=== PATIENT | female | born 1940 | race Caucasian/White ===

== ENCOUNTER → 2016-08-15 | Outpatient (CLI) | payer MEDICARE, OTHER ==
[2015-09-02 19:15] VITALS: BP 139/79
[~2016-08-15] MED LIST: ASCO10002 PO; ASPI81TA2 PO; CALC600T4 PO; CARV3.12 PO; CETI10TA22 PO; CHOL10002 PO; COLE5PAC PO; CRESTOR40 MG PO; CYAN100072 PO; DIPH25CA58 PO; ESOM40CA25 PO; FENO48TA16 PO; FLUT16SP2 NS; FLUT1DIS5 IH; FURO40TA4 PO; GUAI120L35 PO; HYDR-971 PO; IPRA3AMP IH; LACT1CAP PO; LEVO500T38 PO; LOSA25TA PO; METO2.5T PO; MONT10TA9 PO; NITR0.4T6 SL; OMEG-57 PO; POLY119P4 PO; POTA20TA82 PO; PRED-220 PO; PRED20TA PO; SERT50TA8 PO; SIME80TA14 PO; TIOT18CA IH
[2016-08-15 12:28] LABS: CALCIUM 8.7 mg/dL (8.5-10.1); CREATININE 1.8 mg/dL (0.6-1.0); GFR 27.2; POTASSIUM 4.5 mmol/L (3.5-5.1)
== END | disposition home or self-care (01) ==
LOC: LAB 11:53
PROVIDERS: ATTEND Internal Medicine Cardiovascular Disease
DX: I50.30 Unspecified diastolic (congestive) heart failure (principal)
CPT/HCPCS: 36415; 80048; 83880

== ENCOUNTER 2016-08-19 10:34 | Emergency (ER) | payer MEDICARE, OTHER ==
[~2016-08-19] VITALS: Ht 157.5 cm; Wt 89.4 kg
[2016-08-19] MEDS ORDERED: ACETAMINOPHEN 500 MG TABLET PO ONE (11:15)
--- NOTE | 2016-08-19 11:19 | PHYS DOC ---
Past Medical History Past Medical History: Constipation, COPD, GERD, High Cholesterol Additional Past Medical Histor: CHRONIC KIDNEY DISEASE Past Surgical History: Appendectomy, Cholecystectomy, Tonsillectomy, Other Additional Past Surgical Histo: CARDIAC STENT, BACK SX Alcohol Use: None Drug Use: None Adult General Chief Complaint Chief Complaint: SHORTNESS OF BREATH HPI HPI Patient is a 76 year old female who presents with gradual onset of symptoms over the past 3 days including sore throat, rhinorrhea, dry cough, headache, and dyspnea. States has improvement in dyspnea since taking nebs this a.m. Has been using NC 2L at rest per chronic level. She denies f/c, n/v, abdominal or chest pain, hemoptysis, leg pain or swelling. Says she did have some bilateral leg swelling a few days ago that has resolved. Review of Systems Review of Systems Constitutional: Denies fever or chills [] Eyes: Denies change in visual acuity, redness, or eye pain [] HENT: Has nasal congestion and sore throat [] Respiratory: Has cough and shortness of breath [] Cardiovascular: No additional information not addressed in HPI [] GI: Denies abdominal pain, nausea, vomiting, bloody stools or diarrhea [] : Denies dysuria or hematuria [] Musculoskeletal: Denies back pain or joint pain [] Integument: Denies rash or skin lesions [] Neurologic: Denies headache, focal weakness or sensory changes [] Endocrine: Denies polyuria or polydipsia [] Current Medications Current Medications Current Medications Medications (Trade) Dose Ordered Sig/Deidra Start Time Stop Time Status Last Admin Dose Admin Acetaminophen (Tylenol) 500 mg 1X ONCE 08/19/16 11:15 08/19/16 11:16 DC 08/19/16 11:27 500 MG Allergies Allergies Allergies Coded Allergies Type Severity Reaction Last Updated Verified Penicillins Allergy Intermediate 02/28/15 Yes Sulfa (Sulfonamide Antibiotics) Allergy Intermediate 02/28/15 Yes I S O L A T I O N *CONTACT* Allergy Unknown 05/19/15 Yes Physical Exam Physical Exam Constitutional: Well developed, well nourished, no acute distress, non-toxic appearance. [] HENT: Normocephalic, atraumatic, bilateral external ears normal, oropharynx moist, nose normal. [] Eyes: PERRLA, EOMI. [] Neck: Normal range of motion, supple. [] Cardiovascular:Heart rate regular rhythm [] Lungs & Thorax: Bilateral breath sounds clear to auscultation [] Abdomen: Bowel sounds normal, soft, no tenderness. [] Skin: Warm, dry, no erythema, no rash. [] Back: Normal range of motion. [] Extremities: No tenderness, ROM intact, no edema. [] Neurologic: Alert and oriented X 3, normal motor function, normal sensory function, no focal deficits noted. [] Psychologic: Affect normal, judgement normal, mood normal. [] Current Patient Data Vital Signs Vital Signs Date Time Temp Pulse Resp B/P Pulse Ox O2 Delivery O2 Flow Rate FiO2 08/19/16 10:47 98.0 67 20 148/67 98 Room Air 98.0 Lab Values Laboratory Tests Test 08/19/16 11:55 White Blood Count 5.7x10^3/uL (4.0-11.0) Red Blood Count 3.86x10^6/uL (3.50-5.40) Hemoglobin 12.0g/dL (12.0-15.5) Hematocrit 36.5% (36.0-47.0) Mean Corpuscular Volume 95fL (79-100) Mean Corpuscular Hemoglobin 31pg (25-35) Mean Corpuscular Hemoglobin Concent 33g/dL (31-37) Red Cell Distribution Width 13.4% (11.5-14.5) Platelet Count 200x10^3/uL (140-400) Neutrophils (%) (Auto) 49% (31-73) Lymphocytes (%) (Auto) 38% (24-48) Monocytes (%) (Auto) 10% (0-9) H Eosinophils (%) (Auto) 3% (0-3) Basophils (%) (Auto) 1% (0-3) Neutrophils # (Auto) 2.8x10^3uL (1.8-7.7) Lymphocytes # (Auto) 2.2x10^3/uL (1.0-4.8) Monocytes # (Auto) 0.5x10^3/uL (0.0-1.1) Eosinophils # (Auto) 0.2x10^3/uL (0.0-0.7) Basophils # (Auto) 0.0x10^3/uL (0.0-0.2) Sodium Level 140mmol/L (136-145) Potassium Level 4.5mmol/L (3.5-5.1) Chloride Level 106mmol/L (98-107) Carbon Dioxide Level 30mmol/L (21-32) Anion Gap 4 (6-14) L Blood Urea Nitrogen 26mg/dL (7-20) H Creatinine 1.6mg/dL (0.6-1.0) H Estimated GFR (Cockcroft-Gault) 31.2 Glucose Level 91mg/dL (70-99) Calcium Level 8.3mg/dL (8.5-10.1) L Influenza Type A Antigen Negative (NEGATIVE) Influenza Type B Antigen Negative (NEGATIVE) Laboratory Tests 08/19/16 11:55 Laboratory Tests 08/19/16 11:55 EKG EKG EKG as interpreted by me as sinus rhythm with interventricular block, rate 61, no ST-T changes, P-R 228, QTc 441, no ectopy Radiology/Procedures Radiology/Procedures Chest xray as interpreted by me with no acute cardiopulmonary disease process Course & Med Decision Making Course & Med Decision Making Pertinent Labs and Imaging studies reviewed. (See chart for details) Offered neb, but she states her breathing is at baseline now. Headache improved with Tylenol. Workup is otherwise unremarkable. Suspect viral upper respiratory infection. She was taken on walking desat on 4 L nasal cannula, and tolerated this well. Return precautions given. She and family understand and agree with plan. Dragon Disclaimer Dragon Disclaimer This electronic medical record was generated, in whole or in part, using a voice recognition dictation system. Departure Departure Impression: Primary Impression: Upper respiratory infection, viral Disposition: 01 HOME, SELF-CARE Condition: STABLE Referrals: DILAN GONZALEZ MD (PCP) Patient Instructions: Upper Respiratory Infection, Adult, [place] Additional Instructions: Follow-up with your primary care doctor within one week. Return for any concerns. Steve MARKHAM MD Aug 19, 2016 11:19
--- NOTE | 2016-08-19 11:42 | RAD ---
2 view CXR: Clinical indications: Shortness of breath this morning. Comparison: Chest x-ray dated September 02, 2015. Findings: No acute lung infiltrate or pleural effusion or pulmonary edema or lung mass or pneumothorax is seen. Heart size is mildly enlarged but stable. The pulmonary vasculature, mediastinum and both marysol are unchanged. Again seen are compression fractures of T7 and T8 and T11 which are unchanged from a May 19, [address] The T8 vertebral body compression fracture has been treated with a vertebroplasty. Impression: No acute radiographic abnormality is seen. Stable mild cardiomegaly. Stable multiple compression fractures of the thoracic spine.
[2016-08-19 12:14] LABS: BASO % 1 % (0-3); EOS % 3 % (0-3); HEMATOCRIT 36.5 % (36.0-47.0); LYMPH # 2.2 x10^3/uL (1.0-4.8); LYMPH % 38 % (24-48); MEAN CORPUSCULAR HEMOGLOBIN 31 pg (25-35); MEAN CORPUSCULAR HGB CONC 33 g/dL (31-37); MEAN CORPUSCULAR VOLUME 95 fL (79-100); MONO % 10 % (0-9); NEUT % 49 % (31-73); PLATELET COUNT 200 x10^3/uL (140-400); RED BLOOD COUNT 3.86 x10^6/uL (3.50-5.40); RED CELL DISTRIBUTION WIDTH 13.4 % (11.5-14.5); WHITE BLOOD COUNT 5.7 x10^3/uL (4.0-11.0)
[2016-08-19 12:17] LABS: CALCIUM 8.3 mg/dL (8.5-10.1); CREATININE 1.6 mg/dL (0.6-1.0); GFR 31.2; POTASSIUM 4.5 mmol/L (3.5-5.1)
[2016-08-19 12:35] LABS: OBC FLU VALID
[2016-08-19 13:30] VITALS: BP 143/61
--- NOTE | 2016-08-20 06:28 | EKG ---
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
== END 2016-08-19 13:55 | disposition home or self-care (01) ==
LOC: ER 10:34
DX: J06.9 Acute upper respiratory infection, unspecified (principal); B34.9 Viral infection, unspecified; R51 Headache; M79.89 Other specified soft tissue disorders; E78.00 Pure hypercholesterolemia, unspecified; J44.9 Chronic obstructive pulmonary disease, unspecified; K21.9 Gastro-esophageal reflux disease without esophagitis; N18.9 Chronic kidney disease, unspecified; Z88.2 Allergy status to sulfonamides; Z91.041 Radiographic dye allergy status; Z88.0 Allergy status to penicillin; Z90.49 Acquired absence of other specified parts of digestive tract; Z95.5 Presence of coronary angioplasty implant and graft
CPT/HCPCS: 36415; 71020; 80048; 85027; 87804; 93005; 99285-25

== ENCOUNTER → 2017-04-01 | Outpatient (CLI) | payer MEDICARE, OTHER ==
[~2017-04-01] MED LIST changes: +ASPI-630 PO; -ASPI81TA2 PO; -LEVO500T38 PO; +LEVO500T59 PO; +NITR0.4T22 SL; -NITR0.4T6 SL
--- NOTE | 2017-04-01 15:51 | RAD ---
APPROVED REPORT Patient Location: OUT-PATIENT Indications AAA Duplex Results A/PTransverseLongitudinal Proximal Aorta 1.8cm2.3cm Mid Aorta 3.3cm4.2cm Distal Aorta 1.0cm1.6cm Rt. Common Iliac Artery1.2cm Lt. Common Iliac Artery 1.3cm Doppler VelocityWaveform Aorta Mid. 94.0 cm/sec Findings Grayscale images of the abdominal aorta and color Doppler images were obtained. Grayscale images reveal mild at first chronic plaque. The mid abdominal aorta has a 4.1 cm aneurysm i n the transverse dimension which is unchanged from last year. 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
== END | disposition home or self-care (01) ==
LOC: US 10:07
PROVIDERS: ATTEND Internal Medicine Cardiovascular Disease
DX: I71.4 Abdominal aortic aneurysm, without rupture (principal)
CPT/HCPCS: 76770

== ENCOUNTER → 2018-03-03 | Outpatient (CLI) | payer MEDICARE, OTHER ==
[2017-10-31 15:00] VITALS: BP 155/70
[~2018-03-03] MED LIST changes: -IPRA3AMP IH; +IPRA3AMP29 IH
--- NOTE | 2018-03-03 17:14 | KCIC ---
CT CHEST WO CONTRAST dated 03/03/2018 3:30 PM Indication: Follow-up pulmonary infiltrate, history of tobacco use.. Comparison: 05/19/2015. Technique: Contiguous axial imaging the chest performed without the administration of intravenous contrast. One or more of the following individualized dose reduction techniques were utilized for this examination: 1. Automated exposure control 2. Adjustment of the mA and/or kV according to patient size 3. Use of iterative reconstruction technique Findings: Heart size mildly enlarged. Coronary artery calcifications. Ectasia of the ascending thoracic aorta measuring 4 cm transverse. There are calcified mediastinal and left hilar lymph nodes. No mediastinal, hilar or axillary lymphadenopathy. Low-density nodule of the right lobe thyroid gland measures up to 1.7 cm in size. Central airways are patent. Moderate emphysema. There are a few scattered calcified granuloma. Linear bands of increased density in the lower lobes, likely scar or atelectasis. No suspicious noncalcified pulmonary nodule or mass. No pleural effusion. Noncalcified pulmonary nodule in the right lower lobe on image 45 measures 4 mm, stable from prior exam. Limited images of the upper abdomen unremarkable. Gallbladder is surgically absent. Prominent supraumbilical ventral hernia containing only fat, incompletely included on the study. Bone windows show no acute findings. Wedge compression deformities of T7 and T8 with evidence of prior vertebroplasty at T8, unchanged from prior study. There is also mild wedge compression deformity of T11, unchanged. IMPRESSION: 1. No acute abnormality of chest. 2. Bibasilar scar or atelectasis. 3. Mild to moderate emphysema. 4. Coronary artery calcifications and mild aortic ectasia. 5. Multiple remote thoracic wedge compression fractures, unchanged from prior study Electronically signed by: Bhupinder Gamble MD (03/03/2018 5:10 PM) [facility]
== END | disposition home or self-care (01) ==
LOC: KCIC CT 15:24
PROVIDERS: ATTEND Internal Medicine Pulmonary Disease
DX: J43.8 Other emphysema (principal); I77.810 Thoracic aortic ectasia; I25.10 Atherosclerotic heart disease of native coronary artery without angina pectoris; M48.54XD Collapsed vertebra, not elsewhere classified, thoracic region, subsequent encounter for fracture with routine healing; R91.1 Solitary pulmonary nodule; I13.0 Hypertensive heart and chronic kidney disease with heart failure and stage 1 through stage 4 chronic kidney disease, or unspecified chronic kidney disease; I50.9 Heart failure, unspecified; N18.4 Chronic kidney disease, stage 4 (severe); Z72.0 Tobacco use
CPT/HCPCS: 71250

== ENCOUNTER → 2019-01-26 | Outpatient (CLI) | payer MEDICARE ==
[2017-10-31 15:00] VITALS: BP 155/70
[~2019-01-26] MED LIST changes: +HYDR-3164 PO; -HYDR-971 PO; +MONT10TA49 PO; -MONT10TA9 PO
--- NOTE | 2019-01-26 11:46 | RAD ---
MR#: [id number] Date of Study: 01/26/2019 Ordering Physician: MARIELA MELÉNDEZ, Referring Physician: MARIELA MELÉNDEZ, Tech: Catracho Hammonds MBA, RDMS, RVT, RDCS, RTR APPROVED REPORT Patient Location: OUT-PATIENT Indications AAA Duplex Results A/PTransverseLongitudinal Mid Aorta 3.7cm4.2cm Distal Aorta 1.2cm1.8cm Rt. Common Iliac Artery1.6cm Lt. Common Iliac Artery 1.6cm Findings Technically limited grayscale images due to body habitus. The proximal abdominal aorta is not well vi sualized. The mid abdominal aorta has a 4.1-4.2 cm aneurysm which was stable in size compared to 2017 . No significant iliac disease in the proximal segments is noted. Critical Notification Critical Value: No <Conclusion> 1. Stable appearance of mid abdominal aortic aneurysm at approximately 4.1 cm. Signed by : Mariela Meléndez, Electronically Approved : 01/26/2019 11:45:29
== END | disposition home or self-care (01) ==
LOC: US 10:14
PROVIDERS: ATTEND Internal Medicine Cardiovascular Disease
DX: I71.4 Abdominal aortic aneurysm, without rupture (principal)
CPT/HCPCS: 76770

== ENCOUNTER → 2019-02-12 | Outpatient (CLI) | payer MEDICARE ==
[2017-10-31 15:00] VITALS: BP 155/70
--- NOTE | 2019-02-12 15:19 | CARD ---
MR#: [id number] Date of Study: 02/12/2019 Ordering Physician: MARIELA MELÉNDEZ, Referring Physician: MARIELA MELÉNDEZ, Tech: Ute Ponce APPROVED REPORT EXAM: Two-dimensional and M-mode echocardiogram with Doppler and color Doppler. Other Information Quality : AverageHR: 59bpm INDICATION Chronic Diastolic Dysfunction 2D DIMENSIONS RVDd3.1 (2.9-3.5cm)Left Atrium(2D)4.2 (1.6-4.0cm) IVSd0.8 (0.7-1.1cm)Aortic Root(2D)3.1 (2.0-3.7cm) LVDd4.7 (3.9-5.9cm)LVOT Diameter2.1 (1.8-2.4cm) PWd1.1 (0.7-1.1cm)LVDs2.0 (2.5-4.0cm) LVEF(%)58.0 (>50%) Aortic Valve AoV Peak Inderjit.124.7cm/sAoV VTI26.7cm AO Peak GR.6.2mmHgLVOT Peak Inderjit.83.4cm/s LVOT VTI 17.06cmAO Mean GR.4mmHg RIMMA (VMAX)1.91uo8DYW (VTI)2.28cm2 Mitral Valve MV E Nprfybsa81.8cm/sMV DECEL [id number] MV A Siguytgz91.9cm/sMV [id number] E/A Ratio0.6MVA (PHT)1.92cm2 TDI E/Lateral E'7.5E/Medial E'10.3 Pulmonary Valve PV Peak Ujqdpmvv34.9cm/sPV Peak Grad.4mmHg Tricuspid Valve RAP [id number] Pulmonary Vein S1 Whrgkait43.0cm/sD2 Myasjxby61.2cm/s PVa [id number] LEFT VENTRICLE The left ventricle is normal size. There is normal left ventricular wall thickness. The left ventricu lar systolic function is normal. The Ejection Fraction is 55-60%. There is normal LV segmental wall m otion. Transmitral Doppler flow pattern is Grade I-abnormal relaxation pattern. RIGHT VENTRICLE The right ventricle is normal size. There is normal right ventricular wall thickness. The right ventr icular systolic function is normal. ATRIA The left atrium is mildly dilated. The right atrium size is normal. The interatrial septum is intact with no evidence for an atrial septal defect or patent foramen ovale as noted on 2-D or Doppler imagi ng. AORTIC VALVE The aortic valve is calcified but opens well. Doppler and Color Flow revealed no significant aortic r egurgitation. There is no significant aortic valvular stenosis. MITRAL VALVE The mitral valve is calcified but opens well. There is no evidence of mitral valve prolapse. There is no mitral valve stenosis. Doppler and Color-flow revealed trace mitral regurgitation. TRICUSPID VALVE The tricuspid valve is not well visualized. Doppler and Color Flow revealed trace tricuspid regurgita tion. There is no tricuspid valve stenosis. PULMONIC VALVE The pulmonic valve is not well visualized. Doppler and Color Flow revealed no pulmonic valvular regur gitation. GREAT VESSELS The aortic root is normal in size. The ascending aorta is normal in size. The IVC is normal in size a nd collapses >50% with inspiration. PERICARDIAL EFFUSION There is no pleural effusion. There is no evidence of significant pericardial effusion. Critical Notification Critical Value: No <Conclusion> The left ventricular systolic function is normal. The Ejection Fraction is 55-60%. There is normal LV segmental wall motion. Transmitral Doppler flow pattern is Grade I-abnormal relaxation pattern. Trace mitral regurgitation. Trace tricuspid regurgitation. There is no evidence of significant pericardial effusion. Signed by : Sam Glover, Electronically Approved : 02/12/2019 15:19:03
== END | disposition home or self-care (01) ==
LOC: ECHO 14:06
PROVIDERS: ATTEND Internal Medicine Cardiovascular Disease
DX: I08.0 Rheumatic disorders of both mitral and aortic valves (principal); I50.32 Chronic diastolic (congestive) heart failure
CPT/HCPCS: 93306

== ENCOUNTER 2019-08-08 23:26 | Emergency (ER) | payer OTHER, MEDICAID ==
[~2019-08-08] VITALS: Ht 162.6 cm; Wt 84.1 kg
[~2019-08-08 23:26] MED LIST changes: -CETI10TA22 PO; +CETI10TA24 PO; +POTA20TA4 PO; -POTA20TA82 PO
--- NOTE | 2019-08-08 23:41 | PHYS DOC ---
Past Medical History Past Medical History: CAD, Constipation, COPD, GERD, High Cholesterol, Renal Disease Additional Past Medical Histor: CHRONIC KIDNEY DISEASE Past Surgical History: Appendectomy, Cholecystectomy, Tonsillectomy, Other Additional Past Surgical Histo: CARDIAC STENT, BACK SX Smoking Status: Former Smoker Alcohol Use: None Drug Use: None General Adult EDM: Chief Complaint: SHORTNESS OF BREATH HPI: HPI: Patient is a 79 year old female who presents via EMS with report of shortness of breath that started earlier today. Patient states that shortness of breath has been progressively worsening. Patient is used her albuterol at home without relief. She denies any chest pain. She also denies any significant cough or fever. Patient states that shortness of breath is worsened with minimal exertion. Patient normally is on 3 L of oxygen and EMS reports that her oxygen saturation was around 94% on 3 L. Patient's son reportedly had called 911 because he felt that his mother was breathing too fast.[] Review of Systems: Review of Systems: Constitutional: Denies fever or chills. [] Respiratory: Complains of shortness of breath. [] Cardiovascular: Denies chest pain or edema. [] GI: Denies abdominal pain, nausea, vomiting or diarrhea. [] Integument: Denies rash. [] Neurologic: Denies headache, focal weakness or sensory changes. [] A full 10 point review of systems has been reviewed and is otherwise negative. Heart Score: Risk Factors: Risk Factors: DM, Current or recent (<one month) smoker, HTN, HLP, family history of CAD, obesity. Risk Scores: Score 0 - 3: 2.5% MACE over next 6 weeks - Discharge Home Score 4 - 6: 20.3% MACE over next 6 weeks - Admit for Clinical Observation Score 7 - 10: 72.7% MACE over next 6 weeks - Early Invasive Strategies Allergies: Allergies: Allergies Coded Allergies Type Severity Reaction Last Updated Verified Penicillins Allergy Intermediate 02/28/15 Yes Sulfa (Sulfonamide Antibiotics) Allergy Intermediate 02/28/15 Yes I S O L A T I O N *CONTACT* Allergy Unknown 05/19/15 Yes Physical Exam: PE: Constitutional: Well developed, well nourished, no acute distress, non-toxic appearance. [] HENT: Normocephalic, atraumatic, bilateral external ears normal, oropharynx moist, no oral exudates, nose normal. [] Eyes: PERRLA, EOMI, conjunctiva normal, no discharge. [] Neck: Normal range of motion, no tenderness, supple, no stridor. [] Cardiovascular: Regular rate and rhythm[] Lungs & Thorax: Diminished breath sounds are noted bilaterally with very fine wheezes noted in the lung bases to auscultation [] Abdomen: Bowel sounds normal, soft, no tenderness. [] Skin: Warm, dry, no erythema, no rash. [] Extremities: No tenderness, no cyanosis, no clubbing, ROM intact. [] Neurologic: Alert and oriented X 3, no focal deficits noted. [] EKG: EKG: [] Radiology/Procedures: Radiology/Procedures: [] Impression: PROCEDURE: PORTABLE CHEST 1V AP chest x-ray COMPARISON: Chest x-ray August 19, 2016. HISTORY: Dyspnea. FINDINGS: Mild cardiomegaly grossly stable to prior x-rays. Aortic arch calcified plaque stable. Right upper lobe azygos lobe variant again noted. Small calcified granuloma left lower lobe stable. No pneumothorax, pulmonary opacities or pleural effusions. Bones are unremarkable. IMPRESSION: No acute process. Mild cardiomegaly is stable. Electronically signed by: Ottoniel Martinez MD (08/09/2019 12:27 AM) [id number] Course & Med Decision Making: Course & Med Decision Making Pertinent Labs and Imaging studies reviewed. (See chart for details) [] Dragon Disclaimer: Dragon Disclaimer: This electronic medical record was generated, in whole or in part, using a voice recognition dictation system. Departure Departure Impression: Primary Impression: COPD (chronic obstructive pulmonary disease) Qualified Codes: J44.9 - Chronic obstructive pulmonary disease, unspecified Disposition: 01 HOME, SELF-CARE Condition: STABLE Referrals: DILAN GONZALEZ MD (PCP) Patient Instructions: Chronic Obstructive Pulmonary Disease Scripts Methylprednisolone (MEDROL) 4 Mg Tab.ds.pk 1 PKG PO UD, #1 PKG Prov: MYRON SANTIZO Jr. DO 08/09/19 MYRON SANTIZO Jr. DO Aug 08, 2019 23:41
[2019-08-08] MEDS ORDERED: methylPREDNISolone SOD SUCC PF 125 MG/2 ML VIAL. IV ONE (23:45)
[2019-08-08] MEDS ORDERED: IPRATRPIUM/ALBUTEROL 0.5/2.5MG 3 ML NEBU. NEB ONE (23:45)
[2019-08-08 23:52] LABS: BASO % 1 % (0-3); EOS # 0.1 x10^3/uL (0.0-0.7); EOS % 2 % (0-3); HEMATOCRIT 38.4 % (36.0-47.0); HEMOGLOBIN 12.7 g/dL (12.0-15.5); LYMPH # 2.4 x10^3/uL (1.0-4.8); LYMPH % 32 % (24-48); MEAN CORPUSCULAR HEMOGLOBIN 31 pg (25-35); MEAN CORPUSCULAR HGB CONC 33 g/dL (31-37); MEAN CORPUSCULAR VOLUME 94 fL (79-100); MONO # 0.6 x10^3/uL (0.0-1.1); MONO % 7 % (0-9); NEUT # 4.4 x10^3/uL (1.8-7.7); NEUT % 58 % (31-73); PLATELET COUNT 232 x10^3/uL (140-400); RED BLOOD COUNT 4.08 x10^6/uL (3.50-5.40); RED CELL DISTRIBUTION WIDTH 14.1 % (11.5-14.5); WHITE BLOOD COUNT 7.6 x10^3/uL (4.0-11.0)
[2019-08-08] MEDS ORDERED: ALBUTEROL SULFATE 2.5 MG/3 ML NEBU. CONT NEB ONE (23:55)
[2019-08-09 00:06] LABS: CALCIUM 8.9 mg/dL (8.5-10.1); CREATININE 1.3 mg/dL (0.6-1.0); GFR 39.3
[2019-08-09 00:13] LABS: ALBUMIN 3.6 g/dL (3.4-5.0); TOTAL BILIRUBIN 0.3 mg/dL (0.2-1.0); TOTAL PROTEIN 7.1 g/dL (6.4-8.2)
--- NOTE | 2019-08-09 00:18 | EKG ---
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
--- NOTE | 2019-08-09 00:30 | RAD ---
AP chest x-ray COMPARISON: Chest x-ray August 19, 2016. HISTORY: Dyspnea. FINDINGS: Mild cardiomegaly grossly stable to prior x-rays. Aortic arch calcified plaque stable. Right upper lobe azygos lobe variant again noted. Small calcified granuloma left lower lobe stable. No pneumothorax, pulmonary opacities or pleural effusions. Bones are unremarkable. IMPRESSION: No acute process. Mild cardiomegaly is stable. Electronically signed by: Ottoniel Martinez MD (08/09/2019 12:27 AM) [id number]
[2019-08-09] MEDS ORDERED: METH4TAB2 PO (00:43)
[2019-08-09 00:46] LABS: INFLUENZA A PATIENT NEGATIVE (NEGATIVE); INFLUENZA B PATIENT NEGATIVE (NEGATIVE)
[2019-08-09 01:13] VITALS: BP 195/91
== END 2019-08-09 01:30 | disposition home or self-care (01) ==
LOC: ER 23:26
DX: J44.9 Chronic obstructive pulmonary disease, unspecified (principal); K21.9 Gastro-esophageal reflux disease without esophagitis; E78.00 Pure hypercholesterolemia, unspecified; I25.10 Atherosclerotic heart disease of native coronary artery without angina pectoris; N18.9 Chronic kidney disease, unspecified; Z90.89 Acquired absence of other organs; Z90.49 Acquired absence of other specified parts of digestive tract; Z87.891 Personal history of nicotine dependence; Z95.5 Presence of coronary angioplasty implant and graft; Z88.0 Allergy status to penicillin; Z88.2 Allergy status to sulfonamides; Z91.041 Radiographic dye allergy status
CPT/HCPCS: 36415; 71045; 80053; 83880; 84484; 85025; 87804; 93005; 94644; 96374; 99285; J2930; 94640; J7613

== ENCOUNTER 2019-09-24 12:46 | Inpatient (IN) | payer MEDICAID, OTHER ==
[~2019-09-24] VITALS: Ht 167.6 cm; Wt 94.7 kg
[~2019-09-24 12:46] MED LIST changes: +METH4TAB2 PO
[2019-09-24 14:47] LABS: BASO % 1 % (0-3); EOS # 0.1 x10^3/uL (0.0-0.7); EOS % 2 % (0-3); HEMATOCRIT 36.8 % (36.0-47.0); HEMOGLOBIN 12.2 g/dL (12.0-15.5); LYMPH # 1.9 x10^3/uL (1.0-4.8); LYMPH % 32 % (24-48); MEAN CORPUSCULAR HEMOGLOBIN 31 pg (25-35); MEAN CORPUSCULAR HGB CONC 33 g/dL (31-37); MEAN CORPUSCULAR VOLUME 93 fL (79-100); MONO # 0.4 x10^3/uL (0.0-1.1); MONO % 8 % (0-9); NEUT # 3.4 x10^3/uL (1.8-7.7); NEUT % 58 % (31-73); PLATELET COUNT 217 x10^3/uL (140-400); RED BLOOD COUNT 3.96 x10^6/uL (3.50-5.40); RED CELL DISTRIBUTION WIDTH 13.8 % (11.5-14.5); WHITE BLOOD COUNT 5.9 x10^3/uL (4.0-11.0)
[2019-09-24 14:49] LABS: BILIRUBIN,URINE NEGATIVE (NEG); CLARITY,URINE CLEAR; COLOR,URINE YELLOW; NITRITE,URINE NEGATIVE (NEG); PH,URINE 5.5 (<5.0-8.0); PROTEIN,URINE NEGATIVE (NEG-TRACE); UROBILINOGEN,URINE 0.2 mg/dL (0.2 mg/dL)
[2019-09-24 15:07] LABS: BACTERIA,URINE 0 /HPF (0-FEW); RBC,URINE 0 /HPF (0-2); WBC,URINE 0 /HPF (0-4)
--- NOTE | 2019-09-24 15:11 | RAD ---
AP chest. HISTORY: Short of breath AP view was taken of the chest. Heart is upper normal in size. There is atherosclerotic change in the aorta. 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 Patient's not taken a deep inspiration. There is no effusion. There are no confluent infiltrates. IMPRESSION: 1. No acute infiltrates. Electronically signed by: Carlos Callaway MD (09/24/2019 3:09 PM) [id number]
--- NOTE | 2019-09-24 15:23 | PHYS DOC ---
Past Medical History Past Medical History: CAD, Constipation, COPD, GERD, High Cholesterol, Renal Disease Additional Past Medical Histor: CHRONIC KIDNEY DISEASE Past Surgical History: Appendectomy, Cholecystectomy, Tonsillectomy, Other Additional Past Surgical Histo: CARDIAC STENT, BACK SX Smoking Status: Former Smoker Alcohol Use: None Drug Use: None General Adult EDM: Chief Complaint: SHORTNESS OF BREATH HPI: HPI: Patient is an 79-year-old female with multiple medical problems who presents with progressive shortness of breath and dyspnea on exertion. Family states she has been declining over some period of time however over the last 2 days has become very difficult for her to perform her activities of daily living secondary to shortness of breath. She denies any fever chills or sweats. She denies any cough or congestion. She does think that she is retaining fluid because her abdomen is a little larger than usual and she may have some swelling in her lower extremities. She denies hemoptysis. She does not describe any orthopnea. She said no nausea or diaphoresis.] Review of Systems: Review of Systems: Constitutional: Denies fever or chills. [] Eyes: Denies change in visual acuity. [] HENT: Denies nasal congestion or sore throat. [] Respiratory: Per HPI [] Cardiovascular: Denies chest pain or edema. [] GI: Denies abdominal pain, nausea, vomiting, bloody stools or diarrhea. [] : Denies dysuria. [] Musculoskeletal: Denies back pain or joint pain. [] Integument: Denies rash. [] Neurologic: Denies headache, focal weakness or sensory changes. [] Endocrine: Denies polyuria or polydipsia. [] Lymphatic: Denies swollen glands. [] Psychiatric: Denies depression or anxiety. [] Heart Score: Risk Factors: Risk Factors: DM, Current or recent (<one month) smoker, HTN, HLP, family history of CAD, obesity. Risk Scores: Score 0 - 3: 2.5% MACE over next 6 weeks - Discharge Home Score 4 - 6: 20.3% MACE over next 6 weeks - Admit for Clinical Observation Score 7 - 10: 72.7% MACE over next 6 weeks - Early Invasive Strategies Allergies: Allergies: Allergies Coded Allergies Type Severity Reaction Last Updated Verified Penicillins Allergy Intermediate 02/28/15 Yes Sulfa (Sulfonamide Antibiotics) Allergy Intermediate 02/28/15 Yes I S O L A T I O N *CONTACT* Allergy Unknown 05/19/15 Yes Physical Exam: PE: Constitutional: Well developed, well nourished, no acute distress, non-toxic appearance. [] HENT: Normocephalic, atraumatic, bilateral external ears normal, oropharynx moist, no oral exudates, nose normal. [] Eyes: PERRLA, EOMI, conjunctiva normal, no discharge. [] Neck: Normal range of motion, no tenderness, supple, no stridor. [] Cardiovascular:Heart rate regular rhythm, no murmur [] Lungs & Thorax: Bilateral breath sounds clear to auscultation [] Abdomen: Bowel sounds normal, soft, no tenderness, no masses, no pulsatile masses. [] Skin: Warm, dry, no erythema, no rash. [] Back: No tenderness, no CVA tenderness. [] Extremities: No tenderness, no cyanosis, no clubbing, ROM intact, no edema. [] Neurologic: Alert and oriented X 3, normal motor function, normal sensory f unction, no focal deficits noted. [] Psychologic: Affect normal, judgement normal, mood normal. [] Current Patient Data: Labs: Laboratory Tests Test 09/24/19 14:05 09/24/19 14:25 White Blood Count 5.9 x10^3/uL (4.0-11.0) Red Blood Count 3.96 x10^6/uL (3.50-5.40) Hemoglobin 12.2 g/dL (12.0-15.5) Hematocrit 36.8 % (36.0-47.0) Mean Corpuscular Volume 93 fL (79-100) Mean Corpuscular Hemoglobin 31 pg (25-35) Mean Corpuscular Hemoglobin Concent 33 g/dL (31-37) Red Cell Distribution Width 13.8 % (11.5-14.5) Platelet Count 217 x10^3/uL (140-400) Neutrophils (%) (Auto) 58 % (31-73) Lymphocytes (%) (Auto) 32 % (24-48) Monocytes (%) (Auto) 8 % (0-9) Eosinophils (%) (Auto) 2 % (0-3) Basophils (%) (Auto) 1 % (0-3) Neutrophils # (Auto) 3.4 x10^3/uL (1.8-7.7) Lymphocytes # (Auto) 1.9 x10^3/uL (1.0-4.8) Monocytes # (Auto) 0.4 x10^3/uL (0.0-1.1) Eosinophils # (Auto) 0.1 x10^3/uL (0.0-0.7) Basophils # (Auto) 0.0 x10^3/uL (0.0-0.2) Urine Collection Type Unknown Urine Color Yellow Urine Clarity Clear Urine pH 5.5 (<5.0-8.0) Urine Specific [place] 1.015 (1.000-1.030) Urine Protein Negative mg/dL (NEG-TRACE) Urine Glucose (UA) Negative mg/dL (NEG) Urine Ketones (Stick) Negative mg/dL (NEG) Urine Blood Negative (NEG) Urine Nitrite Negative (NEG) Urine Bilirubin Negative (NEG) Urine Urobilinogen Dipstick 0.2 mg/dL (0.2 mg/dL) Urine Leukocyte Esterase Negative (NEG) Urine RBC 0 /HPF (0-2) Urine WBC 0 /HPF (0-4) Urine Bacteria 0 /HPF (0-FEW) Urine Mucus Slight /LPF Laboratory Tests 09/24/19 14:05 Vital Signs: Vital Signs Date Time Temp Pulse Resp B/P (MAP) Pulse Ox O2 Delivery O2 Flow Rate FiO2 09/24/19 13:35 98.1 71 25 148/69 (95) 99 Nasal Cannula 2.0 98.1 EKG: EKG: [] Radiology/Procedures: Radiology/Procedures: []REASON: SHORTNESS OF BREATH PROCEDURE: CHEST AP ONLY AP chest. HISTORY: Short of breath AP view was taken of the chest. Heart is upper normal in size. There is atherosclerotic change in the aorta. 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 Patient's not taken a deep inspiration. There is no effusion. There are no confluent infiltrates. IMPRESSION: 1. No acute infiltrates. Course & Med Decision Making: Course & Med Decision Making Pertinent Labs and Imaging studies reviewed. (See chart for details) [ED course: Evaluation reveals an 79-year-old female who remarkably has excellent labs however when we walked her around the emergency department her oxygen saturation dipped into the low 80s. I suspect we need to keep her in the hospital for day or 2 to have pulmonary and possibly cardiology take a look and see if there is any reason for her desaturation.] Hayde Disclaimer: Hayde Disclaimer: This electronic medical record was generated, in whole or in part, using a voice recognition dictation system. Departure Departure Impression: Primary Impression: Dyspnea on minimal exertion Disposition: ADMITTED INPATIENT Admitting Physician: BRIAN Condition: GUARDED Referrals: MITCHELL SCHMITT DO (PCP) Justicifation of Admission Dx: Justifications for Admission: Justification of Admission Dx: Yes Respiratory Failure: Severe Resp Distress (Oxygen saturation 84% with minimal exertion on 4 L nasal cannula) RADHA CORTES DO Sep 24, 2019 15:23
[2019-09-24 15:38] LABS: CALCIUM 8.5 mg/dL (8.5-10.1); CREATININE 1.5 mg/dL (0.6-1.0); GFR 33.3; POTASSIUM 4.2 mmol/L (3.5-5.1)
[2019-09-24 15:44] LABS: ALBUMIN 3.3 g/dL (3.4-5.0); MAGNESIUM 2.2 mg/dL (1.8-2.4); TOTAL BILIRUBIN 0.3 mg/dL (0.2-1.0); TOTAL PROTEIN 6.7 g/dL (6.4-8.2)
--- NOTE | 2019-09-24 15:44 | EKG ---
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
[2019-09-24] MEDS ORDERED: ONDANSETRON PF 4 MG/2 ML VIAL. IV PRN ×2 (16:30→18:45)
[2019-09-24] MEDS ORDERED: ACETAMINOPHEN 325 MG TABLET. PO PRN (16:30)
--- NOTE | 2019-09-24 18:08 | PDOC1 ---
History and Physical Date of Admission Date of Admission DATE: 09/24/19 TIME: 18:07 Identification/Chief Complaint Chief Complaint seen in er with hypoxia on activity , inc soa 79-year-old female with multiple medical problems who presents with progressive shortness of breath and dyspnea on exertion. Family states she has been declining over some period of time however over the last 2 days has become very difficult for her to perform her activities of daily living secondary to shortness of breath. denies any fever chills or sweats. She denies any cough or congestion. She does think that she is retaining fluid because her abdomen is a little larger than usual and she may have some swelling in her lower extremities. // denies hemoptysis. She said no nausea or diaphoresis. with ambulation in er desatted to 83% o2 Past Medical History Past Medical History Past Medical History Past Medical History: CAD, Constipation, COPD, GERD, High Cholesterol, Renal Disease Additional Past Medical Histor: CHRONIC KIDNEY DISEASE Past Surgical History: Appendectomy, Cholecystectomy, Tonsillectomy, Other Additional Past Surgical Histo: CARDIAC STENT, BACK SX Smoking Status: Former Smoker Alcohol Use: None Drug Use: None fhx obesity Cardiovascular: CAD, CHF, HTN, Hyperlipidemia, Other Pulmonary: Asthma, COPD, Other CENTRAL NERVOUS SYSTEM: Seizure GI: GERD, Other Heme/Onc: Anemia NOS Hepatobiliary: No pertinent hx Psych: Depression Musculoskeletal: Osteoarthritis Rheumatologic: No pertinent hx Infectious disease: No pertinent hx Renal/: Chronic renal insuff Endocrine: No pertinent hx Past Surgical History Past Surgical History: Appendectomy, Cholecystectomy, Other Family History Family History: Chronic Bronchitis, Heart Disease Family History: Parent Social History Smoke: Quit (quit 20 yrs ago pos 50 pk yr hx ) ALCOHOL: none Drugs: None Current Problem List Problem List Problems Medical Problems: (1) Dyspnea on minimal exertion Status: Acute Current Medications Current Medications Current Medications Ondansetron HCl (Zofran) 4 mg PRN Q8HRS PRN IV NAUSEA/VOMITING; Start 09/24/19 at 16:30; Stop 09/25/19 at 16:29 Acetaminophen (Tylenol) 650 mg PRN Q4HRS PRN PO FEVER > 100.3'F; Start 09/24/19 at 16:30; Stop 09/25/19 at 16:29 Albuterol/ Ipratropium (Duoneb) 3 ml RTQID NEB ; Start 09/24/19 at 20:00; Stop 09/25/19 at 19:59 Methylprednisolone Sodium Succinate (SOLU-Medrol 40MG VIAL) 40 mg Q8HRS IV ; Start 09/24/19 at 22:00 Active Scripts Active Medrol (Methylprednisolone) 4 Mg Tab.ds.pk 1 Pkg PO UD Prednisone 20 Mg Tablet 40 Mg PO DAILY 1 Days Coreg (Carvedilol) 3.125 Mg Tablet 3.125 Mg PO BIDWMEALS Simethicone 80 Mg Tab.chew 80 Mg PO PRN DAILY PRN 30 Days Acidophilus-Pectin Capsule (Lactobacillus Acidophilus/Pect) 1 Cap Capsule 1 Cap PO BID Codeine-Guaifen 10-100 mg/5 ml (Guaifenesin/Codeine Phosphate) 120 Ml Liquid 120 Ml PO PRN Q6-8HRS PRN Reported Aspirin 81 Mg Tab.chew 1 Tab PO DAILY Spiriva (Tiotropium [place]) 18 Mcg Cap.w.dev 2 Inh IH DAILY Flonase (Fluticasone Propionate) 16 Gm [place].susp 2 [place] NS DAILY Potassium Chloride (Potassium Chloride) 20 Meq Tablet.er 20 Meq PO TID Crestor (Rosuvastatin Calcium) 40 Mg Tablet 1 Tab PO HS Fish Oil + D3 Softgel ([place]-3S/Dha/Epa/Fish Oil/D3) 1 Each Capsule 2 Each PO DAILY Calcium (Calcium Carbonate) 600 Mg Tablet 600 Mg PO DAILY Vitamin C (Ascorbic Acid) 1,000 Mg Tablet 1,000 Mg PO DAILY Vitamin D (Cholecalciferol (Vitamin D3)) 1,000 Unit Tablet 1,000 Unit PO DAILY Miralax (Polyethylene Glycol 3350) 119 Gm Powder 17 Gm PO DAILY Furosemide 40 Mg Tablet 1 Tab PO BID B-12 (Cyanocobalamin (Vitamin B-12)) 1,000 Mcg Tablet 500 Mcg PO DAILY Tricor (Fenofibrate Nanocrystallized) 48 Mg Tablet 54 Mg PO DAILY Apex 5-325 Tablet (Acetaminophen/Hydrocodone Bitart) 1 Each Tablet 1 Tab PO TID NITROGLYCERIN SubLingual (Nitroglycerin) 0.4 Mg Tab.subl 0.4 Mg SL PRN Q5MIN PRN Cozaar (Losartan Potassium) 25 Mg Tablet 1 Tab PO DAILY Duoneb 0.5-3(2.5) Mg/3 Ml (Albuterol/Ipratropium) 3 Ml Ampul.neb 3 Ml IH Advair 500-50 Diskus (Fluticasone/Salmeterol) 1 Each Disk.w.dev 1 Puff IH BID Allergies Allergies: Coded Allergies: Penicillins (Verified Allergy, Intermediate, 02/28/15) Sulfa (Sulfonamide Antibiotics) (Verified Allergy, Intermediate, 02/28/15) I S O L A T I O N *CONTACT* (Verified Allergy, Unknown, 05/19/15) mrsa + ROS Review of System Constitutional: Denies fever or chills. [] Eyes: Denies change in visual acuity. [] HENT: Denies nasal congestion or sore throat. [] Respiratory: Per HPI [] Cardiovascular: Denies chest pain notes 2 plus ankle edema edema. [] GI: Denies abdominal pain, nausea, vomiting, bloody stools or diarrhea. [] : Denies dysuria. [] Musculoskeletal: Denies back pain or joint pain. [] Integument: Denies rash. [] Neurologic: Denies headache, focal weakness or sensory changes. [] Endocrine: Denies polyuria or polydipsia. [] Lymphatic: Denies swollen glands. [] Psychiatric: Denies depression or anxiety. [] 14 pt ros otherwise neg General: YES: Fatigue Physical Exam Physical Exam Physical Exam: PE: Constitutional: Well developed, well nourished, no acute distress, non-toxic appearance. [] HENT: Normocephalic, atraumatic, bilateral external ears normal, oropharynx mois t, no oral exudates, nose normal. [] Eyes: PERRLA, EOMI, conjunctiva normal, no discharge. [] Neck: Normal range of motion, no tenderness, supple, no stridor. [] Cardiovascular:Heart rate regular rhythm, no murmur [] Lungs & Thorax: Bilateral breath sounds clear to auscultation , diminished [] Abdomen: Bowel sounds normal, soft, no tenderness, no masses, no pulsatile masses. [] Skin: Warm, dry, no erythema, no rash. [] Back: No tenderness, no CVA tenderness. [] Extremities: No tenderness, no cyanosis, no clubbing, ROM intact, 2 plus pre- tibial edema edema. [] Neurologic: Alert and oriented X 3, normal motor function, normal sensory function, no focal deficits noted. [] Psychologic: Affect normal, judgment normal, mood normal. [] General: Alert, Oriented X3, Cooperative, No acute distress HEENT: EOMI, Mucous membr. moist/pink Heart: jugular vein distention Breasts: Not examined Abdomen: Normal bowel sounds, Soft, Other (VENTRAL HERNIA) Rectal Exam: not examined PELVIC: Examination not indicated Extremities: No cyanosis Neuro: Normal speech, Cranial nerves 3-12 NL Psych/Mental Status: Mental status NL, Mood NL Vitals Vitals Vital Signs Date Time Temp Pulse Resp B/P (MAP) Pulse Ox O2 Delivery O2 Flow Rate FiO2 09/24/19 15:25 69 167/90 (115) 99 Nasal Cannula 2.0 09/24/19 13:35 98.1 25 98.1 Labs Labs Laboratory Tests Test 09/24/19 14:05 09/24/19 14:25 09/24/19 15:15 White Blood Count 5.9 x10^3/uL (4.0-11.0) Red Blood Count 3.96 x10^6/uL (3.50-5.40) Hemoglobin 12.2 g/dL (12.0-15.5) Hematocrit 36.8 % (36.0-47.0) Mean Corpuscular Volume 93 fL (79-100) Mean Corpuscular Hemoglobin 31 pg (25-35) Mean Corpuscular Hemoglobin Concent 33 g/dL (31-37) Red Cell Distribution Width 13.8 % (11.5-14.5) Platelet Count 217 x10^3/uL (140-400) Neutrophils (%) (Auto) 58 % (31-73) Lymphocytes (%) (Auto) 32 % (24-48) Monocytes (%) (Auto) 8 % (0-9) Eosinophils (%) (Auto) 2 % (0-3) Basophils (%) (Auto) 1 % (0-3) Neutrophils # (Auto) 3.4 x10^3/uL (1.8-7.7) Lymphocytes # (Auto) 1.9 x10^3/uL (1.0-4.8) Monocytes # (Auto) 0.4 x10^3/uL (0.0-1.1) Eosinophils # (Auto) 0.1 x10^3/uL (0.0-0.7) Basophils # (Auto) 0.0 x10^3/uL (0.0-0.2) Urine Collection Type Unknown Urine Color Yellow Urine Clarity Clear Urine pH 5.5 (<5.0-8.0) Urine Specific [place] 1.015 (1.000-1.030) Urine Protein Negative mg/dL (NEG-TRACE) Urine Glucose (UA) Negative mg/dL (NEG) Urine Ketones (Stick) Negative mg/dL (NEG) Urine Blood Negative (NEG) Urine Nitrite Negative (NEG) Urine Bilirubin Negative (NEG) Urine Urobilinogen Dipstick 0.2 mg/dL (0.2 mg/dL) Urine Leukocyte Esterase Negative (NEG) Urine RBC 0 /HPF (0-2) Urine WBC 0 /HPF (0-4) Urine Bacteria 0 /HPF (0-FEW) Urine Mucus Slight /LPF Sodium Level 140 mmol/L (136-145) Potassium Level 4.2 mmol/L (3.5-5.1) Chloride Level 102 mmol/L (98-107) Carbon Dioxide Level 33 mmol/L (21-32) Anion Gap 5 (6-14) Blood Urea Nitrogen 14 mg/dL (7-20) Creatinine 1.5 mg/dL (0.6-1.0) Estimated GFR (Cockcroft-Gault) 33.3 BUN/Creatinine Ratio 9 (6-20) Glucose Level 106 mg/dL (70-99) Calcium Level 8.5 mg/dL (8.5-10.1) Magnesium Level 2.2 mg/dL (1.8-2.4) Total Bilirubin 0.3 mg/dL (0.2-1.0) Aspartate Amino Transf (AST/SGOT) 14 U/L (15-37) Alanine Aminotransferase (ALT/SGPT) 16 U/L (14-59) Alkaline Phosphatase 62 U/L (46-116) Troponin I Quantitative < 0.017 ng/mL (0.000-0.055) TX-Mjk-V-Type Natriuretic Peptide 269 pg/mL (0-449) Total Protein 6.7 g/dL (6.4-8.2) Albumin 3.3 g/dL (3.4-5.0) Albumin/Globulin Ratio 1.0 (1.0-1.7) Laboratory Tests Test 09/24/19 14:05 09/24/19 14:25 09/24/19 15:15 White Blood Count 5.9 x10^3/uL (4.0-11.0) Red Blood Count 3.96 x10^6/uL (3.50-5.40) Hemoglobin 12.2 g/dL (12.0-15.5) Hematocrit 36.8 % (36.0-47.0) Mean Corpuscular Volume 93 fL (79-100) Mean Corpuscular Hemoglobin 31 pg (25-35) Mean Corpuscular Hemoglobin Concent 33 g/dL (31-37) Red Cell Distribution Width 13.8 % (11.5-14.5) Platelet Count 217 x10^3/uL (140-400) Neutrophils (%) (Auto) 58 % (31-73) Lymphocytes (%) (Auto) 32 % (24-48) Monocytes (%) (Auto) 8 % (0-9) Eosinophils (%) (Auto) 2 % (0-3) Basophils (%) (Auto) 1 % (0-3) Neutrophils # (Auto) 3.4 x10^3/uL (1.8-7.7) Lymphocytes # (Auto) 1.9 x10^3/uL (1.0-4.8) Monocytes # (Auto) 0.4 x10^3/uL (0.0-1.1) Eosinophils # (Auto) 0.1 x10^3/uL (0.0-0.7) Basophils # (Auto) 0.0 x10^3/uL (0.0-0.2) Urine Collection Type Unknown Urine Color Yellow Urine Clarity Clear Urine pH 5.5 (<5.0-8.0) Urine Specific [place] 1.015 (1.000-1.030) Urine Protein Negative mg/dL (NEG-TRACE) Urine Glucose (UA) Negative mg/dL (NEG) Urine Ketones (Stick) Negative mg/dL (NEG) Urine Blood Negative (NEG) Urine Nitrite Negative (NEG) Urine Bilirubin Negative (NEG) Urine Urobilinogen Dipstick 0.2 mg/dL (0.2 mg/dL) Urine Leukocyte Esterase Negative (NEG) Urine RBC 0 /HPF (0-2) Urine WBC 0 /HPF (0-4) Urine Bacteria 0 /HPF (0-FEW) Urine Mucus Slight /LPF Sodium Level 140 mmol/L (136-145) Potassium Level 4.2 mmol/L (3.5-5.1) Chloride Level 102 mmol/L (98-107) Carbon Dioxide Level 33 mmol/L (21-32) Anion Gap 5 (6-14) Blood Urea Nitrogen 14 mg/dL (7-20) Creatinine 1.5 mg/dL (0.6-1.0) Estimated GFR (Cockcroft-Gault) 33.3 BUN/Creatinine Ratio 9 (6-20) Glucose Level 106 mg/dL (70-99) Calcium Level 8.5 mg/dL (8.5-10.1) Magnesium Level 2.2 mg/dL (1.8-2.4) Total Bilirubin 0.3 mg/dL (0.2-1.0) Aspartate Amino Transf (AST/SGOT) 14 U/L (15-37) Alanine Aminotransferase (ALT/SGPT) 16 U/L (14-59) Alkaline Phosphatase 62 U/L (46-116) Troponin I Quantitative < 0.017 ng/mL (0.000-0.055) AR-Hou-Y-Type Natriuretic Peptide 269 pg/mL (0-449) Total Protein 6.7 g/dL (6.4-8.2) Albumin 3.3 g/dL (3.4-5.0) Albumin/Globulin Ratio 1.0 (1.0-1.7) Images Images Mitral Valve MV E Velocity 52.8cm/s MV DECEL TIME 395ms MV A Velocity 82.9cm/s MV PHT 115ms E/A Ratio 0.6 MVA (PHT) 1.92cm2 TDI E/Lateral E' 7.5 E/Medial E' 10.3 Pulmonary Valve PV Peak Velocity 95.9cm/s PV Peak Grad. 4mmHg Tricuspid Valve RAP ESTIMATE 3mmHg Pulmonary Vein S1 Velocity 43.0cm/s D2 Velocity 22.2cm/s PVa duration 207msec LEFT VENTRICLE The left ventricle is normal size. There is normal left ventricular wall thickness. The left ventricular systolic function is normal. The Ejection Fraction is 55-60%. There is normal LV segmental wall motion. Transmitral Doppler flow pattern is Grade I-abnormal relaxation pattern. RIGHT VENTRICLE The right ventricle is normal size. There is normal right ventricular wall thickness. The right ventricular systolic function is normal. ATRIA The left atrium is mildly dilated. The right atrium size is normal. The interatrial septum is intact with no evidence for an atrial septal defect or patent foramen ovale as noted on 2-D or Doppler imaging. AORTIC VALVE The aortic valve is calcified but opens well. Doppler and Color Flow revealed no significant aortic regurgitation. There is no significant aortic valvular stenosis. MITRAL VALVE The mitral valve is calcified but opens well. There is no evidence of mitral valve prolapse. There is no mitral valve stenosis. Doppler and Color-flow revealed trace mitral regurgitation. TRICUSPID VALVE The tricuspid valve is not well visualized. Doppler and Color Flow revealed trace tricuspid regurgitation. There is no tricuspid valve stenosis. PULMONIC VALVE The pulmonic valve is not well visualized. Doppler and Color Flow revealed no pulmonic valvular regurgitation. GREAT VESSELS The aortic root is normal in size. The ascending aorta is normal in size. The IVC is normal in size and collapses >50% with inspiration. PERICARDIAL EFFUSION There is no pleural effusion. There is no evidence of significant pericardial effusion. Critical Notification Critical Value: No <Conclusion> The left ventricular systolic function is normal. The Ejection Fraction is 55-60%. There is normal LV segmental wall motion. Transmitral Doppler flow pattern is Grade I-abnormal relaxation pattern. Trace mitral regurgitation. Trace tricuspid regurgitation. There is no evidence of significant pericardial effusion. Signed by : Rojelio Jaime, Electronically Approved : 02/12/2019 15:19:03 DICTATED and SIGNED BY: ROJELIO JAIME MD DATE: 02/12/19 1515 AP chest. HISTORY: Short of breath AP view was taken of the chest. Heart is upper normal in size. There is atherosclerotic change in the aorta. 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 Patient's not taken a deep inspiration. There is no effusion. There are no confluent infiltrates. IMPRESSION: 1. No acute infiltrates. Electronically signed by: Carlos Callaway MD (09/24/2019 3:09 PM) [id number] DICTATED and SIGNED BY: CARLOS CALLAWAY MD DATE: 09/24/19 1509 VTE Prophylaxis Ordered VTE Prophylaxis Devices: No VTE Pharmacological Prophylaxi: Yes Assessment/Plan Assessment/Plan impression Acute COPD EXAC Acute on chronic diastolic CHF RECENT ECHO , Doppler flow pattern is Grade I- abnormal relaxation pattern. OBESITY REMOTE TOBACCO ABUSE 50 PLUS PK YRS ventral hernia and a hiatal hernia. O PLAN ADMIT CONSULT PULM CONSULT CARDIOLOGY IV LASIX O2 SUPPORT IV STEROID TAPER DVT PROPHYLAXIS GI PROPHYLAXIS pt/ot D/W ER DR Palaciostion of Admission Dx: Justifications for Admission: Justification of Admission Dx: Yes CHF: Hemodynamic Instability Aspiration Pneumonia: Hypoxemia Comminuty Aquired Pneumonia: Hypoxemia Acute COPD Exacerbation: Acute COPD Exacerbation DAVY BLUNT MD Sep 24, 2019 18:08
[2019-09-24] MEDS ORDERED: DOCUSATE SODIUM 100 MG CAPSULE. PO PRN (18:45)
[2019-09-24] MEDS ORDERED: NITROGLYCERIN SUBLINGUAL 0.4 MG BOTTLE OF 25. SL PRN (18:45)
[2019-09-24] MEDS ORDERED: guaiFENesin/CODEINE 100mg/10mg 5 ML LIQUID PO PRN (18:45)
[2019-09-24] MEDS ORDERED: SIMETHICONE 80 MG TAB.CHEW PO PRN (18:45)
[2019-09-24] MEDS ORDERED: SODIUM PHOSPHATES 19/7GM 133 ML ENEMA. PR PRN (18:45)
[2019-09-24] MEDS ORDERED: 0.9 % SODIUM CHLORIDE 10 ML DISP.SYRIN. IV PRN (18:45)
[2019-09-24] MEDS ORDERED: IPRATRPIUM/ALBUTEROL 0.5/2.5MG 3 ML NEBU. NEB SCH (20:00)
[2019-09-24] MEDS: BUDESONIDE 0.5 MG/2 ML NEBU. NEB SCH (20:00)
[2019-09-24] MEDS: CARVEDILOL 3.125 MG TABLET. PO SCH (20:15)
[2019-09-24] MEDS: HYDROcodone/APAP 5/325MG 1 TAB TABLET PO SCH (20:18)
[2019-09-24 21:22] VITALS: BP 131/63
[2019-09-24] MEDS: LACTOBACILLUS RHAMNOSUS GG 1 CAPSULE. PO SCH (21:27)
[2019-09-24] MEDS: methylPREDNISolone SOD SUCC PF 125 MG/2 ML VIAL. IV SCH (21:27)
[2019-09-24] MEDS: POTASSIUM CHLORIDE 20 MEQ TABLET.ER. PO SCH (21:27)
[2019-09-24] MEDS: ATORVASTATIN CALCIUM 40 MG TABLET. PO SCH (21:27)
[2019-09-24] MEDS: IPRATRPIUM/ALBUTEROL 0.5/2.5MG 3 ML NEBU. IH SCH (21:30)
[2019-09-24] MEDS: DOXYCYCLINE HYCLATE 100 MG in IV DEXTROSE 5% 100ML 100 ML IV SCH (21:45)
[2019-09-24] MEDS: ENOXAPARIN 40 MG/0.4 ML SYRINGE. SQ SCH (21:46)
[2019-09-24] MEDS ORDERED: methylPREDNISolone SOD SUCC PF 40 MG/ML VIAL. IV SCH (22:00)
[2019-09-24 23:08] VITALS: BP 151/49
[2019-09-25 03:12] VITALS: BP 144/73
[2019-09-25 04:25] LABS: BASO % 0 % (0-3); EOS % 0 % (0-3); HEMOGLOBIN 12.3 g/dL (12.0-15.5); LYMPH # 0.7 x10^3/uL (1.0-4.8); LYMPH % 14 % (24-48); MEAN CORPUSCULAR HEMOGLOBIN 31 pg (25-35); MEAN CORPUSCULAR HGB CONC 33 g/dL (31-37); MEAN CORPUSCULAR VOLUME 93 fL (79-100); MONO # 0.1 x10^3/uL (0.0-1.1); MONO % 1 % (0-9); NEUT # 4.5 x10^3/uL (1.8-7.7); NEUT % 85 % (31-73); PLATELET COUNT 211 x10^3/uL (140-400); RED BLOOD COUNT 3.97 x10^6/uL (3.50-5.40); RED CELL DISTRIBUTION WIDTH 13.5 % (11.5-14.5); WHITE BLOOD COUNT 5.3 x10^3/uL (4.0-11.0)
[2019-09-25] MEDS: ACETAMINOPHEN 325 MG TABLET. PO PRN ×2 (04:29→21:30)
[2019-09-25 04:51] LABS: ALBUMIN 3.1 g/dL (3.4-5.0); ALBUMIN/GLOBULIN RATIO 0.9 (1.0-1.7); CALCIUM 8.6 mg/dL (8.5-10.1); CREATININE 1.2 mg/dL (0.6-1.0); GFR 43.1; POTASSIUM 4.4 mmol/L (3.5-5.1); TOTAL BILIRUBIN 0.3 mg/dL (0.2-1.0); TOTAL PROTEIN 6.4 g/dL (6.4-8.2)
[2019-09-25] MEDS: methylPREDNISolone SOD SUCC PF 125 MG/2 ML VIAL. IV SCH (05:27)
[2019-09-25 05:51] LABS: % LYMPHS 10 % (24-48); % SEGS 90 % (35-66); PLT ESTIMATE ADEQUATE (ADEQUATE)
[2019-09-25] MEDS: BUDESONIDE 0.5 MG/2 ML NEBU. NEB SCH ×2 (07:07→19:18)
[2019-09-25] MEDS: IPRATRPIUM/ALBUTEROL 0.5/2.5MG 3 ML NEBU. IH SCH ×5 (07:07→23:44)
[2019-09-25 07:43] VITALS: BP 148/62
--- NOTE | 2019-09-25 07:55 | PDOC2 ---
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 In the last few days she has been having more productive cough mainly white. Using her O2 more up from 2 to 3.5 L and has been using more breathing treatments. Also has been noting self that food sometimes get stuck midway and felt like coughing with swallowing and also in the morning she feels soreness in her throat. She does have hiatal hernia. No nausea or vomiting but has been having wheezy spells and brief midchest discomfort particularly with cough. Also complains of intermittent leg swelling which she does not have right now. No exertional CP but more with cough. No recent falls or injury. PAST MEDICAL HISTORY Past Medical History Cardiovascular: CAD (with previous stents to unknown targets), CHF (chronic diastolic), HTN, Hyperlipidemia, Other (AAA - 4.1 cm on ultrasound 01/2019) Pulmonary: Asthma, COPD (O2 requiring ), Other (ALEE with CPAP ) CENTRAL NERVOUS SYSTEM: Seizure GI: GERD, Other (reflux esophagitis; gastric ulcer 07/2015) Heme/Onc: Anemia NOS Hepatobiliary: No pertinent hx Psych: Depression Musculoskeletal: Osteoarthritis, multiple thoracic compression fractures Rheumatologic: No pertinent hx Infectious disease: No pertinent hx ENT: No pertinent hx Renal/: Chronic renal insuff Endocrine: No pertinent hx Dermatology: No pertinent hx PAST SURGICAL HISTORY Past Surgical History Appendectomy, Cholecystectomy, Other (lumbar surgery) FAMILY HISTORY Family History: Heart Disease SOCIAL HISTORY Smoke: No ALCOHOL: none Drugs: None Lives: with Family CURRENT MEDICATIONS CURRENT MEDICATIONS Current Medications Medications (Trade) Dose Ordered Sig/Deidra Route PRN Reason Start Time Stop Time Status Last Admin Dose Admin Carvedilol (Coreg) 3.125 mg BIDWMEALS PO 09/24/19 21:00 09/24/19 20:15 Acetaminophen/ Hydrocodone Bitart (Lortab 5/325) 1 tab TID PO 09/24/19 21:00 09/24/19 20:18 Albuterol/ Ipratropium (Duoneb) 3 ml Q4HRS W/A IH 09/24/19 22:00 09/25/19 07:07 Potassium Chloride (Klor-Con) 20 meq TIDWMEALS PO 09/24/19 21:00 09/24/19 21:27 Budesonide (Pulmicort) 0.5 mg RTBID NEB 09/24/19 20:00 09/25/19 07:07 Lactobacillus Rhamnosus (Culturelle) 1 cap BID PO 09/24/19 21:00 09/24/19 21:27 Atorvastatin Calcium (Lipitor) 80 mg QHS PO 09/24/19 21:00 09/24/19 21:27 Methylprednisolone Sodium Succinate (SOLU-Medrol 125MG VIAL) 100 mg Q8HRS IV 09/24/19 22:00 09/25/19 05:27 Acetaminophen (Tylenol) 650 mg PRN Q4HRS PRN PO TEMP OVER 100.4F OR MILD PAIN 09/24/19 18:45 09/25/19 04:29 Doxycycline Hyclate 100 mg/ Dextrose 100 ml @ 50 mls/hr Q12HR IV 09/24/19 21:00 09/24/19 21:45 ALLERGIES ALLERGIES: Coded Allergies: Penicillins (Verified Allergy, Intermediate, 02/28/15) Sulfa (Sulfonamide Antibiotics) (Verified Allergy, Intermediate, 02/28/15) I S O L A T I O N *CONTACT* (Verified Allergy, Unknown, 05/19/15) mrsa + ROS Review of System 14 point ROS evaluated with pertinent positives noted per HPI PHYSICAL EXAM General: Alert, Oriented X3, Cooperative, No acute distress HEENT: Atraumatic, Mucous membr. moist/pink Lungs: Other (basilar crackles) Abdomen: Soft, No tenderness, Other (obese) Extremities: No cyanosis, No edema Skin: No breakdown, No significant lesion Neuro: Normal speech, Sensation intact Psych/Mental Status: Mental status NL, Mood NL MUSCULOSKELETAL: Osteoarthritic changes both hands VITALS/I&O VITALS/I&O: Vital Signs Date Time Temp Pulse Resp B/P (MAP) Pulse Ox O2 Delivery O2 Flow Rate FiO2 09/25/19 07:43 97.8 80 20 148/62 (90) 98 Nasal Cannula 2.0 97.8 I & O 09/24/19 09/24/19 09/25/19 15:00 23:00 07:00 Intake Total 100 ml Output Total 300 ml Balance -200 ml LABS Lab: Laboratory Tests Test 09/24/19 14:05 09/24/19 14:25 09/24/19 15:15 09/24/19 19:35 White Blood Count 5.9 x10^3/uL (4.0-11.0) Red Blood Count 3.96 x10^6/uL (3.50-5.40) Hemoglobin 12.2 g/dL (12.0-15.5) Hematocrit 36.8 % (36.0-47.0) Mean Corpuscular Volume 93 fL (79-100) Mean Corpuscular Hemoglobin 31 pg (25-35) Mean Corpuscular Hemoglobin Concent 33 g/dL (31-37) Red Cell Distribution Width 13.8 % (11.5-14.5) Platelet Count 217 x10^3/uL (140-400) Neutrophils (%) (Auto) 58 % (31-73) Lymphocytes (%) (Auto) 32 % (24-48) Monocytes (%) (Auto) 8 % (0-9) Eosinophils (%) (Auto) 2 % (0-3) Basophils (%) (Auto) 1 % (0-3) Neutrophils # (Auto) 3.4 x10^3/uL (1.8-7.7) Lymphocytes # (Auto) 1.9 x10^3/uL (1.0-4.8) Monocytes # (Auto) 0.4 x10^3/uL (0.0-1.1) Eosinophils # (Auto) 0.1 x10^3/uL (0.0-0.7) Basophils # (Auto) 0.0 x10^3/uL (0.0-0.2) Urine Collection Type Unknown Urine Color Yellow Urine Clarity Clear Urine pH 5.5 (<5.0-8.0) Urine Specific Paradox 1.015 (1.000-1.030) Urine Protein Negative mg/dL (NEG-TRACE) Urine Glucose (UA) Negative mg/dL (NEG) Urine Ketones (Stick) Negative mg/dL (NEG) Urine Blood Negative (NEG) Urine Nitrite Negative (NEG) Urine Bilirubin Negative (NEG) Urine Urobilinogen Dipstick 0.2 mg/dL (0.2 mg/dL) Urine Leukocyte Esterase Negative (NEG) Urine RBC 0 /HPF (0-2) Urine WBC 0 /HPF (0-4) Urine Bacteria 0 /HPF (0-FEW) Urine Mucus Slight /LPF Sodium Level 140 mmol/L (136-145) Potassium Level 4.2 mmol/L (3.5-5.1) Chloride Level 102 mmol/L (98-107) Carbon Dioxide Level 33 mmol/L (21-32) H Anion Gap 5 (6-14) L Blood Urea Nitrogen 14 mg/dL (7-20) Creatinine 1.5 mg/dL (0.6-1.0) H Estimated GFR (Cockcroft-Gault) 33.3 BUN/Creatinine Ratio 9 (6-20) Glucose Level 106 mg/dL (70-99) H Calcium Level 8.5 mg/dL (8.5-10.1) Magnesium Level 2.2 mg/dL (1.8-2.4) Total Bilirubin 0.3 mg/dL (0.2-1.0) Aspartate Amino Transferase (AST) 14 U/L (15-37) L Alanine Aminotransferase (ALT) 16 U/L (14-59) Alkaline Phosphatase 62 U/L (46-116) Troponin I Quantitative < 0.017 ng/mL (0.000-0.055) < 0.017 ng/mL (0.000-0.055) KQ-Laq-L-Type Natriuretic Peptide 269 pg/mL (0-449) Total Protein 6.7 g/dL (6.4-8.2) Albumin 3.3 g/dL (3.4-5.0) L Albumin/Globulin Ratio 1.0 (1.0-1.7) Test 09/25/19 00:01 09/25/19 04:00 Troponin I Quantitative < 0.017 ng/mL (0.000-0.055) White Blood Count 5.3 x10^3/uL (4.0-11.0) Red Blood Count 3.97 x10^6/uL (3.50-5.40) Hemoglobin 12.3 g/dL (12.0-15.5) Hematocrit 37.0 % (36.0-47.0) Mean Corpuscular Volume 93 fL (79-100) Mean Corpuscular Hemoglobin 31 pg (25-35) Mean Corpuscular Hemoglobin Concent 33 g/dL (31-37) Red Cell Distribution Width 13.5 % (11.5-14.5) Platelet Count 211 x10^3/uL (140-400) Neutrophils (%) (Auto) 85 % (31-73) H Lymphocytes (%) (Auto) 14 % (24-48) L Monocytes (%) (Auto) 1 % (0-9) Eosinophils (%) (Auto) 0 % (0-3) Basophils (%) (Auto) 0 % (0-3) Neutrophils # (Auto) 4.5 x10^3/uL (1.8-7.7) Lymphocytes # (Auto) 0.7 x10^3/uL (1.0-4.8) L Monocytes # (Auto) 0.1 x10^3/uL (0.0-1.1) Eosinophils # (Auto) 0.0 x10^3/uL (0.0-0.7) Basophils # (Auto) 0.0 x10^3/uL (0.0-0.2) Segmented Neutrophils % 90 % (35-66) H Lymphocytes % 10 % (24-48) L Platelet Estimate Adequate (ADEQUATE) Sodium Level 141 mmol/L (136-145) Potassium Level 4.4 mmol/L (3.5-5.1) Chloride Level 104 mmol/L (98-107) Carbon Dioxide Level 29 mmol/L (21-32) Anion Gap 8 (6-14) Blood Urea Nitrogen 13 mg/dL (7-20) Creatinine 1.2 mg/dL (0.6-1.0) H Estimated GFR (Cockcroft-Gault) 43.1 BUN/Creatinine Ratio 11 (6-20) Glucose Level 144 mg/dL (70-99) H Calcium Level 8.6 mg/dL (8.5-10.1) Total Bilirubin 0.3 mg/dL (0.2-1.0) Aspartate Amino Transferase (AST) 13 U/L (15-37) L Alanine Aminotransferase (ALT) 17 U/L (14-59) Alkaline Phosphatase 55 U/L (46-116) Total Protein 6.4 g/dL (6.4-8.2) Albumin 3.1 g/dL (3.4-5.0) L Albumin/Globulin Ratio 0.9 (1.0-1.7) L Laboratory Tests 09/24/19 14:05 09/25/19 04:00 Laboratory Tests 09/24/19 15:15 09/25/19 04:00 ECHOCARDIOGRAM ECHOCARDIOGRAM <Conclusion> The left ventricular systolic function is normal. The Ejection Fraction is 55-60%. There is normal LV segmental wall motion. Transmitral Doppler flow pattern is Grade I-abnormal relaxation pattern. Trace mitral regurgitation. Trace tricuspid regurgitation. There is no evidence of significant pericardial effusion. DATE: 02/12/19 1515 STRESS TEST STRESS TEST Conclusion 1. Regadenoson cardioisotope stress test did not show any evidence of ischemia or infarct. 2. Normal left ventricular systolic function with ejection fraction calculated at 72%. 3. Low risk for cardiac events. DATE: 10/31/17 1511 ASSESSMENT/PLAN ASSESSMENT/PLAN 1. AECOPD 2. Possibly esophageal dysmotility and GERD exacerbation contributing to above 3. Chronic diastolic CHF: compensated 4. CAD: past stents. trops nml EKG with no acute ST-T wave changes. 5. Hx of multiple thoracic compression fractures 6. AAA: 01/2019 4.1 cm, stable 7. HTN: controlled 8. HLP 9. Atypical CP: MSK/GI Recommendations 1. Pulmonary consult 2. Continue with secondary prevention measures. Consider GI consult. 3. PPI 4. Supportive care 5. Will consider outpt MPI if none done recently MARIELA MELÉNDEZ MD 09/25/19 1638: CARDIAC CONSULT ASSESSMENT/PLAN ASSESSMENT/PLAN Patient seen and examined. Agree with above nurse practitioner note with the following comments: I had a long discussion today with the patient, her son and various consultants and primary care hospitalist teams. At this present time no acute cardiac pathology is noted as she has a normal echocardiogram without significant pulmonary hypertension, normal chest x-ray, unremarkable EKG, normal biomarkers and a normal BNP level. In the setting I discussed with the patient and her son that progressive dyspnea is unlikely to be related to any occult new coronary disease but that that cannot be ruled out until a coronary angiogram is performed. We discussed the risks and benefits of further aggressive intervention and after thorough discussion the patient and family wish to proceed with a coronary angiogram after other possibilities of her dyspnea have been evaluated including a CT of the chest depending on pulmonary recommendations and a general surgery consultation for evaluation of her hiatal hernia. If no obvious pathology has been found on her hiatal hernia evaluation, CT evaluation of the chest as needed then we will tentatively pursue a cardiac catheterization on Saturday. Thank you for this consultation. LEONORA VELEZ APRN Sep 25, 2019 07:55 MARIELA MELÉNDEZ MD Sep 25, 2019 16:38
[2019-09-25] MEDS: CHOLECALCIFEROL (VITAMIN D3) 1,000 UNIT TABLET PO SCH (08:33)
[2019-09-25] MEDS: FENOFIBRATE 54 MG TABLET. PO SCH (08:33)
[2019-09-25] MEDS: OMEGA-3 FATTY ACIDS/FISH OIL 1,000 MG CAPSULE. PO SCH (08:33)
[2019-09-25] MEDS: PANTOPRAZOLE 40 MG TABLET.DR. PO SCH (08:33)
[2019-09-25] MEDS: ASCORBIC ACID 500 MG TABLET PO SCH (08:33)
[2019-09-25] MEDS: POTASSIUM CHLORIDE 20 MEQ TABLET.ER. PO SCH ×3 (08:33→17:15)
[2019-09-25] MEDS: CALCIUM CARBONATE 500 MG TABLET PO SCH (08:33)
[2019-09-25] MEDS: CARVEDILOL 3.125 MG TABLET. PO SCH ×2 (08:34→17:16)
[2019-09-25] MEDS: LACTOBACILLUS RHAMNOSUS GG 1 CAPSULE. PO SCH ×2 (08:35→21:22)
[2019-09-25] MEDS: CYANOCOBALAMIN (VITAMIN B-12) 1,000 MCG TABLET. PO SCH (08:35)
[2019-09-25] MEDS: POLYETHYLENE GLYCOL 3350 17 GM PACKET. PO SCH (08:36)
[2019-09-25] MEDS: ASPIRIN CHEWABLE 81 MG TABLET. PO SCH (08:36)
[2019-09-25] MEDS: LOSARTAN POTASSIUM 25 MG TABLET. PO SCH (08:36)
[2019-09-25] MEDS: DOXYCYCLINE HYCLATE 100 MG in IV DEXTROSE 5% 100ML 100 ML IV SCH ×2 (08:38→21:24)
[2019-09-25] MEDS ORDERED: NON FORMULARY ITEM (Tiotropium Bromide (Spiriva) 2 INH) IH SCH (09:00)
[2019-09-25] MEDS: FLUTICASONE 50MCG/NASAL SPRAY 16GM BOTTLE. NS SCH (09:00)
[2019-09-25] MEDS ORDERED: predniSONE 20 MG TABLET PO SCH (09:00)
[2019-09-25 11:05] VITALS: BP 125/74
[2019-09-25] MEDS: HYDROcodone/APAP 5/325MG 1 TAB TABLET PO SCH ×4 (11:08→21:31)
--- NOTE | 2019-09-25 12:00 | CONS ---
DATE OF CONSULTATION: PULMONARY CONSULTATION ATTENDING PHYSICIAN: Dr. Hernandez. REASON FOR CONSULTATION: Dyspnea. HISTORY OF PRESENT ILLNESS: The patient is an 79-year-old who is known to us. She has history of chronic obstructive airway disease, on chronic home oxygen at 2 liters and history of ALEE, on CPAP. She was brought into the hospital with increasing exertional dyspnea. She has been having difficulty in performing activities of daily living. She has no increased cough. However, she states that she has been choking with food and she said she started increasing her oxygen and was up to 3 liters. Denies any increased weight gain. No lower extremity edema. No focal weakness. No dysuria. No nausea, vomiting or diarrhea. Her chest x-ray did not reveal any acute infiltrates. I have been asked to see her for further evaluation. PAST MEDICAL HISTORY: Significant for history of COPD, history of chronic respiratory failure, history of ALEE, history of GERD, dyslipidemia, CKD. PAST SURGICAL HISTORY: Cholecystectomy, tonsillectomy, cardiac stent. ALLERGIES: PENICILLIN AND SULFA. REVIEW OF SYSTEMS: Twelve-point system obtained. Pertinent positives discussed in my history of present illness, otherwise noncontributory. All systems that were negative were reviewed as well. MEDICATIONS: Reviewed as listed in the MRAD including IV Solu-Medrol at 100 mg IV every 8 hours, DuoNebs, and Pulmicort. FAMILY HISTORY: Noncontributory to lungs. PHYSICAL EXAMINATION: VITAL SIGNS: Reviewed. Blood pressure stable, pulse ox 98% on 2 liters. NECK: Supple. LUNGS: With diminished breath sounds. CARDIOVASCULAR: With a regular rate. ABDOMEN: Soft, obese. EXTREMITIES: With trace pitting edema. LABORATORY DATA: Reviewed. White cell count 5.3, hemoglobin 12.3 and platelets are 211. BUN is 13 and creatinine 1.2. Her last echo was from 02/12/2019 and her ejection fraction was 55-60% and she had grade 1 diastolic dysfunction. IMPRESSION: 1. Dyspnea secondary to acute exacerbation of chronic obstructive pulmonary disease and in addition to her underlying obesity with a body mass index of 32. Clinically, she has no symptoms to suggest pneumonia or heart failure. 2. Dysphagia/choking with food. She has history of hiatal hernia. Would need to rule out any esophageal narrowing. 3. History of obstructive sleep apnea on continuous positive airway pressure with good compliance. 4. History of coronary artery disease, status post stent. Clinically stable. RECOMMENDATIONS: 1. Continue present oxygen. Saturations are stable on 2 liters, keep 92% and above. 2. Continue bronchodilators. 3. Taper steroids. 4. Barium swallow to rule out any esophageal narrowing. 5. Continue DVT prophylaxis. 6. We will follow along with you. Discussed with cardiology. BECCA BLACKWOOD MD DR: ARI/sadia JOB#: [id number] / [id number]
[2019-09-25] MEDS ORDERED: BARIUM SULFATE 340 GM SUSPENSION. PO ONE (12:15)
[2019-09-25] MEDS ORDERED: SIMETHICONE/SOD BICARB/CITRIC ACID PACKET. PO ONE (12:15)
[2019-09-25] MEDS ORDERED: BARIUM SULFATE 60% 355 ML SUSP PO ONE (12:15)
--- NOTE | 2019-09-25 12:37 | CARD ---
MR#: [id number] Date of Study: 09/25/2019 Ordering Physician: RADHA CORTES, Referring Physician: RADHA CORTES, Tech: Elmira Carmen RDCS APPROVED REPORT EXAM: Two-dimensional and M-mode echocardiogram with Doppler and color Doppler. Other Information Quality : Technically Limited Technically limited study due to body habitus. INDICATION COPD Cardiac Disease: CAD Exertional Dyspnea 2D DIMENSIONS Left Atrium(2D)3.7 (1.6-4.0cm)IVSd0.9 (0.7-1.1cm) Aortic Root(2D)2.4 (2.0-3.7cm)LVDd3.9 (3.9-5.9cm) LVOT Diameter2.1 (1.8-2.4cm)PWd1.1 (0.7-1.1cm) LVDs2.7 (2.5-4.0cm)FS (%) 31.2 % SV39.5 mlLVEF(%)59.6 (>50%) Aortic Valve AoV Peak Inderjit.121.8cm/sAoV VTI24.4cm AO Peak GR.5.9mmHgLVOT Peak Inderjit.114.6cm/s AO Mean GR.3mmHgAVA (VMAX)3.31cm2 RIMMA (VTI)3.60cm2 Mitral Valve MV E Oelupgul41.0cm/sMV DECEL [id number] MV A Xaixmiog64.7cm/sE/A Ratio0.5 Pulmonary Vein S1 Vbzjoghw73.5cm/sD2 Bprsbjkn07.7cm/s LEFT VENTRICLE The left ventricle is normal size. There is normal left ventricular wall thickness. The left ventricu lar systolic function is normal and the ejection fraction is within normal range. The Ejection Fracti on is 55-60%. Septal motion consistent with conduction abnormality. Transmitral Doppler flow pattern is Grade I-abnormal relaxation pattern. RIGHT VENTRICLE The right ventricle is normal size. The right ventricular systolic function is normal. ATRIA The left atrium size is normal. The right atrium size is normal. The interatrial septum is intact wit h no evidence for an atrial septal defect or patent foramen ovale as noted on 2-D or Doppler imaging. AORTIC VALVE The aortic valve is not well visualized but appears to be functioning normally by Doppler interrogati on. Doppler and Color Flow revealed no significant aortic regurgitation. There is no significant aort ic valvular stenosis. MITRAL VALVE The mitral valve is calcified but opens well. There is no evidence of mitral valve prolapse. There is no mitral valve stenosis. Doppler and Color Flow revealed no mitral valve regurgitation noted. TRICUSPID VALVE The tricuspid valve is normal in structure and function. Doppler and Color Flow revealed no tricuspid valve regurgitation noted. There is no tricuspid valve stenosis. PULMONIC VALVE The pulmonic valve is not well visualized. Doppler and Color Flow revealed no pulmonic valvular regur gitation. There is no pulmonic valvular stenosis. GREAT VESSELS The aortic root is normal in size. The ascending aorta is not well seen. The IVC was not visualized. PERICARDIAL EFFUSION There is no evidence of significant pericardial effusion. Critical Notification Critical Value: No <Conclusion> The left ventricular systolic function is normal and the ejection fraction is within normal range. Th e Ejection Fraction is 55-60%. Septal motion consistent with conduction abnormality. Otherwise, normal wall motion. Technically difficult study due to COPD Signed by : Peng Mcclellan, Electronically Approved : 09/25/2019 12:36:40
--- NOTE | 2019-09-25 14:14 | NUR ---
SS following for discharge planning. SS reviewed pt chart and discussed with pt RN. Pt is from home and is currently requiring oxygen. Pt on IV Doxycycline. PT/OT ordered. SS will continue to follow for discharge planning.
[2019-09-25] MEDS: methylPREDNISolone SOD SUCC PF 40 MG/ML VIAL. IV SCH ×2 (15:03→21:22)
[2019-09-25 15:18] VITALS: BP 136/52
--- NOTE | 2019-09-25 15:39 | PDOC ---
PROGRESS NOTES Chief Complaint Chief Complaint 1. Dyspnea secondary to acute exacerbation of chronic obstructive pulmonary disease and in addition to her underlying obesity with a body mass index of 32. Clinically, she has no symptoms to suggest pneumonia or heart failure. 2. Possibly esophageal dysmotility and GERD exacerbation contributing to above 3. Chronic diastolic CHF: compensated 4. CAD: past stents. trops nml EKG with no acute ST-T wave changes. 5. Hx of multiple thoracic compression fractures 6. AAA: 01/2019 4.1 cm, stable 7. HTN: controlled 8. HLP 9. Atypical CP: MSK/GI 10. Hiatal hernia Plan Requesting surgical consult as per patient son for evaluation of hiatal hernia data power consultant recommendations greatly appreciated most likely will have a cardiac cath on Saturday as discussed with showroom sales consultant Supportive measure Continue home meds Further recommendations based on clinical course Recommendations 1. Pulmonary consult 2. Continue with secondary prevention measures. Consider GI consult. 3. PPI 4. Supportive care 5. Will consider outpt MPI if none done recently History of Present Illness History of Present Illness No acute events reported overnight, case discussed with nursing staff patient in no acute distress no complaints during my visit Vitals Vitals Vital Signs Date Time Temp Pulse Resp B/P (MAP) Pulse Ox O2 Delivery O2 Flow Rate FiO2 09/25/19 15:19 97 Nasal Cannula 3.0 09/25/19 15:18 97.8 68 18 136/52 (80) 97.8 Physical Exam General: Alert, Oriented X3, Cooperative, No acute distress Heart: Normal S1, Normal S2, Other (Systolic murmur) Lungs: Other (Coarse breath sounds bilaterally with Velcro rails) Abdomen: Soft, No tenderness, Other (obese) Extremities: No cyanosis, No edema Skin: No breakdown, No significant lesion Labs LABS Laboratory Tests Test 09/24/19 19:35 09/25/19 00:01 09/25/19 04:00 Troponin I Quantitative < 0.017 ng/mL (0.000-0.055) < 0.017 ng/mL (0.000-0.055) White Blood Count 5.3 x10^3/uL (4.0-11.0) Red Blood Count 3.97 x10^6/uL (3.50-5.40) Hemoglobin 12.3 g/dL (12.0-15.5) Hematocrit 37.0 % (36.0-47.0) Mean Corpuscular Volume 93 fL (79-100) Mean Corpuscular Hemoglobin 31 pg (25-35) Mean Corpuscular Hemoglobin Concent 33 g/dL (31-37) Red Cell Distribution Width 13.5 % (11.5-14.5) Platelet Count 211 x10^3/uL (140-400) Neutrophils (%) (Auto) 85 % (31-73) Lymphocytes (%) (Auto) 14 % (24-48) Monocytes (%) (Auto) 1 % (0-9) Eosinophils (%) (Auto) 0 % (0-3) Basophils (%) (Auto) 0 % (0-3) Neutrophils # (Auto) 4.5 x10^3/uL (1.8-7.7) Lymphocytes # (Auto) 0.7 x10^3/uL (1.0-4.8) Monocytes # (Auto) 0.1 x10^3/uL (0.0-1.1) Eosinophils # (Auto) 0.0 x10^3/uL (0.0-0.7) Basophils # (Auto) 0.0 x10^3/uL (0.0-0.2) Segmented Neutrophils % 90 % (35-66) Lymphocytes % 10 % (24-48) Platelet Estimate Adequate (ADEQUATE) Sodium Level 141 mmol/L (136-145) Potassium Level 4.4 mmol/L (3.5-5.1) Chloride Level 104 mmol/L (98-107) Carbon Dioxide Level 29 mmol/L (21-32) Anion Gap 8 (6-14) Blood Urea Nitrogen 13 mg/dL (7-20) Creatinine 1.2 mg/dL (0.6-1.0) Estimated GFR (Cockcroft-Gault) 43.1 BUN/Creatinine Ratio 11 (6-20) Glucose Level 144 mg/dL (70-99) Calcium Level 8.6 mg/dL (8.5-10.1) Total Bilirubin 0.3 mg/dL (0.2-1.0) Aspartate Amino Transf (AST/SGOT) 13 U/L (15-37) Alanine Aminotransferase (ALT/SGPT) 17 U/L (14-59) Alkaline Phosphatase 55 U/L (46-116) Total Protein 6.4 g/dL (6.4-8.2) Albumin 3.1 g/dL (3.4-5.0) Albumin/Globulin Ratio 0.9 (1.0-1.7) Triglycerides Level 57 mg/dL (0-150) Cholesterol Level 173 mg/dL (0-200) LDL Cholesterol, Calculated 105 mg/dL (0-100) VLDL Cholesterol, Calculated 11 mg/dL (0-40) Non-HDL Cholesterol Calculated 116 mg/dL (0-129) HDL Cholesterol 57 mg/dL (40-60) Cholesterol/HDL Ratio 3.0 Thyroid Stimulating Hormone (TSH) 1.037 uIU/mL (0.358-3.74) Review of Systems Review of Systems Pertinent as per HPI with dyspnea otherwise 14 point review of system is negative Assessment and Plan Assessmemt and Plan Problems Medical Problems: (1) Dyspnea on minimal exertion Status: Acute Comment Review of Relevant I have reviewed the following items oneil (where applicable) has been applied. Labs Laboratory Tests Test 09/24/19 14:05 09/24/19 14:25 09/24/19 15:15 09/24/19 19:35 White Blood Count 5.9 x10^3/uL (4.0-11.0) Red Blood Count 3.96 x10^6/uL (3.50-5.40) Hemoglobin 12.2 g/dL (12.0-15.5) Hematocrit 36.8 % (36.0-47.0) Mean Corpuscular Volume 93 fL (79-100) Mean Corpuscular Hemoglobin 31 pg (25-35) Mean Corpuscular Hemoglobin Concent 33 g/dL (31-37) Red Cell Distribution Width 13.8 % (11.5-14.5) Platelet Count 217 x10^3/uL (140-400) Neutrophils (%) (Auto) 58 % (31-73) Lymphocytes (%) (Auto) 32 % (24-48) Monocytes (%) (Auto) 8 % (0-9) Eosinophils (%) (Auto) 2 % (0-3) Basophils (%) (Auto) 1 % (0-3) Neutrophils # (Auto) 3.4 x10^3/uL (1.8-7.7) Lymphocytes # (Auto) 1.9 x10^3/uL (1.0-4.8) Monocytes # (Auto) 0.4 x10^3/uL (0.0-1.1) Eosinophils # (Auto) 0.1 x10^3/uL (0.0-0.7) Basophils # (Auto) 0.0 x10^3/uL (0.0-0.2) Urine Collection Type Unknown Urine Color Yellow Urine Clarity Clear Urine pH 5.5 (<5.0-8.0) Urine Specific [place] 1.015 (1.000-1.030) Urine Protein Negative mg/dL (NEG-TRACE) Urine Glucose (UA) Negative mg/dL (NEG) Urine Ketones (Stick) Negative mg/dL (NEG) Urine Blood Negative (NEG) Urine Nitrite Negative (NEG) Urine Bilirubin Negative (NEG) Urine Urobilinogen Dipstick 0.2 mg/dL (0.2 mg/dL) Urine Leukocyte Esterase Negative (NEG) Urine RBC 0 /HPF (0-2) Urine WBC 0 /HPF (0-4) Urine Bacteria 0 /HPF (0-FEW) Urine Mucus Slight /LPF Sodium Level 140 mmol/L (136-145) Potassium Level 4.2 mmol/L (3.5-5.1) Chloride Level 102 mmol/L (98-107) Carbon Dioxide Level 33 mmol/L (21-32) Anion Gap 5 (6-14) Blood Urea Nitrogen 14 mg/dL (7-20) Creatinine 1.5 mg/dL (0.6-1.0) Estimated GFR (Cockcroft-Gault) 33.3 BUN/Creatinine Ratio 9 (6-20) Glucose Level 106 mg/dL (70-99) Calcium Level 8.5 mg/dL (8.5-10.1) Magnesium Level 2.2 mg/dL (1.8-2.4) Total Bilirubin 0.3 mg/dL (0.2-1.0) Aspartate Amino Transf (AST/SGOT) 14 U/L (15-37) Alanine Aminotransferase (ALT/SGPT) 16 U/L (14-59) Alkaline Phosphatase 62 U/L (46-116) Troponin I Quantitative < 0.017 ng/mL (0.000-0.055) < 0.017 ng/mL (0.000-0.055) OQ-Dot-C-Type Natriuretic Peptide 269 pg/mL (0-449) Total Protein 6.7 g/dL (6.4-8.2) Albumin 3.3 g/dL (3.4-5.0) Albumin/Globulin Ratio 1.0 (1.0-1.7) Test 09/25/19 00:01 09/25/19 04:00 Troponin I Quantitative < 0.017 ng/mL (0.000-0.055) White Blood Count 5.3 x10^3/uL (4.0-11.0) Red Blood Count 3.97 x10^6/uL (3.50-5.40) Hemoglobin 12.3 g/dL (12.0-15.5) Hematocrit 37.0 % (36.0-47.0) Mean Corpuscular Volume 93 fL (79-100) Mean Corpuscular Hemoglobin 31 pg (25-35) Mean Corpuscular Hemoglobin Concent 33 g/dL (31-37) Red Cell Distribution Width 13.5 % (11.5-14.5) Platelet Count 211 x10^3/uL (140-400) Neutrophils (%) (Auto) 85 % (31-73) Lymphocytes (%) (Auto) 14 % (24-48) Monocytes (%) (Auto) 1 % (0-9) Eosinophils (%) (Auto) 0 % (0-3) Basophils (%) (Auto) 0 % (0-3) Neutrophils # (Auto) 4.5 x10^3/uL (1.8-7.7) Lymphocytes # (Auto) 0.7 x10^3/uL (1.0-4.8) Monocytes # (Auto) 0.1 x10^3/uL (0.0-1.1) Eosinophils # (Auto) 0.0 x10^3/uL (0.0-0.7) Basophils # (Auto) 0.0 x10^3/uL (0.0-0.2) Segmented Neutrophils % 90 % (35-66) Lymphocytes % 10 % (24-48) Platelet Estimate Adequate (ADEQUATE) Sodium Level 141 mmol/L (136-145) Potassium Level 4.4 mmol/L (3.5-5.1) Chloride Level 104 mmol/L (98-107) Carbon Dioxide Level 29 mmol/L (21-32) Anion Gap 8 (6-14) Blood Urea Nitrogen 13 mg/dL (7-20) Creatinine 1.2 mg/dL (0.6-1.0) Estimated GFR (Cockcroft-Gault) 43.1 BUN/Creatinine Ratio 11 (6-20) Glucose Level 144 mg/dL (70-99) Calcium Level 8.6 mg/dL (8.5-10.1) Total Bilirubin 0.3 mg/dL (0.2-1.0) Aspartate Amino Transf (AST/SGOT) 13 U/L (15-37) Alanine Aminotransferase (ALT/SGPT) 17 U/L (14-59) Alkaline Phosphatase 55 U/L (46-116) Total Protein 6.4 g/dL (6.4-8.2) Albumin 3.1 g/dL (3.4-5.0) Albumin/Globulin Ratio 0.9 (1.0-1.7) Triglycerides Level 57 mg/dL (0-150) Cholesterol Level 173 mg/dL (0-200) LDL Cholesterol, Calculated 105 mg/dL (0-100) VLDL Cholesterol, Calculated 11 mg/dL (0-40) Non-HDL Cholesterol Calculated 116 mg/dL (0-129) HDL Cholesterol 57 mg/dL (40-60) Cholesterol/HDL Ratio 3.0 Thyroid Stimulating Hormone (TSH) 1.037 uIU/mL (0.358-3.74) Laboratory Tests Test 09/24/19 19:35 09/25/19 00:01 09/25/19 04:00 Troponin I Quantitative < 0.017 ng/mL (0.000-0.055) < 0.017 ng/mL (0.000-0.055) White Blood Count 5.3 x10^3/uL (4.0-11.0) Red Blood Count 3.97 x10^6/uL (3.50-5.40) Hemoglobin 12.3 g/dL (12.0-15.5) Hematocrit 37.0 % (36.0-47.0) Mean Corpuscular Volume 93 fL (79-100) Mean Corpuscular Hemoglobin 31 pg (25-35) Mean Corpuscular Hemoglobin Concent 33 g/dL (31-37) Red Cell Distribution Width 13.5 % (11.5-14.5) Platelet Count 211 x10^3/uL (140-400) Neutrophils (%) (Auto) 85 % (31-73) Lymphocytes (%) (Auto) 14 % (24-48) Monocytes (%) (Auto) 1 % (0-9) Eosinophils (%) (Auto) 0 % (0-3) Basophils (%) (Auto) 0 % (0-3) Neutrophils # (Auto) 4.5 x10^3/uL (1.8-7.7) Lymphocytes # (Auto) 0.7 x10^3/uL (1.0-4.8) Monocytes # (Auto) 0.1 x10^3/uL (0.0-1.1) Eosinophils # (Auto) 0.0 x10^3/uL (0.0-0.7) Basophils # (Auto) 0.0 x10^3/uL (0.0-0.2) Segmented Neutrophils % 90 % (35-66) Lymphocytes % 10 % (24-48) Platelet Estimate Adequate (ADEQUATE) Sodium Level 141 mmol/L (136-145) Potassium Level 4.4 mmol/L (3.5-5.1) Chloride Level 104 mmol/L (98-107) Carbon Dioxide Level 29 mmol/L (21-32) Anion Gap 8 (6-14) Blood Urea Nitrogen 13 mg/dL (7-20) Creatinine 1.2 mg/dL (0.6-1.0) Estimated GFR (Cockcroft-Gault) 43.1 BUN/Creatinine Ratio 11 (6-20) Glucose Level 144 mg/dL (70-99) Calcium Level 8.6 mg/dL (8.5-10.1) Total Bilirubin 0.3 mg/dL (0.2-1.0) Aspartate Amino Transf (AST/SGOT) 13 U/L (15-37) Alanine Aminotransferase (ALT/SGPT) 17 U/L (14-59) Alkaline Phosphatase 55 U/L (46-116) Total Protein 6.4 g/dL (6.4-8.2) Albumin 3.1 g/dL (3.4-5.0) Albumin/Globulin Ratio 0.9 (1.0-1.7) Triglycerides Level 57 mg/dL (0-150) Cholesterol Level 173 mg/dL (0-200) LDL Cholesterol, Calculated 105 mg/dL (0-100) VLDL Cholesterol, Calculated 11 mg/dL (0-40) Non-HDL Cholesterol Calculated 116 mg/dL (0-129) HDL Cholesterol 57 mg/dL (40-60) Cholesterol/HDL Ratio 3.0 Thyroid Stimulating Hormone (TSH) 1.037 uIU/mL (0.358-3.74) Medications Current Medications Ondansetron HCl (Zofran) 4 mg PRN Q8HRS PRN IV NAUSEA/VOMITING; Start 09/24/19 at 16:30; Stop 09/24/19 at 18:45; Status DC Acetaminophen (Tylenol) 650 mg PRN Q4HRS PRN PO FEVER > 100.3'F; Start 09/24/19 at 16:30; Stop 09/24/19 at 18:45; Status DC Albuterol/ Ipratropium (Duoneb) 3 ml RTQID NEB ; Start 09/24/19 at 20:00; Stop 09/24/19 at 18:40; Status DC Methylprednisolone Sodium Succinate (SOLU-Medrol 40MG VIAL) 40 mg Q8HRS IV ; Start 09/24/19 at 22:00; Stop 09/24/19 at 18:43; Status DC Aspirin (Aspirin Chewable) 81 mg DAILY PO ; Start 09/25/19 at 09:00 Carvedilol (Coreg) 3.125 mg BIDWMEALS PO Last administered on 09/25/19at 08:34; Start 09/24/19 at 21:00 Vitamin D (Vitamin D3) 1,000 unit DAILY PO Last administered on 09/25/19at 08:33; Start 09/25/19 at 09:00 Cyanocobalamin (Vitamin B-12) 500 mcg DAILY PO Last administered on 09/25/19at 08:35; Start 09/25/19 at 09:00 Fluticasone Propionate (Flonase) 2 spray DAILY NS ; Start 09/25/19 at 09:00 Acetaminophen/ Hydrocodone Bitart (Lortab 5/325) 1 tab TID PO Last administered on 09/25/19at 15:03; Start 09/24/19 at 21:00 Albuterol/ Ipratropium (Duoneb) 3 ml Q4HRS W/A IH Last administered on 09/25/19at 15:17; Start 09/24/19 at 22:00 Losartan Potassium (Cozaar) 25 mg DAILY PO Last administered on 09/25/19 08:36; Start 09/25/19 at 09:00 Nitroglycerin (Nitrostat) 0.4 mg PRN Q5MIN PRN SL CHEST PAIN; Start 09/24/19 at 18:45 Polyethylene Glycol (miraLAX PACKET) 17 gm DAILY PO Last administered on 09/25/19 08:36; Start 09/25/19 at 09:00 Potassium Chloride (Klor-Con) 20 meq TIDWMEALS PO Last administered on 09/25/19 08:33; Start 09/24/19 at 21:00 Prednisone (Prednisone) 40 mg DAILY PO ; Start 09/25/19 at 09:00; Stop 09/24/19 at 18:43; Status DC Simethicone (Gas-X) 80 mg PRN DAILY PRN PO GAS / BLOATING; Start 09/24/19 at 18:45 Ascorbic Acid (Vitamin C) 1,000 mg DAILY PO Last administered on 09/25/19 08:33; Start 09/25/19 at 09:00 Calcium Carbonate/ Glycine (Oscal) 500 mg DAILY PO Last administered on 09/25/19 08:33; Start 09/25/19 at 09:00 Fenofibrate (Lofibra) 54 mg DAILY PO Last administered on 09/25/19 08:33; Start 09/25/19 at 09:00 Budesonide (Pulmicort) 0.5 mg RTBID NEB Last administered on 09/25/19 07:07; Start 09/24/19 at 20:00 Guaifenesin/ Codeine Phosphate (Robitussin Ac) 5 ml PRN Q6HRS PRN PO COUGH; Start 09/24/19 at 18:45 Lactobacillus Rhamnosus (Culturelle) 1 cap BID PO Last administered on 09/25/19 08:35; Start 09/24/19 at 21:00 Fish Oil (Fish Oil) 2,000 mg DAILY PO Last administered on 09/25/19 08:33; Start 09/25/19 at 09:00 Atorvastatin Calcium (Lipitor) 80 mg QHS PO Last administered on 09/24/19at 21:27; Start 09/24/19 at 21:00 Non-Formulary Medication (Tiotropium [place] (Spiriva)) 2 inh DAILY IH ; Start 09/25/19 at 09:00; Status UNV Methylprednisolone Sodium Succinate (SOLU-Medrol 125MG VIAL) 100 mg Q8HRS IV Last administered on 09/25/19at 05:27; Start 09/24/19 at 22:00; Stop 09/25/19 at 10 :51; Status DC Sodium Chloride (Normal Saline Flush) 3 ml QSHIFT PRN IV AFTER MEDS AND BLOOD DRAWS; Start 09/24/19 at 18:45 Ondansetron HCl (Zofran) 4 mg PRN Q4HRS PRN IV NAUSEA/VOMITING; Start 09/24/19 at 18:45 Acetaminophen (Tylenol) 650 mg PRN Q4HRS PRN PO TEMP OVER 100.4F OR MILD PAIN Last administered on 09/25/19at 04:29; Start 09/24/19 at 18:45 Sodium Monofluorophosphate (Fleet Adult) 133 ml PRN DAILY PRN NM CONSTIPATION; Start 09/24/19 at 18:45 Docusate Sodium (Colace) 100 mg PRN BID PRN PO HARD STOOLS; Start 09/24/19 at 18:45 Guaifenesin (Robitussin) 200 mg PRN Q4HRS PRN PO COUGH; Start 09/24/19 at 18:45 Enoxaparin Sodium (Lovenox 40mg Syringe) 40 mg Q24H SQ ; Start 09/24/19 at 21:00 Doxycycline Hyclate 100 mg/ Dextrose 100 ml @ 50 mls/hr Q12HR IV Last administered on 09/25/19at 08:38; Start 09/24/19 at 21:00 Pantoprazole Sodium (Protonix) 40 mg DAILYAC PO Last administered on 09/25/19at 08:33; Start 09/25/19 at 07:30 Methylprednisolone Sodium Succinate (SOLU-Medrol 40MG VIAL) 60 mg Q8HRS IV Last administered on 09/25/19at 15:03; Start 09/25/19 at 14:00 Barium Sulfate (Liquid E-Z Paque) 355 ml 1X ONCE PO Last administered on 09/25/19at 12:15; Start 09/25/19 at 12:15; Stop 6/5/20 at 12:16; Status DC Barium Sulfate (E-Z-Hd) 340 gm 1X ONCE PO Last administered on 09/25/19at 12:15; Start 09/25/19 at 12:15; Stop 09/25/19 at 12:16; Status DC Simethicone/ Sodium Bicarb/ Citric Ac (E-Z-Gas) 1 packet 1X ONCE PO Last administered on 09/25/19at 12:15; Start 09/25/19 at 12:15; Stop 09/25/19 at 12:16; Status DC Active Scripts Active Medrol (Methylprednisolone) 4 Mg Tab.ds.pk 1 Pkg PO UD Prednisone 20 Mg Tablet 40 Mg PO DAILY 1 Days Coreg (Carvedilol) 3.125 Mg Tablet 3.125 Mg PO BIDWMEALS Simethicone 80 Mg Tab.chew 80 Mg PO PRN DAILY PRN 30 Days Acidophilus-Pectin Capsule (Lactobacillus Acidophilus/Pect) 1 Cap Capsule 1 Cap PO BID Codeine-Guaifen 10-100 mg/5 ml (Guaifenesin/Codeine Phosphate) 120 Ml Liquid 120 Ml PO PRN Q6-8HRS PRN Reported Aspirin 81 Mg Tab.chew 1 Tab PO DAILY Spiriva (Tiotropium [place]) 18 Mcg Cap.w.dev 2 Inh IH DAILY Flonase (Fluticasone Propionate) 16 Gm [place].susp 2 [place] NS DAILY Potassium Chloride (Potassium Chloride) 20 Meq Tablet.er 20 Meq PO TID Crestor (Rosuvastatin Calcium) 40 Mg Tablet 1 Tab PO HS Fish Oil + D3 Softgel ([place]-3S/Dha/Epa/Fish Oil/D3) 1 Each Capsule 2 Each PO DAILY Calcium (Calcium Carbonate) 600 Mg Tablet 600 Mg PO DAILY Vitamin C (Ascorbic Acid) 1,000 Mg Tablet 1,000 Mg PO DAILY Vitamin D (Cholecalciferol (Vitamin D3)) 1,000 Unit Tablet 1,000 Unit PO DAILY Miralax (Polyethylene Glycol 3350) 119 Gm Powder 17 Gm PO DAILY Furosemide 40 Mg Tablet 1 Tab PO BID B-12 (Cyanocobalamin (Vitamin B-12)) 1,000 Mcg Tablet 500 Mcg PO DAILY Tricor (Fenofibrate Nanocrystallized) 48 Mg Tablet 54 Mg PO DAILY [place] 5-325 Tablet (Acetaminophen/Hydrocodone Bitart) 1 Each Tablet 1 Tab PO TID NITROGLYCERIN SubLingual (Nitroglycerin) 0.4 Mg Tab.subl 0.4 Mg SL PRN Q5MIN PRN Cozaar (Losartan Potassium) 25 Mg Tablet 1 Tab PO DAILY Duoneb 0.5-3(2.5) Mg/3 Ml (Albuterol/Ipratropium) 3 Ml Ampul.neb 3 Ml IH Advair 500-50 Diskus (Fluticasone/Salmeterol) 1 Each Disk.w.dev 1 Puff IH BID Vitals/I & O Vital Sign - Last 24 Hours 09/24/19 09/24/19 09/24/19 09/24/19 15:52 16:40 17:41 18:10 Pulse 74 68 68 69 B/P (MAP) 152/65 (94) 171/74 (106) 186/74 (111) 162/80 (107) Pulse Ox 98 98 97 97 O2 Delivery Nasal Cannula Nasal Cannula Nasal Cannula Nasal Cannula O2 Flow Rate 2.0 2.0 2.0 2.0 09/24/19 09/24/19 09/24/19 09/24/19 18:40 19:10 19:30 19:50 Pulse 71 71 70 70 B/P (MAP) 165/85 (111) 201/78 (119) 167/73 (104) 174/79 (110) Pulse Ox 100 100 99 100 O2 Delivery Nasal Cannula Nasal Cannula Nasal Cannula Nasal Cannula O2 Flow Rate 2.0 2.0 2.0 2.0 09/24/19 09/24/19 09/24/19 09/24/19 20:15 20:18 20:20 21:22 Temp 97.6 97.6 Pulse 70 72 67 Resp 20 20 20 B/P (MAP) 166/74 146/65 (92) 131/63 (85) Pulse Ox 99 99 100 O2 Delivery Nasal Cannula Nasal Cannula Nasal Cannula O2 Flow Rate 2.0 2.0 09/24/19 09/24/19 09/24/19 09/24/19 21:22 21:27 22:00 23:08 Temp 97.8 97.8 Pulse 70 Resp 20 B/P (MAP) 151/49 (83) Pulse Ox 99 99 97 O2 Delivery Nasal Cannula Nasal Cannula Nasal Cannula Nasal Cannula O2 Flow Rate 3.0 3.0 2.0 09/25/19 09/25/19 09/25/19 09/25/19 03:12 07:09 07:43 08:00 Temp 97.4 97.8 97.4 97.8 Pulse 60 80 Resp 20 20 B/P (MAP) 144/73 (96) 148/62 (90) Pulse Ox 96 98 98 O2 Delivery BiPAP/CPAP Nasal Cannula Nasal Cannula Nasal Cannula O2 Flow Rate 3.0 2.0 2.0 09/25/19 09/25/19 09/25/19 09/25/19 08:34 08:36 11:05 11:08 Temp 98.1 98.1 Pulse 80 80 78 Resp 18 B/P (MAP) 148/62 148/62 125/74 (91) Pulse Ox 98 98 O2 Delivery Nasal Cannula Nasal Cannula O2 Flow Rate 2.0 2.0 09/25/19 09/25/19 09/25/19 09/25/19 11:20 12:21 15:03 15:18 Temp 97.8 97.8 Pulse 68 Resp 18 B/P (MAP) 136/52 (80) Pulse Ox 97 97 97 96 O2 Delivery Nasal Cannula Nasal Cannula Nasal Cannula Nasal Cannula O2 Flow Rate 3.0 3.0 3.0 2.0 09/25/19 15:19 Pulse Ox 97 O2 Delivery Nasal Cannula O2 Flow Rate 3.0 Intake and Output 09/24/19 09/24/19 09/25/19 15:00 23:00 07:00 Intake Total 100 ml Output Total 300 ml Balance -200 ml ANDREW BURGESS MD Sep 25, 2019 15:39
[2019-09-25 19:00] VITALS: BP 135/48
[2019-09-25] MEDS: ATORVASTATIN CALCIUM 40 MG TABLET. PO SCH (21:22)
[2019-09-25] MEDS: ENOXAPARIN 40 MG/0.4 ML SYRINGE. SQ SCH (21:30)
[2019-09-25 23:04] VITALS: BP 143/68
[2019-09-26 03:06] VITALS: BP 129/47
[2019-09-26] MEDS: methylPREDNISolone SOD SUCC PF 40 MG/ML VIAL. IV SCH ×3 (05:59→22:16)
[2019-09-26] MEDS: IPRATRPIUM/ALBUTEROL 0.5/2.5MG 3 ML NEBU. IH SCH ×4 (07:44→20:39)
[2019-09-26] MEDS: BUDESONIDE 0.5 MG/2 ML NEBU. NEB SCH ×2 (07:44→20:39)
[2019-09-26 07:56] VITALS: BP 104/72
[2019-09-26] MEDS: POLYETHYLENE GLYCOL 3350 17 GM PACKET. PO SCH (09:40)
[2019-09-26] MEDS: LACTOBACILLUS RHAMNOSUS GG 1 CAPSULE. PO SCH ×2 (09:41→22:15)
[2019-09-26] MEDS: FLUTICASONE 50MCG/NASAL SPRAY 16GM BOTTLE. NS SCH (09:41)
[2019-09-26] MEDS: guaiFENesin ORAL 200 MG/10 ML LIQUID. PO PRN (09:41)
[2019-09-26] MEDS: CARVEDILOL 3.125 MG TABLET. PO SCH ×2 (09:42→17:34)
[2019-09-26] MEDS: CHOLECALCIFEROL (VITAMIN D3) 1,000 UNIT TABLET PO SCH (09:42)
[2019-09-26] MEDS: CYANOCOBALAMIN (VITAMIN B-12) 1,000 MCG TABLET. PO SCH (09:42)
[2019-09-26] MEDS: ASCORBIC ACID 500 MG TABLET PO SCH (09:43)
[2019-09-26] MEDS: CALCIUM CARBONATE 500 MG TABLET PO SCH (09:44)
[2019-09-26] MEDS: POTASSIUM CHLORIDE 20 MEQ TABLET.ER. PO SCH ×3 (09:44→17:34)
[2019-09-26] MEDS: FENOFIBRATE 54 MG TABLET. PO SCH (09:44)
[2019-09-26] MEDS: OMEGA-3 FATTY ACIDS/FISH OIL 1,000 MG CAPSULE. PO SCH (09:44)
[2019-09-26] MEDS: LOSARTAN POTASSIUM 25 MG TABLET. PO SCH (09:45)
[2019-09-26] MEDS: ASPIRIN CHEWABLE 81 MG TABLET. PO SCH (09:45)
[2019-09-26] MEDS: PANTOPRAZOLE 40 MG TABLET.DR. PO SCH (09:45)
[2019-09-26] MEDS: HYDROcodone/APAP 5/325MG 1 TAB TABLET PO SCH ×3 (09:46→22:15)
[2019-09-26] MEDS: DOXYCYCLINE HYCLATE 100 MG in IV DEXTROSE 5% 100ML 100 ML IV SCH ×2 (09:47→22:18)
[2019-09-26 11:23] VITALS: BP 135/50
--- NOTE | 2019-09-26 11:44 | PDOC ---
PULMONARY PROGRESS NOTES Subjective Sitting up in chair, on 2 liters N/C , denies increased cough or SOB Vitals Vital Signs Date Time Temp Pulse Resp B/P (MAP) Pulse Ox O2 Delivery O2 Flow Rate FiO2 09/26/19 11:23 97.9 68 18 135/50 (78) 96 Nasal Cannula 2.0 97.9 ROS: No Nausea, No Chest Pain, No Abdominal Pain, No Increase Cough General: Alert, Oriented X4, No acute distress Lungs: Other (Coarse breath sounds bilaterally ) Cardiovascular: S1 Abdomen: Soft, Non-tender Neuro Exam: Alert Extremities: No Edema Skin: Warm, Dry Labs Laboratory Tests Test 09/24/19 14:05 09/24/19 14:25 09/24/19 15:15 09/24/19 19:35 White Blood Count 5.9 x10^3/uL (4.0-11.0) Red Blood Count 3.96 x10^6/uL (3.50-5.40) Hemoglobin 12.2 g/dL (12.0-15.5) Hematocrit 36.8 % (36.0-47.0) Mean Corpuscular Volume 93 fL (79-100) Mean Corpuscular Hemoglobin 31 pg (25-35) Mean Corpuscular Hemoglobin Concent 33 g/dL (31-37) Red Cell Distribution Width 13.8 % (11.5-14.5) Platelet Count 217 x10^3/uL (140-400) Neutrophils (%) (Auto) 58 % (31-73) Lymphocytes (%) (Auto) 32 % (24-48) Monocytes (%) (Auto) 8 % (0-9) Eosinophils (%) (Auto) 2 % (0-3) Basophils (%) (Auto) 1 % (0-3) Neutrophils # (Auto) 3.4 x10^3/uL (1.8-7.7) Lymphocytes # (Auto) 1.9 x10^3/uL (1.0-4.8) Monocytes # (Auto) 0.4 x10^3/uL (0.0-1.1) Eosinophils # (Auto) 0.1 x10^3/uL (0.0-0.7) Basophils # (Auto) 0.0 x10^3/uL (0.0-0.2) Urine Collection Type Unknown Urine Color Yellow Urine Clarity Clear Urine pH 5.5 (<5.0-8.0) Urine Specific [place] 1.015 (1.000-1.030) Urine Protein Negative mg/dL (NEG-TRACE) Urine Glucose (UA) Negative mg/dL (NEG) Urine Ketones (Stick) Negative mg/dL (NEG) Urine Blood Negative (NEG) Urine Nitrite Negative (NEG) Urine Bilirubin Negative (NEG) Urine Urobilinogen Dipstick 0.2 mg/dL (0.2 mg/dL) Urine Leukocyte Esterase Negative (NEG) Urine RBC 0 /HPF (0-2) Urine WBC 0 /HPF (0-4) Urine Bacteria 0 /HPF (0-FEW) Urine Mucus Slight /LPF Sodium Level 140 mmol/L (136-145) Potassium Level 4.2 mmol/L (3.5-5.1) Chloride Level 102 mmol/L (98-107) Carbon Dioxide Level 33 mmol/L (21-32) Anion Gap 5 (6-14) Blood Urea Nitrogen 14 mg/dL (7-20) Creatinine 1.5 mg/dL (0.6-1.0) Estimated GFR (Cockcroft-Gault) 33.3 BUN/Creatinine Ratio 9 (6-20) Glucose Level 106 mg/dL (70-99) Calcium Level 8.5 mg/dL (8.5-10.1) Magnesium Level 2.2 mg/dL (1.8-2.4) Total Bilirubin 0.3 mg/dL (0.2-1.0) Aspartate Amino Transf (AST/SGOT) 14 U/L (15-37) Alanine Aminotransferase (ALT/SGPT) 16 U/L (14-59) Alkaline Phosphatase 62 U/L (46-116) Troponin I Quantitative < 0.017 ng/mL (0.000-0.055) < 0.017 ng/mL (0.000-0.055) RM-Qtf-[id number]-Type Natriuretic Peptide 269 pg/mL (0-449) Total Protein 6.7 g/dL (6.4-8.2) Albumin 3.3 g/dL (3.4-5.0) Albumin/Globulin Ratio 1.0 (1.0-1.7) Test 09/25/19 00:01 09/25/19 04:00 Troponin I Quantitative < 0.017 ng/mL (0.000-0.055) White Blood Count 5.3 x10^3/uL (4.0-11.0) Red Blood Count 3.97 x10^6/uL (3.50-5.40) Hemoglobin 12.3 g/dL (12.0-15.5) Hematocrit 37.0 % (36.0-47.0) Mean Corpuscular Volume 93 fL (79-100) Mean Corpuscular Hemoglobin 31 pg (25-35) Mean Corpuscular Hemoglobin Concent 33 g/dL (31-37) Red Cell Distribution Width 13.5 % (11.5-14.5) Platelet Count 211 x10^3/uL (140-400) Neutrophils (%) (Auto) 85 % (31-73) Lymphocytes (%) (Auto) 14 % (24-48) Monocytes (%) (Auto) 1 % (0-9) Eosinophils (%) (Auto) 0 % (0-3) Basophils (%) (Auto) 0 % (0-3) Neutrophils # (Auto) 4.5 x10^3/uL (1.8-7.7) Lymphocytes # (Auto) 0.7 x10^3/uL (1.0-4.8) Monocytes # (Auto) 0.1 x10^3/uL (0.0-1.1) Eosinophils # (Auto) 0.0 x10^3/uL (0.0-0.7) Basophils # (Auto) 0.0 x10^3/uL (0.0-0.2) Segmented Neutrophils % 90 % (35-66) Lymphocytes % 10 % (24-48) Platelet Estimate Adequate (ADEQUATE) Sodium Level 141 mmol/L (136-145) Potassium Level 4.4 mmol/L (3.5-5.1) Chloride Level 104 mmol/L (98-107) Carbon Dioxide Level 29 mmol/L (21-32) Anion Gap 8 (6-14) Blood Urea Nitrogen 13 mg/dL (7-20) Creatinine 1.2 mg/dL (0.6-1.0) Estimated GFR (Cockcroft-Gault) 43.1 BUN/Creatinine Ratio 11 (6-20) Glucose Level 144 mg/dL (70-99) Calcium Level 8.6 mg/dL (8.5-10.1) Total Bilirubin 0.3 mg/dL (0.2-1.0) Aspartate Amino Transf (AST/SGOT) 13 U/L (15-37) Alanine Aminotransferase (ALT/SGPT) 17 U/L (14-59) Alkaline Phosphatase 55 U/L (46-116) Total Protein 6.4 g/dL (6.4-8.2) Albumin 3.1 g/dL (3.4-5.0) Albumin/Globulin Ratio 0.9 (1.0-1.7) Triglycerides Level 57 mg/dL (0-150) Cholesterol Level 173 mg/dL (0-200) LDL Cholesterol, Calculated 105 mg/dL (0-100) VLDL Cholesterol, Calculated 11 mg/dL (0-40) Non-HDL Cholesterol Calculated 116 mg/dL (0-129) HDL Cholesterol 57 mg/dL (40-60) Cholesterol/HDL Ratio 3.0 Thyroid Stimulating Hormone (TSH) 1.037 uIU/mL (0.358-3.74) Medications Active Scripts Medications Dose Route/Sig Max Daily Dose Days Date Category Medrol (Methylprednisolone) 4 Mg Tab.ds.pk 1 Pkg PO UD 08/09/19 Rx Aspirin 81 Mg Tab.chew 1 Tab PO DAILY 10/29/17 Reported Spiriva (Tiotropium [place]) 18 Mcg Cap.w.dev 2 Inh IH DAILY 02/28/15 Reported Prednisone 20 Mg Tablet 40 Mg PO DAILY 1 12/10/14 Rx Coreg (Carvedilol) 3.125 Mg Tablet 3.125 Mg PO BIDWMEALS 12/10/14 Rx Simethicone 80 Mg Tab.chew 80 Mg PO PRN DAILY PRN 30 05/17/14 Rx Acidophilus-Pectin Capsule (Lactobacillus Acidophilus/Pect) 1 Cap Capsule 1 Cap PO BID 05/17/14 Rx Flonase (Fluticasone Propionate) 16 Gm [place].susp 2 [place] NS DAILY 05/15/14 Reported Codeine-Guaifen 10-100 mg/5 ml (Guaifenesin/Codeine Phosphate) 120 Ml Liquid 120 Ml PO PRN Q6-8HRS PRN 03/05/14 Rx Potassium Chloride (Potassium Chloride) 20 Meq Tablet.er 20 Meq PO TID 03/01/14 Reported Crestor (Rosuvastatin Calcium) 40 Mg Tablet 1 Tab PO HS 03/01/14 Reported Fish Oil + D3 Softgel ([place]-3S/Dha/Epa/Fish Oil/D3) 1 Each Capsule 2 Each PO DAILY 03/01/14 Reported Calcium (Calcium Carbonate) 600 Mg Tablet 600 Mg PO DAILY 03/01/14 Reported Vitamin C (Ascorbic Acid) 1,000 Mg Tablet 1,000 Mg PO DAILY 03/01/14 Reported Vitamin D (Cholecalciferol (Vitamin D3)) 1,000 Unit Tablet 1,000 Unit PO DAILY 03/01/14 Reported Miralax (Polyethylene Glycol 3350) 119 Gm Powder 17 Gm PO DAILY 03/01/14 Reported Furosemide 40 Mg Tablet 1 Tab PO BID 03/01/14 Reported B-12 (Cyanocobalamin (Vitamin B-12)) 1,000 Mcg Tablet 500 Mcg PO DAILY 03/01/14 Reported Tricor (Fenofibrate Nanocrystallized) 48 Mg Tablet 54 Mg PO DAILY 03/01/14 Reported [place] 5-325 Tablet (Acetaminophen/Hydrocodone Bitart) 1 Each Tablet 1 Tab PO TID 03/01/14 Reported NITROGLYCERIN SubLingual (Nitroglycerin) 0.4 Mg Tab.subl 0.4 Mg SL PRN Q5MIN PRN 03/01/14 Reported Cozaar (Losartan Potassium) 25 Mg Tablet 1 Tab PO DAILY 03/01/14 Reported Duoneb 0.5-3(2.5) Mg/3 Ml (Albuterol/Ipratropium) 3 Ml Ampul.neb 3 Ml IH 03/01/14 Reported Advair 500-50 Diskus (Fluticasone/Salmeterol) 1 Each Disk.w.dev 1 Puff IH BID 03/01/14 Reported Impression . IMPRESSION: 1. Dyspnea secondary to acute exacerbation of chronic obstructive pulmonary disease and in addition to her underlying obesity with a body mass index of 32. Clinically, she has no symptoms to suggest pneumonia or heart failure. 2. Dysphagia/choking with food. She has history of hiatal hernia. Would need to rule out any esophageal narrowing. 3. History of obstructive sleep apnea on continuous positive airway pressure with good compliance. 4. History of coronary artery disease, status post stent. Clinically stable. Plan . RECOMMENDATIONS: 1. Continue present oxygen. Saturations are stable on 2 liters, keep 92% 2. Continue bronchodilators. 3. Taper steroids. 4. Barium swallow to rule out any esophageal narrowing,-- pending results 5. Continue DVT prophylaxis. 6. obtain CT of Chest to asses hiatal hernia 7. follow cardiology recs, plan for cardiac cath on Saturday D/W BECCA LOMAX MD Sep 26, 2019 11:44
--- NOTE | 2019-09-26 14:11 | PDOC ---
PROGRESS NOTES Subjective Subjective Patient seen and examined Objective Objective Vital Signs Date Time Temp Pulse Resp B/P (MAP) Pulse Ox O2 Delivery O2 Flow Rate FiO2 09/26/19 12:44 98 Nasal Cannula 3.0 09/26/19 11:23 97.9 68 18 135/50 (78) 97.9 Intake and Output 09/26/19 07:00 Intake Total 700 ml Output Total 100 ml Balance 600 ml Intake Oral 700 ml Output Urine Total 100 ml # Voids 5 # Bowel Movements 1 Physical Exam Abdomen: Normal bowel sounds Heart: Regular rate General: mild distress Lungs: Other (Mildly decreased breath sounds) Assessment Assessment Problems Medical Problems: (1) Dyspnea on minimal exertion Status: Acute AECOPD. Symptomatically improved today. We will continue as per pulmonary. Possibly esophageal dysmotility and GERD exacerbation contributing to above. Evaluation as above. Chronic diastolic CHF: compensated CAD: past stents. trops nml EKG with no acute ST-T wave changes. AAA: 01/2019 4.1 cm, stable HTN: controlled We will continue present medical treatment at this time with further test pending. As per yesterday's note will tentatively proceed with cardiac catheterization on Saturday. Comment Review of Relevant I have reviewed the following items oneil (where applicable) has been applied. Labs Laboratory Tests Test 09/24/19 14:25 09/24/19 15:15 09/24/19 19:35 09/25/19 00:01 Urine Collection Type Unknown Urine Color Yellow Urine Clarity Clear Urine pH 5.5 (<5.0-8.0) Urine Specific [place] 1.015 (1.000-1.030) Urine Protein Negative mg/dL (NEG-TRACE) Urine Glucose (UA) Negative mg/dL (NEG) Urine Ketones (Stick) Negative mg/dL (NEG) Urine Blood Negative (NEG) Urine Nitrite Negative (NEG) Urine Bilirubin Negative (NEG) Urine Urobilinogen Dipstick 0.2 mg/dL (0.2 mg/dL) Urine Leukocyte Esterase Negative (NEG) Urine RBC 0 /HPF (0-2) Urine WBC 0 /HPF (0-4) Urine Bacteria 0 /HPF (0-FEW) Urine Mucus Slight /LPF Sodium Level 140 mmol/L (136-145) Potassium Level 4.2 mmol/L (3.5-5.1) Chloride Level 102 mmol/L (98-107) Carbon Dioxide Level 33 mmol/L (21-32) Anion Gap 5 (6-14) Blood Urea Nitrogen 14 mg/dL (7-20) Creatinine 1.5 mg/dL (0.6-1.0) Estimated GFR (Cockcroft-Gault) 33.3 BUN/Creatinine Ratio 9 (6-20) Glucose Level 106 mg/dL (70-99) Calcium Level 8.5 mg/dL (8.5-10.1) Magnesium Level 2.2 mg/dL (1.8-2.4) Total Bilirubin 0.3 mg/dL (0.2-1.0) Aspartate Amino Transf (AST/SGOT) 14 U/L (15-37) Alanine Aminotransferase (ALT/SGPT) 16 U/L (14-59) Alkaline Phosphatase 62 U/L (46-116) Troponin I Quantitative < 0.017 ng/mL (0.000-0.055) < 0.017 ng/mL (0.000-0.055) < 0.017 ng/mL (0.000-0.055) [id number]-Type Natriuretic Peptide 269 pg/mL (0-449) Total Protein 6.7 g/dL (6.4-8.2) Albumin 3.3 g/dL (3.4-5.0) Albumin/Globulin Ratio 1.0 (1.0-1.7) Test 09/25/19 04:00 White Blood Count 5.3 x10^3/uL (4.0-11.0) Red Blood Count 3.97 x10^6/uL (3.50-5.40) Hemoglobin 12.3 g/dL (12.0-15.5) Hematocrit 37.0 % (36.0-47.0) Mean Corpuscular Volume 93 fL (79-100) Mean Corpuscular Hemoglobin 31 pg (25-35) Mean Corpuscular Hemoglobin Concent 33 g/dL (31-37) Red Cell Distribution Width 13.5 % (11.5-14.5) Platelet Count 211 x10^3/uL (140-400) Neutrophils (%) (Auto) 85 % (31-73) Lymphocytes (%) (Auto) 14 % (24-48) Monocytes (%) (Auto) 1 % (0-9) Eosinophils (%) (Auto) 0 % (0-3) Basophils (%) (Auto) 0 % (0-3) Neutrophils # (Auto) 4.5 x10^3/uL (1.8-7.7) Lymphocytes # (Auto) 0.7 x10^3/uL (1.0-4.8) Monocytes # (Auto) 0.1 x10^3/uL (0.0-1.1) Eosinophils # (Auto) 0.0 x10^3/uL (0.0-0.7) Basophils # (Auto) 0.0 x10^3/uL (0.0-0.2) Segmented Neutrophils % 90 % (35-66) Lymphocytes % 10 % (24-48) Platelet Estimate Adequate (ADEQUATE) Sodium Level 141 mmol/L (136-145) Potassium Level 4.4 mmol/L (3.5-5.1) Chloride Level 104 mmol/L (98-107) Carbon Dioxide Level 29 mmol/L (21-32) Anion Gap 8 (6-14) Blood Urea Nitrogen 13 mg/dL (7-20) Creatinine 1.2 mg/dL (0.6-1.0) Estimated GFR (Cockcroft-Gault) 43.1 BUN/Creatinine Ratio 11 (6-20) Glucose Level 144 mg/dL (70-99) Calcium Level 8.6 mg/dL (8.5-10.1) Total Bilirubin 0.3 mg/dL (0.2-1.0) Aspartate Amino Transf (AST/SGOT) 13 U/L (15-37) Alanine Aminotransferase (ALT/SGPT) 17 U/L (14-59) Alkaline Phosphatase 55 U/L (46-116) Total Protein 6.4 g/dL (6.4-8.2) Albumin 3.1 g/dL (3.4-5.0) Albumin/Globulin Ratio 0.9 (1.0-1.7) Triglycerides Level 57 mg/dL (0-150) Cholesterol Level 173 mg/dL (0-200) LDL Cholesterol, Calculated 105 mg/dL (0-100) VLDL Cholesterol, Calculated 11 mg/dL (0-40) Non-HDL Cholesterol Calculated 116 mg/dL (0-129) HDL Cholesterol 57 mg/dL (40-60) Cholesterol/HDL Ratio 3.0 Thyroid Stimulating Hormone (TSH) 1.037 uIU/mL (0.358-3.74) Medications Current Medications Ondansetron HCl (Zofran) 4 mg PRN Q8HRS PRN IV NAUSEA/VOMITING; Start 09/24/19 at 16:30; Stop 09/24/19 at 18:45; Status DC Acetaminophen (Tylenol) 650 mg PRN Q4HRS PRN PO FEVER > 100.3'F; Start 09/24/19 at 16:30; Stop 09/24/19 at 18:45; Status DC Albuterol/ Ipratropium (Duoneb) 3 ml RTQID NEB ; Start 09/24/19 at 20:00; Stop 09/24/19 at 18:40; Status DC Methylprednisolone Sodium Succinate (SOLU-Medrol 40MG VIAL) 40 mg Q8HRS IV ; Start 09/24/19 at 22:00; Stop 09/24/19 at 18:43; Status DC Aspirin (Aspirin Chewable) 81 mg DAILY PO Last administered on 09/26/19at 09:45; Start 09/25/19 at 09:00 Carvedilol (Coreg) 3.125 mg BIDWMEALS PO Last administered on 09/26/19 09:42; Start 09/24/19 at 21:00 Vitamin D (Vitamin D3) 1,000 unit DAILY PO Last administered on 09/26/19 09:42; Start 09/25/19 at 09:00 Cyanocobalamin (Vitamin B-12) 500 mcg DAILY PO Last administered on 09/26/19 09:42; Start 09/25/19 at 09:00 Fluticasone Propionate (Flonase) 2 spray DAILY NS Last administered on 09/26/19 09:41; Start 09/25/19 at 09:00 Acetaminophen/ Hydrocodone Bitart ([place] 5/325) 1 tab TID PO Last administered on 09/26/19 09:46; Start 09/24/19 at 21:00 Albuterol/ Ipratropium (Duoneb) 3 ml Q4HRS W/A IH Last administered on 09/25/19 19:18; Start 09/24/19 at 22:00; Stop 09/25/19 at 23:44; Status DC Losartan Potassium (Cozaar) 25 mg DAILY PO Last administered on 09/26/19 09:45; Start 09/25/19 at 09:00 Nitroglycerin (Nitrostat) 0.4 mg PRN Q5MIN PRN SL CHEST PAIN; Start 09/24/19 at 18:45 Polyethylene Glycol (miraLAX PACKET) 17 gm DAILY PO Last administered on 09/26/19 09:40; Start 09/25/19 at 09:00 Potassium Chloride (Klor-Con) 20 meq TIDWMEALS PO Last administered on 09/26/19 09:44; Start 09/24/19 at 21:00 Prednisone (Prednisone) 40 mg DAILY PO ; Start 09/25/19 at 09:00; Stop 09/24/19 at 18:43; Status DC Simethicone (Gas-X) 80 mg PRN DAILY PRN PO GAS / BLOATING; Start 09/24/19 at 18:45 Ascorbic Acid (Vitamin C) 1,000 mg DAILY PO Last administered on 09/26/19 09:43; Start 09/25/19 at 09:00 Calcium Carbonate/ Glycine (Oscal) 500 mg DAILY PO Last administered on 09/26/19 09:44; Start 09/25/19 at 09:00 Fenofibrate (Lofibra) 54 mg DAILY PO Last administered on 09/26/19 09:44; Start 09/25/19 at 09:00 Budesonide (Pulmicort) 0.5 mg RTBID NEB Last administered on 09/26/19 07:44; Start 09/24/19 at 20:00 Guaifenesin/ Codeine Phosphate (Robitussin Ac) 5 ml PRN Q6HRS PRN PO COUGH; Start 09/24/19 at 18:45 Lactobacillus Rhamnosus (Culturelle) 1 cap BID PO Last administered on 09/26/19 09:41; Start 09/24/19 at 21:00 Fish Oil (Fish Oil) 2,000 mg DAILY PO Last administered on 09/26/19 09:44; Sta rt 09/25/19 at 09:00 Atorvastatin Calcium (Lipitor) 80 mg QHS PO Last administered on 09/25/19 21:22; Start 09/24/19 at 21:00 Non-Formulary Medication (Tiotropium [place] (Spiriva)) 2 inh DAILY IH ; Start 09/25/19 at 09:00; Status UNV Methylprednisolone Sodium Succinate (SOLU-Medrol 125MG VIAL) 100 mg Q8HRS IV Last administered on 09/25/19at 05:27; Start 09/24/19 at 22:00; Stop 09/25/19 at 10:51; Status DC Sodium Chloride (Normal Saline Flush) 3 ml QSHIFT PRN IV AFTER MEDS AND BLOOD DRAWS; Start 09/24/19 at 18:45 Ondansetron HCl (Zofran) 4 mg PRN Q4HRS PRN IV NAUSEA/VOMITING; Start 09/24/19 at 18:45 Acetaminophen (Tylenol) 650 mg PRN Q4HRS PRN PO TEMP OVER 100.4F OR MILD PAIN Last administered on 09/25/19at 21:30; Start 09/24/19 at 18:45 Sodium Monofluorophosphate ([place] Adult) 133 ml PRN DAILY PRN [place] CONSTIPATION; Start 09/24/19 at 18:45 Docusate Sodium (Colace) 100 mg PRN BID PRN PO HARD STOOLS; Start 09/24/19 at 18:45 Guaifenesin (Robitussin) 200 mg PRN Q4HRS PRN PO COUGH Last administered on 09/26/19at 09:41; Start 09/24/19 at 18:45 Enoxaparin Sodium (Lovenox 40mg Syringe) 40 mg Q24H SQ ; Start 09/24/19 at 21:00 Doxycycline Hyclate 100 mg/ Dextrose 100 ml @ 50 mls/hr Q12HR IV Last administered on 09/26/19at 09:47; Start 09/24/19 at 21:00 Pantoprazole Sodium (Protonix) 40 mg DAILYAC PO Last administered on 09/26/19at 09:45; Start 09/25/19 at 07:30 Methylprednisolone Sodium Succinate (SOLU-Medrol 40MG VIAL) 60 mg Q8HRS IV Last administered on 09/26/19at 05:59; Start 09/25/19 at 14:00 Barium Sulfate (Liquid E-Z [place]) 355 ml 1X ONCE PO Last administered on 09/25/19at 12:15; Start 09/25/19 at 12:15; Stop 09/25/19 at 12:16; Status DC Barium Sulfate (E-Z-Hd) 340 gm 1X ONCE PO Last administered on 09/25/19at 12:15; Start 09/25/19 at 12:15; Stop 09/25/19 at 12:16; Status DC Simethicone/ Sodium Bicarb/ Citric Ac (E-Z-Gas) 1 packet 1X ONCE PO Last administered on 09/25/19at 12:15; Start 09/25/19 at 12:15; Stop 09/25/19 at 12:16; Status DC Albuterol/ Ipratropium (Duoneb) 3 ml RTQID IH Last administered on 09/26/19at 12:44; Start 09/26/19 at 08:00 Active Scripts Active Medrol (Methylprednisolone) 4 Mg Tab.ds.pk 1 Pkg PO UD Prednisone 20 Mg Tablet 40 Mg PO DAILY 1 Days Coreg (Carvedilol) 3.125 Mg Tablet 3.125 Mg PO BIDWMEALS Simethicone 80 Mg Tab.chew 80 Mg PO PRN DAILY PRN 30 Days Acidophilus-Pectin Capsule (Lactobacillus Acidophilus/Pect) 1 Cap Capsule 1 Cap PO BID Codeine-Guaifen 10-100 mg/5 ml (Guaifenesin/Codeine Phosphate) 120 Ml Liquid 120 Ml PO PRN Q6-8HRS PRN Reported Aspirin 81 Mg Tab.chew 1 Tab PO DAILY Spiriva (Tiotropium [place]) 18 Mcg Cap.w.dev 2 Inh IH DAILY Flonase (Fluticasone Propionate) 16 Gm [place].susp 2 [place] NS DAILY Potassium Chloride (Potassium Chloride) 20 Meq Tablet.er 20 Meq PO TID Crestor (Rosuvastatin Calcium) 40 Mg Tablet 1 Tab PO HS Fish Oil + D3 Softgel ([place]-3S/Dha/Epa/Fish Oil/D3) 1 Each Capsule 2 Each PO DAILY Calcium (Calcium Carbonate) 600 Mg Tablet 600 Mg PO DAILY Vitamin C (Ascorbic Acid) 1,000 Mg Tablet 1,000 Mg PO DAILY Vitamin D (Cholecalciferol (Vitamin D3)) 1,000 Unit Tablet 1,000 Unit PO DAILY Miralax (Polyethylene Glycol 3350) 119 Gm Powder 17 Gm PO DAILY Furosemide 40 Mg Tablet 1 Tab PO BID B-12 (Cyanocobalamin (Vitamin B-12)) 1,000 Mcg Tablet 500 Mcg PO DAILY Tricor (Fenofibrate Nanocrystallized) 48 Mg Tablet 54 Mg PO DAILY [place] 5-325 Tablet (Acetaminophen/Hydrocodone Bitart) 1 Each Tablet 1 Tab PO TID NITROGLYCERIN SubLingual (Nitroglycerin) 0.4 Mg Tab.subl 0.4 Mg SL PRN Q5MIN PRN Cozaar (Losartan Potassium) 25 Mg Tablet 1 Tab PO DAILY Duoneb 0.5-3(2.5) Mg/3 Ml (Albuterol/Ipratropium) 3 Ml Ampul.neb 3 Ml IH Advair 500-50 Diskus (Fluticasone/Salmeterol) 1 Each Disk.w.dev 1 Puff IH BID Vitals/I & O Vital Sign - Last 24 Hours 09/25/19 09/25/19 09/25/19 09/25/19 15:03 15:18 15:19 16:50 Temp 97.8 97.8 Pulse 68 Resp 18 B/P (MAP) 136/52 (80) Pulse Ox 97 96 97 97 O2 Delivery Nasal Cannula Nasal Cannula Nasal Cannula Nasal Cannula O2 Flow Rate 3.0 2.0 3.0 3.0 09/25/19 09/25/19 09/25/19 09/25/19 17:16 19:00 19:18 20:15 Temp 98.0 98.0 Pulse 68 74 Resp 20 B/P (MAP) 136/52 135/48 (77) Pulse Ox 99 98 O2 Delivery Nasal Cannula Nasal Cannula Nasal Cannula O2 Flow Rate 3.0 2.0 09/25/19 09/26/19 09/26/19 09/26/19 23:04 03:06 07:44 07:56 Temp 97.9 97.4 98.2 97.9 97.4 98.2 Pulse 69 68 63 Resp 20 20 20 B/P (MAP) 143/68 (93) 129/47 (74) 104/72 (83) Pulse Ox 97 96 97 98 O2 Delivery Nasal Cannula BiPAP/CPAP Nasal Cannula Nasal Cannula O2 Flow Rate 3.0 2.0 09/26/19 09/26/19 09/26/19 09/26/19 09:42 09:45 09:46 10:46 Pulse 63 63 Resp 18 18 B/P (MAP) 104/72 104/72 O2 Delivery Nasal Cannula Nasal Cannula O2 Flow Rate 3.0 4.0 09/26/19 09/26/19 11:23 12:44 Temp 97.9 97.9 Pulse 68 Resp 18 B/P (MAP) 135/50 (78) Pulse Ox 96 98 O2 Delivery Nasal Cannula Nasal Cannula O2 Flow Rate 2.0 3.0 Intake and Output 09/25/19 09/25/19 09/26/19 15:00 23:00 07:00 Intake Total 300 ml 400 ml Output Total 100 ml Balance 300 ml 400 ml -100 ml REESE ARMSTRONG MD Sep 26, 2019 14:11
--- NOTE | 2019-09-26 15:04 | PDOC ---
PROGRESS NOTES Chief Complaint Chief Complaint 1. Dyspnea secondary to acute exacerbation of chronic obstructive pulmonary disease and in addition to her underlying obesity with a body mass index of 32. Clinically, she has no symptoms to suggest pneumonia or heart failure. 2. Possibly esophageal dysmotility and GERD exacerbation contributing to above 3. Chronic diastolic CHF: compensated 4. CAD: past stents. trops nml EKG with no acute ST-T wave changes. 5. Hx of multiple thoracic compression fractures 6. AAA: 01/2019 4.1 cm, stable 7. HTN: controlled 8. HLP 9. Atypical CP: MSK/GI 10. Hiatal hernia Plan Requesting surgical consult as per patient son for evaluation of hiatal hernia senior internet sales consultant recommendations greatly appreciated most likely will have a cardiac cath on Saturday as discussed with media consultant outside sales Supportive measure Continue home meds Further recommendations based on clinical course Recommendations 1. Pulmonary consult 2. Continue with secondary prevention measures. Consider GI consult. 3. PPI 4. Supportive care 5. Will consider outpt MPI if none done recently History of Present Illness History of Present Illness No acute events reported overnight, case discussed with nursing staff patient in no acute distress no complaints during my visit Vitals Vitals Vital Signs Date Time Temp Pulse Resp B/P (MAP) Pulse Ox O2 Delivery O2 Flow Rate FiO2 09/26/19 14:47 17 3 Nasal Cannula 09/26/19 12:44 3.0 09/26/19 11:23 97.9 68 135/50 (78) 97.9 Physical Exam General: mild distress Heart: Regular rate Lungs: Other (Coarse breath sounds bilaterally ) Abdomen: Normal bowel sounds Extremities: No cyanosis, No edema Skin: No breakdown, No significant lesion Review of Systems Review of Systems Pertinent as per HPI otherwise 14 point review of system is negative Assessment and Plan Assessmemt and Plan Problems Medical Problems: (1) Dyspnea on minimal exertion Status: Acute Comment Review of Relevant I have reviewed the following items oneil (where applicable) has been applied. Labs Laboratory Tests Test 09/24/19 15:15 09/24/19 19:35 09/25/19 00:01 09/25/19 04:00 Sodium Level 140 mmol/L (136-145) 141 mmol/L (136-145) Potassium Level 4.2 mmol/L (3.5-5.1) 4.4 mmol/L (3.5-5.1) Chloride Level 102 mmol/L (98-107) 104 mmol/L (98-107) Carbon Dioxide Level 33 mmol/L (21-32) 29 mmol/L (21-32) Anion Gap 5 (6-14) 8 (6-14) Blood Urea Nitrogen 14 mg/dL (7-20) 13 mg/dL (7-20) Creatinine 1.5 mg/dL (0.6-1.0) 1.2 mg/dL (0.6-1.0) Estimated GFR (Cockcroft-Gault) 33.3 43.1 BUN/Creatinine Ratio 9 (6-20) 11 (6-20) Glucose Level 106 mg/dL (70-99) 144 mg/dL (70-99) Calcium Level 8.5 mg/dL (8.5-10.1) 8.6 mg/dL (8.5-10.1) Magnesium Level 2.2 mg/dL (1.8-2.4) Total Bilirubin 0.3 mg/dL (0.2-1.0) 0.3 mg/dL (0.2-1.0) Aspartate Amino Transf (AST/SGOT) 14 U/L (15-37) 13 U/L (15-37) Alanine Aminotransferase (ALT/SGPT) 16 U/L (14-59) 17 U/L (14-59) Alkaline Phosphatase 62 U/L (46-116) 55 U/L (46-116) Troponin I Quantitative < 0.017 ng/mL (0.000-0.055) < 0.017 ng/mL (0.000-0.055) < 0.017 ng/mL (0.000-0.055) UA-Vbn-J-Type Natriuretic Peptide 269 pg/mL (0-449) Total Protein 6.7 g/dL (6.4-8.2) 6.4 g/dL (6.4-8.2) Albumin 3.3 g/dL (3.4-5.0) 3.1 g/dL (3.4-5.0) Albumin/Globulin Ratio 1.0 (1.0-1.7) 0.9 (1.0-1.7) White Blood Count 5.3 x10^3/uL (4.0-11.0) Red Blood Count 3.97 x10^6/uL (3.50-5.40) Hemoglobin 12.3 g/dL (12.0-15.5) Hematocrit 37.0 % (36.0-47.0) Mean Corpuscular Volume 93 fL (79-100) Mean Corpuscular Hemoglobin 31 pg (25-35) Mean Corpuscular Hemoglobin Concent 33 g/dL (31-37) Red Cell Distribution Width 13.5 % (11.5-14.5) Platelet Count 211 x10^3/uL (140-400) Neutrophils (%) (Auto) 85 % (31-73) Lymphocytes (%) (Auto) 14 % (24-48) Monocytes (%) (Auto) 1 % (0-9) Eosinophils (%) (Auto) 0 % (0-3) Basophils (%) (Auto) 0 % (0-3) Neutrophils # (Auto) 4.5 x10^3/uL (1.8-7.7) Lymphocytes # (Auto) 0.7 x10^3/uL (1.0-4.8) Monocytes # (Auto) 0.1 x10^3/uL (0.0-1.1) Eosinophils # (Auto) 0.0 x10^3/uL (0.0-0.7) Basophils # (Auto) 0.0 x10^3/uL (0.0-0.2) Segmented Neutrophils % 90 % (35-66) Lymphocytes % 10 % (24-48) Platelet Estimate Adequate (ADEQUATE) Triglycerides Level 57 mg/dL (0-150) Cholesterol Level 173 mg/dL (0-200) LDL Cholesterol, Calculated 105 mg/dL (0-100) VLDL Cholesterol, Calculated 11 mg/dL (0-40) Non-HDL Cholesterol Calculated 116 mg/dL (0-129) HDL Cholesterol 57 mg/dL (40-60) Cholesterol/HDL Ratio 3.0 Thyroid Stimulating Hormone (TSH) 1.037 uIU/mL (0.358-3.74) Medications Current Medications Ondansetron HCl (Zofran) 4 mg PRN Q8HRS PRN IV NAUSEA/VOMITING; Start 09/24/19 at 16:30; Stop 09/24/19 at 18:45; Status DC Acetaminophen (Tylenol) 650 mg PRN Q4HRS PRN PO FEVER > 100.3'F; Start 09/24/19 at 16:30; Stop 09/24/19 at 18:45; Status DC Albuterol/ Ipratropium (Duoneb) 3 ml RTQID NEB ; Start 09/24/19 at 20:00; Stop 09/24/19 at 18:40; Status DC Methylprednisolone Sodium Succinate (SOLU-Medrol 40MG VIAL) 40 mg Q8HRS IV ; Start 09/24/19 at 22:00; Stop 09/24/19 at 18:43; Status DC Aspirin (Aspirin Chewable) 81 mg DAILY PO Last administered on 09/26/19 09:45; Start 09/25/19 at 09:00 Carvedilol (Coreg) 3.125 mg BIDWMEALS PO Last administered on 09/26/19 09:42; Start 09/24/19 at 21:00 Vitamin D (Vitamin D3) 1,000 unit DAILY PO Last administered on 09/26/19 09:42; Start 09/25/19 at 09:00 Cyanocobalamin (Vitamin B-12) 500 mcg DAILY PO Last administered on 09/26/19 09:42; Start 09/25/19 at 09:00 Fluticasone Propionate (Flonase) 2 spray DAILY NS Last administered on 09/26/19 09:41; Start 09/25/19 at 09:00 Acetaminophen/ Hydrocodone Bitart (Lortab 5/325) 1 tab TID PO Last administered on 09/26/19 14:47; Start 09/24/19 at 21:00 Albuterol/ Ipratropium (Duoneb) 3 ml Q4HRS W/A IH Last administered on 09/25/19 19:18; Start 09/24/19 at 22:00; Stop 09/25/19 at 23:44; Status DC Losartan Potassium (Cozaar) 25 mg DAILY PO Last administered on 09/26/19 09:45; Start 09/25/19 at 09:00 Nitroglycerin (Nitrostat) 0.4 mg PRN Q5MIN PRN SL CHEST PAIN; Start 09/24/19 at 18:45 Polyethylene Glycol (miraLAX PACKET) 17 gm DAILY PO Last administered on 09/26/19at 09:40; Start 09/25/19 at 09:00 Potassium Chloride (Klor-Con) 20 meq TIDWMEALS PO Last administered on 09/26/19 14:46; Start 09/24/19 at 21:00 Prednisone (Prednisone) 40 mg DAILY PO ; Start 09/25/19 at 09:00; Stop 09/24/19 at 18:43; Status DC Simethicone (Gas-X) 80 mg PRN DAILY PRN PO GAS / BLOATING; Start 09/24/19 at 18:45 Ascorbic Acid (Vitamin C) 1,000 mg DAILY PO Last administered on 09/26/19 09:43; Start 09/25/19 at 09:00 Calcium Carbonate/ Glycine (Oscal) 500 mg DAILY PO Last administered on 09/26/19 09:44; Start 09/25/19 at 09:00 Fenofibrate (Lofibra) 54 mg DAILY PO Last administered on 09/26/19 09:44; Start 09/25/19 at 09:00 Budesonide (Pulmicort) 0.5 mg RTBID NEB Last administered on 09/26/19 07:44; Start 09/24/19 at 20:00 Guaifenesin/ Codeine Phosphate (Robitussin Ac) 5 ml PRN Q6HRS PRN PO COUGH, 2nd CHOICE; Start 09/24/19 at 18:45 Lactobacillus Rhamnosus (Culturelle) 1 cap BID PO Last administered on 09/26/19 09:41; Start 09/24/19 at 21:00 Fish Oil (Fish Oil) 2,000 mg DAILY PO Last administered on 09/26/19 09:44; Start 09/25/19 at 09:00 Atorvastatin Calcium (Lipitor) 80 mg QHS PO Last administered on 09/25/19 21:22; Start 09/24/19 at 21:00 Non-Formulary Medication (Tiotropium [place] (Spiriva)) 2 inh DAILY IH ; Start 09/25/19 at 09:00; Status UNV Methylprednisolone Sodium Succinate (SOLU-Medrol 125MG VIAL) 100 mg Q8HRS IV Last administered on 09/25/19 05:27; Start 09/24/19 at 22:00; Stop 09/25/19 at 10:51; Status DC Sodium Chloride (Normal Saline Flush) 3 ml QSHIFT PRN IV AFTER MEDS AND BLOOD DRAWS; Start 09/24/19 at 18:45 Ondansetron HCl (Zofran) 4 mg PRN Q4HRS PRN IV NAUSEA/VOMITING; Start 09/24/19 at 18:45 Acetaminophen (Tylenol) 650 mg PRN Q4HRS PRN PO TEMP OVER 100.4F OR MILD PAIN Last administered on 09/25/19at 21:30; Start 09/24/19 at 18:45 Sodium Monofluorophosphate (Fleet Adult) 133 ml PRN DAILY PRN [place] CONSTIPATION; Start 09/24/19 at 18:45 Docusate Sodium (Colace) 100 mg PRN BID PRN PO HARD STOOLS; Start 09/24/19 at 18:45 Guaifenesin (Robitussin) 200 mg PRN Q4HRS PRN PO COUGH, 1st CHOICE Last administered on 09/26/19at 09:41; Start 09/24/19 at 18:45 Enoxaparin Sodium (Lovenox 40mg Syringe) 40 mg Q24H SQ ; Start 09/24/19 at 21:00 Doxycycline Hyclate 100 mg/ Dextrose 100 ml @ 50 mls/hr Q12HR IV Last administered on 09/26/19at 09:47; Start 09/24/19 at 21:00 Pantoprazole Sodium (Protonix) 40 mg DAILYAC PO Last administered on 09/26/19at 09:45; Start 09/25/19 at 07:30 Methylprednisolone Sodium Succinate (SOLU-Medrol 40MG VIAL) 60 mg Q8HRS IV Last administered on 09/26/19at 14:45; Start 09/25/19 at 14:00 Barium Sulfate (Liquid E-Z [place]) 355 ml 1X ONCE PO Last administered on 09/25/19 12:15; Start 09/25/19 at 12:15; Stop 09/25/19 at 12:16; Status DC Barium Sulfate (E-Z-Hd) 340 gm 1X ONCE PO Last administered on 09/25/19at 12:15; Start 09/25/19 at 12:15; Stop 09/25/19 at 12:16; Status DC Simethicone/ Sodium Bicarb/ Citric Ac (E-Z-Gas) 1 packet 1X ONCE PO Last administered on 09/25/19at 12:15; Start 09/25/19 at 12:15; Stop 09/25/19 at 12:16; Status DC Albuterol/ Ipratropium (Duoneb) 3 ml RTQID IH Last administered on 09/26/19at 12:44; Start 09/26/19 at 08:00 Active Scripts Active Medrol (Methylprednisolone) 4 Mg Tab.ds.pk 1 Pkg PO UD Prednisone 20 Mg Tablet 40 Mg PO DAILY 1 Days Coreg (Carvedilol) 3.125 Mg Tablet 3.125 Mg PO BIDWMEALS Simethicone 80 Mg Tab.chew 80 Mg PO PRN DAILY PRN 30 Days Acidophilus-Pectin Capsule (Lactobacillus Acidophilus/Pect) 1 Cap Capsule 1 Cap PO BID Codeine-Guaifen 10-100 mg/5 ml (Guaifenesin/Codeine Phosphate) 120 Ml Liquid 120 Ml PO PRN Q6-8HRS PRN Reported Aspirin 81 Mg Tab.chew 1 Tab PO DAILY Spiriva (Tiotropium [place]) 18 Mcg Cap.w.dev 2 Inh IH DAILY Flonase (Fluticasone Propionate) 16 Gm [place].susp 2 [place] NS DAILY Potassium Chloride (Potassium Chloride) 20 Meq Tablet.er 20 Meq PO TID Crestor (Rosuvastatin Calcium) 40 Mg Tablet 1 Tab PO HS Fish Oil + D3 Softgel ([place]-3S/Dha/Epa/Fish Oil/D3) 1 Each Capsule 2 Each PO DAILY Calcium (Calcium Carbonate) 600 Mg Tablet 600 Mg PO DAILY Vitamin C (Ascorbic Acid) 1,000 Mg Tablet 1,000 Mg PO DAILY Vitamin D (Cholecalciferol (Vitamin D3)) 1,000 Unit Tablet 1,000 Unit PO DAILY Miralax (Polyethylene Glycol 3350) 119 Gm Powder 17 Gm PO DAILY Furosemide 40 Mg Tablet 1 Tab PO BID B-12 (Cyanocobalamin (Vitamin B-12)) 1,000 Mcg Tablet 500 Mcg PO DAILY Tricor (Fenofibrate Nanocrystallized) 48 Mg Tablet 54 Mg PO DAILY [place] 5-325 Tablet (Acetaminophen/Hydrocodone Bitart) 1 Each Tablet 1 Tab PO TID NITROGLYCERIN SubLingual (Nitroglycerin) 0.4 Mg Tab.subl 0.4 Mg SL PRN Q5MIN PRN Cozaar (Losartan Potassium) 25 Mg Tablet 1 Tab PO DAILY Duoneb 0.5-3(2.5) Mg/3 Ml (Albuterol/Ipratropium) 3 Ml Ampul.neb 3 Ml IH Advair 500-50 Diskus (Fluticasone/Salmeterol) 1 Each Disk.w.dev 1 Puff IH BID Vitals/I & O Vital Sign - Last 24 Hours 09/25/19 09/25/19 09/25/19 09/25/19 15:03 15:18 15:19 16:50 Temp 97.8 97.8 Pulse 68 Resp 18 B/P (MAP) 136/52 (80) Pulse Ox 97 96 97 97 O2 Delivery Nasal Cannula Nasal Cannula Nasal Cannula Nasal Cannula O2 Flow Rate 3.0 2.0 3.0 3.0 09/25/19 09/25/19 09/25/19 09/25/19 17:16 19:00 19:18 20:15 Temp 98.0 98.0 Pulse 68 74 Resp 20 B/P (MAP) 136/52 135/48 (77) Pulse Ox 99 98 O2 Delivery Nasal Cannula Nasal Cannula Nasal Cannula O2 Flow Rate 3.0 2.0 09/25/19 09/26/19 09/26/19 09/26/19 23:04 03:06 07:44 07:56 Temp 97.9 97.4 98.2 97.9 97.4 98.2 Pulse 69 68 63 Resp 20 20 20 B/P (MAP) 143/68 (93) 129/47 (74) 104/72 (83) Pulse Ox 97 96 97 98 O2 Delivery Nasal Cannula BiPAP/CPAP Nasal Cannula Nasal Cannula O2 Flow Rate 3.0 2.0 09/26/19 09/26/19 09/26/19 09/26/19 09:42 09:45 09:46 10:46 Pulse 63 63 Resp 18 18 B/P (MAP) 104/72 104/72 O2 Delivery Nasal Cannula Nasal Cannula O2 Flow Rate 3.0 4.0 09/26/19 09/26/19 09/26/19 11:23 12:44 14:47 Temp 97.9 97.9 Pulse 68 Resp 18 17 B/P (MAP) 135/50 (78) Pulse Ox 96 98 3 O2 Delivery Nasal Cannula Nasal Cannula Nasal Cannula O2 Flow Rate 2.0 3.0 Intake and Output 09/25/19 09/25/19 09/26/19 15:00 23:00 07:00 Intake Total 300 ml 400 ml Output Total 100 ml Balance 300 ml 400 ml -100 ml ANDREW BURGESS MD Sep 26, 2019 15:04
[2019-09-26 15:12] VITALS: BP 120/40
--- NOTE | 2019-09-26 17:04 | RAD ---
PQRS Compliance Statement: One or more of the following individualized dose reduction techniques were utilized for this examination: 1. Automated exposure control 2. Adjustment of the mA and/or kV according to patient size 3. Use of iterative reconstruction technique CT CHEST WO CONTRAST Clinical Indication: Reason: hital hernia/ SOB / Spl. Instructions: / History: Comparison: CT chest without contrast, March 03, 2018. TECHNIQUE: Helical CT imaging of the chest is performed without IV contrast. Findings: Thyroid is symmetric. Atherosclerotic thoracic aorta. No mediastinal adenopathy. Calcified left hilar lymph node. There is severe coronary artery disease. The great vessels are normal caliber. Cardiac size normal, no pericardial effusion. No hiatal hernia is seen. There are bilateral lower lobe calcified granulomas. There is no pleural effusion. The central airways are patent. Incidental azygos fissure. There is moderate centrilobular emphysema in the upper lobes. There is mild scarring or atelectasis in the posterior right lower and upper lobes. Lungs are otherwise clear. Cholecystectomy. There is barium in the stomach and in bowel from prior esophagram. This creates beam hardening artifact. There are unchanged old wedge compression deformities of the T7, T8, and T11 vertebral bodies. T8 vertebral body has been treated with vertebroplasty. IMPRESSION: 1. Moderate upper lobe centrilobular emphysema. 2. There is right lung scarring or atelectasis. 3. Severe coronary artery disease. Electronically signed by: Braeden Macdonald MD (09/26/2019 5:01 PM) [facility]
[2019-09-26 19:00] VITALS: BP 135/54
[2019-09-26] MEDS: ATORVASTATIN CALCIUM 40 MG TABLET. PO SCH (22:15)
[2019-09-26] MEDS: ENOXAPARIN 40 MG/0.4 ML SYRINGE. SQ SCH (22:16)
[2019-09-26 23:00] VITALS: BP 121/61
[2019-09-27 03:00] VITALS: BP 135/62
[2019-09-27] MEDS: methylPREDNISolone SOD SUCC PF 40 MG/ML VIAL. IV SCH ×2 (06:37→22:02)
[2019-09-27 07:00] VITALS: BP 150/58
[2019-09-27] MEDS: IPRATRPIUM/ALBUTEROL 0.5/2.5MG 3 ML NEBU. IH SCH ×4 (07:42→20:21)
[2019-09-27] MEDS: BUDESONIDE 0.5 MG/2 ML NEBU. NEB SCH ×2 (07:42→20:21)
[2019-09-27] MEDS: FENOFIBRATE 54 MG TABLET. PO SCH (09:02)
[2019-09-27] MEDS: CHOLECALCIFEROL (VITAMIN D3) 1,000 UNIT TABLET PO SCH (09:02)
[2019-09-27] MEDS: OMEGA-3 FATTY ACIDS/FISH OIL 1,000 MG CAPSULE. PO SCH (09:02)
[2019-09-27] MEDS: POLYETHYLENE GLYCOL 3350 17 GM PACKET. PO SCH (09:02)
[2019-09-27] MEDS: CALCIUM CARBONATE 500 MG TABLET PO SCH (09:02)
[2019-09-27] MEDS: HYDROcodone/APAP 5/325MG 1 TAB TABLET PO SCH ×3 (09:03→21:00)
[2019-09-27] MEDS: POTASSIUM CHLORIDE 20 MEQ TABLET.ER. PO SCH ×3 (09:03→17:40)
[2019-09-27] MEDS: PANTOPRAZOLE 40 MG TABLET.DR. PO SCH (09:04)
[2019-09-27] MEDS: ASCORBIC ACID 500 MG TABLET PO SCH (09:04)
[2019-09-27] MEDS: LACTOBACILLUS RHAMNOSUS GG 1 CAPSULE. PO SCH ×2 (09:05→22:01)
[2019-09-27] MEDS: LOSARTAN POTASSIUM 25 MG TABLET. PO SCH (09:05)
[2019-09-27] MEDS: CYANOCOBALAMIN (VITAMIN B-12) 1,000 MCG TABLET. PO SCH (09:05)
[2019-09-27] MEDS: CARVEDILOL 3.125 MG TABLET. PO SCH ×2 (09:05→17:41)
[2019-09-27] MEDS: ASPIRIN CHEWABLE 81 MG TABLET. PO SCH (09:06)
[2019-09-27] MEDS: FLUTICASONE 50MCG/NASAL SPRAY 16GM BOTTLE. NS SCH (09:15)
--- NOTE | 2019-09-27 10:07 | PDOC ---
PULMONARY PROGRESS NOTES Subjective Sitting up in chair, on 2 liters N/C , denies increased cough or SOB Vitals Vital Signs Date Time Temp Pulse Resp B/P (MAP) Pulse Ox O2 Delivery O2 Flow Rate FiO2 09/27/19 09:05 60 150/58 09/27/19 09:03 18 Nasal Cannula 3.0 09/27/19 07:43 99 09/27/19 07:00 97.9 97.9 ROS: No Nausea, No Chest Pain, No Abdominal Pain, No Increase Cough General: Alert, Oriented X4, No acute distress Lungs: Other (DS in bases ) Cardiovascular: S1, S2 Abdomen: Soft, Non-tender Neuro Exam: Alert, Oriented Extremities: No Edema Skin: Warm, Dry Medications Active Scripts Medications Dose Route/Sig Max Daily Dose Days Date Category Medrol (Methylprednisolone) 4 Mg Tab.ds.pk 1 Pkg PO UD 08/09/19 Rx Aspirin 81 Mg Tab.chew 1 Tab PO DAILY 10/29/17 Reported Spiriva (Tiotropium [place]) 18 Mcg Cap.w.dev 2 Inh IH DAILY 02/28/15 Reported Prednisone 20 Mg Tablet 40 Mg PO DAILY 1 12/10/14 Rx Coreg (Carvedilol) 3.125 Mg Tablet 3.125 Mg PO BIDWMEALS 12/10/14 Rx Simethicone 80 Mg Tab.chew 80 Mg PO PRN DAILY PRN 30 05/17/14 Rx Acidophilus-Pectin Capsule (Lactobacillus Acidophilus/Pect) 1 Cap Capsule 1 Cap PO BID 05/17/14 Rx Flonase (Fluticasone Propionate) 16 Gm [place].susp 2 [place] NS DAILY 05/15/14 Reported Codeine-Guaifen 10-100 mg/5 ml (Guaifenesin/Codeine Phosphate) 120 Ml Liquid 120 Ml PO PRN Q6-8HRS PRN 03/05/14 Rx Potassium Chloride (Potassium Chloride) 20 Meq Tablet.er 20 Meq PO TID 03/01/14 Reported Crestor (Rosuvastatin Calcium) 40 Mg Tablet 1 Tab PO HS 03/01/14 Reported Fish Oil + D3 Softgel ([place]-3S/Dha/Epa/Fish Oil/D3) 1 Each Capsule 2 Each PO DAILY 03/01/14 Reported Calcium (Calcium Carbonate) 600 Mg Tablet 600 Mg PO DAILY 03/01/14 Reported Vitamin C (Ascorbic Acid) 1,000 Mg Tablet 1,000 Mg PO DAILY 03/01/14 Reported Vitamin D (Cholecalciferol (Vitamin D3)) 1,000 Unit Tablet 1,000 Unit PO DAILY 03/01/14 Reported Miralax (Polyethylene Glycol 3350) 119 Gm Powder 17 Gm PO DAILY 03/01/14 Reported Furosemide 40 Mg Tablet 1 Tab PO BID 03/01/14 Reported B-12 (Cyanocobalamin (Vitamin B-12)) 1,000 Mcg Tablet 500 Mcg PO DAILY 03/01/14 Reported Tricor (Fenofibrate Nanocrystallized) 48 Mg Tablet 54 Mg PO DAILY 03/01/14 Reported [place] 5-325 Tablet (Acetaminophen/Hydrocodone Bitart) 1 Each Tablet 1 Tab PO TID 03/01/14 Reported NITROGLYCERIN SubLingual (Nitroglycerin) 0.4 Mg Tab.subl 0.4 Mg SL PRN Q5MIN PRN 03/01/14 Reported Cozaar (Losartan Potassium) 25 Mg Tablet 1 Tab PO DAILY 03/01/14 Reported Duoneb 0.5-3(2.5) Mg/3 Ml (Albuterol/Ipratropium) 3 Ml Ampul.neb 3 Ml IH 03/01/14 Reported Advair 500-50 Diskus (Fluticasone/Salmeterol) 1 Each Disk.w.dev 1 Puff IH BID 03/01/[address] chest IMPRESSION: 1. Moderate upper lobe centrilobular emphysema. 2. There is right lung scarring or atelectasis. 3. Severe coronary artery disease. Impression . IMPRESSION: 1. Dyspnea secondary to acute exacerbation of chronic obstructive pulmonary disease and in addition to her underlying obesity with a body mass index of 32.-- improving Clinically, she has no symptoms to suggest pneumonia or heart failure. 2. Dysphagia/choking with food. She has history of hiatal hernia. Would need to rule out any esophageal narrowing S/P esophageal barrium swallow and CT chest to evaluate hiatal hernia 3. History of obstructive sleep apnea on continuous positive airway pressure with good compliance. 4. History of coronary artery disease, status post stent. Clinically stable-- planning for cath on saturday Plan . RECOMMENDATIONS: 1. Continue present oxygen. Saturations are stable on 2 liters, keep 92% 2. Continue bronchodilators. 3. Taper steroids. 4. Barium swallow to rule out any esophageal narrowing,-- pending results 5. Continue DVT prophylaxis. 6. CT of Chest reviewed 7. follow cardiology recs, plan for cardiac cath on Saturday D/W BECCA LOMAX MD Sep 27, 2019 10:07
[2019-09-27 11:00] VITALS: BP 155/75
--- NOTE | 2019-09-27 11:32 | PDOC ---
PROGRESS NOTES Chief Complaint Chief Complaint 1. Dyspnea secondary to acute exacerbation of chronic obstructive pulmonary disease and in addition to her underlying obesity with a body mass index of 32. Clinically, she has no symptoms to suggest pneumonia or heart failure. 2. Possibly esophageal dysmotility and GERD exacerbation contributing to above 3. Chronic diastolic CHF: compensated 4. CAD: past stents. trops nml EKG with no acute ST-T wave changes. 5. Hx of multiple thoracic compression fractures 6. AAA: 01/2019 4.1 cm, stable 7. HTN: controlled 8. HLP 9. Atypical CP: MSK/GI 10. Hiatal hernia Plan Requesting surgical consult as per patient son for evaluation of hiatal hernia senior information security consultant recommendations greatly appreciated most likely will have a cardiac cath on Saturday as discussed with senior compensation consultant Supportive measure Continue home meds Further recommendations based on clinical course Recommendations 1. Pulmonary consult 2. Continue with secondary prevention measures. Consider GI consult. 3. PPI 4. Supportive care 5. Will consider outpt MPI if none done recently History of Present Illness History of Present Illness 09/25: No acute events reported overnight, case discussed with nursing staff patient in no acute distress no complaints during my visit 09/26: No acute events reported overnight, case discussed with nursing staff patient in no acute distress no complaints during my visit PT eval done and she is leaning towards placement. Vitals Vitals Vital Signs Date Time Temp Pulse Resp B/P (MAP) Pulse Ox O2 Delivery O2 Flow Rate FiO2 09/27/19 09:05 60 150/58 09/27/19 09:03 18 Nasal Cannula 3.0 09/27/19 07:43 99 09/27/19 07:00 97.9 97.9 Physical Exam General: mild distress Heart: Regular rate Lungs: Other (DS in bases ) Abdomen: Normal bowel sounds Extremities: No cyanosis, No edema Skin: No breakdown, No significant lesion Review of Systems Review of Systems Pertinent as per HPI otherwise 10 point review of system is negative Assessment and Plan Assessmemt and Plan Problems Medical Problems: (1) Dyspnea on minimal exertion Status: Acute Comment Review of Relevant I have reviewed the following items oneil (where applicable) has been applied. Medications Current Medications Ondansetron HCl (Zofran) 4 mg PRN Q8HRS PRN IV NAUSEA/VOMITING; Start 09/24/19 at 16:30; Stop 09/24/19 at 18:45; Status DC Acetaminophen (Tylenol) 650 mg PRN Q4HRS PRN PO FEVER > 100.3'F; Start 09/24/19 at 16:30; Stop 09/24/19 at 18:45; Status DC Albuterol/ Ipratropium (Duoneb) 3 ml RTQID NEB ; Start 09/24/19 at 20:00; Stop 09/24/19 at 18:40; Status DC Methylprednisolone Sodium Succinate (SOLU-Medrol 40MG VIAL) 40 mg Q8HRS IV ; Start 09/24/19 at 22:00; Stop 09/24/19 at 18:43; Status DC Aspirin (Aspirin Chewable) 81 mg DAILY PO Last administered on 09/27/19 09:06; Start 09/25/19 at 09:00 Carvedilol (Coreg) 3.125 mg BIDWMEALS PO Last administered on 09/27/19 09:05; Start 09/24/19 at 21:00 Vitamin D (Vitamin D3) 1,000 unit DAILY PO Last administered on 09/27/19 09:02; Start 09/25/19 at 09:00 Cyanocobalamin (Vitamin B-12) 500 mcg DAILY PO Last administered on 09/27/19 09:05; Start 09/25/19 at 09:00 Fluticasone Propionate (Flonase) 2 spray DAILY NS Last administered on 09/27/19 09:15; Start 09/25/19 at 09:00 Acetaminophen/ Hydrocodone Bitart (Lortab 5/325) 1 tab TID PO Last administered on 09/27/19at 09:03; Start 09/24/19 at 21:00 Albuterol/ Ipratropium (Duoneb) 3 ml Q4HRS W/A IH Last administered on 09/25/19at 19:18; Start 09/24/19 at 22:00; Stop 09/25/19 at 23:44; Status DC Losartan Potassium (Cozaar) 25 mg DAILY PO Last administered on 09/27/19at 09:05; Start 09/25/19 at 09:00 Nitroglycerin (Nitrostat) 0.4 mg PRN Q5MIN PRN SL CHEST PAIN; Start 09/24/19 at 18:45 Polyethylene Glycol (miraLAX PACKET) 17 gm DAILY PO Last administered on 09/27/19 09:02; Start 09/25/19 at 09:00 Potassium Chloride (Klor-Con) 20 meq TIDWMEALS PO Last administered on 09/27/19 09:03; Start 09/24/19 at 21:00 Prednisone (Prednisone) 40 mg DAILY PO ; Start 09/25/19 at 09:00; Stop 09/24/19 at 18:43; Status DC Simethicone (Gas-X) 80 mg PRN DAILY PRN PO GAS / BLOATING; Start 09/24/19 at 18:45 Ascorbic Acid (Vitamin C) 1,000 mg DAILY PO Last administered on 09/27/19 09:04; Start 09/25/19 at 09:00 Calcium Carbonate/ Glycine (Oscal) 500 mg DAILY PO Last administered on 09/27/19 09:02; Start 09/25/19 at 09:00 Fenofibrate (Lofibra) 54 mg DAILY PO Last administered on 09/27/19 09:02; Start 09/25/19 at 09:00 Budesonide (Pulmicort) 0.5 mg RTBID NEB Last administered on 09/27/19 07:42; Start 09/24/19 at 20:00 Guaifenesin/ Codeine Phosphate (Robitussin Ac) 5 ml PRN Q6HRS PRN PO COUGH, 2nd CHOICE; Start 09/24/19 at 18:45 Lactobacillus Rhamnosus (Culturelle) 1 cap BID PO Last administered on 09/27/19 09:05; Start 09/24/19 at 21:00 Fish Oil (Fish Oil) 2,000 mg DAILY PO Last administered on 09/27/19 09:02; Start 09/25/19 at 09:00 Atorvastatin Calcium (Lipitor) 80 mg QHS PO Last administered on 09/26/19 22:15; Start 09/24/19 at 21:00 Non-Formulary Medication (Tiotropium [place] (Spiriva)) 2 inh DAILY IH ; Start 09/25/19 at 09:00; Status UNV Methylprednisolone Sodium Succinate (SOLU-Medrol 125MG VIAL) 100 mg Q8HRS IV Last administered on 09/25/19 05:27; Start 09/24/19 at 22:00; Stop 09/25/19 at 10:51; Status DC Sodium Chloride (Normal Saline Flush) 3 ml QSHIFT PRN IV AFTER MEDS AND BLOOD DRAWS; Start 09/24/19 at 18:45 Ondansetron HCl (Zofran) 4 mg PRN Q4HRS PRN IV NAUSEA/VOMITING; Start 09/24/19 at 18:45 Acetaminophen (Tylenol) 650 mg PRN Q4HRS PRN PO TEMP OVER 100.4F OR MILD PAIN Last administered on 09/25/19at 21:30; Start 09/24/19 at 18:45 Sodium Monofluorophosphate (Fleet Adult) 133 ml PRN DAILY PRN [place] CONSTIPATION; Start 09/24/19 at 18:45 Docusate Sodium (Colace) 100 mg PRN BID PRN PO HARD STOOLS; Start 09/24/19 at 18:45 Guaifenesin (Robitussin) 200 mg PRN Q4HRS PRN PO COUGH, 1st CHOICE Last administered on 09/26/19at 09:41; Start 09/24/19 at 18:45 Enoxaparin Sodium (Lovenox 40mg Syringe) 40 mg Q24H SQ Last administered on 09/26/19at 22:16; Start 09/24/19 at 21:00 Doxycycline Hyclate 100 mg/ Dextrose 100 ml @ 50 mls/hr Q12HR IV Last administered on 09/26/19at 22:18; Start 09/24/19 at 21:00 Pantoprazole Sodium (Protonix) 40 mg DAILYAC PO Last administered on 09/27/19at 09:04; Start 09/25/19 at 07:30 Methylprednisolone Sodium Succinate (SOLU-Medrol 40MG VIAL) 60 mg Q8HRS IV Last administered on 09/27/19at 06:37; Start 09/25/19 at 14:00; Stop 09/27/19 at 10:08; Status DC Barium Sulfate (Liquid E-Z Paque) 355 ml 1X ONCE PO Last administered on 09/25/19at 12:15; Start 09/25/19 at 12:15; Stop 09/25/19 at 12:16; Status DC Barium Sulfate (E-Z-Hd) 340 gm 1X ONCE PO Last administered on 09/25/19at 12:15; Start 09/25/19 at 12:15; Stop 09/25/19 at 12:16; Status DC Simethicone/ Sodium Bicarb/ Citric Ac (E-Z-Gas) 1 packet 1X ONCE PO Last administered on 09/25/19at 12:15; Start 09/25/19 at 12:15; Stop 09/25/19 at 12:16; Status DC Albuterol/ Ipratropium (Duoneb) 3 ml RTQID IH Last administered on 09/27/19at 07:42; Start 09/26/19 at 08:00 Methylprednisolone Sodium Succinate (SOLU-Medrol 40MG VIAL) 40 mg Q12HR IV ; Start 09/27/19 at 21:00 Active Scripts Active Medrol (Methylprednisolone) 4 Mg Tab.ds.pk 1 Pkg PO UD Prednisone 20 Mg Tablet 40 Mg PO DAILY 1 Days Coreg (Carvedilol) 3.125 Mg Tablet 3.125 Mg PO BIDWMEALS Simethicone 80 Mg Tab.chew 80 Mg PO PRN DAILY PRN 30 Days Acidophilus-Pectin Capsule (Lactobacillus Acidophilus/Pect) 1 Cap Capsule 1 Cap PO BID Codeine-Guaifen 10-100 mg/5 ml (Guaifenesin/Codeine Phosphate) 120 Ml Liquid 120 Ml PO PRN Q6-8HRS PRN Reported Aspirin 81 Mg Tab.chew 1 Tab PO DAILY Spiriva (Tiotropium [place]) 18 Mcg Cap.w.dev 2 Inh IH DAILY Flonase (Fluticasone Propionate) 16 Gm [place].susp 2 [place] NS DAILY Potassium Chloride (Potassium Chloride) 20 Meq Tablet.er 20 Meq PO TID Crestor (Rosuvastatin Calcium) 40 Mg Tablet 1 Tab PO HS Fish Oil + D3 Softgel ([place]-3S/Dha/Epa/Fish Oil/D3) 1 Each Capsule 2 Each PO DAILY Calcium (Calcium Carbonate) 600 Mg Tablet 600 Mg PO DAILY Vitamin C (Ascorbic Acid) 1,000 Mg Tablet 1,000 Mg PO DAILY Vitamin D (Cholecalciferol (Vitamin D3)) 1,000 Unit Tablet 1,000 Unit PO DAILY Miralax (Polyethylene Glycol 3350) 119 Gm Powder 17 Gm PO DAILY Furosemide 40 Mg Tablet 1 Tab PO BID B-12 (Cyanocobalamin (Vitamin B-12)) 1,000 Mcg Tablet 500 Mcg PO DAILY Tricor (Fenofibrate Nanocrystallized) 48 Mg Tablet 54 Mg PO DAILY [place] 5-325 Tablet (Acetaminophen/Hydrocodone Bitart) 1 Each Tablet 1 Tab PO TID NITROGLYCERIN SubLingual (Nitroglycerin) 0.4 Mg Tab.subl 0.4 Mg SL PRN Q5MIN PRN Cozaar (Losartan Potassium) 25 Mg Tablet 1 Tab PO DAILY Duoneb 0.5-3(2.5) Mg/3 Ml (Albuterol/Ipratropium) 3 Ml Ampul.neb 3 Ml IH Advair 500-50 Diskus (Fluticasone/Salmeterol) 1 Each Disk.w.dev 1 Puff IH BID Vitals/I & O Vital Sign - Last 24 Hours 09/26/19 09/26/19 09/26/19 09/26/19 12:44 14:47 15:12 15:47 Temp 98.1 98.1 Pulse 62 Resp 17 18 18 B/P (MAP) 120/40 (66) Pulse Ox 98 3 98 O2 Delivery Nasal Cannula Nasal Cannula Nasal Cannula Nasal Cannula O2 Flow Rate 3.0 2.0 4.0 09/26/19 09/26/19 09/26/19 09/26/19 16:17 17:34 19:00 20:00 Temp 97.6 97.6 Pulse 62 66 Resp 20 B/P (MAP) 120/40 135/54 (81) Pulse Ox 99 97 O2 Delivery Nasal Cannula Nasal Cannula Nasal Cannula O2 Flow Rate 3.0 3.0 3.0 09/26/19 09/26/19 09/26/19 09/26/19 20:40 20:42 22:15 23:00 Temp 98.2 98.2 Pulse 67 Resp 20 B/P (MAP) 121/61 (81) Pulse Ox 97 97 97 95 O2 Delivery Nasal Cannula Nasal Cannula Nasal Cannula Nasal Cannula O2 Flow Rate 3.0 3.0 3.0 3.0 09/26/19 09/27/19 09/27/19 09/27/19 23:15 03:00 07:00 07:43 Temp 98.7 97.9 98.7 97.9 Pulse 63 60 Resp 20 19 B/P (MAP) 135/62 (86) 150/58 (88) Pulse Ox 95 95 99 99 O2 Delivery Nasal Cannula BiPAP/CPAP Nasal Cannula Nasal Cannula O2 Flow Rate 3.0 3.0 3.0 3.0 6/7/20 6/7/20 6/7/20 6/7/20 08:00 09:03 09:05 09:05 Pulse 60 60 Resp 18 B/P (MAP) 150/58 150/58 O2 Delivery Nasal Cannula Nasal Cannula O2 Flow Rate 3.0 3.0 Intake and Output 09/26/19 09/26/19 09/27/19 15:00 23:00 07:00 Intake Total 620 ml 420 ml 60 ml Output Total 500 ml Balance 620 ml 420 ml -440 ml ANDREW BURGESS MD Sep 27, 2019 11:32
[2019-09-27] MEDS: DOXYCYCLINE HYCLATE 100 MG in IV DEXTROSE 5% 100ML 100 ML IV SCH ×2 (12:30→21:00)
[2019-09-27 15:00] VITALS: BP 148/70
--- NOTE | 2019-09-27 15:20 | PDOC ---
PROGRESS NOTES Subjective Subjective Patient seen and examined Objective Objective Vital Signs Date Time Temp Pulse Resp B/P (MAP) Pulse Ox O2 Delivery O2 Flow Rate FiO2 09/27/19 15:01 17 Nasal Cannula 3.0 09/27/19 11:33 99 09/27/19 11:00 97.8 73 155/75 (101) 97.8 Intake and Output 09/27/19 07:00 Intake Total 1100 ml Output Total 500 ml Balance 600 ml Intake Oral 1100 ml Output Urine Total 200 ml Urine/Stool Mix 300 ml # Voids 5 # Bowel Movements 1 Physical Exam Abdomen: Normal bowel sounds Heart: Regular rate General: mild distress Lungs: Other (Mildly decreased breath sounds) Assessment Assessment Problems Medical Problems: (1) Dyspnea on minimal exertion Status: Acute AECOPD. Symptomatically continues to improve. We will continue as per pulmonary. Possibly esophageal dysmotility and GERD exacerbation contributing to above. Evaluation as above. Chronic diastolic CHF: compensated CAD: past stents. trops nml EKG with no acute ST-T wave changes. AAA: 01/2019 4.1 cm, stable HTN: controlled Catheterization tomorrow. Probable right and left heart cath. Discussed with the patient. She has agreed to proceed. Comment Review of Relevant I have reviewed the following items oneil (where applicable) has been applied. Medications Current Medications Ondansetron HCl (Zofran) 4 mg PRN Q8HRS PRN IV NAUSEA/VOMITING; Start 09/24/19 at 16:30; Stop 09/24/19 at 18:45; Status DC Acetaminophen (Tylenol) 650 mg PRN Q4HRS PRN PO FEVER > 100.3'F; Start 09/24/19 at 16:30; Stop 09/24/19 at 18:45; Status DC Albuterol/ Ipratropium (Duoneb) 3 ml RTQID NEB ; Start 09/24/19 at 20:00; Stop 09/24/19 at 18:40; Status DC Methylprednisolone Sodium Succinate (SOLU-Medrol 40MG VIAL) 40 mg Q8HRS IV ; Start 09/24/19 at 22:00; Stop 09/24/19 at 18:43; Status DC Aspirin (Aspirin Chewable) 81 mg DAILY PO Last administered on 09/27/19at 09:06; Start 09/25/19 at 09:00 Carvedilol (Coreg) 3.125 mg BIDWMEALS PO Last administered on 09/27/19 09:05; Start 09/24/19 at 21:00 Vitamin D (Vitamin D3) 1,000 unit DAILY PO Last administered on 09/27/19at 09:02; Start 09/25/19 at 09:00 Cyanocobalamin (Vitamin B-12) 500 mcg DAILY PO Last administered on 09/27/19 09:05; Start 09/25/19 at 09:00 Fluticasone Propionate (Flonase) 2 spray DAILY NS Last administered on 09/27/19 09:15; Start 09/25/19 at 09:00 Acetaminophen/ Hydrocodone Bitart (Lortab 5/325) 1 tab TID PO Last administered on 09/27/19 15:01; Start 09/24/19 at 21:00 Albuterol/ Ipratropium (Duoneb) 3 ml Q4HRS W/A IH Last administered on 0at 19:18; Start 09/24/19 at 22:00; Stop 09/25/19 at 23:44; Status DC Losartan Potassium (Cozaar) 25 mg DAILY PO Last administered on 09/27/19 09:05; Start 09/25/19 at 09:00 Nitroglycerin (Nitrostat) 0.4 mg PRN Q5MIN PRN SL CHEST PAIN; Start 09/24/19 at 18:45 Polyethylene Glycol (miraLAX PACKET) 17 gm DAILY PO Last administered on 09/27/19at 09:02; Start 09/25/19 at 09:00 Potassium Chloride (Klor-Con) 20 meq TIDWMEALS PO Last administered on 09/27/19at 12:31; Start 09/24/19 at 21:00 Prednisone (Prednisone) 40 mg DAILY PO ; Start 09/25/19 at 09:00; Stop 09/24/19 at 18:43; Status DC Simethicone (Gas-X) 80 mg PRN DAILY PRN PO GAS / BLOATING; Start 09/24/19 at 18:45 Ascorbic Acid (Vitamin C) 1,000 mg DAILY PO Last administered on 09/27/19at 09:04; Start 09/25/19 at 09:00 Calcium Carbonate/ Glycine (Oscal) 500 mg DAILY PO Last administered on 09/27/19 09:02; Start 09/25/19 at 09:00 Fenofibrate (Lofibra) 54 mg DAILY PO Last administered on 09/27/19 09:02; Start 09/25/19 at 09:00 Budesonide (Pulmicort) 0.5 mg RTBID NEB Last administered on 09/27/19 07:42; Start 09/24/19 at 20:00 Guaifenesin/ Codeine Phosphate (Robitussin Ac) 5 ml PRN Q6HRS PRN PO COUGH, 2nd CHOICE; Start 09/24/19 at 18:45 Lactobacillus Rhamnosus (Culturelle) 1 cap BID PO Last administered on 09/27/19 09:05; Start 09/24/19 at 21:00 Fish Oil (Fish Oil) 2,000 mg DAILY PO Last administered on 09/27/19 09:02; Start 09/25/19 at 09:00 Atorvastatin Calcium (Lipitor) 80 mg QHS PO Last administered on 09/26/19 22:15; Start 09/24/19 at 21:00 Non-Formulary Medication (Tiotropium [place] (Spiriva)) 2 inh DAILY IH ; Start 09/25/19 at 09:00; Status UNV Methylprednisolone Sodium Succinate (SOLU-Medrol 125MG VIAL) 100 mg Q8HRS IV Last administered on 09/25/19 05:27; Start 09/24/19 at 22:00; Stop 09/25/19 at 10:51; Status DC Sodium Chloride (Normal Saline Flush) 3 ml QSHIFT PRN IV AFTER MEDS AND BLOOD DRAWS; Start 09/24/19 at 18:45 Ondansetron HCl (Zofran) 4 mg PRN Q4HRS PRN IV NAUSEA/VOMITING; Start 09/24/19 at 18:45 Acetaminophen (Tylenol) 650 mg PRN Q4HRS PRN PO TEMP OVER 100.4F OR MILD PAIN Last administered on 09/25/19 21:30; Start 09/24/19 at 18:45 Sodium Monofluorophosphate (Fleet Adult) 133 ml PRN DAILY PRN [place] CONSTIPATION; Start 09/24/19 at 18:45 Docusate Sodium (Colace) 100 mg PRN BID PRN PO HARD STOOLS; Start 09/24/19 at 18:45 Guaifenesin (Robitussin) 200 mg PRN Q4HRS PRN PO COUGH, 1st CHOICE Last administered on 09/26/19at 09:41; Start 09/24/19 at 18:45 Enoxaparin Sodium (Lovenox 40mg Syringe) 40 mg Q24H SQ Last administered on 09/26/19at 22:16; Start 09/24/19 at 21:00 Doxycycline Hyclate 100 mg/ Dextrose 100 ml @ 50 mls/hr Q12HR IV Last administered on 09/27/19at 12:30; Start 09/24/19 at 21:00 Pantoprazole Sodium (Protonix) 40 mg DAILYAC PO Last administered on 09/27/19at 09:04; Start 09/25/19 at 07:30 Methylprednisolone Sodium Succinate (SOLU-Medrol 40MG VIAL) 60 mg Q8HRS IV Last administered on 09/27/19 06:37; Start 09/25/19 at 14:00; Stop 09/27/19 at 10:08; Status DC Barium Sulfate (Liquid E-Z [place]) 355 ml 1X ONCE PO Last administered on 09/25/19at 12:15; Start 09/25/19 at 12:15; Stop 09/25/19 at 12:16; Status DC Barium Sulfate (E-Z-Hd) 340 gm 1X ONCE PO Last administered on 09/25/19at 12:15; Start 09/25/19 at 12:15; Stop 09/25/19 at 12:16; Status DC Simethicone/ Sodium Bicarb/ Citric Ac (E-Z-Gas) 1 packet 1X ONCE PO Last a dministered on 09/25/19at 12:15; Start 09/25/19 at 12:15; Stop 09/25/19 at 12:16; Status DC Albuterol/ Ipratropium (Duoneb) 3 ml RTQID IH Last administered on 09/27/19at 11:31; Start 09/26/19 at 08:00 Methylprednisolone Sodium Succinate (SOLU-Medrol 40MG VIAL) 40 mg Q12HR IV ; Start 09/27/19 at 21:00 Active Scripts Active Medrol (Methylprednisolone) 4 Mg Tab.ds.pk 1 Pkg PO UD Prednisone 20 Mg Tablet 40 Mg PO DAILY 1 Days Coreg (Carvedilol) 3.125 Mg Tablet 3.125 Mg PO BIDWMEALS Simethicone 80 Mg Tab.chew 80 Mg PO PRN DAILY PRN 30 Days Acidophilus-Pectin Capsule (Lactobacillus Acidophilus/Pect) 1 Cap Capsule 1 Cap PO BID Codeine-Guaifen 10-100 mg/5 ml (Guaifenesin/Codeine Phosphate) 120 Ml Liquid 120 Ml PO PRN Q6-8HRS PRN Reported Aspirin 81 Mg Tab.chew 1 Tab PO DAILY Spiriva (Tiotropium [place]) 18 Mcg Cap.w.dev 2 Inh IH DAILY Flonase (Fluticasone Propionate) 16 Gm [place].susp 2 [place] NS DAILY Potassium Chloride (Potassium Chloride) 20 Meq Tablet.er 20 Meq PO TID Crestor (Rosuvastatin Calcium) 40 Mg Tablet 1 Tab PO HS Fish Oil + D3 Softgel ([place]-3S/Dha/Epa/Fish Oil/D3) 1 Each Capsule 2 Each PO DAILY Calcium (Calcium Carbonate) 600 Mg Tablet 600 Mg PO DAILY Vitamin C (Ascorbic Acid) 1,000 Mg Tablet 1,000 Mg PO DAILY Vitamin D (Cholecalciferol (Vitamin D3)) 1,000 Unit Tablet 1,000 Unit PO DAILY Miralax (Polyethylene Glycol 3350) 119 Gm Powder 17 Gm PO DAILY Furosemide 40 Mg Tablet 1 Tab PO BID B-12 (Cyanocobalamin (Vitamin B-12)) 1,000 Mcg Tablet 500 Mcg PO DAILY Tricor (Fenofibrate Nanocrystallized) 48 Mg Tablet 54 Mg PO DAILY [place] 5-325 Tablet (Acetaminophen/Hydrocodone Bitart) 1 Each Tablet 1 Tab PO TID NITROGLYCERIN SubLingual (Nitroglycerin) 0.4 Mg Tab.subl 0.4 Mg SL PRN Q5MIN PRN Cozaar (Losartan Potassium) 25 Mg Tablet 1 Tab PO DAILY Duoneb 0.5-3(2.5) Mg/3 Ml (Albuterol/Ipratropium) 3 Ml Ampul.neb 3 Ml IH Advair 500-50 Diskus (Fluticasone/Salmeterol) 1 Each Disk.w.dev 1 Puff IH BID Vitals/I & O Vital Sign - Last 24 Hours 09/26/19 09/26/19 09/26/19 09/26/19 15:47 16:17 17:34 19:00 Temp 97.6 97.6 Pulse 62 66 Resp 20 B/P (MAP) 120/40 135/54 (81) Pulse Ox 99 97 O2 Delivery Nasal Cannula Nasal Cannula Nasal Cannula O2 Flow Rate 4.0 3.0 3.0 09/26/19 09/26/19 09/26/19 09/26/19 20:00 20:40 20:42 22:15 Pulse Ox 97 97 97 O2 Delivery Nasal Cannula Nasal Cannula Nasal Cannula Nasal Cannula O2 Flow Rate 3.0 3.0 3.0 3.0 09/26/19 09/26/19 09/27/19 09/27/19 23:00 23:15 03:00 07:00 Temp 98.2 98.7 97.9 98.2 98.7 97.9 Pulse 67 63 60 Resp B/P (MAP) 121/61 (81) 135/62 (86) 150/58 (88) Pulse Ox 95 95 95 99 O2 Delivery Nasal Cannula Nasal Cannula BiPAP/CPAP Nasal Cannula O2 Flow Rate 3.0 3.0 3.0 3.0 09/27/19 09/27/19 09/27/19 09/27/19 07:43 08:00 09:03 09:05 Pulse 60 Resp 18 B/P (MAP) 150/58 Pulse Ox 99 O2 Delivery Nasal Cannula Nasal Cannula Nasal Cannula O2 Flow Rate 3.0 3.0 3.0 09/27/19 09/27/19 09/27/19 09/27/19 09:05 10:03 11:00 11:33 Temp 97.8 97.8 Pulse 60 73 Resp 18 19 B/P (MAP) 150/58 155/75 (101) Pulse Ox 96 99 O2 Delivery Room Air Nasal Cannula Nasal Cannula O2 Flow Rate 3.0 09/27/19 15:01 Resp 17 O2 Delivery Nasal Cannula O2 Flow Rate 3.0 Intake and Output 09/26/19 09/26/19 09/27/19 15:00 23:00 07:00 Intake Total 620 ml 420 ml 60 ml Output Total 500 ml Balance 620 ml 420 ml -440 ml REESE ARMSTRONG MD Sep 27, 2019 15:20
[2019-09-27 19:30] VITALS: BP 149/59
--- NOTE | 2019-09-27 19:53 | PDOC2 ---
CONSULT Date of Consult Date of Consult DATE: 09/27/19 TIME: 19:48 History of Present Illness Reason for Visit: The patient is an 79 year old female who was admitted with SOB. She is undergoing evaluation and a cardiac catheterization is planned for tomorrow. Surgery was consulted for what was referred to as a hiatal hernia. However the CT chest shows no evidence of a hiatal hernia. She points to her upper abdomen referring to a probable ventral hernia. She notes some occasional upper abdominal pain. Past Medical History Cardiovascular: CAD, CHF, HTN, Hyperlipidemia, Other Pulmonary: Asthma, COPD, Other CENTRAL NERVOUS SYSTEM: Seizure GI: GERD, Other Heme/Onc: Anemia NOS Hepatobiliary: No pertinent hx Psych: Depression Musculoskeletal: Osteoarthritis Rheumatologic: No pertinent hx Infectious disease: No pertinent hx Renal/: Chronic renal insuff Endocrine: No pertinent hx Past Surgical History Past Surgical History: Appendectomy, Cholecystectomy, Other Family History Family History: Heart Disease Social History Social History: Parent No ALCOHOL: none Drugs: None Lives: with Family Domestic Violence: Neg Current Problem List Problem List Problems Medical Problems: (1) Dyspnea on minimal exertion Status: Acute Current Medications Current Medications Current Medications Ondansetron HCl (Zofran) 4 mg PRN Q8HRS PRN IV NAUSEA/VOMITING; Start 09/24/19 at 16:30; Stop 09/24/19 at 18:45; Status DC Acetaminophen (Tylenol) 650 mg PRN Q4HRS PRN PO FEVER > 100.3'F; Start 09/24/19 at 16:30; Stop 09/24/19 at 18:45; Status DC Albuterol/ Ipratropium (Duoneb) 3 ml RTQID NEB ; Start 09/24/19 at 20:00; Stop 09/24/19 at 18:40; Status DC Methylprednisolone Sodium Succinate (SOLU-Medrol 40MG VIAL) 40 mg Q8HRS IV ; Start 09/24/19 at 22:00; Stop 09/24/19 at 18:43; Status DC Aspirin (Aspirin Chewable) 81 mg DAILY PO Last administered on 09/27/19at 09:06; Start 09/25/19 at 09:00 Carvedilol (Coreg) 3.125 mg BIDWMEALS PO Last administered on 09/27/19at 17:41; Start 09/24/19 at 21:00 Vitamin D (Vitamin D3) 1,000 unit DAILY PO Last administered on 09/27/19 09:02; Start 09/25/19 at 09:00 Cyanocobalamin (Vitamin B-12) 500 mcg DAILY PO Last administered on 09/27/19 09:05; Start 09/25/19 at 09:00 Fluticasone Propionate (Flonase) 2 spray DAILY NS Last administered on 09/27/19 09:15; Start 09/25/19 at 09:00 Acetaminophen/ Hydrocodone Bitart (Lortab 5/325) 1 tab TID PO Last administered on 09/27/19 15:01; Start 09/24/19 at 21:00 Albuterol/ Ipratropium (Duoneb) 3 ml Q4HRS W/A IH Last administered on 09/25/19 19:18; Start 09/24/19 at 22:00; Stop 09/25/19 at 23:44; Status DC Losartan Potassium (Cozaar) 25 mg DAILY PO Last administered on 09/27/19 09:05; Start 09/25/19 at 09:00 Nitroglycerin (Nitrostat) 0.4 mg PRN Q5MIN PRN SL CHEST PAIN; Start 09/24/19 at 18:45 Polyethylene Glycol (miraLAX PACKET) 17 gm DAILY PO Last administered on 09/27/19 09:02; Start 09/25/19 at 09:00 Potassium Chloride (Klor-Con) 20 meq TIDWMEALS PO Last administered on 09/27/19 17:40; Start 09/24/19 at 21:00 Prednisone (Prednisone) 40 mg DAILY PO ; Start 09/25/19 at 09:00; Stop 09/24/19 at 18:43; Status DC Simethicone (Gas-X) 80 mg PRN DAILY PRN PO GAS / BLOATING; Start 09/24/19 at 18:45 Ascorbic Acid (Vitamin C) 1,000 mg DAILY PO Last administered on 09/27/19 09:04; Start 09/25/19 at 09:00 Calcium Carbonate/ Glycine (Oscal) 500 mg DAILY PO Last administered on 09/27/19 09:02; Start 09/25/19 at 09:00 Fenofibrate (Lofibra) 54 mg DAILY PO Last administered on 09/27/19 09:02; Start 09/25/19 at 09:00 Budesonide (Pulmicort) 0.5 mg RTBID NEB Last administered on 09/27/19 07:42; Start 09/24/19 at 20:00 Guaifenesin/ Codeine Phosphate (Robitussin Ac) 5 ml PRN Q6HRS PRN PO COUGH, 2nd CHOICE; Start 09/24/19 at 18:45 Lactobacillus Rhamnosus (Culturelle) 1 cap BID PO Last administered on 09/27/19 09:05; Start 09/24/19 at 21:00 Fish Oil (Fish Oil) 2,000 mg DAILY PO Last administered on 09/27/19 09:02; Start 09/25/19 at 09:00 Atorvastatin Calcium (Lipitor) 80 mg QHS PO Last administered on 09/26/19 22:15; Start 09/24/19 at 21:00 Non-Formulary Medication (Tiotropium [place] (Spiriva)) 2 inh DAILY IH ; Start 09/25/19 at 09:00; Status UNV Methylprednisolone Sodium Succinate (SOLU-Medrol 125MG VIAL) 100 mg Q8HRS IV Last administered on 09/25/19 05:27; Start 09/24/19 at 22:00; Stop 09/25/19 at 10:51; Status DC Sodium Chloride (Normal Saline Flush) 3 ml QSHIFT PRN IV AFTER MEDS AND BLOOD DRAWS; Start 09/24/19 at 18:45 Ondansetron HCl (Zofran) 4 mg PRN Q4HRS PRN IV NAUSEA/VOMITING; Start 09/24/19 at 18:45 Acetaminophen (Tylenol) 650 mg PRN Q4HRS PRN PO TEMP OVER 100.4F OR MILD PAIN Last administered on 09/25/19at 21:30; Start 09/24/19 at 18:45 Sodium Monofluorophosphate (Fleet Adult) 133 ml PRN DAILY PRN NC CONSTIPATION; Start 09/24/19 at 18:45 Docusate Sodium (Colace) 100 mg PRN BID PRN PO HARD STOOLS; Start 09/24/19 at 18:45 Guaifenesin (Robitussin) 200 mg PRN Q4HRS PRN PO COUGH, 1st CHOICE Last administered on 6/6/20at 09:41; Start 09/24/19 at 18:45 Enoxaparin Sodium (Lovenox 40mg Syringe) 40 mg Q24H SQ Last administered on 09/26/19at 22:16; Start 09/24/19 at 21:00 Doxycycline Hyclate 100 mg/ Dextrose 100 ml @ 50 mls/hr Q12HR IV Last administered on 09/27/19at 12:30; Start 09/24/19 at 21:00 Pantoprazole Sodium (Protonix) 40 mg DAILYAC PO Last administered on 09/27/19at 09:04; Start 09/25/19 at 07:30 Methylprednisolone Sodium Succinate (SOLU-Medrol 40MG VIAL) 60 mg Q8HRS IV Last administered on 09/27/19at 06:37; Start 09/25/19 at 14:00; Stop 09/27/19 at 10:08; Status DC Barium Sulfate (Liquid E-Z [place]) 355 ml 1X ONCE PO Last administered on 09/25/19at 12:15; Start 09/25/19 at 12:15; Stop 09/25/19 at 12:16; Status DC Barium Sulfate (E-Z-Hd) 340 gm 1X ONCE PO Last administered on 09/25/19at 12:15; Start 09/25/19 at 12:15; Stop 09/25/19 at 12:16; Status DC Simethicone/ Sodium Bicarb/ Citric Ac (E-Z-Gas) 1 packet 1X ONCE PO Last administered on 09/25/19at 12:15; Start 09/25/19 at 12:15; Stop 09/25/19 at 12:16; Status DC Albuterol/ Ipratropium (Duoneb) 3 ml RTQID IH Last administered on 09/27/19at 15:18; Start 09/26/19 at 08:00 Methylprednisolone Sodium Succinate (SOLU-Medrol 40MG VIAL) 40 mg Q12HR IV ; Start 09/27/19 at 21:00 Sodium Chloride 1,000 ml @ 60 mls/hr [id number] IV ; Start 09/28/19 at 07:30 Active Scripts Active Medrol (Methylprednisolone) 4 Mg Tab.ds.pk 1 Pkg PO UD Prednisone 20 Mg Tablet 40 Mg PO DAILY 1 Days Coreg (Carvedilol) 3.125 Mg Tablet 3.125 Mg PO BIDWMEALS Simethicone 80 Mg Tab.chew 80 Mg PO PRN DAILY PRN 30 Days Acidophilus-Pectin Capsule (Lactobacillus Acidophilus/Pect) 1 Cap Capsule 1 Cap PO BID Codeine-Guaifen 10-100 mg/5 ml (Guaifenesin/Codeine Phosphate) 120 Ml Liquid 120 Ml PO PRN Q6-8HRS PRN Reported Aspirin 81 Mg Tab.chew 1 Tab PO DAILY Spiriva (Tiotropium [place]) 18 Mcg Cap.w.dev 2 Inh IH DAILY Flonase (Fluticasone Propionate) 16 Gm [place].susp 2 [place] NS DAILY Potassium Chloride (Potassium Chloride) 20 Meq Tablet.er 20 Meq PO TID Crestor (Rosuvastatin Calcium) 40 Mg Tablet 1 Tab PO HS Fish Oil + D3 Softgel ([place]-3S/Dha/Epa/Fish Oil/D3) 1 Each Capsule 2 Each PO DAILY Calcium (Calcium Carbonate) 600 Mg Tablet 600 Mg PO DAILY Vitamin C (Ascorbic Acid) 1,000 Mg Tablet 1,000 Mg PO DAILY Vitamin D (Cholecalciferol (Vitamin D3)) 1,000 Unit Tablet 1,000 Unit PO DAILY Miralax (Polyethylene Glycol 3350) 119 Gm Powder 17 Gm PO DAILY Furosemide 40 Mg Tablet 1 Tab PO BID B-12 (Cyanocobalamin (Vitamin B-12)) 1,000 Mcg Tablet 500 Mcg PO DAILY Tricor (Fenofibrate Nanocrystallized) 48 Mg Tablet 54 Mg PO DAILY [place] 5-325 Tablet (Acetaminophen/Hydrocodone Bitart) 1 Each Tablet 1 Tab PO TID NITROGLYCERIN SubLingual (Nitroglycerin) 0.4 Mg Tab.subl 0.4 Mg SL PRN Q5MIN PRN Cozaar (Losartan Potassium) 25 Mg Tablet 1 Tab PO DAILY Duoneb 0.5-3(2.5) Mg/3 Ml (Albuterol/Ipratropium) 3 Ml Ampul.neb 3 Ml IH Advair 500-50 Diskus (Fluticasone/Salmeterol) 1 Each Disk.w.dev 1 Puff IH BID Allergies Allergies: Coded Allergies: Penicillins (Verified Allergy, Intermediate, 02/28/15) Sulfa (Sulfonamide Antibiotics) (Verified Allergy, Intermediate, 02/28/15) I S O L A T I O N *CONTACT* (Verified Allergy, Unknown, 05/19/15) mrsa + ROS General: No: Chills, Night Sweats, Fatigue, Malaise, Appetite, Other PSYCHOLOGICAL ROS: No: Anxiety, Behavioral Disorder, Concentration difficultie, Decreased libido, Depression, Disorientation, Hallucinations, Hostility, Irritablity, Memory difficulties, Mood Swings, Obsessive thoughts, Physical abuse, Sexual abuse, Sleep disturbances, Suicidal ideation, Other Eyes: No Blurry vision, No Decreased vision, No Double vision, No Dry eyes, No Excessive tearing, No Eye Pain, No Itchy Eyes, No Loss of vision, No Photophobia, No Scotomata, No Uses contacts, No Uses glasses, No Other Hematological and Lymphatic: No: Bleeding Problems, Blood Clots, Blood Transfusions, Brusing, Night Sweats, Pallor, Swollen Lymph Nodes, Other ENDOCRINE: No: Breast Changes, Galactorrhea, Hair Pattern Changes, Hot Flashes, Malaise/lethargy, Mood Swings, Palpitations, Polydipsia/polyuria, Skin Changes, Temperature Intolerance, Unexpected Weight Changes, Other Respiratory: YES: Shortness of breath Gastrointestinal: No Nausea, No Vomiting, No Abdominal Pain, No Diarrhea, No Constipation, No Melena, No Hematochezia, No Other Musculoskeletal: No Gait Disturbance, No Joint Pain, No Joint Stiffness, No Joint Swelling, No Muscle Pain, No Muscular Weakness, No Pain In:, No Swelling In:, No Other Neurological: No Behavorial Changes, No Bowel/Bladder ControlChng, No Confusion, No Dizziness, No Gait Disturbance, No Headaches, No Impaired Coord/balance, No Memory Loss, No Numbness/Tingling, No Seizures, No Speech Problems, No Tremors, No Visual Changes, No Weakness, No Other Skin: No Dry Skin, No Eczema, No Hair Changes, No Lumps, No Mole Changes, No Mottling, No Nail Changes, No Pruritus, No Rash, No Skin Lesion Changes, No Other, No Acne Physical Exam General: Alert, Oriented X3, Cooperative, No acute distress HEENT: Atraumatic Heart: Regular rate Abdomen: Soft (obese, reducible ventral hernia upper mid abdomen) Extremities: No clubbing, No cyanosis Skin: No rashes Psych/Mental Status: Mental status NL Vitals VITALS Vital Signs Date Time Temp Pulse Resp B/P (MAP) Pulse Ox O2 Delivery O2 Flow Rate FiO2 09/27/19 17:41 70 148/70 09/27/19 16:01 17 Nasal Cannula 2.0 09/27/19 15:19 99 09/27/19 15:00 97.8 97.8 Assessment/Plan Assessment/Plan Ventral hernia; this appears to be a low priority issue given her other medical problems. I did describe details regarding surgical repair of hernias and she is not at this time interested in abdominal surgery and she would be high risk. Recommend an abdominal binder for abdominal support. TAMMY RUEDA MD Sep 27, 2019 19:53
[2019-09-27] MEDS: ENOXAPARIN 40 MG/0.4 ML SYRINGE. SQ SCH (19:55)
[2019-09-27] MEDS: ATORVASTATIN CALCIUM 40 MG TABLET. PO SCH (22:01)
[2019-09-27 23:10] VITALS: BP 115/43
[2019-09-28] VITALS (10 sets, daily range): BP systolic 104–148; BP diastolic 50–79
[2019-09-28] MEDS: IV NORMAL SALINE 1000ML BAG 1,000 ML IV SCH ×2 (07:30→20:10)
[2019-09-28] MEDS: BUDESONIDE 0.5 MG/2 ML NEBU. NEB SCH ×2 (07:30→20:27)
[2019-09-28] MEDS: IPRATRPIUM/ALBUTEROL 0.5/2.5MG 3 ML NEBU. IH SCH ×4 (07:30→20:27)
[2019-09-28] MEDS: PANTOPRAZOLE 40 MG TABLET.DR. PO SCH (07:30)
[2019-09-28 07:43] LABS: CALCIUM 8.8 mg/dL (8.5-10.1); CREATININE 1.1 mg/dL (0.6-1.0); GFR 47.7; MAGNESIUM 2.2 mg/dL (1.8-2.4); POTASSIUM 4.9 mmol/L (3.5-5.1)
[2019-09-28] MEDS: POTASSIUM CHLORIDE 20 MEQ TABLET.ER. PO SCH ×3 (08:00→16:48)
[2019-09-28] MEDS: CARVEDILOL 3.125 MG TABLET. PO SCH ×2 (08:00→16:48)
[2019-09-28] MEDS: CALCIUM CARBONATE 500 MG TABLET PO SCH (08:14)
[2019-09-28] MEDS: OMEGA-3 FATTY ACIDS/FISH OIL 1,000 MG CAPSULE. PO SCH (08:14)
[2019-09-28] MEDS: POLYETHYLENE GLYCOL 3350 17 GM PACKET. PO SCH (08:14)
[2019-09-28] MEDS: LACTOBACILLUS RHAMNOSUS GG 1 CAPSULE. PO SCH ×2 (08:14→20:08)
[2019-09-28] MEDS: LOSARTAN POTASSIUM 25 MG TABLET. PO SCH (08:14)
[2019-09-28] MEDS: ASPIRIN CHEWABLE 81 MG TABLET. PO SCH (08:14)
[2019-09-28] MEDS: FENOFIBRATE 54 MG TABLET. PO SCH (08:14)
[2019-09-28] MEDS: CYANOCOBALAMIN (VITAMIN B-12) 1,000 MCG TABLET. PO SCH (08:14)
[2019-09-28] MEDS: HYDROcodone/APAP 5/325MG 1 TAB TABLET PO SCH ×3 (08:14→20:09)
[2019-09-28] MEDS: CHOLECALCIFEROL (VITAMIN D3) 1,000 UNIT TABLET PO SCH (08:15)
[2019-09-28] MEDS: ASCORBIC ACID 500 MG TABLET PO SCH (08:15)
--- NOTE | 2019-09-28 08:51 | RAD ---
PROCEDURE: ESOPHAGRAM/BARIUM SWALLOW STUDY DATE: 09/25/2019 FLUOROSCOPY TIME: 1.2 minutes. Number of Images: 13 CLINICAL INDICATION / HISTORY: CHOKING WITH FOOD. TECHNIQUE: Bilateral posterior oblique imaging of the thoracic esophagus was performed during ingestion of thin and thick barium. Barium tablet was also administered. COMPARISON: Chest x-ray 09/24/2019 FINDINGS: Esophagram study was performed which showed normal anatomy and appearance of the esophagus and gastroesophageal junction. No evidence of hiatal hernia. There was note of normal primary stripping wave. A 13mm barium tablet was administered and swallowed into the stomach without complications or difficulty. IMPRESSION: Unremarkable thoracic esophogram. Electronically signed by: Albino Ordoñez MD (09/28/2019 8:48 AM) [id number]
[2019-09-28] MEDS: DOXYCYCLINE HYCLATE 100 MG in IV DEXTROSE 5% 100ML 100 ML IV SCH ×2 (09:00→20:08)
[2019-09-28] MEDS: methylPREDNISolone SOD SUCC PF 40 MG/ML VIAL. IV SCH ×2 (09:00→20:08)
[2019-09-28] MEDS: FLUTICASONE 50MCG/NASAL SPRAY 16GM BOTTLE. NS SCH (09:00)
--- NOTE | 2019-09-28 12:41 | PDOC ---
PULMONARY PROGRESS NOTES Subjective Sitting up in chair, on 2 liters N/C , denies increased cough or SOB Vitals Vital Signs Date Time Temp Pulse Resp B/P (MAP) Pulse Ox O2 Delivery O2 Flow Rate FiO2 09/28/19 11:02 97.7 64 18 142/78 (99) 97 Nasal Cannula 3.0 97.7 ROS: No Nausea, No Chest Pain, No Abdominal Pain, No Increase Cough General: Alert, Oriented X4, No acute distress Lungs: Other (DS in bases ) Cardiovascular: S1, S2 Abdomen: Soft, Non-tender Neuro Exam: Alert, Oriented Extremities: No Edema Skin: Warm, Dry Labs Laboratory Tests Test 09/28/19 06:05 Sodium Level 140 mmol/L (136-145) Potassium Level 4.9 mmol/L (3.5-5.1) Chloride Level 104 mmol/L (98-107) Carbon Dioxide Level 29 mmol/L (21-32) Anion Gap 7 (6-14) Blood Urea Nitrogen 28 mg/dL (7-20) Creatinine 1.1 mg/dL (0.6-1.0) Estimated GFR (Cockcroft-Gault) 47.7 Glucose Level 120 mg/dL (70-99) Calcium Level 8.8 mg/dL (8.5-10.1) Magnesium Level 2.2 mg/dL (1.8-2.4) Laboratory Tests Test 09/28/19 06:05 Sodium Level 140 mmol/L (136-145) Potassium Level 4.9 mmol/L (3.5-5.1) Chloride Level 104 mmol/L (98-107) Carbon Dioxide Level 29 mmol/L (21-32) Anion Gap 7 (6-14) Blood Urea Nitrogen 28 mg/dL (7-20) Creatinine 1.1 mg/dL (0.6-1.0) Estimated GFR (Cockcroft-Gault) 47.7 Glucose Level 120 mg/dL (70-99) Calcium Level 8.8 mg/dL (8.5-10.1) Magnesium Level 2.2 mg/dL (1.8-2.4) Medications Active Scripts Medications Dose Route/Sig Max Daily Dose Days Date Category Medrol (Methylprednisolone) 4 Mg Tab.ds.pk 1 Pkg PO UD 08/09/19 Rx Aspirin 81 Mg Tab.chew 1 Tab PO DAILY 10/29/17 Reported Spiriva (Tiotropium [place]) 18 Mcg Cap.w.dev 2 Inh IH DAILY 02/28/15 Reported Prednisone 20 Mg Tablet 40 Mg PO DAILY 1 12/10/14 Rx Coreg (Carvedilol) 3.125 Mg Tablet 3.125 Mg PO BIDWMEALS 12/10/14 Rx Simethicone 80 Mg Tab.chew 80 Mg PO PRN DAILY PRN 30 05/17/14 Rx Acidophilus-Pectin Capsule (Lactobacillus Acidophilus/Pect) 1 Cap Capsule 1 Cap PO BID 05/17/14 Rx Flonase (Fluticasone Propionate) 16 Gm [place].susp 2 [place] NS DAILY 05/15/14 Reported Codeine-Guaifen 10-100 mg/5 ml (Guaifenesin/Codeine Phosphate) 120 Ml Liquid 120 Ml PO PRN Q6-8HRS PRN 03/05/14 Rx Potassium Chloride (Potassium Chloride) 20 Meq Tablet.er 20 Meq PO TID 03/01/14 Reported Crestor (Rosuvastatin Calcium) 40 Mg Tablet 1 Tab PO HS 03/01/14 Reported Fish Oil + D3 Softgel ([place]-3S/Dha/Epa/Fish Oil/D3) 1 Each Capsule 2 Each PO DAILY 03/01/14 Reported Calcium (Calcium Carbonate) 600 Mg Tablet 600 Mg PO DAILY 03/01/14 Reported Vitamin C (Ascorbic Acid) 1,000 Mg Tablet 1,000 Mg PO DAILY 03/01/14 Reported Vitamin D (Cholecalciferol (Vitamin D3)) 1,000 Unit Tablet 1,000 Unit PO DAILY 03/01/14 Reported Miralax (Polyethylene Glycol 3350) 119 Gm Powder 17 Gm PO DAILY 03/01/14 Reported Furosemide 40 Mg Tablet 1 Tab PO BID 03/01/14 Reported B-12 (Cyanocobalamin (Vitamin B-12)) 1,000 Mcg Tablet 500 Mcg PO DAILY 03/01/14 Reported Tricor (Fenofibrate Nanocrystallized) 48 Mg Tablet 54 Mg PO DAILY 03/01/14 Reported [place] 5-325 Tablet (Acetaminophen/Hydrocodone Bitart) 1 Each Tablet 1 Tab PO TID 03/01/14 Reported NITROGLYCERIN SubLingual (Nitroglycerin) 0.4 Mg Tab.subl 0.4 Mg SL PRN Q5MIN PRN 03/01/14 Reported Cozaar (Losartan Potassium) 25 Mg Tablet 1 Tab PO DAILY 03/01/14 Reported Duoneb 0.5-3(2.5) Mg/3 Ml (Albuterol/Ipratropium) 3 Ml Ampul.neb 3 Ml IH 03/01/14 Reported Advair 500-50 Diskus (Fluticasone/Salmeterol) 1 Each Disk.w.dev 1 Puff IH BID 03/01/[address] chest IMPRESSION: 1. Moderate upper lobe centrilobular emphysema. 2. There is right lung scarring or atelectasis. 3. Severe coronary artery disease. Impression . IMPRESSION: 1. Dyspnea secondary to acute exacerbation of chronic obstructive pulmonary disease and in addition to her underlying obesity with a body mass index of 32.-- improving Clinically, she has no symptoms to suggest pneumonia or heart failure. 2. Dysphagia/choking with food. S/P esophageal barrium swallow and CT chest. No Esophageal abnormality and no sig hiatal hernia 3. History of obstructive sleep apnea on continuous positive airway pressure with good compliance. 4. History of coronary artery disease, status post stent. Clinically stable-- planning for cath on saturday Plan . RECOMMENDATIONS: 1. Continue present oxygen. Saturations are stable on 2 liters, keep 92% 2. Continue bronchodilators. 3. Taper steroids. 4. Barium swallow and CT chest reviewed. No Esophageal abnormality and no sig hiatal hernia 5. Continue DVT prophylaxis. 6. CT of Chest reviewed 7. follow cardiology recs, plan for cardiac cath today D/W BECCA LOMAX MD Sep 28, 2019 12:41
[2019-09-28] MEDS ORDERED: LIDOCAINE 1% PF 2 ML VIAL. ONE (13:17)
[2019-09-28] MEDS ORDERED: fentaNYL PF VIAL 100 MCG/2 ML VIAL ONE (13:36)
[2019-09-28] MEDS ORDERED: MIDAZOLAM HCL/PF 2 MG/2 ML VIAL. ONE (13:36)
[2019-09-28] MEDS ORDERED: HEPARIN for IV BOLUS 10,000 UNIT/10 ML VIAL. ONE (13:36)
[2019-09-28] MEDS ORDERED: VERAPAMIL 5 MG/2 ML VIAL. ONE (13:36)
[2019-09-28] MEDS ORDERED: NITROGLYCERIN 200 MCG/2 ML SYRINGE FOR CATH/VASC LAB. ONE ×2 (13:37→14:19)
[2019-09-28] MEDS ORDERED: IODIXANOL 320 MG/ML 100 ML VIAL. ONE (13:46)
[2019-09-28] MEDS ORDERED: LIDOCAINE 1% Multi-Dose 20 ML VIAL. ONE (13:57)
--- NOTE | 2019-09-28 14:03 | NUR ---
SW following for discharge planning. Reviewed pt's chart and spoke with RN. Met with pt and pt's son at bedside. Pt resides in an [place] senior apartment at [facility]. Pt lives alone but has support from her son who lives close by and her HCBS provider. Pt on 02 at home. pt on IV abx. Pt would like SNU referral. SW completed Patient Choice of Vendor form. KAVYA phoned and faxed referral to [facility] [phone], (fax) per pt request. KAVYA requested COVID testing from Dr. Puente. SW to continue following.
[2019-09-28] MEDS ORDERED: LIDOCAINE 1% PF 2 ML VIAL. INJ ONE (14:15)
[2019-09-28] MEDS ORDERED: IODIXANOL 320 MG/ML 100 ML VIAL. IART ONE (14:15)
[2019-09-28] MEDS ORDERED: HEPARIN for IV BOLUS 10,000 UNIT/10 ML VIAL. IV ONE (14:15)
[2019-09-28] MEDS ORDERED: LIDOCAINE 1% Multi-Dose 20 ML VIAL. INJ ONE (14:15)
[2019-09-28] MEDS ORDERED: MIDAZOLAM HCL/PF 2 MG/2 ML VIAL. IV ONE (14:15)
[2019-09-28] MEDS ORDERED: fentaNYL PF VIAL 100 MCG/2 ML VIAL IV ONE (14:15)
[2019-09-28] MEDS ORDERED: NITROGLYCERIN 200 MCG/2 ML SYRINGE FOR CATH/VASC LAB. ICAR ONE (14:45)
--- NOTE | 2019-09-28 15:28 | NUR ---
pt transferred to room 205 from room 669. Report called to MELIA Tobin. All belongings transferred downstairs- cpap, suitcase with laptop, tablet, chargers, clothes, shoes. Pt son present during transfer.
[2019-09-28] MEDS: ENOXAPARIN 40 MG/0.4 ML SYRINGE. SQ SCH (18:43)
[2019-09-28] MEDS: ATORVASTATIN CALCIUM 40 MG TABLET. PO SCH (20:09)
[2019-09-28] MEDS: guaiFENesin ORAL 200 MG/10 ML LIQUID. PO PRN (21:12)
[2019-09-29] MEDS: ACETAMINOPHEN 325 MG TABLET. PO PRN (00:31)
[2019-09-29 03:13] VITALS: BP 116/64
[2019-09-29 07:00] VITALS: BP 191/62
[2019-09-29] MEDS: IPRATRPIUM/ALBUTEROL 0.5/2.5MG 3 ML NEBU. IH SCH ×4 (07:43→20:01)
[2019-09-29] MEDS: BUDESONIDE 0.5 MG/2 ML NEBU. NEB SCH ×2 (07:43→20:01)
[2019-09-29] MEDS: FUROSEMIDE 40 MG/4 ML VIAL. IVP SCH (08:32)
[2019-09-29] MEDS: CHOLECALCIFEROL (VITAMIN D3) 1,000 UNIT TABLET PO SCH (08:32)
[2019-09-29] MEDS: CALCIUM CARBONATE 500 MG TABLET PO SCH (08:33)
[2019-09-29] MEDS: OMEGA-3 FATTY ACIDS/FISH OIL 1,000 MG CAPSULE. PO SCH (08:33)
[2019-09-29] MEDS: ASCORBIC ACID 500 MG TABLET PO SCH (08:33)
[2019-09-29] MEDS: LACTOBACILLUS RHAMNOSUS GG 1 CAPSULE. PO SCH ×2 (08:33→21:19)
[2019-09-29] MEDS: PANTOPRAZOLE 40 MG TABLET.DR. PO SCH (08:33)
[2019-09-29] MEDS: CYANOCOBALAMIN (VITAMIN B-12) 1,000 MCG TABLET. PO SCH (08:33)
[2019-09-29] MEDS: LOSARTAN POTASSIUM 25 MG TABLET. PO SCH (08:35)
[2019-09-29] MEDS: HYDROcodone/APAP 5/325MG 1 TAB TABLET PO SCH ×3 (08:35→21:19)
[2019-09-29] MEDS: POTASSIUM CHLORIDE 20 MEQ TABLET.ER. PO SCH (08:35)
[2019-09-29] MEDS: FLUTICASONE 50MCG/NASAL SPRAY 16GM BOTTLE. NS SCH (08:38)
[2019-09-29] MEDS: POLYETHYLENE GLYCOL 3350 17 GM PACKET. PO SCH (08:40)
[2019-09-29] MEDS: methylPREDNISolone SOD SUCC PF 40 MG/ML VIAL. IV SCH (08:41)
[2019-09-29] MEDS: FENOFIBRATE 54 MG TABLET. PO SCH (08:41)
[2019-09-29] MEDS: DOXYCYCLINE HYCLATE 100 MG in IV DEXTROSE 5% 100ML 100 ML IV SCH (08:54)
[2019-09-29] MEDS: CARVEDILOL 3.125 MG TABLET. PO SCH ×2 (08:58→17:04)
[2019-09-29] MEDS: ASPIRIN CHEWABLE 81 MG TABLET. PO SCH (09:00)
--- NOTE | 2019-09-29 09:02 | PDOC ---
PROGRESS NOTES Chief Complaint Chief Complaint late entry note for 09/28/2019 1. Dyspnea secondary to acute exacerbation of chronic obstructive pulmonary disease and in addition to her underlying obesity with a body mass index of 32. Clinically, she has no symptoms to suggest pneumonia or heart failure. 2. Possibly esophageal dysmotility and GERD exacerbation contributing to above 3. Chronic diastolic CHF: compensated 4. CAD: past stents. trops nml EKG with no acute ST-T wave changes. 5. Hx of multiple thoracic compression fractures 6. AAA: 01/2019 4.1 cm, stable 7. HTN: controlled 8. HLP 9. Atypical CP: MSK/GI 10. Hiatal hernia Plan Requesting surgical consult as per patient son for evaluation of hiatal hernia fashion consultant sales recommendations greatly appreciated most likely will have a cardiac cath today Supportive measure Continue home meds Further recommendations based on clinical course History of Present Illness History of Present Illness 09/25: No acute events reported overnight, case discussed with nursing staff patient in no acute distress no complaints during my visit 09/26: No acute events reported overnight, case discussed with nursing staff patient in no acute distress no complaints during my visit PT eval done and she is leaning towards placement 09/27: Patietn will go to a cardiac cath later in the day, no complaints during my visit. son at bedside all concerns addressed to the best of my abilities. . Vitals Vitals Vital Signs Date Time Temp Pulse Resp B/P (MAP) Pulse Ox O2 Delivery O2 Flow Rate FiO2 09/29/19 08:58 65 191/62 09/29/19 08:35 20 100 Nasal Cannula 2.0 09/29/19 07:00 97.7 97.7 Physical Exam General: Alert, Oriented X3, Cooperative, No acute distress Heart: Regular rate Lungs: Other (DS in bases ) Abdomen: Soft (obese, reducible ventral hernia upper mid abdomen) Extremities: No clubbing, No cyanosis Skin: No rashes Labs LABS Laboratory Tests Test 09/28/19 14:23 Activated Clotting Time 175 sec (92-181) Assessment and Plan Assessmemt and Plan Problems Medical Problems: (1) Dyspnea on minimal exertion Status: Acute Comment Review of Relevant I have reviewed the following items oneil (where applicable) has been applied. Labs Laboratory Tests Test 09/28/19 06:05 09/28/19 14:23 Sodium Level 140 mmol/L (136-145) Potassium Level 4.9 mmol/L (3.5-5.1) Chloride Level 104 mmol/L (98-107) Carbon Dioxide Level 29 mmol/L (21-32) Anion Gap 7 (6-14) Blood Urea Nitrogen 28 mg/dL (7-20) Creatinine 1.1 mg/dL (0.6-1.0) Estimated GFR (Cockcroft-Gault) 47.7 Glucose Level 120 mg/dL (70-99) Calcium Level 8.8 mg/dL (8.5-10.1) Magnesium Level 2.2 mg/dL (1.8-2.4) Activated Clotting Time 175 sec (92-181) Laboratory Tests Test 09/28/19 14:23 Activated Clotting Time 175 sec (92-181) Medications Current Medications Ondansetron HCl (Zofran) 4 mg PRN Q8HRS PRN IV NAUSEA/VOMITING; Start 09/24/19 at 16:30; Stop 09/24/19 at 18:45; Status DC Acetaminophen (Tylenol) 650 mg PRN Q4HRS PRN PO FEVER > 100.3'F; Start 09/24/19 at 16:30; Stop 09/24/19 at 18:45; Status DC Albuterol/ Ipratropium (Duoneb) 3 ml RTQID NEB ; Start 09/24/19 at 20:00; Stop 09/24/19 at 18:40; Status DC Methylprednisolone Sodium Succinate (SOLU-Medrol 40MG VIAL) 40 mg Q8HRS IV ; Start 09/24/19 at 22:00; Stop 09/24/19 at 18:43; Status DC Aspirin (Aspirin Chewable) 81 mg DAILY PO Last administered on 09/27/19at 09:06; Start 09/25/19 at 09:00 Carvedilol (Coreg) 3.125 mg BIDWMEALS PO Last administered on 09/29/19at 08:58; Start 09/24/19 at 21:00 Vitamin D (Vitamin D3) 1,000 unit DAILY PO Last administered on 09/29/19at 08:32; Start 09/25/19 at 09:00 Cyanocobalamin (Vitamin B-12) 500 mcg DAILY PO Last administered on 09/29/19at 08:33; Start 6/5/20 at 09:00 Fluticasone Propionate (Flonase) 2 spray DAILY NS Last administered on 09/29/19 08:38; Start 09/25/19 at 09:00 Acetaminophen/ Hydrocodone Bitart (Lortab 5/325) 1 tab TID PO Last administered on 09/29/19at 08:35; Start 09/24/19 at 21:00 Albuterol/ Ipratropium (Duoneb) 3 ml Q4HRS W/A IH Last administered on 09/25/19 at 19:18; Start 09/24/19 at 22:00; Stop 09/25/19 at 23:44; Status DC Losartan Potassium (Cozaar) 25 mg DAILY PO Last administered on 09/29/19 08:35; Start 09/25/19 at 09:00 Nitroglycerin (Nitrostat) 0.4 mg PRN Q5MIN PRN SL CHEST PAIN; Start 09/24/19 at 18:45 Polyethylene Glycol (miraLAX PACKET) 17 gm DAILY PO Last administered on 09/29/19at 08:40; Start 09/25/19 at 09:00 Potassium Chloride (Klor-Con) 20 meq TIDWMEALS PO Last administered on 09/29/19 08:35; Start 09/24/19 at 21:00 Prednisone (Prednisone) 40 mg DAILY PO ; Start 09/25/19 at 09:00; Stop 09/24/19 at 18:43; Status DC Simethicone (Gas-X) 80 mg PRN DAILY PRN PO GAS / BLOATING; Start 09/24/19 at 18:45 Ascorbic Acid (Vitamin C) 1,000 mg DAILY PO Last administered on 09/29/19at 08:33; Start 09/25/19 at 09:00 Calcium Carbonate/ Glycine (Oscal) 500 mg DAILY PO Last administered on 09/29/19 08:33; Start 09/25/19 at 09:00 Fenofibrate (Lofibra) 54 mg DAILY PO Last administered on 09/29/19at 08:41; Start 09/25/19 at 09:00 Budesonide (Pulmicort) 0.5 mg RTBID NEB Last administered on 09/29/19at 07:43; Start 09/24/19 at 20:00 Guaifenesin/ Codeine Phosphate (Robitussin Ac) 5 ml PRN Q6HRS PRN PO COUGH, 2nd CHOICE; Start 09/24/19 at 18:45 Lactobacillus Rhamnosus (Culturelle) 1 cap BID PO Last administered on 09/29/19 08:33; Start 09/24/19 at 21:00 Fish Oil (Fish Oil) 2,000 mg DAILY PO Last administered on 09/29/19at 08:33; Start 09/25/19 at 09:00 Atorvastatin Calcium (Lipitor) 80 mg QHS PO Last administered on 09/28/19at 20:09; Start 09/24/19 at 21:00 Non-Formulary Medication (Tiotropium [place] (Spiriva)) 2 inh DAILY IH ; Start 09/25/19 at 09:00; Status UNV Methylprednisolone Sodium Succinate (SOLU-Medrol 125MG VIAL) 100 mg Q8HRS IV Last administered on 09/25/19at 05:27; Start 09/24/19 at 22:00; Stop 09/25/19 at 10:51; Status DC Sodium Chloride (Normal Saline Flush) 3 ml QSHIFT PRN IV AFTER MEDS AND BLOOD DRAWS; Start 09/24/19 at 18:45 Ondansetron HCl (Zofran) 4 mg PRN Q4HRS PRN IV NAUSEA/VOMITING; Start 09/24/19 at 18:45 Acetaminophen (Tylenol) 650 mg PRN Q4HRS PRN PO TEMP OVER 100.4F OR MILD PAIN Last administered on 09/29/19at 00:31; Start 09/24/19 at 18:45 Sodium Monofluorophosphate (Fleet Adult) 133 ml PRN DAILY PRN [place] CONSTIPATION; Start 09/24/19 at 18:45 Docusate Sodium (Colace) 100 mg PRN BID PRN PO HARD STOOLS; Start 09/24/19 at 18:45 Guaifenesin (Robitussin) 200 mg PRN Q4HRS PRN PO COUGH, 1st CHOICE Last administered on 09/28/19at 21:12; Start 09/24/19 at 18:45 Enoxaparin Sodium (Lovenox 40mg Syringe) 40 mg Q24H SQ Last administered on 09/26/19at 22:16; Start 09/24/19 at 21:00 Doxycycline Hyclate 100 mg/ Dextrose 100 ml @ 50 mls/hr Q12HR IV Last administered on 09/29/19at 08:54; Start 09/24/19 at 21:00 Pantoprazole Sodium (Protonix) 40 mg DAILYAC PO Last administered on 09/29/19at 08:33; Start 09/25/19 at 07:30 Methylprednisolone Sodium Succinate (SOLU-Medrol 40MG VIAL) 60 mg Q8HRS IV Last administered on 09/27/19at 06:37; Start 09/25/19 at 14:00; Stop 09/27/19 at 10:08; Status DC Barium Sulfate (Liquid E-Z [place]) 355 ml 1X ONCE PO Last administered on 09/25/19at 12:15; Start 09/25/19 at 12:15; Stop 09/25/19 at 12:16; Status DC Barium Sulfate (E-Z-Hd) 340 gm 1X ONCE PO Last administered on 09/25/19at 12:15; Start 09/25/19 at 12:15; Stop 09/25/19 at 12:16; Status DC Simethicone/ Sodium Bicarb/ Citric Ac (E-Z-Gas) 1 packet 1X ONCE PO Last ad ministered on 09/25/19at 12:15; Start 09/25/19 at 12:15; Stop 09/25/19 at 12:16; Status DC Albuterol/ Ipratropium (Duoneb) 3 ml RTQID IH Last administered on 09/29/19at 07:43; Start 09/26/19 at 08:00 Methylprednisolone Sodium Succinate (SOLU-Medrol 40MG VIAL) 40 mg Q12HR IV Last administered on 09/29/19at 08:41; Start 09/27/19 at 21:00 Sodium Chloride 1,000 ml @ 60 mls/hr [id number] IV Last administered on 09/28/19at 20:10; Start 09/28/19 at 07:30 Lidocaine HCl (Xylocaine-Mpf 1% 2ml Vial) 2 ml STK-MED ONCE .ROUTE ; Start 09/28/19 at 13:17; Stop 09/28/19 at 13:17; Status DC Heparin Sodium/ Sodium Chloride 1,000 ml @ As Directed STK-MED ONCE .ROUTE ; Start 09/28/19 at 13:17; Stop 09/28/19 at 13:17; Status DC Fentanyl Citrate (Fentanyl 2ml Vial) 100 mcg STK-MED ONCE .ROUTE ; Start 09/28/19 at 13:36; Stop 09/28/19 at 13:36; Status DC Midazolam HCl (Versed) 2 mg STK-MED ONCE .ROUTE ; Start 09/28/19 at 13:36; Stop 09/28/19 at 13:36; Status DC Heparin Sodium (Porcine) (Heparin Sodium) 10,000 unit STK-MED ONCE .ROUTE ; Start 09/28/19 at 13:36; Stop 09/28/19 at 13:37; Status DC Verapamil HCl (Verapamil) 5 mg STK-MED ONCE .ROUTE ; Start 09/28/19 at 13:36; Stop 09/28/19 at 13:37; Status DC Nitroglycerin (Nitroglycerin) 200 mcg STK-MED ONCE .ROUTE ; Start 09/28/19 at 13:37; Stop 09/28/19 at 13:37; Status DC Iodixanol (Visipaque 320) 100 ml STK-MED ONCE .ROUTE ; Start 09/28/19 at 13:46; Stop 09/28/19 at 13:46; Status DC Lidocaine HCl (Lidocaine 1% 20ml Vial) 20 ml STK-MED ONCE .ROUTE ; Start 09/28/19 at 13:57; Stop 09/28/19 at 13:57; Status DC Heparin Sodium/ Sodium Chloride (HEPARIN for ARTERIAL LINE FLUSH) 1,000 unit 1X ONCE IART Last administered on 09/28/19at 14:26; Start 09/28/19 at 14:15; Stop 09/28/19 at 14:19; Status DC Midazolam HCl (Versed) 2 mg 1X ONCE IV Last administered on 09/28/19at 14:28; Start 09/28/19 at 14:15; Stop 09/28/19 at 14:19; Status DC Fentanyl Citrate (Fentanyl 2ml Vial) 100 mcg 1X ONCE IV Last administered on 09/28/19at 14:28; Start 09/28/19 at 14:15; Stop 09/28/19 at 14:19; Status DC Iodixanol (Visipaque 320) 100 ml 1X ONCE IART Last administered on 09/28/19at 14:26; Start 09/28/19 at 14:15; Stop 09/28/19 at 14:19; Status DC Heparin Sodium (Porcine) (Heparin Sodium) 4,000 unit 1X ONCE IV Last administered on 09/28/19at 14:29; Start 09/28/19 at 14:15; Stop 09/28/19 at 14:19; Status DC Lidocaine HCl (Lidocaine 1% 20ml Vial) 20 ml 1X ONCE INJ Last administered on 09/28/19at 14:27; Start 09/28/19 at 14:15; Stop 09/28/19 at 14:19; Status DC Lidocaine HCl (Xylocaine-Mpf 1% 2ml Vial) 2 ml 1X ONCE INJ Last administered on 09/28/19at 14:27; Start 09/28/19 at 14:15; Stop 09/28/19 at 14:19; Status DC Nitroglycerin (Nitroglycerin) 200 mcg STK-MED ONCE .ROUTE ; Start 09/28/19 at 14:19; Stop 09/28/19 at 14:20; Status DC Nitroglycerin (Nitroglycerin) 100 mcg 1X ONCE ICAR Last administered on 09/28/19at 14:17; Start 09/28/19 at 14:45; Stop 09/28/19 at 14:46; Status DC Furosemide (Lasix) 40 mg DAILY IVP Last administered on 09/29/19at 08:32; Start 09/29/19 at 09:00 Active Scripts Active Medrol (Methylprednisolone) 4 Mg Tab.ds.pk 1 Pkg PO UD Prednisone 20 Mg Tablet 40 Mg PO DAILY 1 Days Coreg (Carvedilol) 3.125 Mg Tablet 3.125 Mg PO BIDWMEALS Simethicone 80 Mg Tab.chew 80 Mg PO PRN DAILY PRN 30 Days Acidophilus-Pectin Capsule (Lactobacillus Acidophilus/Pect) 1 Cap Capsule 1 Cap PO BID Codeine-Guaifen 10-100 mg/5 ml (Guaifenesin/Codeine Phosphate) 120 Ml Liquid 120 Ml PO PRN Q6-8HRS PRN Reported Aspirin 81 Mg Tab.chew 1 Tab PO DAILY Spiriva (Tiotropium [place]) 18 Mcg Cap.w.dev 2 Inh IH DAILY Flonase (Fluticasone Propionate) 16 Gm [place].susp 2 [place] NS DAILY Potassium Chloride (Potassium Chloride) 20 Meq Tablet.er 20 Meq PO TID Crestor (Rosuvastatin Calcium) 40 Mg Tablet 1 Tab PO HS Fish Oil + D3 Softgel ([place]-3S/Dha/Epa/Fish Oil/D3) 1 Each Capsule 2 Each PO DAILY Calcium (Calcium Carbonate) 600 Mg Tablet 600 Mg PO DAILY Vitamin C (Ascorbic Acid) 1,000 Mg Tablet 1,000 Mg PO DAILY Vitamin D (Cholecalciferol (Vitamin D3)) 1,000 Unit Tablet 1,000 Unit PO DAILY Miralax (Polyethylene Glycol 3350) 119 Gm Powder 17 Gm PO DAILY Furosemide 40 Mg Tablet 1 Tab PO BID B-12 (Cyanocobalamin (Vitamin B-12)) 1,000 Mcg Tablet 500 Mcg PO DAILY Tricor (Fenofibrate Nanocrystallized) 48 Mg Tablet 54 Mg PO DAILY [place] 5-325 Tablet (Acetaminophen/Hydrocodone Bitart) 1 Each Tablet 1 Tab PO TID NITROGLYCERIN SubLingual (Nitroglycerin) 0.4 Mg Tab.subl 0.4 Mg SL PRN Q5MIN PRN Cozaar (Losartan Potassium) 25 Mg Tablet 1 Tab PO DAILY Duoneb 0.5-3(2.5) Mg/3 Ml (Albuterol/Ipratropium) 3 Ml Ampul.neb 3 Ml IH Advair 500-50 Diskus (Fluticasone/Salmeterol) 1 Each Disk.w.dev 1 Puff IH BID Vitals/I & O Vital Sign - Last 24 Hours 09/28/19 09/28/19 09/28/19 09/28/19 10:56 11:02 14:28 14:46 Temp 97.7 97.7 Pulse 64 61 Resp 18 14 18 B/P (MAP) 142/78 (99) Pulse Ox 97 97 99 100 O2 Delivery Nasal Cannula Nasal Cannula Nasal Cannula Room Air O2 Flow Rate 3.0 3.0 4.0 4.0 09/28/19 09/28/19 09/28/19 09/28/19 14:57 15:00 15:12 15:27 Temp 97.5 97.5 Pulse 62 59 62 Resp 18 20 B/P (MAP) 138/52 (80) 104/66 (79) 132/72 (92) Pulse Ox 98 98 O2 Delivery Nasal Cannula Nasal Cannula O2 Flow Rate 3.0 4.0 09/28/19 09/28/19 09/28/19 09/28/19 15:45 16:21 16:48 19:12 Temp 97.5 97.5 Pulse 61 61 59 Resp 18 B/P (MAP) 112/50 (70) 112/50 135/79 (97) Pulse Ox 95 O2 Delivery Nasal Cannula Nasal Cannula O2 Flow Rate 3.0 3.0 09/28/19 09/28/19 09/28/19 09/28/19 19:32 20:09 20:28 20:29 Resp 20 Pulse Ox 99 99 O2 Delivery Nasal Cannula Nasal Cannula Nasal Cannula Nasal Cannula O2 Flow Rate 3.0 3.0 3.0 3.0 09/28/19 09/29/19 09/29/19 09/29/19 23:12 03:13 07:00 07:46 Temp 98.2 98.1 97.7 98.2 98.1 97.7 Pulse 67 67 65 Resp 18 17 17 B/P (MAP) 142/68 (92) 116/64 (81) 191/62 (105) Pulse Ox 93 93 96 100 O2 Delivery Nasal Cannula Nasal Cannula Nasal Cannula Nasal Cannula O2 Flow Rate 3.0 3.0 3.0 2.0 09/29/19 09/29/19 09/29/19 08:35 08:35 08:58 Pulse 65 65 Resp 20 B/P (MAP) 191/62 191/62 Pulse Ox 100 O2 Delivery Nasal Cannula O2 Flow Rate 2.0 Intake and Output 0 09/28/19 09/28/19 09/29/19 14:59 22:59 06:59 Intake Total 500 ml 0 ml Output Total 550 ml 200 ml Balance -50 ml -200 ml ANDREW BURGESS MD Sep 29, 2019 09:01
--- NOTE | 2019-09-29 10:58 | PDOC ---
PULMONARY PROGRESS NOTES Subjective Sitting up in chair, on 2 liters N/C , denies increased cough or SOB s/p cath, report P Vitals Vital Signs Date Time Temp Pulse Resp B/P (MAP) Pulse Ox O2 Delivery O2 Flow Rate FiO2 09/29/19 09:35 20 100 Nasal Cannula 2.0 09/29/19 08:58 65 191/62 09/29/19 07:00 97.7 97.7 ROS: No Nausea, No Chest Pain, No Abdominal Pain, No Increase Cough General: Alert, Oriented X4, No acute distress Lungs: Other (DS in bases ) Cardiovascular: S1, S2 Abdomen: Soft, Non-tender Neuro Exam: Alert, Oriented Extremities: No Edema Skin: Warm, Dry Labs Laboratory Tests Test 09/28/19 06:05 09/28/19 14:23 Sodium Level 140 mmol/L (136-145) Potassium Level 4.9 mmol/L (3.5-5.1) Chloride Level 104 mmol/L (98-107) Carbon Dioxide Level 29 mmol/L (21-32) Anion Gap 7 (6-14) Blood Urea Nitrogen 28 mg/dL (7-20) Creatinine 1.1 mg/dL (0.6-1.0) Estimated GFR (Cockcroft-Gault) 47.7 Glucose Level 120 mg/dL (70-99) Calcium Level 8.8 mg/dL (8.5-10.1) Magnesium Level 2.2 mg/dL (1.8-2.4) Activated Clotting Time 175 sec (92-181) Laboratory Tests Test 09/28/19 14:23 Activated Clotting Time 175 sec (92-181) Medications Active Scripts Medications Dose Route/Sig Max Daily Dose Days Date Category Medrol (Methylprednisolone) 4 Mg Tab.ds.pk 1 Pkg PO UD 08/09/19 Rx Aspirin 81 Mg Tab.chew 1 Tab PO DAILY 10/29/17 Reported Spiriva (Tiotropium [place]) 18 Mcg Cap.w.dev 2 Inh IH DAILY 02/28/15 Reported Prednisone 20 Mg Tablet 40 Mg PO DAILY 1 12/10/14 Rx Coreg (Carvedilol) 3.125 Mg Tablet 3.125 Mg PO BIDWMEALS 12/10/14 Rx Simethicone 80 Mg Tab.chew 80 Mg PO PRN DAILY PRN 30 05/17/14 Rx Acidophilus-Pectin Capsule (Lactobacillus Acidophilus/Pect) 1 Cap Capsule 1 Cap PO BID 05/17/14 Rx Flonase (Fluticasone Propionate) 16 Gm [place].susp 2 [place] NS DAILY 05/15/14 Reported Codeine-Guaifen 10-100 mg/5 ml (Guaifenesin/Codeine Phosphate) 120 Ml Liquid 120 Ml PO PRN Q6-8HRS PRN 03/05/14 Rx Potassium Chloride (Potassium Chloride) 20 Meq Tablet.er 20 Meq PO TID 03/01/14 Reported Crestor (Rosuvastatin Calcium) 40 Mg Tablet 1 Tab PO HS 03/01/14 Reported Fish Oil + D3 Softgel ([place]-3S/Dha/Epa/Fish Oil/D3) 1 Each Capsule 2 Each PO DAILY 03/01/14 Reported Calcium (Calcium Carbonate) 600 Mg Tablet 600 Mg PO DAILY 03/01/14 Reported Vitamin C (Ascorbic Acid) 1,000 Mg Tablet 1,000 Mg PO DAILY 03/01/14 Reported Vitamin D (Cholecalciferol (Vitamin D3)) 1,000 Unit Tablet 1,000 Unit PO DAILY 03/01/14 Reported Miralax (Polyethylene Glycol 3350) 119 Gm Powder 17 Gm PO DAILY 03/01/14 Reported Furosemide 40 Mg Tablet 1 Tab PO BID 03/01/14 Reported B-12 (Cyanocobalamin (Vitamin B-12)) 1,000 Mcg Tablet 500 Mcg PO DAILY 03/01/14 Reported Tricor (Fenofibrate Nanocrystallized) 48 Mg Tablet 54 Mg PO DAILY 03/01/14 Reported [place] 5-325 Tablet (Acetaminophen/Hydrocodone Bitart) 1 Each Tablet 1 Tab PO TID 03/01/14 Reported NITROGLYCERIN SubLingual (Nitroglycerin) 0.4 Mg Tab.subl 0.4 Mg SL PRN Q5MIN PRN 03/01/14 Reported Cozaar (Losartan Potassium) 25 Mg Tablet 1 Tab PO DAILY 03/01/14 Reported Duoneb 0.5-3(2.5) Mg/3 Ml (Albuterol/Ipratropium) 3 Ml Ampul.neb 3 Ml IH 03/01/14 Reported Advair 500-50 Diskus (Fluticasone/Salmeterol) 1 Each Disk.w.dev 1 Puff IH BID 03/01/[address] chest IMPRESSION: 1. Moderate upper lobe centrilobular emphysema. 2. There is right lung scarring or atelectasis. 3. Severe coronary artery disease. Impression . IMPRESSION: 1. Dyspnea secondary to acute exacerbation of chronic obstructive pulmonary disease and in addition to her underlying obesity with a body mass index of 32.-- improving Clinically, she has no symptoms to suggest pneumonia or heart failure. 2. Dysphagia/choking with food. S/P esophageal barrium swallow and CT chest. No Esophageal abnormality and no sig hiatal hernia 3. History of obstructive sleep apnea on continuous positive airway pressure with good compliance. 4. History of coronary artery disease, status post stent. Clinically stable-- Plan . RECOMMENDATIONS: 1. Continue present oxygen. Saturations are stable on 2 liters, keep 92% 2. Continue bronchodilators. 3. Taper off steroids. 4. Barium swallow and CT chest reviewed. No Esophageal abnormality and no sig hiatal hernia 5. Continue DVT prophylaxis. 6. CT of Chest reviewed , no Fibrosis/ pneumonia. change to po abx 7. follow cardiology recs, s/p Left/Rt cath, report P Patient prefers to go to rehab. d/w son D/W BECCA LOMAX MD Sep 29, 2019 10:57
[2019-09-29 11:00] VITALS: BP 135/55
--- NOTE | 2019-09-29 11:06 | PDOC ---
BYRON LOUIE APRN 09/29/19 1106: CARDIO Progress Notes Date and Time Date of Service 09/29/19 Time of Evaluation 1210 Subjective Subjective: No Chest Pain, No shortness of breath, No Palpitations Vitals Vitals Vital Signs Date Time Temp Pulse Resp B/P (MAP) Pulse Ox O2 Delivery O2 Flow Rate FiO2 09/29/19 09:35 20 100 Nasal Cannula 2.0 09/29/19 08:58 65 191/62 09/29/19 07:00 97.7 97.7 Weight Weight [ ] Input and Output Intake and Output Intake and Output 09/29/19 07:00 Intake Total 500 ml Output Total 750 ml Balance -250 ml Intake Oral 400 ml IV Total 100 ml Output Urine Total 750 ml # Voids 2 # Bowel Movements 1 Laboratory Labs Laboratory Tests Test 09/28/19 14:23 Activated Clotting Time 175 sec (92-181) Physical Exam HEENT: Neck Supple W Full Motion Chest: Symmetric LUNGS: Clear to Auscultation Heart: S1S2, RRR, jugular vein distention Abdomen: Soft N/T Extremities: Other (trace bilateral LE edema ) Neurology: alert, oriented, follow commands Assessment Assessment 1. Acute respiratory failure with AECOPD 2. Acute on chronic diastolic CHF: Echo with preserved LV systolic function. cath with elevated LVEDP. 3. CAD; s/p past PCI/stents 4. Hypertension; labile this am 5. Hyperlipidemia; statin 6. AAA: 01/2019 4.1 cm, stable 7. ALEE; CPAP Recommendations Mild diuresis Secondary prevention measures BP control Supportive care Awaiting COVID results to transfer to rehab. Follow up in our office as scheduled Justicifation of Admission Dx: Justifications for Admission: Justification of Admission Dx: Yes CHF: Hemodynamic Instability Aspiration Pneumonia: Hypoxemia Comminuty Aquired Pneumonia: Hypoxemia Acute COPD Exacerbation: Acute COPD Exacerbation MARIELA MELÉNDEZ MD 09/29/19 1533: CARDIO Progress Notes Plan Plan Patient seen and examined. Agree with above nurse practitioner note. She is doing well post cardiac catheterization. Discussed case with Dr. Carrasco. Supportive care. Okay to transfer to rehab. Low-dose diuretics. BYRON LOUIE APRN Sep 29, 2019 11:06 MARIELA MELÉNDEZ MD Sep 29, 2019 15:33
--- NOTE | 2019-09-29 11:33 | NUR ---
SS following up with discharge planning. SS reviewed pt chart and discussed with pt RN. Pt transferred from [facility]. Pt currently requiring oxygen. PT/OT recommending assisted unit. Referral was phoned and faxed to [facility] for assisted unit on 09/28/2019. [facility] reporting that they are out of network with pt's insurance. SS met with pt and discussed. Pt wanting SS to find assisted unit it [place], [place]. SS discussed options with pt. Referrals phoned and faxed to [facility], ; fax [phone], and [facility], ; fax [phone]. SS will await acceptance decision and insurance determination and will proceed accordingly with discharge planning. Addendum: 09/29/19 at 1412 by RASHAAD GIRON CORRECTION TO NOTE: [facility], , fax .
--- NOTE | 2019-09-29 12:18 | PDOC ---
PROGRESS NOTES Chief Complaint Chief Complaint A/P: Dyspnea secondary to acute exacerbation of chronic obstructive pulmonary disease and in addition to her underlying obesity with a body mass index of 32. Possibly esophageal dysmotility and GERD exacerbation contributing to above Chronic diastolic CHF: compensated CAD: past stents. trops nml EKG with no acute ST-T wave changes. Hx of multiple thoracic compression fractures AAA: 01/2019 4.1 cm, stable HTN: controlled HLP Atypical CP: MSK/GI Hiatal hernia Plan Aggressive medical therapy Supportive measure Continue home meds Rehab referral, COVID testing necessary prior to placement. History of Present Illness History of Present Illness 09/25: No acute events reported overnight, case discussed with nursing staff patient in no acute distress no complaints during my visit 09/26: No acute events reported overnight, case discussed with nursing staff patient in no acute distress no complaints during my visit PT eval done and she is leaning towards placement 09/27: Cardiac cath: 1. Acute on chronic diastolic HF. 2. One vessel CAD 3. Negative iFR of the RCA.. Barium swallow and CT chest reviewed. No Esophageal abnormality and no sig hiatal hernia. She feels better after cardiac cath except for back pain from laying flat. Vitals Vitals Vital Signs Date Time Temp Pulse Resp B/P (MAP) Pulse Ox O2 Delivery O2 Flow Rate FiO2 09/29/19 11:27 100 Nasal Cannula 2.0 09/29/19 11:00 97.5 72 17 135/55 (81) 97.5 Physical Exam General: Alert, Oriented X3, Cooperative, No acute distress Heart: Regular rate Lungs: Other (DS in bases ) Abdomen: Soft (obese, reducible ventral hernia upper mid abdomen) Extremities: No clubbing, No cyanosis Skin: No rashes Labs LABS Laboratory Tests Test 09/28/19 14:23 Activated Clotting Time 175 sec (92-181) Assessment and Plan Assessmemt and Plan Problems Medical Problems: (1) Dyspnea on minimal exertion Status: Acute Comment Review of Relevant I have reviewed the following items oneil (where applicable) has been applied. Labs Laboratory Tests Test 09/28/19 06:05 09/28/19 14:23 Sodium Level 140 mmol/L (136-145) Potassium Level 4.9 mmol/L (3.5-5.1) Chloride Level 104 mmol/L (98-107) Carbon Dioxide Level 29 mmol/L (21-32) Anion Gap 7 (6-14) Blood Urea Nitrogen 28 mg/dL (7-20) Creatinine 1.1 mg/dL (0.6-1.0) Estimated GFR (Cockcroft-Gault) 47.7 Glucose Level 120 mg/dL (70-99) Calcium Level 8.8 mg/dL (8.5-10.1) Magnesium Level 2.2 mg/dL (1.8-2.4) Activated Clotting Time 175 sec (92-181) Laboratory Tests Test 09/28/19 14:23 Activated Clotting Time 175 sec (92-181) Medications Current Medications Ondansetron HCl (Zofran) 4 mg PRN Q8HRS PRN IV NAUSEA/VOMITING; Start 09/24/19 at 16:30; Stop 09/24/19 at 18:45; Status DC Acetaminophen (Tylenol) 650 mg PRN Q4HRS PRN PO FEVER > 100.3'F; Start 09/24/19 at 16:30; Stop 09/24/19 at 18:45; Status DC Albuterol/ Ipratropium (Duoneb) 3 ml RTQID [facility] ; Start 09/24/19 at 20:00; Stop 09/24/19 at 18:40; Status DC Methylprednisolone Sodium Succinate (SOLU-Medrol 40MG VIAL) 40 mg Q8HRS IV ; Start 09/24/19 at 22:00; Stop 09/24/19 at 18:43; Status DC Aspirin (Aspirin Chewable) 81 mg DAILY PO Last administered on 09/27/19at 09:06; Start 09/25/19 at 09:00 Carvedilol (Coreg) 3.125 mg BIDWMEALS PO Last administered on 09/29/19at 08:58; Start 09/24/19 at 21:00 Vitamin D (Vitamin D3) 1,000 unit DAILY PO Last administered on 09/29/19at 08:32; Start 09/25/19 at 09:00 Cyanocobalamin (Vitamin B-12) 500 mcg DAILY PO Last administered on 09/29/19at 08:33; Start 09/25/19 at 09:00 Fluticasone Propionate (Flonase) 2 spray DAILY NS Last administered on 09/29/19at 08:38; Start 09/25/19 at 09:00 Acetaminophen/ Hydrocodone Bitart (Lortab 5/325) 1 tab TID PO Last administered on 09/29/19 08:35; Start 09/24/19 at 21:00 Albuterol/ Ipratropium (Duoneb) 3 ml Q4HRS W/A IH Last administered on 09/25/19 19:18; Start 09/24/19 at 22:00; Stop 09/25/19 at 23:44; Status DC Losartan Potassium (Cozaar) 25 mg DAILY PO Last administered on 09/29/19 08:35; Start 09/25/19 at 09:00 Nitroglycerin (Nitrostat) 0.4 mg PRN Q5MIN PRN SL CHEST PAIN; Start 09/24/19 at 18:45 Polyethylene Glycol (miraLAX PACKET) 17 gm DAILY PO Last administered on 09/29/19 08:40; Start 09/25/19 at 09:00 Potassium Chloride (Klor-Con) 20 meq TIDWMEALS PO Last administered on 09/29/19 08:35; Start 09/24/19 at 21:00 Prednisone (Prednisone) 40 mg DAILY PO ; Start 09/25/19 at 09:00; Stop 09/24/19 at 18:43; Status DC Simethicone (Gas-X) 80 mg PRN DAILY PRN PO GAS / BLOATING; Start 09/24/19 at 18:45 Ascorbic Acid (Vitamin C) 1,000 mg DAILY PO Last administered on 09/29/19 08:33; Start 09/25/19 at 09:00 Calcium Carbonate/ Glycine (Oscal) 500 mg DAILY PO Last administered on 09/29/19 08:33; Start 09/25/19 at 09:00 Fenofibrate (Lofibra) 54 mg DAILY PO Last administered on 09/29/19 08:41; Start 09/25/19 at 09:00 Budesonide (Pulmicort) 0.5 mg RTBID NEB Last administered on 09/29/19 07:43; Start 09/24/19 at 20:00 Guaifenesin/ Codeine Phosphate (Robitussin Ac) 5 ml PRN Q6HRS PRN PO COUGH, 2nd CHOICE; Start 09/24/19 at 18:45 Lactobacillus Rhamnosus (Culturelle) 1 cap BID PO Last administered on 09/29/19 08:33; Start 09/24/19 at 21:00 Fish Oil (Fish Oil) 2,000 mg DAILY PO Last administered on 09/29/19 08:33; Start 09/25/19 at 09:00 Atorvastatin Calcium (Lipitor) 80 mg QHS PO Last administered on 09/28/19 20:09; Start 09/24/19 at 21:00 Non-Formulary Medication (Tiotropium Sutton (Spiriva)) 2 inh DAILY IH ; Start 09/25/19 at 09:00; Status UNV Methylprednisolone Sodium Succinate (SOLU-Medrol 125MG VIAL) 100 mg Q8HRS IV Last administered on 09/25/19 05:27; Start 09/24/19 at 22:00; Stop 09/25/19 at 10:51; Status DC Sodium Chloride (Normal Saline Flush) 3 ml QSHIFT PRN IV AFTER MEDS AND BLOOD DRAWS; Start 09/24/19 at 18:45 Ondansetron HCl (Zofran) 4 mg PRN Q4HRS PRN IV NAUSEA/VOMITING; Start 09/24/19 at 18:45 Acetaminophen (Tylenol) 650 mg PRN Q4HRS PRN PO TEMP OVER 100.4F OR MILD PAIN Last administered on 09/29/19at 00:31; Start 09/24/19 at 18:45 Sodium Monofluorophosphate (Fleet Adult) 133 ml PRN DAILY PRN ME CONSTIPATION; Start 09/24/19 at 18:45 Docusate Sodium (Colace) 100 mg PRN BID PRN PO HARD STOOLS; Start 09/24/19 at 18:45 Guaifenesin (Robitussin) 200 mg PRN Q4HRS PRN PO COUGH, 1st CHOICE Last administered on 09/28/19 21:12; Start 09/24/19 at 18:45 Enoxaparin Sodium (Lovenox 40mg Syringe) 40 mg Q24H SQ Last administered on 09/26/19at 22:16; Start 09/24/19 at 21:00 Doxycycline Hyclate 100 mg/ Dextrose 100 ml @ 50 mls/hr Q12HR IV Last administered on 09/29/19 08:54; Start 09/24/19 at 21:00; Stop 09/29/19 at 11:28; Status DC Pantoprazole Sodium (Protonix) 40 mg DAILYAC PO Last administered on 09/29/19at 08:33; Start 09/25/19 at 07:30 Methylprednisolone Sodium Succinate (SOLU-Medrol 40MG VIAL) 60 mg Q8HRS IV Last administered on 09/27/19at 06:37; Start 09/25/19 at 14:00; Stop 09/27/19 at 10:08; Status DC Barium Sulfate (Liquid E-Z Paque) 355 ml 1X ONCE PO Last administered on 09/25/19at 12:15; Start 09/25/19 at 12:15; Stop 09/25/19 at 12:16; Status DC Barium Sulfate (E-Z-Hd) 340 gm 1X ONCE PO Last administered on 09/25/19at 12:15; Start 09/25/19 at 12:15; Stop 09/25/19 at 12:16; Status DC Simethicone/ Sodium Bicarb/ Citric Ac (E-Z-Gas) 1 packet 1X ONCE PO Last administered on 09/25/19at 12:15; Start 09/25/19 at 12:15; Stop 09/25/19 at 12:16; Status DC Albuterol/ Ipratropium (Duoneb) 3 ml RTQID IH Last administered on 09/29/19at 11:26; Start 09/26/19 at 08:00 Methylprednisolone Sodium Succinate (SOLU-Medrol 40MG VIAL) 40 mg Q12HR IV Last administered on 09/29/19at 08:41; Start 09/27/19 at 21:00; Stop 09/29/19 at 11:30; Status DC Sodium Chloride 1,000 ml @ 60 mls/hr [id number] IV Last administered on 09/28/19at 20:10; Start 09/28/19 at 07:30 Lidocaine HCl (Xylocaine-Mpf 1% 2ml Vial) 2 ml STK-MED ONCE .ROUTE ; Start 09/28/19 at 13:17; Stop 09/28/19 at 13:17; Status DC Heparin Sodium/ Sodium Chloride 1,000 ml @ As Directed STK-MED ONCE .ROUTE ; Start 09/28/19 at 13:17; Stop 09/28/19 at 13:17; Status DC Fentanyl Citrate (Fentanyl 2ml Vial) 100 mcg STK-MED ONCE .ROUTE ; Start 09/28/19 at 13:36; Stop 09/28/19 at 13:36; Status DC Midazolam HCl (Versed) 2 mg STK-MED ONCE .ROUTE ; Start 09/28/19 at 13:36; Stop 09/28/19 at 13:36; Status DC Heparin Sodium (Porcine) (Heparin Sodium) 10,000 unit STK-MED ONCE .ROUTE ; Start 09/28/19 at 13:36; Stop 09/28/19 at 13:37; Status DC Verapamil HCl (Verapamil) 5 mg STK-MED ONCE .ROUTE ; Start 09/28/19 at 13:36; Stop 09/28/19 at 13:37; Status DC Nitroglycerin (Nitroglycerin) 200 mcg STK-MED ONCE .ROUTE ; Start 09/28/19 at 13 :37; Stop 09/28/19 at 13:37; Status DC Iodixanol (Visipaque 320) 100 ml STK-MED ONCE .ROUTE ; Start 09/28/19 at 13:46; Stop 09/28/19 at 13:46; Status DC Lidocaine HCl (Lidocaine 1% 20ml Vial) 20 ml STK-MED ONCE .ROUTE ; Start 09/28/19 at 13:57; Stop 09/28/19 at 13:57; Status DC Heparin Sodium/ Sodium Chloride (HEPARIN for ARTERIAL LINE FLUSH) 1,000 unit 1X ONCE IART Last administered on 09/28/19at 14:26; Start 09/28/19 at 14:15; Stop 09/28/19 at 14:19; Status DC Midazolam HCl (Versed) 2 mg 1X ONCE IV Last administered on 09/28/19at 14:28; Start 09/28/19 at 14:15; Stop 09/28/19 at 14:19; Status DC Fentanyl Citrate (Fentanyl 2ml Vial) 100 mcg 1X ONCE IV Last administered on 09/28/19at 14:28; Start 09/28/19 at 14:15; Stop 09/28/19 at 14:19; Status DC Iodixanol (Visipaque 320) 100 ml 1X ONCE IART Last administered on 09/28/19at 14:26; Start 09/28/19 at 14:15; Stop 09/28/19 at 14:19; Status DC Heparin Sodium (Porcine) (Heparin Sodium) 4,000 unit 1X ONCE IV Last administered on 09/28/19at 14:29; Start 09/28/19 at 14:15; Stop 09/28/19 at 14:19; Status DC Lidocaine HCl (Lidocaine 1% 20ml Vial) 20 ml 1X ONCE INJ Last administered on 09/28/19at 14:27; Start 09/28/19 at 14:15; Stop 09/28/19 at 14:19; Status DC Lidocaine HCl (Xylocaine-Mpf 1% 2ml Vial) 2 ml 1X ONCE INJ Last administered on 09/28/19at 14:27; Start 09/28/19 at 14:15; Stop 09/28/19 at 14:19; Status DC Nitroglycerin (Nitroglycerin) 200 mcg STK-MED ONCE .ROUTE ; Start 09/28/19 at 14:19; Stop 09/28/19 at 14:20; Status DC Nitroglycerin (Nitroglycerin) 100 mcg 1X ONCE ICAR Last administered on 09/28/19at 14:17; Start 09/28/19 at 14:45; Stop 09/28/19 at 14:46; Status DC Furosemide (Lasix) 40 mg DAILY IVP Last administered on 09/29/19at 08:32; Start 09/29/19 at 09:00 Prednisone (Prednisone) 20 mg DAILY PO ; Start 09/30/19 at 09:00 Doxycycline Hyclate (Vibra-Tab) 100 mg BID PO ; Start 09/29/19 at 21:00 Active Scripts Active Medrol (Methylprednisolone) 4 Mg Tab.ds.pk 1 Pkg PO UD Prednisone 20 Mg Tablet 40 Mg PO DAILY 1 Days Coreg (Carvedilol) 3.125 Mg Tablet 3.125 Mg PO BIDWMEALS Simethicone 80 Mg Tab.chew 80 Mg PO PRN DAILY PRN 30 Days Acidophilus-Pectin Capsule (Lactobacillus Acidophilus/Pect) 1 Cap Capsule 1 Cap PO BID Codeine-Guaifen 10-100 mg/5 ml (Guaifenesin/Codeine Phosphate) 120 Ml Liquid 120 Ml PO PRN Q6-8HRS PRN Reported Aspirin 81 Mg Tab.chew 1 Tab PO DAILY Spiriva (Tiotropium Sutton) 18 Mcg Cap.w.dev 2 Inh IH DAILY Flonase (Fluticasone Propionate) 16 Gm Crozier.susp 2 Crozier NS DAILY Potassium Chloride (Potassium Chloride) 20 Meq Tablet.er 20 Meq PO TID Crestor (Rosuvastatin Calcium) 40 Mg Tablet 1 Tab PO HS Fish Oil + D3 Softgel ([place]-3S/Dha/Epa/Fish Oil/D3) 1 Each Capsule 2 Each PO DAILY Calcium (Calcium Carbonate) 600 Mg Tablet 600 Mg PO DAILY Vitamin C (Ascorbic Acid) 1,000 Mg Tablet 1,000 Mg PO DAILY Vitamin D (Cholecalciferol (Vitamin D3)) 1,000 Unit Tablet 1,000 Unit PO DAILY Miralax (Polyethylene Glycol 3350) 119 Gm Powder 17 Gm PO DAILY Furosemide 40 Mg Tablet 1 Tab PO BID B-12 (Cyanocobalamin (Vitamin B-12)) 1,000 Mcg Tablet 500 Mcg PO DAILY Tricor (Fenofibrate Nanocrystallized) 48 Mg Tablet 54 Mg PO DAILY Ira 5-325 Tablet (Acetaminophen/Hydrocodone Bitart) 1 Each Tablet 1 Tab PO TID NITROGLYCERIN SubLingual (Nitroglycerin) 0.4 Mg Tab.subl 0.4 Mg SL PRN Q5MIN PRN Cozaar (Losartan Potassium) 25 Mg Tablet 1 Tab PO DAILY Duoneb 0.5-3(2.5) Mg/3 Ml (Albuterol/Ipratropium) 3 Ml Ampul.neb 3 Ml IH Advair 500-50 Diskus (Fluticasone/Salmeterol) 1 Each Disk.w.dev 1 Puff IH BID Vitals/I & O Vital Sign - Last 24 Hours 09/28/19 09/28/19 09/28/19 09/28/19 14:28 14:46 14:57 15:00 Temp 97.5 97.5 Pulse 61 62 Resp 14 18 18 20 B/P (MAP) 138/52 (80) Pulse Ox 99 100 98 98 O2 Delivery Nasal Cannula Room Air Nasal Cannula Nasal Cannula O2 Flow Rate 4.0 4.0 3.0 4.0 09/28/19 09/28/19 09/28/19 09/28/19 15:12 15:27 15:45 16:21 Pulse 59 62 61 B/P (MAP) 104/66 (79) 132/72 (92) 112/50 (70) O2 Delivery Nasal Cannula O2 Flow Rate 3.0 6/8/09/28/19 09/28/19 09/28/19 16:48 19:12 19:32 20:09 Temp 97.5 97.5 Pulse 61 59 Resp 18 20 B/P (MAP) 112/50 135/79 (97) Pulse Ox 95 O2 Delivery Nasal Cannula Nasal Cannula Nasal Cannula O2 Flow Rate 3.0 3.0 3.0 09/28/19 09/28/19 09/28/19 09/29/19 20:28 20:29 23:12 03:13 Temp 98.2 98.1 98.2 98.1 Pulse 67 67 Resp 18 17 B/P (MAP) 142/68 (92) 116/64 (81) Pulse Ox 99 99 93 93 O2 Delivery Nasal Cannula Nasal Cannula Nasal Cannula Nasal Cannula O2 Flow Rate 3.0 3.0 3.0 3.0 09/29/19 09/29/19 09/29/19 09/29/19 07:00 07:46 08:00 08:35 Temp 97.7 97.7 Pulse 65 Resp 20 B/P (MAP) 191/62 (105) Pulse Ox 96 100 100 O2 Delivery Nasal Cannula Nasal Cannula Nasal Cannula Nasal Cannula O2 Flow Rate 3.0 2.0 2.0 2.0 09/29/19 09/29/19 09/29/19 09/29/19 08:35 08:58 09:35 11:00 Temp 97.5 97.5 Pulse 65 65 72 Resp 20 17 B/P (MAP) 191/62 191/62 135/55 (81) Pulse Ox 100 97 O2 Delivery Nasal Cannula Nasal Cannula O2 Flow Rate 2.0 3.0 09/29/19 11:27 Pulse Ox 100 O2 Delivery Nasal Cannula O2 Flow Rate 2.0 Intake and Output 09/28/19 09/28/19 09/29/19 14:59 22:59 06:59 Intake Total 500 ml 0 ml Output Total 550 ml 200 ml Balance -50 ml -200 ml SRIRAM POLLARD MD Sep 29, 2019 12:18
--- NOTE | 2019-09-29 14:06 | CARD ---
MR#: [id number] Date of Study: 09/28/2019 Ordering Physician: REESE ARMSTRONG, Referring Physician: REESE ARMSTRONG, Tech: Keiry Lange RT(R) APPROVED REPORT Technologist: Keiry Lange RT(R) Nurse: Sade Mckeon R.N. Procedure(s) performed: Sedation Time: 56 Minutes Dose: 50 Gycm2 Fluoro Time: 6.2 Minutes Contrast: 66mL Visipaque 320 LHC, Coronary angiography iFR of the RCA HISTORY : The patient is a 79 year-old female with a history of . INDICATION The indication(s) include : dyspnea. [facility] Clinical Frailty Scale [facility] Clinical Frailty Scale: Moderately Frail Heart Failure Heart Failure: Yes If Yes, Newly Diagnosed: No If Yes, HF Type: Diastolic If Yes, NYHA Class: Class III CASE TECHNIQUE During this case, Fluoroscopy and low osmolar contrast were used for imaging. PROCEDURE NARRATIVE After explaining the risks and benefits of the procedure and alternatives, informed consent was obtai nicole. The patient was brought electively to the cardiac catheterization lab in a fasting state. A tesfaye eout was performed confirming the patient's name, date of , procedure, and site of procedure. A ll necessary personnel were wearing the appropriate protective equipment and radiation monitor device s. (See nursing notes for medications administered). The right groin was sterilely prepped and drap ed in the usual fashion. The right groin was infiltrated with 10 mL of 2% lidocaine for subcutaneous anesthesia. A 6 F sheath was inserted into the right femoral artery without difficulty. Right and left coronary angiography was performed using a JR4 and JL4 catheter. Left ventricular end diastolic pressure was obtained with a pigtail catheter and pullback was performed. All catheter exchanges an d advancements were performed over a guidewire. At case completion the right femoral sheath was mia barbara and hemostasis was achieved with manual compression. There were no acute complications. HEMODYNAMICS: AO: 160/80 LVEDP 30 mm Hg No gradient on LV to aortic pullback. LEFT VENTRICULOGRAM: Deferred due to known normal EF of 55%. CORONARY ANGIOGRAPHY: LM is a large caliber vessel with normal angiographic appearance. LAD is a large caliber vessel with normal angiographic appearance. Ramus is a moderate caliber vessel with normal angiographic appearance. LCx is a moderate caliber non-dominant vessel with normal angiographic appearance. RCA is a large caliber dominant vessel with a patent mid stent with 50% ISR RPDA is a moderate caliber vessels with normal angiographic appearance. INTERVENTIONAL TECHNIQUE: Heparin was used for anticoagulation. Through a 5fr JR4 guide catheter, a 0.014'' pressure wire was a dvanced to the distal RCA after appropriate normalization. The iFR was measured at 0.94 after NTG was administered. No acute complications noted. Conclusion 1. Acute on chronic diastolic HF. 2. One vessel CAD 3. Negative iFR of the RCA. Recommendations Aggressive Medical Therapy Signed by : Peng Mcclellan, Electronically Approved : 09/29/2019 14:06:15
[2019-09-29 15:00] VITALS: BP 139/62
[2019-09-29 19:33] VITALS: BP 121/66
[2019-09-29] MEDS: ENOXAPARIN 40 MG/0.4 ML SYRINGE. SQ SCH (21:00)
[2019-09-29] MEDS: ATORVASTATIN CALCIUM 40 MG TABLET. PO SCH (21:19)
[2019-09-29] MEDS: DOXYCYCLINE HYCLATE 100 MG TABLET PO SCH (21:19)
[2019-09-29 22:42] VITALS: BP 147/58
[2019-09-30 02:45] VITALS: BP 148/70
[2019-09-30 04:37] VITALS: BP 150/70
[2019-09-30] MEDS: ACETAMINOPHEN 325 MG TABLET. PO PRN (04:49)
[2019-09-30 06:37] VITALS: BP 194/71
--- NOTE | 2019-09-30 08:11 | PDOC ---
PROGRESS NOTES Chief Complaint Chief Complaint A/P: Dyspnea secondary to acute exacerbation of chronic obstructive pulmonary disease and in addition to her underlying obesity with a body mass index of 32. Possibly esophageal dysmotility and GERD exacerbation contributing to above Chronic diastolic CHF: compensated CAD: past stents. trops nml EKG with no acute ST-T wave changes. Hx of multiple thoracic compression fractures AAA: 01/2019 4.1 cm, stable HTN: controlled HLP Atypical CP: MSK/GI Hiatal hernia Plan Aggressive medical therapy Supportive measure Continue home meds Rehab referral, COVID testing necessary prior to placement. History of Present Illness History of Present Illness 09/25: No acute events reported overnight, case discussed with nursing staff patient in no acute distress no complaints during my visit 09/26: No acute events reported overnight, case discussed with nursing staff patient in no acute distress no complaints during my visit PT eval done and she is leaning towards placement 09/27: Cardiac cath: 1. Acute on chronic diastolic HF. 2. One vessel CAD 3. Negative iFR of the RCA.. 09/28: Barium swallow and CT chest reviewed. No Esophageal abnormality and no sig hiatal hernia. She feels better after cardiac cath except for back pain from laying flat. Feeling improved today. stable on O2. No cough. minimal pedal edema. Follow up with parimutuel ticket cashier, Dr. Mcclellan, November 12 at 1:30pm. Vitals Vitals Vital Signs Date Time Temp Pulse Resp B/P (MAP) Pulse Ox O2 Delivery O2 Flow Rate FiO2 09/30/19 06:37 97.6 60 18 194/71 (112) 100 Nasal Cannula 3.0 97.6 Physical Exam General: Alert, Oriented X3, Cooperative, No acute distress Heart: Regular rate Lungs: Other (DS in bases ) Abdomen: Soft (obese, reducible ventral hernia upper mid abdomen) Extremities: No clubbing, No cyanosis Skin: No rashes Assessment and Plan Assessmemt and Plan Problems Medical Problems: (1) Dyspnea on minimal exertion Status: Acute Comment Review of Relevant I have reviewed the following items oneil (where applicable) has been applied. Labs Laboratory Tests Test 09/28/19 14:23 Activated Clotting Time 175 sec (92-181) Medications Current Medications Ondansetron HCl (Zofran) 4 mg PRN Q8HRS PRN IV NAUSEA/VOMITING; Start 09/24/19 at 16:30; Stop 09/24/19 at 18:45; Status DC Acetaminophen (Tylenol) 650 mg PRN Q4HRS PRN PO FEVER > 100.3'F; Start 09/24/19 at 16:30; Stop 09/24/19 at 18:45; Status DC Albuterol/ Ipratropium (Duoneb) 3 ml RTQID NEB ; Start 09/24/19 at 20:00; Stop 09/24/19 at 18:40; Status DC Methylprednisolone Sodium Succinate (SOLU-Medrol 40MG VIAL) 40 mg Q8HRS IV ; Start 09/24/19 at 22:00; Stop 09/24/19 at 18:43; Status DC Aspirin (Aspirin Chewable) 81 mg DAILY PO Last administered on 09/27/19 09:06; Start 09/25/19 at 09:00 Carvedilol (Coreg) 3.125 mg BIDWMEALS PO Last administered on 09/29/19 17:04; Start 09/24/19 at 21:00 Vitamin D (Vitamin D3) 1,000 unit DAILY PO Last administered on 09/29/19 08:32; Start 09/25/19 at 09:00 Cyanocobalamin (Vitamin B-12) 500 mcg DAILY PO Last administered on 09/29/19 08:33; Start 09/25/19 at 09:00 Fluticasone Propionate (Flonase) 2 spray DAILY NS Last administered on 09/29/19at 08:38; Start 09/25/19 at 09:00 Acetaminophen/ Hydrocodone Bitart (Lortab 5/325) 1 tab TID PO Last administered on 09/29/19 21:19; Start 09/24/19 at 21:00 Albuterol/ Ipratropium (Duoneb) 3 ml Q4HRS W/A IH Last administered on 09/25/19 19:18; Start 09/24/19 at 22:00; Stop 09/25/19 at 23:44; Status DC Losartan Potassium (Cozaar) 25 mg DAILY PO Last administered on 09/29/19at 08:35; Start 09/25/19 at 09:00 Nitroglycerin (Nitrostat) 0.4 mg PRN Q5MIN PRN SL CHEST PAIN; Start 09/24/19 at 18:45 Polyethylene Glycol (miraLAX PACKET) 17 gm DAILY PO Last administered on 09/29/19 08:40; Start 09/25/19 at 09:00 Potassium Chloride (Klor-Con) 20 meq TIDWMEALS PO Last administered on 09/29/19at 08:35; Start 09/24/19 at 21:00; Stop 09/29/19 at 12:17; Status DC Prednisone (Prednisone) 40 mg DAILY PO ; Start 09/25/19 at 09:00; Stop 09/24/19 at 18:43; Status DC Simethicone (Gas-X) 80 mg PRN DAILY PRN PO GAS / BLOATING; Start 09/24/19 at 18:45 Ascorbic Acid (Vitamin C) 1,000 mg DAILY PO Last administered on 09/29/19 08:33; Start 09/25/19 at 09:00 Calcium Carbonate/ Glycine (Oscal) 500 mg DAILY PO Last administered on 09/29/19 08:33; Start 09/25/19 at 09:00 Fenofibrate (Lofibra) 54 mg DAILY PO Last administered on 09/29/19at 08:41; Start 09/25/19 at 09:00 Budesonide (Pulmicort) 0.5 mg RTBID NEB Last administered on 09/29/19 20:01; Start 09/24/19 at 20:00 Guaifenesin/ Codeine Phosphate (Robitussin Ac) 5 ml PRN Q6HRS PRN PO COUGH, 2nd CHOICE; Start 09/24/19 at 18:45 Lactobacillus Rhamnosus (Culturelle) 1 cap BID PO Last administered on 09/29/19 21:19; Start 09/24/19 at 21:00 Fish Oil (Fish Oil) 2,000 mg DAILY PO Last administered on 09/29/19 08:33; Start 09/25/19 at 09:00 Atorvastatin Calcium (Lipitor) 80 mg QHS PO Last administered on 09/29/19 21:19; Start 09/24/19 at 21:00 Non-Formulary Medication (Tiotropium [place] (Spiriva)) 2 inh DAILY IH ; Start 09/25/19 at 09:00; Status UNV Methylprednisolone Sodium Succinate (SOLU-Medrol 125MG VIAL) 100 mg Q8HRS IV Last administered on 09/25/19at 05:27; Start 09/24/19 at 22:00; Stop 09/25/19 at 10:51; Status DC Sodium Chloride (Normal Saline Flush) 3 ml QSHIFT PRN IV AFTER MEDS AND BLOOD DRAWS; Start 09/24/19 at 18:45 Ondansetron HCl (Zofran) 4 mg PRN Q4HRS PRN IV NAUSEA/VOMITING; Start 09/24/19 at 18:45 Acetaminophen (Tylenol) 650 mg PRN Q4HRS PRN PO TEMP OVER 100.4F OR MILD PAIN Last administered on 09/30/19at 04:49; Start 09/24/19 at 18:45 Sodium Monofluorophosphate (Fleet Adult) 133 ml PRN DAILY PRN [place] CONSTIPATION; Start 09/24/19 at 18:45 Docusate Sodium (Colace) 100 mg PRN BID PRN PO HARD STOOLS; Start 09/24/19 at 18:45 Guaifenesin (Robitussin) 200 mg PRN Q4HRS PRN PO COUGH, 1st CHOICE Last administered on 09/28/19at 21:12; Start 09/24/19 at 18:45 Enoxaparin Sodium (Lovenox 40mg Syringe) 40 mg Q24H SQ Last administered on 09/26/19at 22:16; Start 09/24/19 at 21:00 Doxycycline Hyclate 100 mg/ Dextrose 100 ml @ 50 mls/hr Q12HR IV Last administered on 09/29/19at 08:54; Start 09/24/19 at 21:00; Stop 09/29/19 at 11:28; Status DC Pantoprazole Sodium (Protonix) 40 mg DAILYAC PO Last administered on 09/29/19at 08:33; Start 09/25/19 at 07:30 Methylprednisolone Sodium Succinate (SOLU-Medrol 40MG VIAL) 60 mg Q8HRS IV Last administered on 09/27/19at 06:37; Start 09/25/19 at 14:00; Stop 09/27/19 at 10:08; Status DC Barium Sulfate (Liquid E-Z [place]) 355 ml 1X ONCE PO Last administered on 09/25/19at 12:15; Start 09/25/19 at 12:15; Stop 6/5/20 at 12:16; Status DC Barium Sulfate (E-Z-Hd) 340 gm 1X ONCE PO Last administered on 09/25/19at 12:15; Start 09/25/19 at 12:15; Stop 09/25/19 at 12:16; Status DC Simethicone/ Sodium Bicarb/ Citric Ac (E-Z-Gas) 1 packet 1X ONCE PO Last adm inistered on 09/25/19at 12:15; Start 09/25/19 at 12:15; Stop 09/25/19 at 12:16; Status DC Albuterol/ Ipratropium (Duoneb) 3 ml RTQID IH Last administered on 09/29/19at 20:01; Start 09/26/19 at 08:00 Methylprednisolone Sodium Succinate (SOLU-Medrol 40MG VIAL) 40 mg Q12HR IV Last administered on 09/29/19at 08:41; Start 09/27/19 at 21:00; Stop 09/29/19 at 11:30; Status DC Sodium Chloride 1,000 ml @ 60 mls/hr [id number] IV Last administered on 09/28/19at 20:10; Start 09/28/19 at 07:30; Stop 09/29/19 at 17:06; Status DC Lidocaine HCl (Xylocaine-Mpf 1% 2ml Vial) 2 ml STK-MED ONCE .ROUTE ; Start 09/28/19 at 13:17; Stop 09/28/19 at 13:17; Status DC Heparin Sodium/ Sodium Chloride 1,000 ml @ As Directed STK-MED ONCE .ROUTE ; Start 09/28/19 at 13:17; Stop 09/28/19 at 13:17; Status DC Fentanyl Citrate (Fentanyl 2ml Vial) 100 mcg STK-MED ONCE .ROUTE ; Start 09/28/19 at 13:36; Stop 09/28/19 at 13:36; Status DC Midazolam HCl (Versed) 2 mg STK-MED ONCE .ROUTE ; Start 09/28/19 at 13:36; Stop 09/28/19 at 13:36; Status DC Heparin Sodium (Porcine) (Heparin Sodium) 10,000 unit STK-MED ONCE .ROUTE ; Start 09/28/19 at 13:36; Stop 09/28/19 at 13:37; Status DC Verapamil HCl (Verapamil) 5 mg STK-MED ONCE .ROUTE ; Start 09/28/19 at 13:36; Stop 09/28/19 at 13:37; Status DC Nitroglycerin (Nitroglycerin) 200 mcg STK-MED ONCE .ROUTE ; Start 09/28/19 at 13:37; Stop 09/28/19 at 13:37; Status DC Iodixanol (Visipaque 320) 100 ml STK-MED ONCE .ROUTE ; Start 09/28/19 at 13:46; Stop 09/28/19 at 13:46; Status DC Lidocaine HCl (Lidocaine 1% 20ml Vial) 20 ml STK-MED ONCE .ROUTE ; Start 09/28/19 at 13:57; Stop 09/28/19 at 13:57; Status DC Heparin Sodium/ Sodium Chloride (HEPARIN for ARTERIAL LINE FLUSH) 1,000 unit 1X ONCE IART Last administered on 09/28/19at 14:26; Start 09/28/19 at 14:15; Stop 09/28/19 at 14:19; Status DC Midazolam HCl (Versed) 2 mg 1X ONCE IV Last administered on 09/28/19at 14:28; Start 09/28/19 at 14:15; Stop 09/28/19 at 14:19; Status DC Fentanyl Citrate (Fentanyl 2ml Vial) 100 mcg 1X ONCE IV Last administered on 09/28/19at 14:28; Start 09/28/19 at 14:15; Stop 09/28/19 at 14:19; Status DC Iodixanol (Visipaque 320) 100 ml 1X ONCE IART Last administered on 09/28/19at 14:26; Start 09/28/19 at 14:15; Stop 09/28/19 at 14:19; Status DC Heparin Sodium (Porcine) (Heparin Sodium) 4,000 unit 1X ONCE IV Last adminis tered on 09/28/19at 14:29; Start 09/28/19 at 14:15; Stop 09/28/19 at 14:19; Status DC Lidocaine HCl (Lidocaine 1% 20ml Vial) 20 ml 1X ONCE INJ Last administered on 09/28/19at 14:27; Start 09/28/19 at 14:15; Stop 09/28/19 at 14:19; Status DC Lidocaine HCl (Xylocaine-Mpf 1% 2ml Vial) 2 ml 1X ONCE INJ Last administered on 09/28/19at 14:27; Start 09/28/19 at 14:15; Stop 09/28/19 at 14:19; Status DC Nitroglycerin (Nitroglycerin) 200 mcg STK-MED ONCE .ROUTE ; Start 09/28/19 at 14:19; Stop 09/28/19 at 14:20; Status DC Nitroglycerin (Nitroglycerin) 100 mcg 1X ONCE ICAR Last administered on 09/28/19at 14:17; Start 09/28/19 at 14:45; Stop 09/28/19 at 14:46; Status DC Furosemide (Lasix) 40 mg DAILY IVP Last administered on 09/29/19at 08:32; Start 09/29/19 at 09:00 Prednisone (Prednisone) 20 mg DAILY PO ; Start 09/30/19 at 09:00 Doxycycline Hyclate (Vibra-Tab) 100 mg BID PO Last administered on 09/29/19at 21:19; Start 09/29/19 at 21:00 Potassium Chloride (Klor-Con) 20 meq DAILY PO ; Start 09/30/19 at 09:00 Active Scripts Active Medrol (Methylprednisolone) 4 Mg Tab.ds.pk 1 Pkg PO UD Prednisone 20 Mg Tablet 40 Mg PO DAILY 1 Days Coreg (Carvedilol) 3.125 Mg Tablet 3.125 Mg PO BIDWMEALS Simethicone 80 Mg Tab.chew 80 Mg PO PRN DAILY PRN 30 Days Acidophilus-Pectin Capsule (Lactobacillus Acidophilus/Pect) 1 Cap Capsule 1 Cap PO BID Codeine-Guaifen 10-100 mg/5 ml (Guaifenesin/Codeine Phosphate) 120 Ml Liquid 120 Ml PO PRN Q6-8HRS PRN Reported Aspirin 81 Mg Tab.chew 1 Tab PO DAILY Spiriva (Tiotropium [place]) 18 Mcg Cap.w.dev 2 Inh IH DAILY Flonase (Fluticasone Propionate) 16 Gm [place].susp 2 [place] NS DAILY Potassium Chloride (Potassium Chloride) 20 Meq Tablet.er 20 Meq PO TID Crestor (Rosuvastatin Calcium) 40 Mg Tablet 1 Tab PO HS Fish Oil + D3 Softgel ([place]-3S/Dha/Epa/Fish Oil/D3) 1 Each Capsule 2 Each PO DAILY Calcium (Calcium Carbonate) 600 Mg Tablet 600 Mg PO DAILY Vitamin C (Ascorbic Acid) 1,000 Mg Tablet 1,000 Mg PO DAILY Vitamin D (Cholecalciferol (Vitamin D3)) 1,000 Unit Tablet 1,000 Unit PO DAILY Miralax (Polyethylene Glycol 3350) 119 Gm Powder 17 Gm PO DAILY Furosemide 40 Mg Tablet 1 Tab PO BID B-12 (Cyanocobalamin (Vitamin B-12)) 1,000 Mcg Tablet 500 Mcg PO DAILY Tricor (Fenofibrate Nanocrystallized) 48 Mg Tablet 54 Mg PO DAILY [place] 5-325 Tablet (Acetaminophen/Hydrocodone Bitart) 1 Each Tablet 1 Tab PO TID NITROGLYCERIN SubLingual (Nitroglycerin) 0.4 Mg Tab.subl 0.4 Mg SL PRN Q5MIN PRN Cozaar (Losartan Potassium) 25 Mg Tablet 1 Tab PO DAILY Duoneb 0.5-3(2.5) Mg/3 Ml (Albuterol/Ipratropium) 3 Ml Ampul.neb 3 Ml IH Advair 500-50 Diskus (Fluticasone/Salmeterol) 1 Each Disk.w.dev 1 Puff IH BID Vitals/I & O Vital Sign - Last 24 Hours 09/29/19 09/29/19 09/29/19 09/29/19 08:35 08:35 08:58 09:35 Pulse 65 65 Resp 20 20 B/P (MAP) 191/62 191/62 Pulse Ox 100 100 O2 Delivery Nasal Cannula Nasal Cannula O2 Flow Rate 2.0 2.0 09/29/19 09/29/19 09/29/19 09/29/19 11:00 11:27 15:00 15:54 Temp 97.5 97.4 97.5 97.4 Pulse 72 69 Resp 17 17 B/P (MAP) 135/55 (81) 139/62 (87) Pulse Ox 97 100 96 O2 Delivery Nasal Cannula Nasal Cannula Nasal Cannula Nasal Cannula O2 Flow Rate 3.0 2.0 3.0 2.0 09/29/19 09/29/19 09/29/19 09/29/19 17:04 19:33 20:00 20:01 Temp 98.1 98.1 Pulse 69 78 Resp 18 B/P (MAP) 139/62 121/66 (84) Pulse Ox 95 98 O2 Delivery Nasal Cannula Nasal Cannula Nasal Cannula O2 Flow Rate 3.0 2.0 2.0 09/29/19 09/29/19 09/29/1909/29/20 21:19 22:20 22:42 02:45 Temp 99.0 98.3 99.0 98.3 Pulse 67 55 Resp 22 20 18 18 B/P (MAP) 147/58 (87) 148/70 (96) Pulse Ox 98 99 99 98 O2 Delivery Nasal Cannula Nasal Cannula Nasal Cannula Nasal Cannula O2 Flow Rate 2.0 2.0 3.0 3.0 09/30/19 06:37 Temp 97.6 97.6 Pulse 60 Resp 18 B/P (MAP) 194/71 (112) Pulse Ox 100 O2 Delivery Nasal Cannula O2 Flow Rate 3.0 Intake and Output 09/29/19 09/29/19 09/30/19 15:00 23:00 07:00 Intake Total 800 ml 600 ml Output Total 1500 ml Balance -700 ml 600 ml SRIRAM POLLARD MD Sep 30, 2019 08:11
[2019-09-30] MEDS: IPRATRPIUM/ALBUTEROL 0.5/2.5MG 3 ML NEBU. IH SCH ×2 (08:14→11:47)
[2019-09-30] MEDS: BUDESONIDE 0.5 MG/2 ML NEBU. NEB SCH (08:14)
--- NOTE | 2019-09-30 08:20 | NUR ---
SS following up with discharge planning. SS received phone contact from [facility] reporting that they have no beds available at this time. SS contacted [facility] and left a voicemail for admissions asking for update on acceptance decision. SS met with pt and discussed. Pt wanting alf facility in [facility]. SS phoned and faxed referrals to [facility], ; fax [phone], and [facility], ; fax [phone]. SS met with pt and notified. Pt reported that if the [facility] cannot accept her she would be okay with [facility] or [facility]. Pt reported that she would like SS to exhaust all [facility] options prior to sending referrals in [place], [place]. SS will continue to follow for discharge planning. Addendum: 09/30/19 at 0828 by RASHAAD GIRON SS ADDITION TO NOTE: SS phoned and faxed referral to [facility], ; fax [phone].
[2019-09-30] MEDS: FLUTICASONE 50MCG/NASAL SPRAY 16GM BOTTLE. NS SCH (08:56)
[2019-09-30] MEDS: ASCORBIC ACID 500 MG TABLET PO SCH (08:56)
[2019-09-30] MEDS: FUROSEMIDE 40 MG/4 ML VIAL. IVP SCH (08:56)
[2019-09-30] MEDS: FENOFIBRATE 54 MG TABLET. PO SCH (08:56)
[2019-09-30] MEDS: LACTOBACILLUS RHAMNOSUS GG 1 CAPSULE. PO SCH (08:57)
[2019-09-30] MEDS: CYANOCOBALAMIN (VITAMIN B-12) 1,000 MCG TABLET. PO SCH (08:57)
[2019-09-30] MEDS: CHOLECALCIFEROL (VITAMIN D3) 1,000 UNIT TABLET PO SCH (08:57)
[2019-09-30] MEDS: DOXYCYCLINE HYCLATE 100 MG TABLET PO SCH (08:57)
[2019-09-30] MEDS: OMEGA-3 FATTY ACIDS/FISH OIL 1,000 MG CAPSULE. PO SCH (08:57)
[2019-09-30] MEDS: CARVEDILOL 3.125 MG TABLET. PO SCH (08:57)
[2019-09-30] MEDS: ASPIRIN CHEWABLE 81 MG TABLET. PO SCH (08:57)
[2019-09-30] MEDS: CALCIUM CARBONATE 500 MG TABLET PO SCH (08:58)
[2019-09-30] MEDS: POLYETHYLENE GLYCOL 3350 17 GM PACKET. PO SCH (08:58)
[2019-09-30] MEDS: LOSARTAN POTASSIUM 25 MG TABLET. PO SCH (08:58)
[2019-09-30] MEDS: PANTOPRAZOLE 40 MG TABLET.DR. PO SCH (08:58)
[2019-09-30] MEDS ORDERED: POTASSIUM CHLORIDE 20 MEQ TABLET.ER. PO SCH (09:00)
[2019-09-30] MEDS ORDERED: predniSONE 20 MG TABLET PO SCH (09:00)
[2019-09-30] MEDS: HYDROcodone/APAP 5/325MG 1 TAB TABLET PO SCH ×2 (09:10→14:03)
[2019-09-30 10:20] VITALS: BP 125/62
--- NOTE | 2019-09-30 10:54 | NUR ---
SS following up with discharge planning. Pt accepted at [facility], ; fax [phone], pending insurance authorization. SS notified pt's son, Demetrio Downs, . Pt's RN notified. SS will await insurance determination and will proceed accordingly with discharge planning.
--- NOTE | 2019-09-30 10:59 | PDOC ---
BYRON LOUIE APRN 09/30/19 1059: CARDIO Progress Notes Date and Time Date of Service 09/30/19 Time of Evaluation 1040 Subjective Subjective: No Chest Pain, No shortness of breath, No Palpitations Vitals Vitals Vital Signs Date Time Temp Pulse Resp B/P (MAP) Pulse Ox O2 Delivery O2 Flow Rate FiO2 09/30/19 10:20 97.7 77 18 125/62 (83) 96 Nasal Cannula 3.0 97.7 Weight Weight [ ] Input and Output Intake and Output Intake and Output 09/30/19 07:00 Intake Total 1400 ml Output Total 1500 ml Balance -100 ml Intake Oral 1400 ml Output Urine Total 1500 ml # Voids 1 # Bowel Movements 2 Physical Exam HEENT: Neck Supple W Full Motion Chest: Symmetric LUNGS: Clear to Auscultation Heart: S1S2, RRR, jugular vein distention Abdomen: Soft N/T Extremities: Other (trace bilateral LE edema ) Neurology: alert, oriented, follow commands Assessment Assessment 1. Acute respiratory failure with AECOPD 2. Acute on chronic diastolic CHF: Echo with preserved LV systolic function. cath with elevated LVEDP. 3. CAD; s/p past PCI/stents. Cath with one vessel CAD of the RCA, negative iFR 4. Hypertension; am blood pressures have been significantly elevated 5. Hyperlipidemia; statin 6. AAA: 01/2019 4.1 cm, stable 7. ALEE; CPAP Recommendations Resume oral Lasix Discussed 2Gm Na diet and daily weight. Is to call if > 2-3# overnight of 5# gain in a week. Increase Losartan to BID as patients am blood pressures have been consistently elevated Secondary prevention measures Supportive care Okay to transfer to rehab Follow up in our office as scheduled Justicifation of Admission Dx: Justifications for Admission: Justification of Admission Dx: Yes CHF: Hemodynamic Instability Aspiration Pneumonia: Hypoxemia Comminuty Aquired Pneumonia: Hypoxemia Acute COPD Exacerbation: Acute COPD Exacerbation MARIELA MELÉNDEZ MD 09/30/19 1734: CARDIO Progress Notes Plan Plan Patient seen and examined. Agree with above nurse practitioner note. Discussed extensively with the patient's family previously. No further cardiovascular intervention is needed at this time. Okay to discharge to home or rehab. BYRON LOUIE APRN Sep 30, 2019 10:59 MARIELA MELÉNDEZ MD Sep 30, 2019 17:34
--- NOTE | 2019-09-30 11:21 | PDOC ---
PULMONARY PROGRESS NOTES Subjective Sitting up in chair, on 2 liters N/C , denies increased cough or SOB s/p cath, Vitals Vital Signs Date Time Temp Pulse Resp B/P (MAP) Pulse Ox O2 Delivery O2 Flow Rate FiO2 09/30/19 10:20 97.7 77 18 125/62 (83) 96 Nasal Cannula 3.0 97.7 ROS: No Nausea, No Chest Pain, No Abdominal Pain, No Increase Cough General: Alert, Oriented X4, No acute distress Lungs: Other (DS in bases ) Cardiovascular: S1, S2 Abdomen: Soft, Non-tender Neuro Exam: Alert, Oriented Extremities: No Edema Skin: Warm, Dry Labs Laboratory Tests Test 09/28/19 14:23 Activated Clotting Time 175 sec (92-181) Medications Active Scripts Medications Dose Route/Sig Max Daily Dose Days Date Category Medrol (Methylprednisolone) 4 Mg Tab.ds.pk 1 Pkg PO UD 08/09/19 Rx Aspirin 81 Mg Tab.chew 1 Tab PO DAILY 10/29/17 Reported Spiriva (Tiotropium [place]) 18 Mcg Cap.w.dev 2 Inh IH DAILY 02/28/15 Reported Prednisone 20 Mg Tablet 40 Mg PO DAILY 1 12/10/14 Rx Coreg (Carvedilol) 3.125 Mg Tablet 3.125 Mg PO BIDWMEALS 12/10/14 Rx Simethicone 80 Mg Tab.chew 80 Mg PO PRN DAILY PRN 30 05/17/14 Rx Acidophilus-Pectin Capsule (Lactobacillus Acidophilus/Pect) 1 Cap Capsule 1 Cap PO BID 05/17/14 Rx Flonase (Fluticasone Propionate) 16 Gm [employer].susp 2 [employer] NS DAILY 05/15/14 Reported Codeine-Guaifen 10-100 mg/5 ml (Guaifenesin/Codeine Phosphate) 120 Ml Liquid 120 Ml PO PRN Q6-8HRS PRN 03/05/14 Rx Potassium Chloride (Potassium Chloride) 20 Meq Tablet.er 20 Meq PO TID 03/01/14 Reported Crestor (Rosuvastatin Calcium) 40 Mg Tablet 1 Tab PO HS 03/01/14 Reported Fish Oil + D3 Softgel ([place]-3S/Dha/Epa/Fish Oil/D3) 1 Each Capsule 2 Each PO DAILY 03/01/14 Reported Calcium (Calcium Carbonate) 600 Mg Tablet 600 Mg PO DAILY 03/01/14 Reported Vitamin C (Ascorbic Acid) 1,000 Mg Tablet 1,000 Mg PO DAILY 03/01/14 Reported Vitamin D (Cholecalciferol (Vitamin D3)) 1,000 Unit Tablet 1,000 Unit PO DAILY 03/01/14 Reported Miralax (Polyethylene Glycol 3350) 119 Gm Powder 17 Gm PO DAILY 03/01/14 Reported Furosemide 40 Mg Tablet 1 Tab PO BID 03/01/14 Reported B-12 (Cyanocobalamin (Vitamin B-12)) 1,000 Mcg Tablet 500 Mcg PO DAILY 03/01/14 Reported Tricor (Fenofibrate Nanocrystallized) 48 Mg Tablet 54 Mg PO DAILY 03/01/14 Reported [place] 5-325 Tablet (Acetaminophen/Hydrocodone Bitart) 1 Each Tablet 1 Tab PO TID 03/01/14 Reported NITROGLYCERIN SubLingual (Nitroglycerin) 0.4 Mg Tab.subl 0.4 Mg SL PRN Q5MIN PRN 03/01/14 Reported Cozaar (Losartan Potassium) 25 Mg Tablet 1 Tab PO DAILY 03/01/14 Reported Duoneb 0.5-3(2.5) Mg/3 Ml (Albuterol/Ipratropium) 3 Ml Ampul.neb 3 Ml IH 03/01/14 Reported Advair 500-50 Diskus (Fluticasone/Salmeterol) 1 Each Disk.w.dev 1 Puff IH BID 03/01/[address] chest IMPRESSION: 1. Moderate upper lobe centrilobular emphysema. 2. There is right lung scarring or atelectasis. 3. Severe coronary artery disease. Impression . IMPRESSION: 1. Dyspnea secondary to acute exacerbation of chronic obstructive pulmonary disease and in addition to her underlying obesity with a body mass index of 32.-- improving Clinically, she has no symptoms to suggest pneumonia or heart failure. 2. Dysphagia/choking with food. S/P esophageal barrium swallow and CT chest. No Esophageal abnormality and no sig hiatal hernia 3. History of obstructive sleep apnea on continuous positive airway pressure with good compliance. 4. History of coronary artery disease, status post stent. Clinically stable-- Plan . RECOMMENDATIONS: 1. Continue present oxygen. Saturations are stable on 2 liters, keep 92% 2. Continue bronchodilators. 3. Taper off steroids. 4. Barium swallow and CT chest reviewed. No Esophageal abnormality and no sig hiatal hernia 5. Continue DVT prophylaxis. 6. CT of Chest reviewed , no Fibrosis/ pneumonia. changed to po abx 7. follow cardiology recs, s/p Left/Rt cath, increase LVEDP Patient to go to rehab. d/w son D/W BECCA LOMAX MD Sep 30, 2019 11:21
[2019-09-30] MEDS ORDERED: DOXY100T PO (12:17)
[2019-09-30] MEDS ORDERED: HYDR-3164 PO (12:17)
[2019-09-30] MEDS ORDERED: PANT40TA77 PO (12:17)
[2019-09-30] MEDS ORDERED: GUAI100L12 PO (12:17)
[2019-09-30] MEDS ORDERED: PRED20TA PO (12:17)
[2019-09-30] MEDS ORDERED: ACET325T9 PO (12:17)
--- NOTE | 2019-09-30 12:29 | SNU/HH DC ---
DISCHARGE ORDERS DISCHARGE INFORMATION: DISCHARGE DATE: Sep 30, 2019 FINAL DIAGNOSIS Problems Medical Problems: (1) Dyspnea on minimal exertion Status: Acute CONDITION ON DISCHARGE: Stable CODE STATUS: Code Status: Full ALF: SNF STAY <30 DAYS: Yes POST DISCHARGE ORDERS: ACTIVITY ORDERS: Activity as tolerated WEIGHT BEARING STATUS: As tolerated DIET AFTER DISCHARGE: Cardiac WOUND/INCISION CARE: No wound care needed CHECKS AFTER DISCHARGE: CHECKS AFTER DISCHARGE: Check blood press - daily, Check your Temp as needed, Weigh Yourself Daily FOLLOW-UP: PHYSICIAN FOLLOW-UP: Follow up with blog writer, Dr. Mcclellan, November 12 at 1:30pm. TREATMENT/EQUIPMENT ORDERS: ADAPTIVE EQUIPMENT NEEDED: None RESPIRATORY EQUIPMENT NEEDED: Oxygen, Nebulizer Physical Therapy For: Evalulation/Treatment Occupational Therapy For: Evaluation/Treatment Speech Language Pathology For: Evaluation/Treatment DISCHARGE MEDICATIONS: Home Meds Active Scripts Pantoprazole Sodium (PANTOPRAZOLE SODIUM ) 40 Mg Tablet.dr 40 MG PO DAILYAC for GERD for 30 Days, #30 TAB.SR Prov:SRIRAM POLLARD MD 09/30/19 Prednisone (PREDNISONE) 20 Mg Tablet, 20 MG PO DAILY for COPD for 5 Days, #5 TAB Prov:SRIRAM POLLARD MD 09/30/19 Guaifenesin (GUAIFENESIN) 100 Mg/5 Ml Liquid, 200 MG PO PRN Q4HRS PRN for COUGH, 1st CHOICE for 30 Days, #240 LIQUID Prov:SRIRAM POLLARD MD 09/30/19 Acetaminophen (TYLENOL) 325 Mg Tablet, 650 MG PO PRN Q4HRS PRN for TEMP OVER 100.4F OR MILD PAIN for 30 Days, #120 TAB Prov:SRIRAM POLLARD MD 09/30/19 Doxycycline Hyclate (DOXYCYCLINE HYCLATE) 100 Mg Tablet, 100 MG PO BID for Bronchitis for 5 Days, #10 TAB Prov:SRIRAM POLLARD MD 09/30/19 Hydrocodone/Apap 5-325 (NORCO 5-325 TABLET) 1 Each Tablet, 1 TAB PO PRN TID PRN for PAIN for 6 Days, #16 TAB Prov:SRIRAM POLLARD MD 09/30/19 Carvedilol (COREG ) 3.125 Mg Tablet, 3.125 MG PO BIDWMEALS, #30 Prov:VASIREDDI,ALEXANDRA R MD 12/10/14 Simethicone (SIMETHICONE) 80 Mg Tab.chew, 80 MG PO PRN DAILY PRN for PAIN for 30 Days, TAB.CHEW 3 Refills Prov:KATHY GAMBINO MD 05/17/14 Lactobacillus Acidophilus/Pect (ACIDOPHILUS-PECTIN CAPSULE) 1 Cap Capsule, 1 CAP PO BID for DIARRHEA, #60 CAP.SR Prov:KATHY GAMBINO MD 05/17/14 Reported Medications Aspirin (ASPIRIN) 81 Mg Tab.chew, 1 TAB PO DAILY, #30 TAB 3 Refills 10/29/17 Tiotropium [place] (SPIRIVA) 18 Mcg Cap.w.dev, 2 INH IH DAILY, #1 INH 0 Refills 02/28/15 Fluticasone Propionate (FLONASE) 16 Gm [place].susp, 2 SPRAY NS DAILY, #16 GM 05/15/14 Potassium Chloride (POTASSIUM CHLORIDE ) 20 Meq Tablet.er, 20 MEQ PO TID, TAB.SR 03/01/14 Rosuvastatin Calcium (CRESTOR) 40 Mg Tablet, 1 TAB PO HS, #30 TAB 5 Refills 03/01/14 [place]-3S/Dha/Epa/Fish Oil/D3 (FISH OIL + D3 SOFTGEL) 1 Each Capsule, 2 EACH PO DAILY 03/01/14 Calcium Carbonate (CALCIUM) 600 Mg Tablet, 600 MG PO DAILY 03/01/14 Ascorbic Acid (VITAMIN C) 1,000 Mg Tablet, 1000 MG PO DAILY 03/01/14 Cholecalciferol (Vitamin D3) (VITAMIN D) 1,000 Unit Tablet, 1000 UNIT PO DAILY 03/01/14 Polyethylene Glycol 3350 (MIRALAX) 119 Gm Powder, 17 GM PO DAILY, #527 GM 03/01/14 Furosemide (FUROSEMIDE) 40 Mg Tablet, 1 TAB PO BID, #30 TAB 5 Refills 03/01/14 Cyanocobalamin (Vitamin B-12) (B-12) 1,000 Mcg Tablet, 500 MCG PO DAILY 03/01/14 Fenofibrate Nanocrystallized (TRICOR) 48 Mg Tablet, 54 MG PO DAILY, TAB 03/01/14 Nitroglycerin (NITROGLYCERIN SubLingual) 0.4 Mg Tab.subl, 0.4 MG SL PRN Q5MIN PRN for CHEST PAIN, BOTTLE 03/01/14 Losartan Potassium (COZAAR ) 25 Mg Tablet, 1 TAB PO DAILY, #30 TAB 5 Refills 03/01/14 Ipratropium/Albuterol Sulfate (DUONEB 0.5-3(2.5) MG/3 ML) 3 Ml Ampul.neb, 3 ML IH 03/01/14 Fluticasone/Salmeterol (ADVAIR 500-50 DISKUS) 1 Each Disk.w.dev, 1 PUFF IH BID, #1 INHALER 5 Refills 03/01/14 Discontinued Scripts Methylprednisolone (MEDROL) 4 Mg Tab.ds.pk, 1 PKG PO UD, #1 PKG Prov:MYRON SANTIZO Jr. DO 08/09/19 Prednisone (PREDNISONE) 20 Mg Tablet, 40 MG PO DAILY for 1 Day Prov:ALEXANDRA TORO MD 12/10/14 Guaifenesin/Codeine Phosphate (Codeine-Guaifen 10-100 mg/5 ml) 120 Ml Liquid, 120 ML PO PRN Q6-8HRS PRN for COUGH, #4 OZ 0 Refills Prov:YOLA HUBER MD 03/05/14 SRIRAM POLLARD MD Sep 30, 2019 12:29
--- NOTE | 2019-09-30 12:38 | PDOC3 ---
Discharge Summary Visit Information Date of Admission: Sep 25, 2019 Date of Discharge: Sep 30, 2019 Admitting Diagnosis: Acute COPD exacerbation Final Diagnosis Problems Medical Problems: (1) Dyspnea on minimal exertion Status: Acute Brief Hospital Course Allergies Allergies Coded Allergies Type Severity Reaction Last Updated Verified Penicillins Allergy Intermediate 02/28/15 Yes Sulfa (Sulfonamide Antibiotics) Allergy Intermediate 02/28/15 Yes I S O L A T I O N *CONTACT* Allergy Unknown 05/19/15 Yes Vital Signs Vital Signs Date Time Temp Pulse Resp B/P (MAP) Pulse Ox O2 Delivery O2 Flow Rate FiO2 09/30/19 11:48 98 Nasal Cannula 2.0 09/30/19 10:20 97.7 77 18 125/62 (83) 97.7 Lab Results Laboratory Tests Test 09/28/19 14:23 Activated Clotting Time 175 sec (92-181) Brief Hospital Course Ms Downs is an 79 yo F w/ PMHx chronic obstructive airway disease, on chronic home oxygen at 2 liters, GERD, HLD, CKD, ALEE, on CPAP brought into the hospital with increasing exertional dyspnea. She has been having difficulty in performing activities of daily living.She states that she has been choking with food and she said she started increasing her oxygen and was up to 3 liters. Denies any increased weight gain. No lower extremity edema. No focal weakness. No dysuria. No nausea, vomiting or diarrhea. Her chest x-ray did not reveal any acute infiltrates. Seen by cardiology and pulmonology in consultation. 09/25: No acute events reported overnight, case discussed with nursing staff patient in no acute distress no complaints during my visit 09/26: No acute events reported overnight, case discussed with nursing staff patient in no acute distress no complaints during my visit. PT eval done and she is leaning towards placement 09/27: Cardiac cath: 1. Acute on chronic diastolic HF. 2. One vessel CAD 3. Negative iFR of the RCA.. 09/28: Barium swallow and CT chest reviewed. No Esophageal abnormality and no sig hiatal hernia. She feels better after cardiac cath except for back pain from laying flat. Feeling improved today. stable on O2. No cough. minimal pedal edema. Follow up with solder deposit operator, Dr. Mcclellan, November 12 at 1:30pm. Problem list: Dyspnea secondary to acute exacerbation of chronic obstructive pulmonary disease and in addition to her underlying obesity with a body mass index of 32. Possibly esophageal dysmotility and GERD exacerbation contributing to above Chronic diastolic CHF: compensated CAD - past stents. trops nml EKG with no acute ST-T wave changes. Hx of multiple thoracic compression fractures AAA - 01/2019 4.1 cm, stable HTN: controlled HLP Atypical CP: MSK/GI Hiatal hernia SANGEETHA - vasomotor nephropathy with Cr 1.5 on admit to 1.1 Plan Aggressive medical therapy Supportive measure Continue home meds Rehab referral, COVID testing negative prior to placement. Greater than 30 minutes spent on d/c Discharge Information Condition at Discharge: Improved Follow Up: Weeks (1) Disposition/Orders: D/C to Another Facility Scheduled Ascorbic Acid (Vitamin C) 1,000 Mg Tablet, 1,000 MG PO DAILY, (Reported) Entered as Reported by: RHIANNA MÉNDEZ on 03/01/142206 Last Action: Converted on 09/24/191837 by DAVY BLUNT MD Aspirin (Aspirin) 81 Mg Tab.chew, 1 TAB PO DAILY, #30 Ref 3 (Reported) Entered as Reported by: TAVO GRAJEDA on 10/29/17 1632 Last Action: Continued on 09/24/191837 by DAVY BLUNT MD Calcium Carbonate (Calcium) 600 Mg Tablet, 600 MG PO DAILY, (Reported) Entered as Reported by: RHIANNA MÉNDEZ on 03/01/142206 Last Action: Converted on 09/24/191837 by DAVY BLUNT MD Carvedilol (Coreg ) 3.125 Mg Tablet, 3.125 MG PO BIDWMEALS, #30 Prescribed by: ALEXANDRA TORO MD on 12/10/14 1343 Last Action: Continued on 09/24/191837 by DAVY BLUNT MD Cholecalciferol (Vitamin D3) (Vitamin D) 1,000 Unit Tablet, 1,000 UNIT PO DAILY, (Reported) Entered as Reported by: RHIANNA MÉNDEZ on 03/01/142206 Last Action: Continued on 09/24/191837 by DAVY BLUNT MD Cyanocobalamin (Vitamin B-12) (B-12) 1,000 Mcg Tablet, 500 MCG PO DAILY, (Report ed) Entered as Reported by: RHIANNA MÉNDEZ on 03/01/142206 Last Action: Continued on 09/24/191837 by DAVY BLUNT MD Doxycycline Hyclate (Doxycycline Hyclate) 100 Mg Tablet, 100 MG PO BID for Bronchitis for 5 Days, #10 Prescribed by: SRIRAM POLLARD MD on 09/30/19 1217 Fenofibrate Nanocrystallized (Tricor) 48 Mg Tablet, 54 MG PO DAILY, (Reported) Entered as Reported by: RHIANNA MÉNDEZ on 03/01/142206 Last Action: Converted on 09/24/191837 by DAVY BLUNT MD Fluticasone Propionate (Flonase) 16 Gm [place].susp, 2 SPRAY NS DAILY, #16 (Reported) Entered as Reported by: DYLON OG on 05/15/14 0811 Last Action: Continued on 09/24/191837 by DAVY BLUNT MD Fluticasone/Salmeterol (Advair 500-50 Diskus) 1 Each Disk.w.dev, 1 PUFF IH BID, #1 Ref 5 (Reported) Entered as Reported by: RHIANNA MÉNDEZ on 03/01/142206 Last Action: Converted on 09/24/191837 by DAVY BLUNT MD Furosemide (Furosemide) 40 Mg Tablet, 1 TAB PO BID, #30 Ref 5 (Reported) Entered as Reported by: RHIANNA MÉNDEZ on 03/01/142206 Last Action: HELD on 09/24/191837 by DAVY BLUNT MD Lactobacillus Acidophilus/Pect (Acidophilus-Pectin Capsule) 1 Cap Capsule, 1 CAP PO BID for DIARRHEA, #60 Prescribed by: KATHY GAMBINO on 05/17/14 1721 Last Action: Converted on 09/24/191837 by DAVY BLUNT MD Losartan Potassium (Cozaar ) 25 Mg Tablet, 1 TAB PO DAILY, #30 Ref 5 (Reported) Entered as Reported by: RHIANNA MÉNDEZ on 03/01/142206 Last Action: Continued on 09/24/191837 by DAVY BLUNT MD [place]-3S/Dha/Epa/Fish Oil/D3 (Fish Oil + D3 Softgel) 1 Each Capsule, 2 EACH PO DAILY, (Reported) Entered as Reported by: RHIANNA MÉNDEZ on 03/01/142206 Last Action: Converted on 09/24/191837 by DAVY BLUNT MD Pantoprazole Sodium (Pantoprazole Sodium ) 40 Mg Tablet.dr, 40 MG PO DAILYAC for GERD for 30 Days, #30 Prescribed by: SRIRAM POLLARD MD on 09/30/197 Polyethylene Glycol 3350 (Miralax) 119 Gm Powder, 17 GM PO DAILY, #527 (Reported) Entered as Reported by: RHIANNA MÉNDEZ on 03/01/142206 Last Action: Continued on 09/24/191837 by DAVY BLUNT MD Potassium Chloride (Potassium Chloride ) 20 Meq Tablet.er, 20 MEQ PO TID, (Reported) Entered as Reported by: RHIANNA MÉNDEZ on 03/01/142206 Last Action: Continued on 09/24/191837 by DAVY BLUNT MD Prednisone (Prednisone) 20 Mg Tablet, 20 MG PO DAILY for COPD for 5 Days, #5 Prescribed by: SRIRAM POLLARD MD on 09/30/197 Rosuvastatin Calcium (Crestor) 40 Mg Tablet, 1 TAB PO HS, #30 Ref 5 (Reported) Entered as Reported by: RHIANNA MÉNDEZ on 03/01/142206 Last Action: Converted on 09/24/191837 by DAVY BLUNT MD Tiotropium [place] (Spiriva) 18 Mcg Cap.w.dev, 2 INH IH DAILY, #1 Ref 0 (Reported) Entered as Reported by: REVA GOMEZ on 02/28/15 1004 Last Action: Converted on 09/24/191837 by DAVY BLUNT MD Scheduled PRN Acetaminophen (Tylenol) 325 Mg Tablet, 650 MG PO PRN Q4HRS PRN for TEMP OVER 100.4F OR MILD PAIN for 30 Days, #120 Prescribed by: SRIRAM POLLARD MD on 09/30/19 1217 Guaifenesin (Guaifenesin) 100 Mg/5 Ml Liquid, 200 MG PO PRN Q4HRS PRN for COUGH, 1st CHOICE for 30 Days, #240 Prescribed by: SRIRAM POLLARD MD on 09/30/19 1217 Hydrocodone/Apap 5-325 ([place] 5-325 Tablet) 1 Each Tablet, 1 TAB PO PRN TID PRN for PAIN for 6 Days, #16 Prescribed by: SRIRAM POLLARD MD on 09/30/19 1217 Nitroglycerin (NITROGLYCERIN SubLingual) 0.4 Mg Tab.subl, 0.4 MG SL PRN Q5MIN PRN for CHEST PAIN, (Reported) Entered as Reported by: RHIANNA MÉNDEZ on 03/01/142206 Last Action: Continued on 09/24/191837 by DAVY BLUNT MD Simethicone (Simethicone) 80 Mg Tab.chew, 80 MG PO PRN DAILY PRN for PAIN for 30 Days, Ref 3 Prescribed by: KATHY GAMBINO on 05/17/14 1724 Last Action: Continued on 09/24/191837 by DAVY BLUNT MD Miscellaneous Medications Ipratropium/Albuterol Sulfate (Duoneb 0.5-3(2.5) Mg/3 Ml) 3 Ml Ampul.neb, 3 ML IH, (Reported) Entered as Reported by: RHIANNA MÉNDEZ on 03/01/142206 Last Action: Continued on 09/24/191837 by DAVY BLUNT MD Discontinued Medications Guaifenesin/Codeine Phosphate (Codeine-Guaifen 10-100 mg/5 ml) 120 Ml Liquid, 120 ML PO PRN Q6-8HRS PRN for COUGH, #4 Ref 0 Prescribed by: YOLA HUBER on 03/05/14 1220 Last Action: Converted on 09/24/191837 by DAVY BLUNT MD Methylprednisolone (Medrol) 4 Mg Tab.ds.pk, 1 PKG PO UD, #1 Prescribed by: MYRON SANTIZO D.O. on 08/09/19 0043 Last Action: HELD on 09/24/191837 by DAVY BLUNT MD Prednisone (Prednisone) 20 Mg Tablet, 40 MG PO DAILY for 1 Days Prescribed by: ALEXANDRA TORO MD on 12/10/14 1343 Last Action: Continued on 09/24/191837 by DAVY BLUNT MD Justicifation of Admission Dx: Justifications for Admission: Justification of Admission Dx: Yes CHF: Hemodynamic Instability Aspiration Pneumonia: Hypoxemia Comminuty Aquired Pneumonia: Hypoxemia Acute COPD Exacerbation: Acute COPD Exacerbation SRIRAM POLLARD MD Sep 30, 2019 12:37
--- NOTE | 2019-09-30 12:39 | NUR ---
SS following up with discharge planning. Insurance authorization received for [facility], ; fax [phone]. SS phoned and faxed discharge orders to [facility]. Pt will discharge today and go to [facility] at 1400. Facility to provide transportation. Pt, pt's RN, and pt's son notified.
[2019-09-30] MEDS ORDERED: FUROSEMIDE 40 MG TABLET. PO SCH (14:00)
--- NOTE | 2019-09-30 14:23 | NUR ---
Discharge Note: VASYL GAVIRIA [address] [place] [address] Discharge instructions and discharge home medications reviewed with Patient and a copy given. All questions have been answered and understanding verbalized. The following instructions and handouts were given: Discontinued IV line Patient discharged to SNU with wheelchair via transport
[2019-09-30] MEDS ORDERED: LOSARTAN POTASSIUM 25 MG TABLET. PO SCH (21:00)
[2019-10-01] MEDS ORDERED: FUROSEMIDE 20 MG TABLET PO SCH (09:00)
[2019-10-01] MEDS ORDERED: POTASSIUM CHLORIDE 10 MEQ TABLET.ER. PO SCH (09:00)
[2019-10-01] MEDS ORDERED: POTASSIUM CHLORIDE 20 MEQ TABLET.ER. PO SCH (09:00)
== END 2019-09-30 14:13 | DRG 286 ==
LOC: ER 12:46 → ED HOLD 16:29 → 6 SOUTH 20:25 → OBSVTOIN 09-25 15:25 → 2 NORTH 09-28 14:47
PROVIDERS: ADMIT Internal Medicine; ATTEND Internal Medicine
PROC: 5A09357 Assistance with Respiratory Ventilation, Less than 24 Consecutive Hours, Continuous Positive Airway Pressure (ICD-10-PCS; 2019-09-25)
PROC: 5A09357 Assistance with Respiratory Ventilation, Less than 24 Consecutive Hours, Continuous Positive Airway Pressure (ICD-10-PCS; 2019-09-26)
PROC: 5A09357 Assistance with Respiratory Ventilation, Less than 24 Consecutive Hours, Continuous Positive Airway Pressure (ICD-10-PCS; 2019-09-27)
PROC: 4A023N7 Measurement of Cardiac Sampling and Pressure, Left Heart, Percutaneous Approach (ICD-10-PCS; principal; 2019-09-28)
PROC: B211YZZ Fluoroscopy of Multiple Coronary Arteries using Other Contrast (ICD-10-PCS; 2019-09-28)
PROC: 4A033BC Measurement of Arterial Pressure, Coronary, Percutaneous Approach (ICD-10-PCS; 2019-09-28)
PROC: 5A09357 Assistance with Respiratory Ventilation, Less than 24 Consecutive Hours, Continuous Positive Airway Pressure (ICD-10-PCS; 2019-09-28)
DX: I13.0 Hypertensive heart and chronic kidney disease with heart failure and stage 1 through stage 4 chronic kidney disease, or unspecified chronic kidney disease (principal); N17.0 Acute kidney failure with tubular necrosis; I50.33 Acute on chronic diastolic (congestive) heart failure; J96.21 Acute and chronic respiratory failure with hypoxia; J98.11 Atelectasis; R07.89 Other chest pain; K21.0 Gastro-esophageal reflux disease with esophagitis; Z20.828 Contact with and (suspected) exposure to other viral communicable diseases; E66.9 Obesity, unspecified; E78.00 Pure hypercholesterolemia, unspecified; E78.5 Hyperlipidemia, unspecified; G47.33 Obstructive sleep apnea (adult) (pediatric); I25.10 Atherosclerotic heart disease of native coronary artery without angina pectoris; I70.0 Atherosclerosis of aorta; I71.4 Abdominal aortic aneurysm, without rupture; J43.2 Centrilobular emphysema; J98.4 Other disorders of lung; K43.9 Ventral hernia without obstruction or gangrene; K44.9 Diaphragmatic hernia without obstruction or gangrene; M19.011 Primary osteoarthritis, right shoulder; N18.9 Chronic kidney disease, unspecified; R13.10 Dysphagia, unspecified; Z68.32 Body mass index [BMI] 32.0-32.9, adult; Z82.5 Family history of asthma and other chronic lower respiratory diseases; Z87.11 Personal history of peptic ulcer disease; Z87.891 Personal history of nicotine dependence; Z90.49 Acquired absence of other specified parts of digestive tract; Z95.5 Presence of coronary angioplasty implant and graft; F32.9 Major depressive disorder, single episode, unspecified; M19.90 Unspecified osteoarthritis, unspecified site
CPT/HCPCS: 36415; 71045; 71250; 74220; 80048; 80053; 80061; 81001; 83735; 83880; 84443; 84484; 85007; 85025; 85347; 93005; 93306; 93458; 93571; 94640; 94760; 99152; 99153; 99285; C1769; C1887; C1892; G0378; G0379; J1644; J1650; J1940; J2250; J2920; J2930; J3010; J3490; J7030; J7060; J7512; Q9967; 97110-GP; 97530-GO; 97530-GP; 97535-GO; J7626; U0003-CS

== ENCOUNTER 2019-10-20 14:58 | Inpatient (IN) | payer OTHER, MEDICAID ==
[~2019-10-20] VITALS: Ht 160 cm; Wt 87.0 kg
[~2019-10-20 14:58] MED LIST changes: +ACET325T9 PO; +ASCO100019 PO; -ASCO10002 PO; -CALC600T4 PO; +CALC600T6 PO; -CETI10TA24 PO; +CETI10TA74 PO; +DOXY100T PO; +GUAI100L12 PO; +PANT40TA77 PO
[2019-10-20] MEDS ORDERED: ACETAMINOPHEN 500 MG TABLET PO ONE (15:45)
[2019-10-20 16:08] LABS: BASO % 0 % (0-3); EOS # 0.2 x10^3/uL (0.0-0.7); EOS % 3 % (0-3); HEMATOCRIT 35.9 % (36.0-47.0); LYMPH # 1.7 x10^3/uL (1.0-4.8); LYMPH % 28 % (24-48); MEAN CORPUSCULAR HEMOGLOBIN 31 pg (25-35); MEAN CORPUSCULAR HGB CONC 33 g/dL (31-37); MEAN CORPUSCULAR VOLUME 93 fL (79-100); MONO # 0.4 x10^3/uL (0.0-1.1); MONO % 7 % (0-9); NEUT # 3.9 x10^3/uL (1.8-7.7); NEUT % 63 % (31-73); PLATELET COUNT 268 x10^3/uL (140-400); RED BLOOD COUNT 3.87 x10^6/uL (3.50-5.40); RED CELL DISTRIBUTION WIDTH 14.2 % (11.5-14.5); WHITE BLOOD COUNT 6.3 x10^3/uL (4.0-11.0)
[2019-10-20 16:23] LABS: CALCIUM 7.8 mg/dL (8.5-10.1); CREATININE 1.4 mg/dL (0.6-1.0); GFR 36.1; POTASSIUM 4.1 mmol/L (3.5-5.1)
[2019-10-20 16:29] LABS: ALBUMIN 3.2 g/dL (3.4-5.0); ALBUMIN/GLOBULIN RATIO 1.1 (1.0-1.7); TOTAL BILIRUBIN 0.3 mg/dL (0.2-1.0); TOTAL PROTEIN 6.1 g/dL (6.4-8.2)
--- NOTE | 2019-10-20 16:32 | RAD ---
EXAM: CHEST 1 VIEW History: Shortness of breath COMPARISON: 09/24/2019 TECHNIQUE: Single portable radiograph of the chest FINDINGS: The cardiac silhouette is unremarkable. Minimal left lung base atelectasis infiltrate. The costophrenic sulci are clear and well demarcated. IMPRESSION: Minimal left lung base atelectasis or infiltrate. Electronically signed by: Arnaud Toure MD (10/20/2019 4:29 PM) [id number]
--- NOTE | 2019-10-20 17:26 | PHYS DOC ---
Past Medical History Past Medical History: CAD, Constipation, COPD, GERD, High Cholesterol, Renal Disease Additional Past Medical Histor: CHRONIC KIDNEY DISEASE Past Surgical History: Appendectomy, Cholecystectomy, Tonsillectomy, Other Additional Past Surgical Histo: CARDIAC STENT, BACK SX Smoking Status: Former Smoker Alcohol Use: None Drug Use: None General Adult EDM: Chief Complaint: SHORTNESS OF BREATH HPI: HPI: Patient is a 79 year old female who presents with Complaints that she cannot take a breath in deep and started back on September 282019. Patient denies chest pain or shortness of breath at this time. Patient states she woke up this m orning and had a lot of phlegm that she had a hard time expelling. Patient states that she called for an ambulance ride to the emergency department and by the time the ambulance picked her up and brought her here her symptoms had resolved. Patient is currently on 2 L of oxygen per nasal cannula and states she is always on 2 L per nasal cannula unless she is ambulating and then she needs 3 L per nasal cannula. Patient states she was here on the at [facility] admitted treated and released back to home. Patient states she had a COVID-19 test done on 29 September 2019 that was also negative. Patient states that if she felt at home at the time she called the ambulance as she feels now, she would have not called for a ride as she feels her symptoms have resolved. Patient denies fever, chills, muscle aches, joint pain, also denies feeling depressed, denies urinary problems, denies bowel problems, patient denies abdominal pain nausea vomiting or diarrhea. Patient denies s welling patient denies headache or dizziness. Patient states her main concern at this time is finding out why she has phlegm in the morning when she wakes up. Review of Systems: Review of Systems: Constitutional: Denies fever or chills. [] Eyes: Denies change in visual acuity. [] HENT: Denies nasal congestion or sore throat. [] Respiratory: Denies cough, denies shortness of breath, reports feeling unable to breathe a full breath in but feels she can breathe a full breath out. [] Cardiovascular: Denies chest pain or edema. [] GI: Denies abdominal pain, nausea, vomiting, bloody stools or diarrhea. [] : Denies dysuria. [] Musculoskeletal: Denies back pain or joint pain. [] Integument: Denies rash. [] Neurologic: Denies headache, focal weakness or sensory changes. [] Endocrine: Denies polyuria or polydipsia. [] Lymphatic: Denies swollen glands. [] Psychiatric: Denies depression or anxiety. [] Heart Score: Risk Factors: Risk Factors: DM, Current or recent (<one month) smoker, HTN, HLP, family history of CAD, obesity. Risk Scores: Score 0 - 3: 2.5% MACE over next 6 weeks - Discharge Home Score 4 - 6: 20.3% MACE over next 6 weeks - Admit for Clinical Observation Score 7 - 10: 72.7% MACE over next 6 weeks - Early Invasive Strategies Family History: Family History: No significant family history related to this ER visit today. Current Medications: Current Medications Medications (Trade) Dose Ordered Sig/Deidra Start Time Stop Time Status Last Admin Dose Admin Acetaminophen (Tylenol) 500 mg 1X ONCE 10/20/19 15:45 10/20/19 15:46 DC 10/20/19 17:11 500 MG Allergies: Allergies: Allergies Coded Allergies Type Severity Reaction Last Updated Verified Penicillins Allergy Intermediate 02/28/15 Yes Sulfa (Sulfonamide Antibiotics) Allergy Intermediate 02/28/15 Yes I S O L A T I O N *CONTACT* Allergy Unknown 05/19/15 Yes Physical Exam: PE: Constitutional: Well developed, well nourished, no acute distress, non-toxic appearance. [] HENT: Normocephalic, atraumatic, bilateral external ears normal, oropharynx moist, no oral exudates, nose normal. [] Eyes: PERRLA, EOMI, conjunctiva normal, no discharge. [] Neck: Normal range of motion, no tenderness, supple, no stridor. [] Cardiovascular:Heart rate regular rhythm, no murmur [] Lungs & Thorax: Bilateral breath sounds clear to auscultation on bilateral upper lobes. Diminished lung sounds to left lower lobe. Breath sounds clear to auscultate on the right lobes. And no respiratory distress. Patient is on 2 L per nasal cannula at this time [] Abdomen: Bowel sounds normal, soft, no tenderness, no masses, no pulsatile masses. [] Skin: Warm, dry, no erythema, no rash. [] Back: No tenderness, no CVA tenderness. [] Extremities: No tenderness, no cyanosis, no clubbing, ROM intact, no edema. [] Neurologic: Alert and oriented X 3, normal motor function, normal sensory function, no focal deficits noted. [] Psychologic: Affect normal, judgement normal, mood normal. [] Current Patient Data: Labs: Laboratory Tests Test 10/20/19 15:45 White Blood Count 6.3 x10^3/uL (4.0-11.0) Red Blood Count 3.87 x10^6/uL (3.50-5.40) Hemoglobin 12.0 g/dL (12.0-15.5) Hematocrit 35.9 % (36.0-47.0) L Mean Corpuscular Volume 93 fL (79-100) Mean Corpuscular Hemoglobin 31 pg (25-35) Mean Corpuscular Hemoglobin Concent 33 g/dL (31-37) Red Cell Distribution Width 14.2 % (11.5-14.5) Platelet Count 268 x10^3/uL (140-400) Neutrophils (%) (Auto) 63 % (31-73) Lymphocytes (%) (Auto) 28 % (24-48) Monocytes (%) (Auto) 7 % (0-9) Eosinophils (%) (Auto) 3 % (0-3) Basophils (%) (Auto) 0 % (0-3) Neutrophils # (Auto) 3.9 x10^3/uL (1.8-7.7) Lymphocytes # (Auto) 1.7 x10^3/uL (1.0-4.8) Monocytes # (Auto) 0.4 x10^3/uL (0.0-1.1) Eosinophils # (Auto) 0.2 x10^3/uL (0.0-0.7) Basophils # (Auto) 0.0 x10^3/uL (0.0-0.2) Sodium Level 142 mmol/L (136-145) Potassium Level 4.1 mmol/L (3.5-5.1) Chloride Level 103 mmol/L (98-107) Carbon Dioxide Level 29 mmol/L (21-32) Anion Gap 10 (6-14) Blood Urea Nitrogen 15 mg/dL (7-20) Creatinine 1.4 mg/dL (0.6-1.0) H Estimated GFR (Cockcroft-Gault) 36.1 BUN/Creatinine Ratio 11 (6-20) Glucose Level 114 mg/dL (70-99) H Lactic Acid Level 0.7 mmol/L (0.4-2.0) Calcium Level 7.8 mg/dL (8.5-10.1) L Total Bilirubin 0.3 mg/dL (0.2-1.0) Aspartate Amino Transferase (AST) 15 U/L (15-37) Alanine Aminotransferase (ALT) 17 U/L (14-59) Alkaline Phosphatase 63 U/L (46-116) Total Protein 6.1 g/dL (6.4-8.2) L Albumin 3.2 g/dL (3.4-5.0) L Albumin/Globulin Ratio 1.1 (1.0-1.7) Laboratory Tests 10/20/19 15:45 Laboratory Tests 10/20/19 15:45 Vital Signs: Vital Signs Date Time Temp Pulse Resp B/P (MAP) Pulse Ox O2 Delivery O2 Flow Rate FiO2 10/20/19 14:58 98.1 94 19 139/82 (101) 93 Nasal Cannula 2.0 98.1 EKG: EKG: EKG performed today at 1515 shows sinus rhythm without ectopy no STEMI noted reviewed by Dr. Henry. Radiology/Procedures: Radiology/Procedures: PROCEDURE: PORTABLE CHEST 1V EXAM: CHEST 1 VIEW History: Shortness of breath COMPARISON: 09/24/2019 TECHNIQUE: Single portable radiograph of the chest FINDINGS: The cardiac silhouette is unremarkable. Minimal left lung base atelectasis infiltrate. The costophrenic sulci are clear and well demarcated. IMPRESSION: Minimal left lung base atelectasis or infiltrate. Electronically signed by: Arnaud Toure MD (10/20/2019 4:29 PM) [id number] DICTATED and SIGNED BY: ARNAUD TOURE MD DATE: 10/20/19 1629 Course & Med Decision Making: Course & Med Decision Making Pertinent Labs and Imaging studies reviewed. (See chart for details) 79-year-old female patient presents to the ER today with a chief complaint that she cannot breathe in deep enough but feels as if she is breathing out and off. Patient denies shortness of air specifically. Patient is on 2 L per nasal cannula which she reports having to wear this at all times and increases to 3 L per nasal cannula when she ambulates. Patient states when she woke up this morning she had a hard time coughing up her phlegm and getting it expelled. She states when she initially called the ambulance she felt worse than she does when she arrived to the emergency department today. Patient denies chest pain or discomfort. Patient states that on September 28 she had a COVID19 test and was negative. Patient denies abdominal pain or discomfort, she also denies bowel problems. Patient denies swelling or musculoskeletal type pains. An EKG was performed upon arrival to the ER which showed a sinus rhythm without ectopy and was read by Dr. Henry. A chest x-ray was performed which showed Minimal left lung base atelectasis or infiltrate. Patient's labs were not concerning of infectious process. Patient's calcium however was 7.8 and she was given 1 g of calcium IV along with a 250 cc bolus of normal saline related to during her physical exam her tongue and oral mucosa were dry. Patient states she is on a 2000 cc fluid restriction related to her chronic CHF. Patient complained of a mild headache upon arrival rated it a 3 out of 10. Patient was given 500 mg of Tylenol p.o. which resolved this headache. After discussing this patient with ER attending Dr. Hayes, the original plan was to discharge patient to home with a prescription of Zithromax. When discussing the discharge plans with the patient, she called her son to have these discharge instructions explained to him. The son became very angry and demanded she be admitted. Hence Dr. Boykin was contacted and agreed to admit the patient. Patient was informed that she will be admitted patient is agreeable with this plan at this time. Dragon Disclaimer: Dragon Disclaimer: This electronic medical record was generated, in whole or in part, using a voice recognition dictation system. Departure Departure Impression: Primary Impression: Shortness of breath Additional Impressions: Dyspnea on exertion Person under investigation for COVID-19 Disposition: ADMITTED INPATIENT Admitting Physician: BRIAN (DR. TREJO) Condition: STABLE Referrals: MITCHELL SCHMITT DO (PCP) Justicifation of Admission Dx: Justifications for Admission: Justification of Admission Dx: Yes Comments: pT ADMISSOPN FPR SHORTNESS OF BREATH AND DYSPNEA ON EXCERTION. LISETTE KLINE APRN Oct 20, 2019 17:25
[2019-10-20 17:29] LABS: BILIRUBIN,URINE NEGATIVE (NEG); CLARITY,URINE CLEAR; COLOR,URINE YELLOW; NITRITE,URINE NEGATIVE (NEG); PH,URINE 5.5 (<5.0-8.0); PROTEIN,URINE NEGATIVE (NEG-TRACE); UROBILINOGEN,URINE 0.2 mg/dL (0.2 mg/dL)
[2019-10-20 17:36] LABS: HYALINE CASTS, URINE MODERATE /HPF
[2019-10-20 17:37] LABS: BACTERIA,URINE FEW /HPF (0-FEW); SQUAMOUS EPITHELIAL CELL,UR FEW /LPF
[2019-10-20] MEDS ORDERED: IV NORMAL SALINE 250ML 250 ML IV ONE (17:45)
[2019-10-20] MEDS ORDERED: CALCIUM CHLORIDE IV ONE (18:00)
[2019-10-20] MEDS ORDERED: NS IV ONE (18:00)
[2019-10-20 18:08] LABS: PROTHROMBIN TIME PATIENT 12.1 SEC (11.7-14.0)
[2019-10-20] MEDS ORDERED: CALCIUM CHLORIDE 1,000 MG/10 ML DISP.SYRIN IV ONE (18:15)
--- NOTE | 2019-10-20 19:45 | HP ---
ADMIT DATE: 10/20/2019 CHIEF COMPLAINT: Shortness of breath. HISTORY OF PRESENT ILLNESS: The patient is a pleasant elderly female with multiple comorbidities. She presents with shortness of breath that has been occurring for several days, worse with moving, better with sitting still. She has associated abdominal distention. Clinically, she appears to have respiratory failure. I suspect it might be pneumonia, perhaps even an element of heart failure, although her BNP level is normal. Chest x-ray showing a possible infiltrate. I discussed the case with ER physician. We are going to admit the patient and consult Pulmonary, Cardiology and GI. PAST MEDICAL HISTORY: CAD, constipation, COPD, GERD, hyperlipidemia, renal disease, appendectomy, cholecystectomy, tonsillectomy, cardiac stents, back surgery, previous tobacco abuse. ALLERGIES: PENICILLIN AND SULFA. FAMILY HISTORY: Coronary artery disease. SOCIAL HISTORY: She does not drink, smoke or take drugs. She quit smoking years ago. MEDICATIONS: Reviewed, please refer to the MRAD. REVIEW OF SYSTEMS: GENERAL: No history of weight change, weakness or fevers. SKIN: No bruising, hair changes or rashes. EYES: No blurred, double or loss of vision. NOSE AND THROAT: No history of nosebleeds, hoarseness or sore throat. HEART: No history of palpitations, chest pain or shortness of breath on exertion. LUNGS: She complains of shortness of breath. GASTROINTESTINAL: She complains of abdominal distention. GENITOURINARY: No history of frequency, urgency, hesitancy or nocturia. NEUROLOGIC: Denies history of numbness, tingling, tremor or weakness. PSYCHIATRIC: No history of panic, anxiety or depression. ENDOCRINE: No history of heat or cold intolerance, polyuria or polydipsia. EXTREMITIES: Denies muscle weakness, joint pain, pain on walking or stiffness. PHYSICAL EXAMINATION: VITALS: Within normal limits and are stable. GENERAL: No apparent distress. Alert and oriented. HEENT: Normal cephalic atraumatic, external auditory canals are patent EYES: Extraocular muscles are intact, pupils are equally round and reactive to light and accommodation MUSCULOSKELETAL: Well developed, well nourished, good range of motion ENDOCRINE: No thyromegaly was palpated LYMPHATICS: No cervical chain or axillary nodes were noted HEMATOPOIETIC: No bruising NECK: Supple, no JVD, no thyromegaly was noted. LUNGS: She has bibasilar crackles. HEART: RRR, S1, S2 present. Peripheral pulses intact, no obvious murmurs were noted. ABDOMEN: Her abdomen is distended. There is a ventral hernia when she sits up. She has decreased bowel sounds. EXTREMITIES: Without any cyanosis, clubbing, or edema. Pedal pulses intact, Homans sign is negative. NEUROLOGIC: Normal speech, normal tone. A & O x3, moves all extremities, no obvious focal deficits. PSYCHIATRIC: Normal affect, normal mood. Stable. SKIN: No ulcerations or rashes, good skin turgor, no jaundice. VASCULAR: Good capillary refill, neurovascular bundle appears to be intact. LABORATORY DATA: Hematology is surprisingly normal. Electrolytes are surprisingly normal as well, other than a creatinine of 1.4. Troponin is 0. BNP 166. Urinalysis negative. INR is 0.9. Chest x-ray shows a possible infiltrate. ASSESSMENT AND PLAN: Respiratory failure of undetermined etiology. The patient has been admitted. We will start O2 per nasal cannula. Consult Pulmonary, consult Cardiology, consult GI, home meds, DVT prophylaxis. Full code. Cardiac monitoring, rule out COVID-19. PROGNOSIS: Guarded. JASSI TREJO DO DR: SHAKIR/sadia JOB#: [id number] / [id number]
--- NOTE | 2019-10-20 22:36 | EKG ---
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
[2019-10-20 23:30] VITALS: BP 165/70
[2019-10-21] MEDS ORDERED: ACETAMINOPHEN 500 MG TABLET PO PRN (01:15)
[2019-10-21] MEDS ORDERED: NITROGLYCERIN SUBLINGUAL 0.4 MG BOTTLE OF 25. SL PRN (02:00)
[2019-10-21] MEDS ORDERED: HYDROcodone/APAP 5/325MG 1 TAB TABLET PO PRN (02:00)
[2019-10-21] MEDS ORDERED: guaiFENesin ORAL 200 MG/10 ML LIQUID. PO PRN (02:00)
[2019-10-21 03:04] VITALS: BP 170/71
[2019-10-21 07:55] VITALS: BP 142/66
[2019-10-21] MEDS ORDERED: POLYETHYLENE GLYCOL 3350 17 GM PACKET. PO SCH (09:00)
[2019-10-21] MEDS: LACTOBACILLUS RHAMNOSUS GG 1 CAPSULE. PO SCH ×2 (09:19→21:13)
[2019-10-21] MEDS: FLUTICASONE 50MCG/NASAL SPRAY 16GM BOTTLE. NS SCH (09:19)
[2019-10-21] MEDS: ASCORBIC ACID 500 MG TABLET PO SCH (09:19)
[2019-10-21] MEDS: CHOLECALCIFEROL (VITAMIN D3) 1,000 UNIT TABLET PO SCH (09:20)
[2019-10-21] MEDS: CARVEDILOL 3.125 MG TABLET. PO SCH ×2 (09:20→16:55)
[2019-10-21] MEDS: FUROSEMIDE 40 MG TABLET. PO SCH ×2 (09:20→15:32)
[2019-10-21] MEDS: LOSARTAN POTASSIUM 25 MG TABLET. PO SCH (09:20)
[2019-10-21] MEDS: OMEGA-3 FATTY ACIDS/FISH OIL 1,000 MG CAPSULE. PO SCH (09:20)
[2019-10-21] MEDS: CALCIUM CARBONATE 500 MG TABLET PO SCH (09:20)
[2019-10-21] MEDS: POTASSIUM CHLORIDE 20 MEQ TABLET.ER. PO SCH ×3 (09:21→16:55)
[2019-10-21] MEDS: ASPIRIN CHEWABLE 81 MG TABLET. PO SCH (09:21)
[2019-10-21] MEDS: predniSONE 20 MG TABLET PO SCH (09:21)
[2019-10-21] MEDS: PANTOPRAZOLE 40 MG TABLET.DR. PO SCH (09:21)
[2019-10-21] MEDS: FENOFIBRATE 54 MG TABLET. PO SCH (09:21)
[2019-10-21] MEDS: CYANOCOBALAMIN (VITAMIN B-12) 1,000 MCG TABLET. PO SCH (09:22)
--- NOTE | 2019-10-21 10:05 | PDOC2 ---
CARDIAC CONSULT DATE OF CONSULT Date of Consult DATE: 10/21/19 TIME: 10:00 REASON FOR CONSULT Reason for Consult: Possible CHF REFERRING PHYSICIAN Referring Physician: Juan SOURCE Source: Chart review HISTORY OF PRESENT ILLNESS HISTORY OF PRESENT ILLNESS This is a pleasant 79 yo female admitted for complains of shortness of breath. Also with increasing weakness and abdominal pain but no nausea, vomiting or diarrhea. She blames her symptoms to her abdominal hernia and has been feeling some fullness. She has been coughing with clear to yellow sputum and uses O2 2LPM at home. Presently her SOA is better and able to communicate with me without distress. She has been taking water pills as well. Reports no recent fal ls injury or passing out. No significant leg swelling PAST MEDICAL HISTORY Past Medical History Cardiovascular: CAD (with previous stents to unknown targets), CHF (chronic diastolic), HTN, Hyperlipidemia, Other (AAA - 4.1 cm on ultrasound 01/2019) Pulmonary: Asthma, COPD (O2 requiring ), Other (ALEE with CPAP ) CENTRAL NERVOUS SYSTEM: Seizure GI: GERD, Other (reflux esophagitis; gastric ulcer 07/2015) Heme/Onc: Anemia NOS Hepatobiliary: No pertinent hx Psych: Depression Musculoskeletal: Osteoarthritis, multiple thoracic compression fractures Rheumatologic: No pertinent hx Infectious disease: No pertinent hx ENT: No pertinent hx Renal/: Chronic renal insuff Endocrine: No pertinent hx Dermatology: No pertinent hx PAST SURGICAL HISTORY Past Surgical History Appendectomy, Cholecystectomy, Other (lumbar surgery) FAMILY HISTORY Family History: Heart Disease SOCIAL HISTORY Smoke: No ALCOHOL: none Drugs: None Lives: with Family CURRENT MEDICATIONS CURRENT MEDICATIONS Current Medications Medications (Trade) Dose Ordered Sig/Deidra Route PRN Reason Start Time Stop Time Status Last Admin Dose Admin Acetaminophen (Tylenol) 500 mg 1X ONCE PO 10/20/19 15:45 10/20/19 15:46 DC 10/20/19 17:11 Sodium Chloride 250 ml @ 250 mls/hr 1X ONCE IV 10/20/19 17:45 10/20/19 18:44 DC 10/20/19 18:35 Calcium Chloride 1000 mg/Sodium Chloride 110 ml @ 220 mls/hr 1X ONCE IV 10/20/19 18:00 10/20/19 18:29 DC 10/20/19 18:36 Aspirin (Aspirin Chewable) 81 mg DAILYWBKFT PO 10/21/19 08:00 10/21/19 09:21 Carvedilol (Coreg) 3.125 mg BIDWMEALS PO 10/21/19 08:00 10/21/19 09:20 Vitamin D (Vitamin D3) 1,000 unit DAILY PO 10/21/19 09:00 10/21/19 09:20 Cyanocobalamin (Vitamin B-12) 500 mcg DAILY PO 10/21/19 09:00 10/21/19 09:22 Fluticasone Propionate (Flonase) 2 spray DAILY NS 10/21/19 09:00 10/21/19 09:19 Furosemide (Lasix) 40 mg BID92 PO 10/21/19 09:00 10/21/19 09:20 Losartan Potassium (Cozaar) 25 mg DAILY PO 10/21/19 09:00 10/21/19 09:20 Pantoprazole Sodium (Protonix) 40 mg DAILYAC PO 10/21/19 07:30 10/21/19 09:21 Polyethylene Glycol (miraLAX PACKET) 17 gm DAILY PO 10/21/19 09:00 10/21/19 09:21 Potassium Chloride (Klor-Con) 20 meq TIDWMEALS PO 10/21/19 08:00 10/21/19 09:21 Prednisone (Prednisone) 20 mg DAILY PO 10/21/19 09:00 10/21/19 09:21 Ascorbic Acid (Vitamin C) 1,000 mg DAILY PO 10/21/19 09:00 10/21/19 09:19 Calcium Carbonate/ Glycine (Oscal) 500 mg DAILYWBKFT PO 10/21/19 08:00 10/21/19 09:20 Fenofibrate (Lofibra) 54 mg DAILY PO 10/21/19 09:00 10/21/19 09:21 Lactobacillus Rhamnosus (Culturelle) 1 cap BID PO 10/21/19 09:00 10/21/19 09:19 Fish Oil (Fish Oil) 2,000 mg DAILY PO 10/21/19 09:00 10/21/19 09:20 ALLERGIES ALLERGIES: Coded Allergies: Penicillins (Verified Allergy, Intermediate, 02/28/15) Sulfa (Sulfonamide Antibiotics) (Verified Allergy, Intermediate, 02/28/15) I S O L A T I O N *CONTACT* (Verified Allergy, Unknown, 05/19/15) mrsa + ROS Review of System 14 point ROS evaluated with pertinent positives noted per HPI PHYSICAL EXAM PHYSICAL EXAM discussed with RN General: Alert, Oriented X3, Cooperative, No acute distress HEENT: Atraumatic, Mucous membr. moist/pink Lungs: Other (CXR reviewed) Abdomen: Soft Extremities: No cyanosis Skin: No breakdown Neuro: Normal speech, Sensation intact Psych/Mental Status: Mental status NL, Mood NL MUSCULOSKELETAL: Osteoarthritic changes both hands VITALS/I&O VITALS/I&O: Vital Signs Date Time Temp Pulse Resp B/P (MAP) Pulse Ox O2 Delivery O2 Flow Rate FiO2 10/21/19 09:20 63 142/66 10/21/19 03:04 97.1 24 95 BiPAP/CPAP 3.0 97.1 I & O 10/20/19 10/20/19 10/21/19 15:00 23:00 07:00 Intake Total 60 ml Balance 60 ml LABS Lab: Laboratory Tests Test 10/20/19 15:45 10/20/19 15:55 10/20/19 17:15 White Blood Count 6.3 x10^3/uL (4.0-11.0) Red Blood Count 3.87 x10^6/uL (3.50-5.40) Hemoglobin 12.0 g/dL (12.0-15.5) Hematocrit 35.9 % (36.0-47.0) L Mean Corpuscular Volume 93 fL (79-100) Mean Corpuscular Hemoglobin 31 pg (25-35) Mean Corpuscular Hemoglobin Concent 33 g/dL (31-37) Red Cell Distribution Width 14.2 % (11.5-14.5) Platelet Count 268 x10^3/uL (140-400) Neutrophils (%) (Auto) 63 % (31-73) Lymphocytes (%) (Auto) 28 % (24-48) Monocytes (%) (Auto) 7 % (0-9) Eosinophils (%) (Auto) 3 % (0-3) Basophils (%) (Auto) 0 % (0-3) Neutrophils # (Auto) 3.9 x10^3/uL (1.8-7.7) Lymphocytes # (Auto) 1.7 x10^3/uL (1.0-4.8) Monocytes # (Auto) 0.4 x10^3/uL (0.0-1.1) Eosinophils # (Auto) 0.2 x10^3/uL (0.0-0.7) Basophils # (Auto) 0.0 x10^3/uL (0.0-0.2) Prothrombin Time 12.1 SEC (11.7-14.0) Prothrombin Time INR 0.9 (0.8-1.1) Sodium Level 142 mmol/L (136-145) Potassium Level 4.1 mmol/L (3.5-5.1) Chloride Level 103 mmol/L (98-107) Carbon Dioxide Level 29 mmol/L (21-32) Anion Gap 10 (6-14) Blood Urea Nitrogen 15 mg/dL (7-20) Creatinine 1.4 mg/dL (0.6-1.0) H Estimated GFR (Cockcroft-Gault) 36.1 BUN/Creatinine Ratio 11 (6-20) Glucose Level 114 mg/dL (70-99) H Lactic Acid Level 0.7 mmol/L (0.4-2.0) Calcium Level 7.8 mg/dL (8.5-10.1) L Total Bilirubin 0.3 mg/dL (0.2-1.0) Aspartate Amino Transferase (AST) 15 U/L (15-37) Alanine Aminotransferase (ALT) 17 U/L (14-59) Alkaline Phosphatase 63 U/L (46-116) Troponin I Quantitative < 0.017 ng/mL (0.000-0.055) WK-Tqm-C-Type Natriuretic Peptide 166 pg/mL (0-449) Total Protein 6.1 g/dL (6.4-8.2) L Albumin 3.2 g/dL (3.4-5.0) L Albumin/Globulin Ratio 1.1 (1.0-1.7) Group A Streptococcus Rapid Negative (NEGATIVE) Urine Collection Type Unknown Urine Color Yellow Urine Clarity Clear Urine pH 5.5 (<5.0-8.0) Urine Specific [place] 1.025 (1.000-1.030) Urine Protein Negative mg/dL (NEG-TRACE) Urine Glucose (UA) Negative mg/dL (NEG) Urine Ketones (Stick) Negative mg/dL (NEG) Urine Blood Negative (NEG) Urine Nitrite Negative (NEG) Urine Bilirubin Negative (NEG) Urine Urobilinogen Dipstick 0.2 mg/dL (0.2 mg/dL) Urine Leukocyte Esterase Negative (NEG) Urine RBC 1-2 /HPF (0-2) Urine WBC 5-10 /HPF (0-4) Urine Squamous Epithelial Cells Few /LPF Urine Bacteria Few /HPF (0-FEW) Urine Hyaline Casts Moderate /HPF Urine Mucus Slight /LPF Laboratory Tests 10/20/19 15:45 Laboratory Tests 10/20/19 15:45 ECHOCARDIOGRAM ECHOCARDIOGRAM <Conclusion> The left ventricular systolic function is normal and the ejection fraction is within normal range. The Ejection Fraction is 55-60%. Septal motion consistent with conduction abnormality. Otherwise, normal wall motion. Technically difficult study due to COPD DATE: 09/25/19 1154 STRESS TEST STRESS TEST Conclusion 1. Regadenoson cardioisotope stress test did not show any evidence of ischemia or infarct. 2. Normal left ventricular systolic function with ejection fraction calculated at 72%. 3. Low risk for cardiac events. DATE: 10/31/17 1511 ASSESSMENT/PLAN ASSESSMENT/PLAN 1. Acute respiratory failure with AECOPD: off bipap 2. Chronic diastolic CHF: recent EF at 55%. pro NT BNP 166, dyspnea more from COPD and ALEE 3. CAD; s/p past PCI/stents. Cath with one vessel CAD of the RCA, negative iFR, clinically stable 4. Hypertension; am blood pressures have been significantly elevated 5. Hyperlipidemia; statin 6. AAA: 01/2019 4.1 cm, stable 7. ALEE; CPAP use 8. Chronic RBBB 9. Abdominal pain and fullness: concern about hernia, GI consulted Recommendations Covid pending lasix therapy Pulmonary treatment Secondary prevention measures LEONORA VELEZ ASSISTANT ASSOCIATE PROFESSOR Oct 21, 2019 10:05
--- NOTE | 2019-10-21 11:23 | PDOC2 ---
GI CONSULT Reason For Consult: abd distention HPI: HPI: 79 y/o female w/ SOA, BLE swelling (resolved), and abdominal distention. Apparently a recurrent issue and concern for hernia. Distention is always associated w/ shortness of breath but not always associated w/ leg swelling. Abdomen is uncomfortable - can have more significant pain in BLQ sometimes. Feels better after stooling. H/o constipation on Miralax QD-BID. Typical bowel pattern is multiple small stools daily w/ an occasional "blow out" with lots of gas. Aware of hernia for awhile - says lung doctor told her she might not ever be able to have it repaired. Thinks h/o GERD on omeprazole 2 pills QD before breakfast. Might have rare dysphagia w/ food - "they've checked it and nothing's wrong." No n/v. No diarrhea or bleeding. Fluctuating weight. EGD in 2015 w/ reflux and Danny. EGD in 2016 confirmed healing. More than one colonoscopy in the past - says last exam incomplete per Dr. Carmen, not sure why. S/p cholecystectomy ("wasn't functioning). Denies liver and pancreas history. Fatty liver on past US. No NSAIDs. Esophagram in 09/2019 was unremarkable. Surgery saw in the past re: ventral hernia. COVID-19 pending - was negative on 09/28/19. PMH: PMH: CAD, CHF, HTN, HLD, AAA, asthma, COPD, ALEE, HLD, OA, CKD, seizures, compression fractures cholecystectomy, appendectomy, lumbar surgery FH: Family History: Cancer (maternal aunt - gastric cancer) Social History: Smoke: No ALCOHOL: none Drugs: None ROS: GEN: Denies fevers, chills, sweats HEENT: Denies blurred vision, sore throat CV: Denies chest pain RESP: +SOA GI: Per HPI : Denies hematuria, dysuria ENDO: Denies weight changes NEURO: Denies confusion, dizziness MSK: +BLE swelling SKIN: Denies jaundice, pruritus Vitals: Vitals: Vital Signs Date Time Temp Pulse Resp B/P (MAP) Pulse Ox O2 Delivery O2 Flow Rate FiO2 10/21/19 09:20 63 142/66 10/21/19 03:04 97.1 24 95 BiPAP/CPAP 3.0 97.1 Labs: Labs: Laboratory Tests Test 10/20/19 15:45 10/20/19 15:55 10/20/19 17:15 White Blood Count 6.3 x10^3/uL (4.0-11.0) Red Blood Count 3.87 x10^6/uL (3.50-5.40) Hemoglobin 12.0 g/dL (12.0-15.5) Hematocrit 35.9 % (36.0-47.0) Mean Corpuscular Volume 93 fL (79-100) Mean Corpuscular Hemoglobin 31 pg (25-35) Mean Corpuscular Hemoglobin Concent 33 g/dL (31-37) Red Cell Distribution Width 14.2 % (11.5-14.5) Platelet Count 268 x10^3/uL (140-400) Neutrophils (%) (Auto) 63 % (31-73) Lymphocytes (%) (Auto) 28 % (24-48) Monocytes (%) (Auto) 7 % (0-9) Eosinophils (%) (Auto) 3 % (0-3) Basophils (%) (Auto) 0 % (0-3) Neutrophils # (Auto) 3.9 x10^3/uL (1.8-7.7) Lymphocytes # (Auto) 1.7 x10^3/uL (1.0-4.8) Monocytes # (Auto) 0.4 x10^3/uL (0.0-1.1) Eosinophils # (Auto) 0.2 x10^3/uL (0.0-0.7) Basophils # (Auto) 0.0 x10^3/uL (0.0-0.2) Prothrombin Time 12.1 SEC (11.7-14.0) Prothromb Time International Ratio 0.9 (0.8-1.1) Sodium Level 142 mmol/L (136-145) Potassium Level 4.1 mmol/L (3.5-5.1) Chloride Level 103 mmol/L (98-107) Carbon Dioxide Level 29 mmol/L (21-32) Anion Gap 10 (6-14) Blood Urea Nitrogen 15 mg/dL (7-20) Creatinine 1.4 mg/dL (0.6-1.0) Estimated GFR (Cockcroft-Gault) 36.1 BUN/Creatinine Ratio 11 (6-20) Glucose Level 114 mg/dL (70-99) Lactic Acid Level 0.7 mmol/L (0.4-2.0) Calcium Level 7.8 mg/dL (8.5-10.1) Total Bilirubin 0.3 mg/dL (0.2-1.0) Aspartate Amino Transf (AST/SGOT) 15 U/L (15-37) Alanine Aminotransferase (ALT/SGPT) 17 U/L (14-59) Alkaline Phosphatase 63 U/L (46-116) Troponin I Quantitative < 0.017 ng/mL (0.000-0.055) VJ-Xcs-P-Type Natriuretic Peptide 166 pg/mL (0-449) Total Protein 6.1 g/dL (6.4-8.2) Albumin 3.2 g/dL (3.4-5.0) Albumin/Globulin Ratio 1.1 (1.0-1.7) Group A Streptococcus Rapid Negative (NEGATIVE) Urine Collection Type Unknown Urine Color Yellow Urine Clarity Clear Urine pH 5.5 (<5.0-8.0) Urine Specific [place] 1.025 (1.000-1.030) Urine Protein Negative mg/dL (NEG-TRACE) Urine Glucose (UA) Negative mg/dL (NEG) Urine Ketones (Stick) Negative mg/dL (NEG) Urine Blood Negative (NEG) Urine Nitrite Negative (NEG) Urine Bilirubin Negative (NEG) Urine Urobilinogen Dipstick 0.2 mg/dL (0.2 mg/dL) Urine Leukocyte Esterase Negative (NEG) Urine RBC 1-2 /HPF (0-2) Urine WBC 5-10 /HPF (0-4) Urine Squamous Epithelial Cells Few /LPF Urine Bacteria Few /HPF (0-FEW) Urine Hyaline Casts Moderate /HPF Urine Mucus Slight /LPF Allergies: Coded Allergies: Penicillins (Verified Allergy, Intermediate, 02/28/15) Sulfa (Sulfonamide Antibiotics) (Verified Allergy, Intermediate, 02/28/15) I S O L A T I O N *CONTACT* (Verified Allergy, Unknown, 05/19/15) mrsa + Medications: Current Medications Medications (Trade) Dose Ordered Sig/Deidra Route PRN Reason Start Time Stop Time Status Last Admin Dose Admin Acetaminophen (Tylenol) 500 mg 1X ONCE PO 10/20/19 15:45 10/20/19 15:46 DC 6/30/20 17:11 Sodium Chloride 250 ml @ 250 mls/hr 1X ONCE IV 10/20/19 17:45 10/20/19 18:44 DC 10/20/19 18:35 Calcium Chloride 1000 mg/Sodium Chloride 110 ml @ 220 mls/hr 1X ONCE IV 10/20/19 18:00 10/20/19 18:29 DC 10/20/19 18:36 Aspirin (Aspirin Chewable) 81 mg DAILYWBKFT PO 10/21/19 08:00 10/21/19 09:21 Carvedilol (Coreg) 3.125 mg BIDWMEALS PO 10/21/19 08:00 10/21/19 09:20 Vitamin D (Vitamin D3) 1,000 unit DAILY PO 10/21/19 09:00 10/21/19 09:20 Cyanocobalamin (Vitamin B-12) 500 mcg DAILY PO 10/21/19 09:00 10/21/19 09:22 Fluticasone Propionate (Flonase) 2 spray DAILY NS 10/21/19 09:00 10/21/19 09:19 Furosemide (Lasix) 40 mg BID92 PO 10/21/19 09:00 10/21/19 09:20 Losartan Potassium (Cozaar) 25 mg DAILY PO 10/21/19 09:00 10/21/19 09:20 Pantoprazole Sodium (Protonix) 40 mg DAILYAC PO 10/21/19 07:30 10/21/19 09:21 Polyethylene Glycol (miraLAX PACKET) 17 gm DAILY PO 10/21/19 09:00 10/21/19 09:21 Potassium Chloride (Klor-Con) 20 meq TIDWMEALS PO 10/21/19 08:00 10/21/19 09:21 Prednisone (Prednisone) 20 mg DAILY PO 10/21/19 09:00 10/21/19 09:21 Ascorbic Acid (Vitamin C) 1,000 mg DAILY PO 10/21/19 09:00 10/21/19 09:19 Calcium Carbonate/ Glycine (Oscal) 500 mg DAILYWBKFT PO 10/21/19 08:00 10/21/19 09:20 Fenofibrate (Lofibra) 54 mg DAILY PO 10/21/19 09:00 10/21/19 09:21 Lactobacillus Rhamnosus (Culturelle) 1 cap BID PO 10/21/19 09:00 10/21/19 09:19 Fish Oil (Fish Oil) 2,000 mg DAILY PO 10/21/19 09:00 10/21/19 09:20 Imaging: Imaging: CXR IMPRESSION: Minimal left lung base atelectasis or infiltrate. PE: GEN: NAD HEENT: Atraumatic, PERRL LUNGS: diminished anteriorly, NC HEART: RRR ABD: NABS, round, soft, ventral hernia w/ discomfort EXTREMITY: No edema SKIN: No rashes, no jaundice NEURO/PSYCH: A & O 3 A/P: A/P: SOA, BLE edema (resolved), abd distention/discomfort GERD, h/o PUD - on PPI CRC screen - more than one colonoscopy in the past H/o constipation H/o ventral hernia S/p cholecystectomy Fatty liver H/o COPD, CHF, CAD, AAA -- Will check abdominal imaging - ?CT - when COVID status known. Continue PPI, Miralax. MATTHEW PENNINGTON Oct 21, 2019 11:23
[2019-10-21 11:40] VITALS: BP 140/58
--- NOTE | 2019-10-21 11:53 | PDOC ---
[employer] PROGRESS NOTE Chief Complaint Chief Complaint Respiratory failure Possible COVID-19 CAD, constipation, COPD, GERD, hyperlipidemia, renal disease, appendectomy, cholecystectomy, tonsillectomy, cardiac stents, back surgery, previous tobacco abuse. History of Present Illness History of Present Illness 10/21/2019 Patient seen and examined on the COVID-19 unit Chart reviewed Discussed with RN Vitals/I&O Vitals/I&O: Vital Signs Date Time Temp Pulse Resp B/P (MAP) Pulse Ox O2 Delivery O2 Flow Rate FiO2 10/21/19 09:20 63 142/66 10/21/19 07:55 97.0 20 92 Nasal Cannula 3.0 97.0 I & O 10/20/19 10/20/19 10/21/19 15:00 23:00 07:00 Intake Total 60 ml Balance 60 ml Physical Exam General: Cooperative, mild distress Heart: Other Lungs: Crackles, Other Abdomen: No tenderness Extremities: No clubbing Skin: No rashes Labs Labs: Laboratory Tests Test 10/20/19 15:45 10/20/19 15:55 10/20/19 17:15 White Blood Count 6.3 x10^3/uL (4.0-11.0) Red Blood Count 3.87 x10^6/uL (3.50-5.40) Hemoglobin 12.0 g/dL (12.0-15.5) Hematocrit 35.9 % (36.0-47.0) Mean Corpuscular Volume 93 fL (79-100) Mean Corpuscular Hemoglobin 31 pg (25-35) Mean Corpuscular Hemoglobin Concent 33 g/dL (31-37) Red Cell Distribution Width 14.2 % (11.5-14.5) Platelet Count 268 x10^3/uL (140-400) Neutrophils (%) (Auto) 63 % (31-73) Lymphocytes (%) (Auto) 28 % (24-48) Monocytes (%) (Auto) 7 % (0-9) Eosinophils (%) (Auto) 3 % (0-3) Basophils (%) (Auto) 0 % (0-3) Neutrophils # (Auto) 3.9 x10^3/uL (1.8-7.7) Lymphocytes # (Auto) 1.7 x10^3/uL (1.0-4.8) Monocytes # (Auto) 0.4 x10^3/uL (0.0-1.1) Eosinophils # (Auto) 0.2 x10^3/uL (0.0-0.7) Basophils # (Auto) 0.0 x10^3/uL (0.0-0.2) Prothrombin Time 12.1 SEC (11.7-14.0) Prothromb Time International Ratio 0.9 (0.8-1.1) Sodium Level 142 mmol/L (136-145) Potassium Level 4.1 mmol/L (3.5-5.1) Chloride Level 103 mmol/L (98-107) Carbon Dioxide Level 29 mmol/L (21-32) Anion Gap 10 (6-14) Blood Urea Nitrogen 15 mg/dL (7-20) Creatinine 1.4 mg/dL (0.6-1.0) Estimated GFR (Cockcroft-Gault) 36.1 BUN/Creatinine Ratio 11 (6-20) Glucose Level 114 mg/dL (70-99) Lactic Acid Level 0.7 mmol/L (0.4-2.0) Calcium Level 7.8 mg/dL (8.5-10.1) Total Bilirubin 0.3 mg/dL (0.2-1.0) Aspartate Amino Transf (AST/SGOT) 15 U/L (15-37) Alanine Aminotransferase (ALT/SGPT) 17 U/L (14-59) Alkaline Phosphatase 63 U/L (46-116) Troponin I Quantitative < 0.017 ng/mL (0.000-0.055) RW-Hes-N-Type Natriuretic Peptide 166 pg/mL (0-449) Total Protein 6.1 g/dL (6.4-8.2) Albumin 3.2 g/dL (3.4-5.0) Albumin/Globulin Ratio 1.1 (1.0-1.7) Group A Streptococcus Rapid Negative (NEGATIVE) Urine Collection Type Unknown Urine Color Yellow Urine Clarity Clear Urine pH 5.5 (<5.0-8.0) Urine Specific [place] 1.025 (1.000-1.030) Urine Protein Negative mg/dL (NEG-TRACE) Urine Glucose (UA) Negative mg/dL (NEG) Urine Ketones (Stick) Negative mg/dL (NEG) Urine Blood Negative (NEG) Urine Nitrite Negative (NEG) Urine Bilirubin Negative (NEG) Urine Urobilinogen Dipstick 0.2 mg/dL (0.2 mg/dL) Urine Leukocyte Esterase Negative (NEG) Urine RBC 1-2 /HPF (0-2) Urine WBC 5-10 /HPF (0-4) Urine Squamous Epithelial Cells Few /LPF Urine Bacteria Few /HPF (0-FEW) Urine Hyaline Casts Moderate /HPF Urine Mucus Slight /LPF Review of Systems Review of Systems: Complains of shortness of Assessment and Plan Assessmemt and Plan Problems Medical Problems: (1) Dyspnea on exertion Status: Acute (2) Shortness of breath Status: Acut Severe respiratory failure with possible COVID-19 CAD, constipation, COPD, GERD, hyperlipidemia, renal disease, appendectomy, cholecystectomy, tonsillectomy, cardiac stents, back surgery, previous tobacco abuse. Plan COVID-19 isolation until her test results are back Antibiotics Duo nebs O2 We have consulted pulmonary medicine and cardiology and gastroenterology Home meds DVT prophylaxis Full code Trend labs Prognosis guarded She is very ill Total time 31 minutes Comment Review of Relevant I have reviewed the following items oneil (where applicable) has been applied. Medications: Current Medications Medications (Trade) Dose Ordered Sig/Deidra Route PRN Reason Start Time Stop Time Status Last Admin Dose Admin Acetaminophen (Tylenol) 500 mg 1X ONCE PO 10/20/19 15:45 10/20/19 15:46 DC 10/20/19 17:11 Sodium Chloride 250 ml @ 250 mls/hr 1X ONCE IV 10/20/19 17:45 10/20/19 18:44 DC 10/20/19 18:35 Calcium Chloride 1000 mg/Sodium Chloride 110 ml @ 220 mls/hr 1X ONCE IV 10/20/19 18:00 10/20/19 18:29 DC 10/20/19 18:36 Aspirin (Aspirin Chewable) 81 mg DAILYWBKFT PO 10/21/19 08:00 10/21/19 09:21 Carvedilol (Coreg) 3.125 mg BIDWMEALS PO 10/21/19 08:00 10/21/19 09:20 Vitamin D (Vitamin D3) 1,000 unit DAILY PO 10/21/19 09:00 10/21/19 09:20 Cyanocobalamin (Vitamin B-12) 500 mcg DAILY PO 10/21/19 09:00 10/21/19 09:22 Fluticasone Propionate (Flonase) 2 spray DAILY NS 10/21/19 09:00 10/21/19 09:19 Furosemide (Lasix) 40 mg BID92 PO 10/21/19 09:00 10/21/19 09:20 Losartan Potassium (Cozaar) 25 mg DAILY PO 10/21/19 09:00 10/21/19 09:20 Pantoprazole Sodium (Protonix) 40 mg DAILYAC PO 10/21/19 07:30 10/21/19 09:21 Polyethylene Glycol (miraLAX PACKET) 17 gm DAILY PO 10/21/19 09:00 10/21/19 09:21 Potassium Chloride (Klor-Con) 20 meq TIDWMEALS PO 10/21/19 08:00 10/21/19 09:21 Prednisone (Prednisone) 20 mg DAILY PO 10/21/19 09:00 10/21/19 09:21 Ascorbic Acid (Vitamin C) 1,000 mg DAILY PO 10/21/19 09:00 10/21/19 09:19 Calcium Carbonate/ Glycine (Oscal) 500 mg DAILYWBKFT PO 10/21/19 08:00 10/21/19 09:20 Fenofibrate (Lofibra) 54 mg DAILY PO 10/21/19 09:00 10/21/19 09:21 Lactobacillus Rhamnosus (Culturelle) 1 cap BID PO 10/21/19 09:00 10/21/19 09:19 Fish Oil (Fish Oil) 2,000 mg DAILY PO 10/21/19 09:00 10/21/19 09:20 Justicifation of Admission Dx: Justifications for Admission: Justification of Admission Dx: Yes JASSI TREJO III DO Oct 21, 2019 11:53
[2019-10-21] MEDS ORDERED: CONTRAST GIVEN. MC PRN (12:15)
[2019-10-21] MEDS ORDERED: IOHEXOL 240 MG/ML 50ML VIAL. PO ONE (12:15)
--- NOTE | 2019-10-21 13:13 | PDOC ---
PULMONARY PROGRESS NOTES Vitals Vital Signs Date Time Temp Pulse Resp B/P (MAP) Pulse Ox O2 Delivery O2 Flow Rate FiO2 10/21/19 09:20 63 142/66 10/21/19 07:55 97.0 20 92 Nasal Cannula 3.0 97.0 General: Alert, Oriented X4, No acute distress Lungs: Crackles, Other Cardiovascular: S1, S2 Abdomen: Soft, Non-tender Extremities: No Edema Labs Laboratory Tests Test 10/20/19 15:45 10/20/19 15:55 10/20/19 17:15 White Blood Count 6.3 x10^3/uL (4.0-11.0) Red Blood Count 3.87 x10^6/uL (3.50-5.40) Hemoglobin 12.0 g/dL (12.0-15.5) Hematocrit 35.9 % (36.0-47.0) Mean Corpuscular Volume 93 fL (79-100) Mean Corpuscular Hemoglobin 31 pg (25-35) Mean Corpuscular Hemoglobin Concent 33 g/dL (31-37) Red Cell Distribution Width 14.2 % (11.5-14.5) Platelet Count 268 x10^3/uL (140-400) Neutrophils (%) (Auto) 63 % (31-73) Lymphocytes (%) (Auto) 28 % (24-48) Monocytes (%) (Auto) 7 % (0-9) Eosinophils (%) (Auto) 3 % (0-3) Basophils (%) (Auto) 0 % (0-3) Neutrophils # (Auto) 3.9 x10^3/uL (1.8-7.7) Lymphocytes # (Auto) 1.7 x10^3/uL (1.0-4.8) Monocytes # (Auto) 0.4 x10^3/uL (0.0-1.1) Eosinophils # (Auto) 0.2 x10^3/uL (0.0-0.7) Basophils # (Auto) 0.0 x10^3/uL (0.0-0.2) Prothrombin Time 12.1 SEC (11.7-14.0) Prothromb Time International Ratio 0.9 (0.8-1.1) Sodium Level 142 mmol/L (136-145) Potassium Level 4.1 mmol/L (3.5-5.1) Chloride Level 103 mmol/L (98-107) Carbon Dioxide Level 29 mmol/L (21-32) Anion Gap 10 (6-14) Blood Urea Nitrogen 15 mg/dL (7-20) Creatinine 1.4 mg/dL (0.6-1.0) Estimated GFR (Cockcroft-Gault) 36.1 BUN/Creatinine Ratio 11 (6-20) Glucose Level 114 mg/dL (70-99) Lactic Acid Level 0.7 mmol/L (0.4-2.0) Calcium Level 7.8 mg/dL (8.5-10.1) Total Bilirubin 0.3 mg/dL (0.2-1.0) Aspartate Amino Transf (AST/SGOT) 15 U/L (15-37) Alanine Aminotransferase (ALT/SGPT) 17 U/L (14-59) Alkaline Phosphatase 63 U/L (46-116) Troponin I Quantitative < 0.017 ng/mL (0.000-0.055) GY-Sgy-P-Type Natriuretic Peptide 166 pg/mL (0-449) Total Protein 6.1 g/dL (6.4-8.2) Albumin 3.2 g/dL (3.4-5.0) Albumin/Globulin Ratio 1.1 (1.0-1.7) Group A Streptococcus Rapid Negative (NEGATIVE) Urine Collection Type Unknown Urine Color Yellow Urine Clarity Clear Urine pH 5.5 (<5.0-8.0) Urine Specific [place] 1.025 (1.000-1.030) Urine Protein Negative mg/dL (NEG-TRACE) Urine Glucose (UA) Negative mg/dL (NEG) Urine Ketones (Stick) Negative mg/dL (NEG) Urine Blood Negative (NEG) Urine Nitrite Negative (NEG) Urine Bilirubin Negative (NEG) Urine Urobilinogen Dipstick 0.2 mg/dL (0.2 mg/dL) Urine Leukocyte Esterase Negative (NEG) Urine RBC 1-2 /HPF (0-2) Urine WBC 5-10 /HPF (0-4) Urine Squamous Epithelial Cells Few /LPF Urine Bacteria Few /HPF (0-FEW) Urine Hyaline Casts Moderate /HPF Urine Mucus Slight /LPF Laboratory Tests Test 10/20/19 15:45 10/20/19 15:55 6/30/20 17:15 White Blood Count 6.3 x10^3/uL (4.0-11.0) Red Blood Count 3.87 x10^6/uL (3.50-5.40) Hemoglobin 12.0 g/dL (12.0-15.5) Hematocrit 35.9 % (36.0-47.0) Mean Corpuscular Volume 93 fL (79-100) Mean Corpuscular Hemoglobin 31 pg (25-35) Mean Corpuscular Hemoglobin Concent 33 g/dL (31-37) Red Cell Distribution Width 14.2 % (11.5-14.5) Platelet Count 268 x10^3/uL (140-400) Neutrophils (%) (Auto) 63 % (31-73) Lymphocytes (%) (Auto) 28 % (24-48) Monocytes (%) (Auto) 7 % (0-9) Eosinophils (%) (Auto) 3 % (0-3) Basophils (%) (Auto) 0 % (0-3) Neutrophils # (Auto) 3.9 x10^3/uL (1.8-7.7) Lymphocytes # (Auto) 1.7 x10^3/uL (1.0-4.8) Monocytes # (Auto) 0.4 x10^3/uL (0.0-1.1) Eosinophils # (Auto) 0.2 x10^3/uL (0.0-0.7) Basophils # (Auto) 0.0 x10^3/uL (0.0-0.2) Prothrombin Time 12.1 SEC (11.7-14.0) Prothromb Time International Ratio 0.9 (0.8-1.1) Sodium Level 142 mmol/L (136-145) Potassium Level 4.1 mmol/L (3.5-5.1) Chloride Level 103 mmol/L (98-107) Carbon Dioxide Level 29 mmol/L (21-32) Anion Gap 10 (6-14) Blood Urea Nitrogen 15 mg/dL (7-20) Creatinine 1.4 mg/dL (0.6-1.0) Estimated GFR (Cockcroft-Gault) 36.1 BUN/Creatinine Ratio 11 (6-20) Glucose Level 114 mg/dL (70-99) Lactic Acid Level 0.7 mmol/L (0.4-2.0) Calcium Level 7.8 mg/dL (8.5-10.1) Total Bilirubin 0.3 mg/dL (0.2-1.0) Aspartate Amino Transf (AST/SGOT) 15 U/L (15-37) Alanine Aminotransferase (ALT/SGPT) 17 U/L (14-59) Alkaline Phosphatase 63 U/L (46-116) Troponin I Quantitative < 0.017 ng/mL (0.000-0.055) PT-Gpw-B-Type Natriuretic Peptide 166 pg/mL (0-449) Total Protein 6.1 g/dL (6.4-8.2) Albumin 3.2 g/dL (3.4-5.0) Albumin/Globulin Ratio 1.1 (1.0-1.7) Group A Streptococcus Rapid Negative (NEGATIVE) Urine Collection Type Unknown Urine Color Yellow Urine Clarity Clear Urine pH 5.5 (<5.0-8.0) Urine Specific [place] 1.025 (1.000-1.030) Urine Protein Negative mg/dL (NEG-TRACE) Urine Glucose (UA) Negative mg/dL (NEG) Urine Ketones (Stick) Negative mg/dL (NEG) Urine Blood Negative (NEG) Urine Nitrite Negative (NEG) Urine Bilirubin Negative (NEG) Urine Urobilinogen Dipstick 0.2 mg/dL (0.2 mg/dL) Urine Leukocyte Esterase Negative (NEG) Urine RBC 1-2 /HPF (0-2) Urine WBC 5-10 /HPF (0-4) Urine Squamous Epithelial Cells Few /LPF Urine Bacteria Few /HPF (0-FEW) Urine Hyaline Casts Moderate /HPF Urine Mucus Slight /LPF Medications Active Scripts Medications Dose Route/Sig Max Daily Dose Days Date Category Pantoprazole Sodium (Pantoprazole Sodium) 40 Mg Tablet.dr 40 Mg PO DAILYAC 30 09/30/19 Rx Prednisone 20 Mg Tablet 20 Mg PO DAILY 5 09/30/19 Rx Guaifenesin 100 Mg/5 Ml Liquid 200 Mg PO PRN Q4HRS PRN 30 09/30/19 Rx Tylenol (Acetaminophen) 325 Mg Tablet 650 Mg PO PRN Q4HRS PRN 30 09/30/19 Rx Doxycycline Hyclate 100 Mg Tablet 100 Mg PO BID 5 09/30/19 Rx [place] 5-325 Tablet (Acetaminophen/Hydrocodone Bitart) 1 Each Tablet 1 Tab PO PRN TID PRN 6 09/30/19 Rx Aspirin 81 Mg Tab.chew 1 Tab PO DAILY 10/29/17 Reported Spiriva (Tiotropium [place]) 18 Mcg Cap.w.dev 2 Inh IH DAILY 02/28/15 Reported Coreg (Carvedilol) 3.125 Mg Tablet 3.125 Mg PO BIDWMEALS 12/10/14 Rx Simethicone 80 Mg Tab.chew 80 Mg PO PRN DAILY PRN 30 05/17/14 Rx Acidophilus-Pectin Capsule (Lactobacillus Acidophilus/Pect) 1 Cap Capsule 1 Cap PO BID 05/17/14 Rx Flonase (Fluticasone Propionate) 16 Gm [place].susp 2 [place] NS DAILY 05/15/14 Reported Potassium Chloride (Potassium Chloride) 20 Meq Tablet.er 20 Meq PO TID 03/01/14 Reported Crestor (Rosuvastatin Calcium) 40 Mg Tablet 1 Tab PO HS 03/01/14 Reported Fish Oil + D3 Softgel ([place]-3S/Dha/Epa/Fish Oil/D3) 1 Each Capsule 2 Each PO DAILY 03/01/14 Reported Calcium (Calcium Carbonate) 600 Mg Tablet 600 Mg PO DAILY 03/01/14 Reported Vitamin C (Ascorbic Acid) 1,000 Mg Tablet 1,000 Mg PO DAILY 03/01/14 Reported Vitamin D (Cholecalciferol (Vitamin D3)) 1,000 Unit Tablet 1,000 Unit PO DAILY 03/01/14 Reported Miralax (Polyethylene Glycol 3350) 119 Gm Powder 17 Gm PO DAILY 03/01/14 Reported Furosemide 40 Mg Tablet 1 Tab PO BID 03/01/14 Reported B-12 (Cyanocobalamin (Vitamin B-12)) 1,000 Mcg Tablet 500 Mcg PO DAILY 03/01/14 Reported Tricor (Fenofibrate Nanocrystallized) 48 Mg Tablet 54 Mg PO DAILY 03/01/14 Reported NITROGLYCERIN SubLingual (Nitroglycerin) 0.4 Mg Tab.subl 0.4 Mg SL PRN Q5MIN PRN 03/01/14 Reported Cozaar (Losartan Potassium) 25 Mg Tablet 1 Tab PO DAILY 03/01/14 Reported Duoneb 0.5-3(2.5) Mg/3 Ml (Albuterol/Ipratropium) 3 Ml Ampul.neb 3 Ml IH 03/01/14 Reported Advair 500-50 Diskus (Fluticasone/Salmeterol) 1 Each Disk.w.dev 1 Puff IH BID 03/01/14 Reported Impression . Full note dictated concur with current medical management possible discharge in the a.m. mild acute exacerbation of COPD MARYLIN VASQUEZ MD Oct 21, 2019 13:13
--- NOTE | 2019-10-21 13:23 | CONS ---
DATE OF CONSULTATION: 10/21/2019 ATTENDING PHYSICIAN: Doc Martinez DO REASON FOR CONSULTATION: The patient seen in pulmonary consultation at the request of Dr. Martinez for increasing shortness of air. HISTORY OF PRESENT ILLNESS: The patient is an 79-year-old well known to me from previous hospitalization. She has underlying COPD, presented with increasing shortness of breath over the last 2-3 days. No fever, chills or night sweats. She was actually hospitalized early part of September with similar type of complaints. At that time, it was felt to be related to exacerbation of chronic obstructive pulmonary disease and underlying morbid obesity. The patient presents today. She is on chronic oxygen supplementation at home, approximately 2 liters. Denies fever, chills, nausea or vomiting. No COVID-19 exposures. PAST MEDICAL HISTORY: COPD, chronic respiratory failure, obstructive sleep apnea, gastroesophageal reflux, dyslipidemia, chronic kidney disease, morbid obesity. PAST SURGICAL HISTORY: Tonsillectomy, cholecystectomy. ALLERGIES: PENICILLIN, SULFA. REVIEW OF SYSTEMS: As indicated in the history of present illness. Otherwise, a 10-point system was reviewed and negative. CURRENT MEDICATIONS: List was reviewed. PHYSICAL EXAMINATION: VITAL SIGNS: Stable. O2 saturation was greater than 92%. HEENT: Eyes, the sclerae were nonicteric. NECK: Jugular venous distention was not elevated. No lymphadenopathy. CHEST: Full expansion. LUNGS: Adequate flow with no wheezes. CARDIOVASCULAR: Regular rate and rhythm with S1, S2, no S3. ABDOMEN: Soft, nontender, nondistended. EXTREMITIES: No clubbing, cyanosis or edema. LABORATORY DATA: Reviewed. White count was normal. Hemoglobin and hematocrit were noted. Electrolytes were noted. BUN and creatinine were noted. Troponin was not elevated. Chest x-ray was reviewed. Minimal left sided atelectasis. IMPRESSION: 1. Progressive dyspnea secondary to acute exacerbation of chronic obstructive pulmonary disease. 2. Acute on chronic respiratory failure. 3. Morbid obesity. 4. Multiple other comorbidities as listed above. PLAN: Suspect the patient's respiratory status has deteriorated secondary to acute exacerbation of chronic obstructive pulmonary disease, acute nonspecific bronchitis, and abdominal distention. The patient does complain of abdominal discomfort. She is scheduled to be evaluated by the [facility]. From my standpoint of view, she could be discharged home within next 24 hours. I do appreciate the privilege in sharing in the patient's care. MARYLIN VASQUEZ MD DR: Otoniel JOB#: [id number] / [id number]
[2019-10-21 15:00] VITALS: BP 138/85
--- NOTE | 2019-10-21 15:53 | RAD ---
Examination: CT ABD PEL W/ORAL CONTRST ONLY History: Reason: abdominal distention, lower abd discomfort, eval ventral hernia / Spl. Instructions: / History: Comparison/Correlation: 05/12/2014 CT abdomen and pelvis Findings: Axial images of the abdomen and pelvis are obtained following oral contrast. Sagittal and coronal reformatted images were provided. Acetabulum is normal and bases. Minimal linear interstitial thickening or atelectasis involving the right lateral lower lung field level adjacent to the major fissure. Marked right coronary arterial calcification is present. Liver, spleen, pancreas, and adrenal glands are normal. Cholecystectomy. There are no radiopaque collecting system calculi. No hydronephrosis. Urinary bladder is unremarkable. No enlarged abdominal or pelvic lymph nodes. There is a 2.6 cm in diameter infrarenal abdominal aortic aneurysm. More inferiorly, there is a 4.1 cm anteroposterior by 4.6 cm transverse fusiform infrarenal abdominal aortic aneurysm which extends to the bifurcation. At the upper abdominal midline, there is a 3 cm transverse by 1.5 cm longitudinal ventral abdominal wall hernia containing omental fat. No bowel identified within this hernia. There is no bowel obstruction. Diverticulosis of the sigmoid colon is present. No extraluminal gas. No enlarged abdominal or pelvic lymph nodes. No pelvic free fluid. Uterus is atrophic. Lumbar spine fusion with rods and screws noted at L4-5. Mild anterolisthesis of L4/L5 noted. Kyphoplasty at L2 noted. Impression: Ventral hernia contains omental fat. No extension of bowel into this ventral hernia. No bowel obstruction. Diverticulosis. No acute inflammatory findings. Infrarenal abdominal aortic aneurysms with the larger and more inferiorly measuring 4.6 cm in the axial plane. Increase in diameter of this larger more inferior aneurysm by 0.6 cm transverse is noted since the prior exam of 05/12/2014. PQRS Compliance Statement: One or more of the following individualized dose reduction techniques were utilized for this examination: 1. Automated exposure control 2. Adjustment of the mA and/or kV according to patient size 3. Use of iterative reconstruction technique Electronically signed by: Ko Gonzalez MD (10/21/2019 3:50 PM) [id number]
--- NOTE | 2019-10-21 16:41 | NUR ---
SW following. Reviewed chart and spoke with RN. [facility] Spoke with Kristi from [facility] for coordination of care. Pt COVID pending. Pt on 3l 02 and has 02 at home. PT/OT evaluation requested. Pt on oral medications. KAVYA will continue following.
[2019-10-21] MEDS ORDERED: ATORVASTATIN CALCIUM 40 MG TABLET. PO SCH (21:00)
[2019-10-21] MEDS: POLYETHYLENE GLYCOL 3350 17 GM PACKET. PO SCH (21:13)
[2019-10-21 23:00] VITALS: BP 144/68
[2019-10-22 04:00] VITALS: BP 145/66
[2019-10-22] MEDS: PANTOPRAZOLE 40 MG TABLET.DR. PO SCH (06:41)
[2019-10-22 07:52] VITALS: BP 126/61
--- NOTE | 2019-10-22 09:35 | PDOC ---
PULMONARY PROGRESS NOTES Subjective Patient feels better, concerned about recurrent shortness of Vitals Vital Signs Date Time Temp Pulse Resp B/P (MAP) Pulse Ox O2 Delivery O2 Flow Rate FiO2 10/22/19 07:52 97.9 65 18 126/61 (82) 100 Nasal Cannula 3.0 97.9 General: Alert, Oriented X4, No acute distress Lungs: Clear, Crackles, Other Cardiovascular: S1, S2 Abdomen: Soft, Non-tender Neuro Exam: Alert Extremities: No Edema Skin: Warm Labs Laboratory Tests Test 10/20/19 15:45 10/20/19 15:50 10/20/19 15:55 10/20/19 17:15 White Blood Count 6.3 x10^3/uL (4.0-11.0) Red Blood Count 3.87 x10^6/uL (3.50-5.40) Hemoglobin 12.0 g/dL (12.0-15.5) Hematocrit 35.9 % (36.0-47.0) Mean Corpuscular Volume 93 fL (79-100) Mean Corpuscular Hemoglobin 31 pg (25-35) Mean Corpuscular Hemoglobin Concent 33 g/dL (31-37) Red Cell Distribution Width 14.2 % (11.5-14.5) Platelet Count 268 x10^3/uL (140-400) Neutrophils (%) (Auto) 63 % (31-73) Lymphocytes (%) (Auto) 28 % (24-48) Monocytes (%) (Auto) 7 % (0-9) Eosinophils (%) (Auto) 3 % (0-3) Basophils (%) (Auto) 0 % (0-3) Neutrophils # (Auto) 3.9 x10^3/uL (1.8-7.7) Lymphocytes # (Auto) 1.7 x10^3/uL (1.0-4.8) Monocytes # (Auto) 0.4 x10^3/uL (0.0-1.1) Eosinophils # (Auto) 0.2 x10^3/uL (0.0-0.7) Basophils # (Auto) 0.0 x10^3/uL (0.0-0.2) Prothrombin Time 12.1 SEC (11.7-14.0) Prothromb Time International Ratio 0.9 (0.8-1.1) Sodium Level 142 mmol/L (136-145) Potassium Level 4.1 mmol/L (3.5-5.1) Chloride Level 103 mmol/L (98-107) Carbon Dioxide Level 29 mmol/L (21-32) Anion Gap 10 (6-14) Blood Urea Nitrogen 15 mg/dL (7-20) Creatinine 1.4 mg/dL (0.6-1.0) Estimated GFR (Cockcroft-Gault) 36.1 BUN/Creatinine Ratio 11 (6-20) Glucose Level 114 mg/dL (70-99) Lactic Acid Level 0.7 mmol/L (0.4-2.0) Calcium Level 7.8 mg/dL (8.5-10.1) Total Bilirubin 0.3 mg/dL (0.2-1.0) Aspartate Amino Transf (AST/SGOT) 15 U/L (15-37) Alanine Aminotransferase (ALT/SGPT) 17 U/L (14-59) Alkaline Phosphatase 63 U/L (46-116) Troponin I Quantitative < 0.017 ng/mL (0.000-0.055) UJ-Nee-Y-Type Natriuretic Peptide 166 pg/mL (0-449) Total Protein 6.1 g/dL (6.4-8.2) Albumin 3.2 g/dL (3.4-5.0) Albumin/Globulin Ratio 1.1 (1.0-1.7) Coronavirus (COVID-19)(PCR) Not detected (NOT DETECT.) Group A Streptococcus Rapid Negative (NEGATIVE) Urine Collection Type Unknown Urine Color Yellow Urine Clarity Clear Urine pH 5.5 (<5.0-8.0) Urine Specific [place] 1.025 (1.000-1.030) Urine Protein Negative mg/dL (NEG-TRACE) Urine Glucose (UA) Negative mg/dL (NEG) Urine Ketones (Stick) Negative mg/dL (NEG) Urine Blood Negative (NEG) Urine Nitrite Negative (NEG) Urine Bilirubin Negative (NEG) Urine Urobilinogen Dipstick 0.2 mg/dL (0.2 mg/dL) Urine Leukocyte Esterase Negative (NEG) Urine RBC 1-2 /HPF (0-2) Urine WBC 5-10 /HPF (0-4) Urine Squamous Epithelial Cells Few /LPF Urine Bacteria Few /HPF (0-FEW) Urine Hyaline Casts Moderate /HPF Urine Mucus Slight /LPF Medications Active Scripts Medications Dose Route/Sig Max Daily Dose Days Date Category Pantoprazole Sodium (Pantoprazole Sodium) 40 Mg Tablet.dr 40 Mg PO DAILYAC 30 09/30/19 Rx Prednisone 20 Mg Tablet 20 Mg PO DAILY 5 09/30/19 Rx Guaifenesin 100 Mg/5 Ml Liquid 200 Mg PO PRN Q4HRS PRN 30 09/30/19 Rx Tylenol (Acetaminophen) 325 Mg Tablet 650 Mg PO PRN Q4HRS PRN 30 09/30/19 Rx Doxycycline Hyclate 100 Mg Tablet 100 Mg PO BID 5 09/30/19 Rx [place] 5-325 Tablet (Acetaminophen/Hydrocodone Bitart) 1 Each Tablet 1 Tab PO PRN TID PRN 6 09/30/19 Rx Aspirin 81 Mg Tab.chew 1 Tab PO DAILY 10/29/17 Reported Spiriva (Tiotropium Alloy) 18 Mcg Cap.w.dev 2 Inh IH DAILY 02/28/15 Reported Coreg (Carvedilol) 3.125 Mg Tablet 3.125 Mg PO BIDWMEALS 12/10/14 Rx Simethicone 80 Mg Tab.chew 80 Mg PO PRN DAILY PRN 30 05/17/14 Rx Acidophilus-Pectin Capsule (Lactobacillus Acidophilus/Pect) 1 Cap Capsule 1 Cap PO BID 05/17/14 Rx Flonase (Fluticasone Propionate) 16 Gm [place].susp 2 [place] NS DAILY 05/15/14 Reported Potassium Chloride (Potassium Chloride) 20 Meq Tablet.er 20 Meq PO TID 03/01/14 Reported Crestor (Rosuvastatin Calcium) 40 Mg Tablet 1 Tab PO HS 03/01/14 Reported Fish Oil + D3 Softgel ([place]-3S/Dha/Epa/Fish Oil/D3) 1 Each Capsule 2 Each PO DAILY 03/01/14 Reported Calcium (Calcium Carbonate) 600 Mg Tablet 600 Mg PO DAILY 03/01/14 Reported Vitamin C (Ascorbic Acid) 1,000 Mg Tablet 1,000 Mg PO DAILY 03/01/14 Reported Vitamin D (Cholecalciferol (Vitamin D3)) 1,000 Unit Tablet 1,000 Unit PO DAILY 03/01/14 Reported Miralax (Polyethylene Glycol 3350) 119 Gm Powder 17 Gm PO DAILY 03/01/14 Reported Furosemide 40 Mg Tablet 1 Tab PO BID 03/01/14 Reported B-12 (Cyanocobalamin (Vitamin B-12)) 1,000 Mcg Tablet 500 Mcg PO DAILY 03/01/14 Reported Tricor (Fenofibrate Nanocrystallized) 48 Mg Tablet 54 Mg PO DAILY 03/01/14 Reported NITROGLYCERIN SubLingual (Nitroglycerin) 0.4 Mg Tab.subl 0.4 Mg SL PRN Q5MIN PRN 03/01/14 Reported Cozaar (Losartan Potassium) 25 Mg Tablet 1 Tab PO DAILY 03/01/14 Reported Duoneb 0.5-3(2.5) Mg/3 Ml (Albuterol/Ipratropium) 3 Ml Ampul.neb 3 Ml IH 03/01/14 Reported Advair 500-50 Diskus (Fluticasone/Salmeterol) 1 Each Disk.w.dev 1 Puff IH BID 03/01/14 Reported Impression . IMPRESSION: 1. Progressive dyspnea secondary to acute exacerbation of chronic obstructive pulmonary disease. 2. Acute on chronic respiratory failure. 3. Morbid obesity. 4. Multiple other comorbidities as listed above. Plan . Long discussion with patient and son, they are concerned that she is going to have recurrent shortness of air and readmission I tried to reassure them that she should monitor her salt intake continue diuretics Continue physical therapy and try to lose some weight Discharge home today MARYLIN VASQUEZ MD Oct 22, 2019 09:35
[2019-10-22] MEDS: POLYETHYLENE GLYCOL 3350 17 GM PACKET. PO SCH (09:58)
[2019-10-22] MEDS: OMEGA-3 FATTY ACIDS/FISH OIL 1,000 MG CAPSULE. PO SCH (09:58)
[2019-10-22] MEDS: ASPIRIN CHEWABLE 81 MG TABLET. PO SCH (09:58)
[2019-10-22] MEDS: FENOFIBRATE 54 MG TABLET. PO SCH (09:58)
[2019-10-22] MEDS: ASCORBIC ACID 500 MG TABLET PO SCH (09:58)
[2019-10-22] MEDS: LACTOBACILLUS RHAMNOSUS GG 1 CAPSULE. PO SCH (09:59)
[2019-10-22] MEDS: CARVEDILOL 3.125 MG TABLET. PO SCH (09:59)
[2019-10-22] MEDS: CHOLECALCIFEROL (VITAMIN D3) 1,000 UNIT TABLET PO SCH (09:59)
[2019-10-22] MEDS: predniSONE 20 MG TABLET PO SCH (09:59)
[2019-10-22] MEDS: POTASSIUM CHLORIDE 20 MEQ TABLET.ER. PO SCH ×3 (09:59→15:56)
[2019-10-22] MEDS: CALCIUM CARBONATE 500 MG TABLET PO SCH (09:59)
[2019-10-22] MEDS: FUROSEMIDE 40 MG TABLET. PO SCH ×2 (10:00→15:56)
[2019-10-22] MEDS: LOSARTAN POTASSIUM 25 MG TABLET. PO SCH (10:00)
[2019-10-22] MEDS: FLUTICASONE 50MCG/NASAL SPRAY 16GM BOTTLE. NS SCH (10:01)
[2019-10-22] MEDS: CYANOCOBALAMIN (VITAMIN B-12) 1,000 MCG TABLET. PO SCH (10:01)
--- NOTE | 2019-10-22 10:26 | PDOC ---
Subjective: Subjective: Had some LLQ pain this morning - better after Gas-X and stooling ("blowout"). Son details how she was moving around without issue with therapy a couple days prior to admission, then the next day she was "breathing like a fish out of water" with leg swelling. They both wonder if abdominal distention could cause breathing issues. Have been told by ER physicians that her oxygen sat is normal and her lungs sound find so shortness of breath isn't a pulmonary problem. She also mentions a "lump" near anus - present x 1.5 years - "a nurse said it was a blackhead." Looked for a picture on her phone but couldn't find it. Also h/o hemorrhoids - painful, occasionally bleed (small amount of red blood on toilet tissue, once in stool) - last occurred 5 days ago. Wondering if hemorrhoids or lump contribute to shortness of breath. Says she's not interested in hernia repair. Objective: Vital Signs: Vital Signs Date Time Temp Pulse Resp B/P (MAP) Pulse Ox O2 Delivery O2 Flow Rate FiO2 10/22/19 10:00 65 126/61 10/22/19 08:00 Nasal Cannula 3.0 10/22/19 07:52 97.9 18 100 97.9 Labs: URINE CULTURE Preliminary Preliminary 20,000 CFU/ML GRAM POSITIVE COCCI on 10/22/19 at 0940 PRELIMINARY ID= [[email or web address] [email or web address]] Imaging: CT A/P w/ PO contrast 10/21/19 Acetabulum is normal and bases. Minimal linear interstitial thickening or atele ctasis involving the right lateral lower lung field level adjacent tothe major fissure. Marked right coronary arterial calcification is present. Liver, spleen, pancreas, and adrenal glands are normal. Cholecystectomy. There are no radiopaque collecting system calculi. No hydronephrosis. Urinary bladder is unremarkable. No enlarged abdominal or pelvic lymph nodes. There is a 2.6 cm in diameter infrarenal abdominal aortic aneurysm. More inferiorly, there is a 4.1 cm anteroposterior by 4.6 cm transverse fusiform infrarenal abdominal aortic aneurysm which extends to the bifurcation. At the upper abdominal midline, there is a 3 cm transverse by 1.5 cm longitudinal ventral abdominal wall hernia containing omental fat. No bowel identified within this hernia. There is no bowel obstruction. Diverticulosis of the sigmoid colon is present. No extraluminal gas. No enlarged abdominal or pelvic lymph nodes. No pelvic free fluid. Uterus is atrophic. Lumbar spine fusion with rods and screws noted at L4-5. Mild anterolisthesis of L4/L5 noted. Kyphoplasty at L2 noted. Impression: Ventral hernia contains omental fat. No extension of bowel into this ventral hernia. No bowel obstruction. Diverticulosis. No acute inflammatory findings. Infrarenal abdominal aortic aneurysms with the larger and more inferiorly measuring 4.6 cm in the axial plane. Increase in diameter of this larger more inferior aneurysm by 0.6 cm transverse is noted since the prior exam of 05/12/2014. PE: GEN: NAD - up in chair, son present LUNGS: diminished anteriorly, NC HEART: RRR ABD: ventral hernia uncomfortable NEURO/PSYCH: A & O 3 A/P: Shortness of breath, abdominal distention - recurrent GERD, constipation, hemorrhoids, ventral hernia UTI - per primary H/o COPD, CHF, CAD, CKD, AAA COVID-19 negative -- Unlikely GI issues is causing shortness of breath. Abd distention probably m ulti-factorial - ?aerophagia - also GERD, ?IBS... Will review "lump" issue and CT w/ Dr. Renee. Son will be here all day - will return to discuss all. Justicifation of Admission Dx: Justifications for Admission: Justification of Admission Dx: Yes MATTHEW PENNINGTON Oct 22, 2019 10:26
--- NOTE | 2019-10-22 11:08 | PDOC ---
[facility] PROGRESS NOTE Chief Complaint Chief Complaint Respiratory failure Possible COVID-19 CAD, constipation, COPD, GERD, hyperlipidemia, renal disease, appendectomy, cholecystectomy, tonsillectomy, cardiac stents, back surgery, previous tobacco abuse. History of Present Illness History of Present Illness 10/22/2019 Patient seen and examined Her son Demetrio is here I discussed the case with cardiology at the bedside as well Discussed with RN Chart reviewed Patient seems to be at her baseline I think she can probably go home if okay with pulmonary and cardiology agrees as well 10/21/2019 Patient seen and examined on the COVID-19 unit Chart reviewed Discussed with RN Vitals/I&O Vitals/I&O: Vital Signs Date Time Temp Pulse Resp B/P (MAP) Pulse Ox O2 Delivery O2 Flow Rate FiO2 10/22/19 10:00 65 126/61 10/22/19 08:00 Nasal Cannula 3.0 10/22/19 07:52 97.9 18 100 97.9 I & O 10/21/19 10/21/19 10/22/19 15:00 23:00 07:00 Intake Total 500 ml Balance 500 ml Physical Exam General: Alert, Oriented X3, Cooperative, No acute distress Heart: Other Lungs: Crackles, Other Abdomen: Soft Extremities: No cyanosis Skin: No breakdown Assessment and Plan Assessmemt and Plan Problems Medical Problems: (1) Dyspnea on exertion Status: Acute (2) Shortness of breath Status: Acute Severe respiratory failure with possible COVID-19 CAD, constipation, COPD, GERD, hyperlipidemia, renal disease, appendectomy, cholecystectomy, tonsillectomy, cardiac stents, back surgery, previous tobacco abuse. Plan Continue current treatment but I think she can go home this afternoon GI and ca rdiology agree Comment Review of Relevant I have reviewed the following items oneil (where applicable) has been applied. Medications: Current Medications Medications (Trade) Dose Ordered Sig/Deidra Route PRN Reason Start Time Stop Time Status Last Admin Dose Admin Atorvastatin Calcium (Lipitor) 80 mg HS PO 10/21/19 21:00 10/21/19 21:13 Polyethylene Glycol (miraLAX PACKET) 17 gm BID PO 10/21/19 21:00 10/22/19 09:58 Iohexol (Omnipaque 240 Mg/ml) 30 ml 1X ONCE PO 10/21/19 12:15 10/21/19 12:16 DC 10/21/19 12:15 Justicifation of Admission Dx: Justifications for Admission: Justification of Admission Dx: Yes JASSI TREJO III DO Oct 22, 2019 11:08
--- NOTE | 2019-10-22 11:10 | SNU/HH DC ---
DISCHARGE WITH HOME HEALTH DISCHARGE INFORMATION: Final Diagnosis: Problems Medical Problems: (1) Dyspnea on exertion Status: Acute (2) Shortness of breath Status: Acute Condition on Discharge: Stable CODE STATUS: Code Status: Full HOME HEALTH: Face to Face: I certify this patient is under my care and that I, or a nurse practitioner or physician's tourist information assistant working with me, had a face to face encounter that meets the physician face to face encounter requirements with this patient on []. Medical Complications: COPD RN For Eval/Treatment: Yes Physical Therapy For: Evalulation/Treatment Speech Language Pathology For: Evaluation/Treatment Home Health Aide For: Self-care R[employer]ARY [employer] TENDER For: Community Resources Pt Meets Homebound Status: Poor coordination w/ amb. POST DISCHARGE ORDERS: Activity Instructions for Disc: Activity as tolerated Weight Bearing Status after Di: As tolerated DIET AFTER DISCHARGE: Cardiac Wound/Incision Care: No wound care needed CHECKS AFTER DISCHARGE: Checks after discharge: Check blood press - daily, Check your Temp as needed, Weigh Yourself Daily TREATMENT/EQUIPMENT ORDERS: Adaptive Equipment Issued: None Discharge Respiratory Equipmen: Oxygen, Nebulizer CERTIFICATION STATEMENT: Certification Statement: Certification Statement: Based on the above finding, I certify that this patient is confined to the home and needs intermittent long-term care, physical therapy and/or speech therapy, or continues to need occupational therapy.~ This patient is under my care, and I have initiated the establishment of the plan of care.~ This patient will be followed by myself or a community physician who will periodically review the plan of care. Home Meds Active Scripts Pantoprazole Sodium (PANTOPRAZOLE SODIUM ) 40 Mg Tablet.dr, 40 MG PO DAILYAC for GERD for 30 Days, #30 TAB.SR Prov:SRIRAM POLLARD MD 09/30/19 Prednisone (PREDNISONE) 20 Mg Tablet, 20 MG PO DAILY for COPD for 5 Days, #5 TAB Prov:SRIRAM POLLARD MD 09/30/19 Guaifenesin (GUAIFENESIN) 100 Mg/5 Ml Liquid, 200 MG PO PRN Q4HRS PRN for COUGH, 1st CHOICE for 30 Days, #240 LIQUID Prov:SRIRAM POLLARD MD 09/30/19 Acetaminophen (TYLENOL) 325 Mg Tablet, 650 MG PO PRN Q4HRS PRN for TEMP OVER 100.4F OR MILD PAIN for 30 Days, #120 TAB Prov:SRIRAM POLLARD MD 09/30/19 Doxycycline Hyclate (DOXYCYCLINE HYCLATE) 100 Mg Tablet, 100 MG PO BID for Bronchitis for 5 Days, #10 TAB Prov:SRIRAM POLLARD MD 09/30/19 Hydrocodone/Ap[place] 5-325 (NORCO 5-325 TABLET) 1 Each Tablet, 1 TAB PO PRN TID PRN for PAIN for 6 Days, #16 TAB Prov:SRIRAM POLLARD MD 09/30/19 Carvedilol (COREG ) 3.125 Mg Tablet, 3.125 MG PO BIDWMEALS, #30 Prov:ALEXANDRA TORO MD 12/10/14 Simethicone (SIMETHICONE) 80 Mg Tab.chew, 80 MG PO PRN DAILY PRN for PAIN for 30 Days, TAB.CHEW 3 Refills Prov:KATHY GAMBINO MD 05/17/14 Lactobacillus Acidophilus/Pect (ACIDOPHILUS-PECTIN CAPSULE) 1 Cap Capsule, 1 CAP PO BID for DIARRHEA, #60 CAP.SR Prov:KATHY GAMBINO MD 05/17/14 Reported Medications Aspirin (ASPIRIN) 81 Mg Tab.chew, 1 TAB PO DAILY, #30 TAB 3 Refills 10/29/17 Tiotropium [place] (SPIRIVA) 18 Mcg Cap.w.dev, 2 INH IH DAILY, #1 INH 0 Refills 02/28/15 Fluticasone Propionate (FLONASE) 16 Gm [place].susp, 2 SPRAY NS DAILY, #16 GM 05/15/14 Potassium Chloride (POTASSIUM CHLORIDE ) 20 Meq Tablet.er, 20 MEQ PO TID, TAB.SR 03/01/14 Rosuvastatin Calcium (CRESTOR) 40 Mg Tablet, 1 TAB PO HS, #30 TAB 5 Refills 03/01/14 [place]-3S/Dha/Epa/Fish Oil/D3 (FISH OIL + D3 SOFTGEL) 1 Each Capsule, 2 EACH PO DAILY 03/01/14 Calcium Carbonate (CALCIUM) 600 Mg Tablet, 600 MG PO DAILY 03/01/14 Ascorbic Acid (VITAMIN C) 1,000 Mg Tablet, 1000 MG PO DAILY 03/01/14 Cholecalciferol (Vitamin D3) (VITAMIN D) 1,000 Unit Tablet, 1000 UNIT PO DAILY 11/10/14 Polyethylene Glycol 3350 (MIRALAX) 119 Gm Powder, 17 GM PO DAILY, #527 GM 03/01/14 Furosemide (FUROSEMIDE) 40 Mg Tablet, 1 TAB PO BID, #30 TAB 5 Refills 03/01/14 Cyanocobalamin (Vitamin B-12) (B-12) 1,000 Mcg Tablet, 500 MCG PO DAILY 03/01/14 Fenofibrate Nanocrystallized (TRICOR) 48 Mg Tablet, 54 MG PO DAILY, TAB 03/01/14 Nitroglycerin (NITROGLYCERIN SubLingual) 0.4 Mg Tab.subl, 0.4 MG SL PRN Q5MIN PRN for CHEST PAIN, BOTTLE 03/01/14 Losartan Potassium (COZAAR ) 25 Mg Tablet, 1 TAB PO DAILY, #30 TAB 5 Refills 03/01/14 Ipratropium/Albuterol Sulfate (DUONEB 0.5-3(2.5) MG/3 ML) 3 Ml Ampul.neb, 3 ML IH 03/01/14 Fluticasone/Salmeterol (ADVAIR 500-50 DISKUS) 1 Each Disk.w.dev, 1 PUFF IH BID, #1 INHALER 5 Refills 03/01/14 JASSI TREJO III DO Oct 22, 2019 11:10
--- NOTE | 2019-10-22 11:38 | PDOC ---
LEONORA VELEZ BODILY INJURY ADJUSTER 10/22/19 1138: CARDIO Progress Notes Date and Time Date of Service 10/22/2019 Time of Evaluation 0950 Subjective Subjective: No Chest Pain, No shortness of breath, No Palpitations Vitals Vitals Vital Signs Date Time Temp Pulse Resp B/P (MAP) Pulse Ox O2 Delivery O2 Flow Rate FiO2 10/22/19 10:00 65 126/61 10/22/19 08:00 Nasal Cannula 3.0 10/22/19 07:52 97.9 18 100 97.9 Weight Weight [ ] Input and Output Intake and Output Intake and Output 10/22/19 07:00 Intake Total 500 ml Balance 500 ml Intake Oral 500 ml # Voids 2 # Bowel Movements 3 Microbiology Micro Microbiology 10/20/19 Urine Culture - Preliminary, Resulted 10/20/19 Nose/Throat Culture - Preliminary, Resulted 10/20/19 Blood Culture - Preliminary, Resulted NO GROWTH AFTER 1 DAY Physical Exam HEENT: Neck Supple W Full Motion Chest: Symmetric LUNGS: Other (diminished, O2 2L, CPAP in room) Heart: RRR (SR) Abdomen: Soft N/T Extremities: No Calf Tenderness Neurology: alert, oriented, follow commands Assessment Assessment 1. Acute respiratory failure with AECOPD Covid neg 2. Chronic diastolic CHF: recent EF at 55%. pro NT BNP 166, dyspnea more from COPD and ALEE 3. CAD; s/p past PCI/stents. Cath with one vessel CAD of the RCA, negative iFR, clinically stable 4. Hypertension; controlled 5. Hyperlipidemia 6. AAA: 01/2019 4.1 cm, stable 7. ALEE; CPAP use 8. Chronic RBBB 9. Abdominal pain and fullness: concern about hernia, GI following Recommendations Continue lasix and current BP regimen Pulmonary treatment, continue O2 and CPAP use Secondary prevention measures Justicifation of Admission Dx: Justifications for Admission: Justification of Admission Dx: Yes MARIELA MELÉNDEZ MD 10/22/19 1619: CARDIO Progress Notes Plan Plan Patient seen and examined. Agree with above nurse practitioner note. I had a very long conversation with the patient and her son regards to the recurrent heart failure admissions. I suspect it is a combination of COPD, diastolic heart failure and anxiety After long discussion the patient would like to consider evaluation by the palliative care/hospice team. Order has been placed At this present time continue diuretics as tolerated currently she appears to be euvolemic. Discussed with her regarding the need for low-salt diet. Continue aggressive pulmonary care. Thank you for this consultation. LEONORA VELEZ APRN Oct 22, 2019 11:38 MARIELA MELÉNDEZ MD Oct 22, 2019 16:19
[2019-10-22 11:45] VITALS: BP 109/47
--- NOTE | 2019-10-22 12:06 | DS ---
DATE OF DISCHARGE: 10/22/2019 ADMISSION DIAGNOSES: Respiratory failure with probable congestive heart failure and chronic obstructive pulmonary disease and possible COVID-19. DISCHARGE DIAGNOSIS: Resolving respiratory failure. HOSPITAL COURSE: The patient is a pleasant elderly female who presented with multifactorial respiratory failure. She was admitted. I consulted Pulmonary and Cardiology and GI because she also has some abdominal distention. This morning, I saw her and examined her, she is at her baseline. Heart tones are normal. Lungs are clear. I discussed the case with Cardiology and her nurse. We plan to discharge if okay with Pulmonary Medicine. DISPOSITION: Home. ACTIVITY: As tolerated. DIET: Low sodium. MEDICATIONS: Please see MRAD. TOTAL TIME: 32 minutes. JASSI TREJO DO DR: SHAKIR/sadia JOB#: [id number] / [id number]
--- NOTE | 2019-10-22 12:18 | NUR ---
SS following up with discharge planning. SS reviewed pt chart and discussed with pt RN. Discharge order on the chart for home with home healthcare. SS phoned and faxed referral and discharge orders to [facility], ; fax [phone]. Pt has home oxygen at home. Pt's RN notified.
[2019-10-22] MEDS ORDERED: IPRATRPIUM/ALBUTEROL 0.5/2.5MG 3 ML NEBU. ONE (13:59)
[2019-10-22] MEDS ORDERED: IPRATRPIUM/ALBUTEROL 0.5/2.5MG 3 ML NEBU. NEB ONE (14:30)
[2019-10-22 15:39] VITALS: BP 112/35
--- NOTE | 2019-10-22 17:34 | NUR ---
Discharge Note: VASYL GAVIRIA [address] Discharge instructions and discharge home medications reviewed with Patient and a copy given. All questions have been answered and understanding verbalized. The following instructions and handouts were given: follow up instructions, prescriptions for z-pack, mucinex. Discontinued lines and drains: 20 gauge left ac, tip intact. patient tolerated well. Patient discharged to home with self care via family.
[2019-10-22] MEDS ORDERED: IPRATRPIUM/ALBUTEROL 0.5/2.5MG 3 ML NEBU. NEB SCH (20:00)
== END 2019-10-22 17:24 | disposition home health service (06) | DRG 189 ==
LOC: ER 14:58 → ED HOLD 19:15 → 6 SOUTH 20:54
PROVIDERS: ADMIT Internal Medicine; ATTEND Internal Medicine
DX: J96.20 Acute and chronic respiratory failure, unspecified whether with hypoxia or hypercapnia (principal); I13.0 Hypertensive heart and chronic kidney disease with heart failure and stage 1 through stage 4 chronic kidney disease, or unspecified chronic kidney disease; I50.32 Chronic diastolic (congestive) heart failure; J44.1 Chronic obstructive pulmonary disease with (acute) exacerbation; N39.0 Urinary tract infection, site not specified; E66.01 Morbid (severe) obesity due to excess calories; E78.00 Pure hypercholesterolemia, unspecified; E78.5 Hyperlipidemia, unspecified; G47.33 Obstructive sleep apnea (adult) (pediatric); I25.10 Atherosclerotic heart disease of native coronary artery without angina pectoris; I45.10 Unspecified right bundle-branch block; I71.4 Abdominal aortic aneurysm, without rupture; K21.9 Gastro-esophageal reflux disease without esophagitis; K43.9 Ventral hernia without obstruction or gangrene; K57.90 Diverticulosis of intestine, part unspecified, without perforation or abscess without bleeding; K64.9 Unspecified hemorrhoids; K76.0 Fatty (change of) liver, not elsewhere classified; N18.9 Chronic kidney disease, unspecified; R56.9 Unspecified convulsions; Z20.828 Contact with and (suspected) exposure to other viral communicable diseases; Z80.0 Family history of malignant neoplasm of digestive organs; Z82.49 Family history of ischemic heart disease and other diseases of the circulatory system; Z87.11 Personal history of peptic ulcer disease; Z87.891 Personal history of nicotine dependence; Z90.49 Acquired absence of other specified parts of digestive tract; Z95.5 Presence of coronary angioplasty implant and graft; F32.9 Major depressive disorder, single episode, unspecified; M19.90 Unspecified osteoarthritis, unspecified site; Z68.34 Body mass index [BMI] 34.0-34.9, adult
CPT/HCPCS: 36415; 71045; 74176; 80053; 81001; 83605; 83880; 84484; 85025; 85610; 87040; 87070; 87077; 87086; 87186; 87880; 93005; 94640; 96365; 99285; J3490; J7050; J7512; Q9966; G0378; J7030; U0003-CS

== ENCOUNTER → 2020-03-02 | Outpatient (CLI) | payer OTHER, MEDICAID ==
[~2020-03-02] MED LIST changes: +ZOLPIDEM 5 MG TABLET. PO ONE
== END ==
LOC: RT 19:05
PROVIDERS: ATTEND Internal Medicine Pulmonary Disease
DX: G47.33 Obstructive sleep apnea (adult) (pediatric) (principal)
CPT/HCPCS: 95811